=== PATIENT | male | born 1955 | race Caucasian/White ===

== ENCOUNTER 2019-10-17 11:47 | Emergency (ER) | payer OTHER, SELFPAY ==
[2019-10-17 11:58] VITALS: BP 135/79; PULSE 62; RESP 20; TEMP 36.3; O2SAT 100
--- NOTE | 2019-10-17 12:09 | ED.GENADULT ---
HPI - General Adult General Chief complaint: Wound/Laceration Stated complaint: Bite on Face Time Seen by Provider: 10/17/19 12:09 Source: patient and RN notes reviewed Mode of arrival: ambulatory Limitations: no limitations History of Present Illness HPI narrative: This is a 64 years old male presented office for evaluation of possible skin infection of his face. Symptoms began yesterday with a small nonpainful blackhead type lesion. Today, he woke up noticed the lesion has gotten bigger and more painful. Denies itchiness. Denies trauma/injury. He did not squeeze the lesion. Denies history of MRSA. TD is up to date. Related Data Home Medications Medication Instructions Recorded Confirmed amlodipine 10 mg tablet 10 mg PO DAILY 10/14/19 10/17/19 hydrochlorothiazide 25 mg tablet 25 mg PO DAILY 10/14/19 10/17/19 loratadine 10 mg tablet 10 mg PO DAILY 10/14/19 10/17/19 meloxicam 15 mg tablet 15 mg PO DAILY 10/14/19 10/17/19 Allergies Allergy/AdvReac Type Severity Reaction Status Date / Time crab Allergy Severe Swelling Verified 10/14/19 09:00 Penicillins Allergy Unknown Unknown Verified 10/14/19 09:00 Review of Systems Review of Systems: Narrative: CONSTITUTIONAL: Denies fever or feeling ill ENT:Reports head congestion currently on Zpack CARDIOVASCULAR: Denies chest pain RESPIRATORY: Denies dyspnea. Reports dry cough GASTROINTESTINAL: Denies abdominal pain, nausea, vomiting GENITOURINARY: Denies urinary symptoms or discharge SKIN: Denies rash MUSCULOSKELETAL: Denies acute back pain NEUROLOGIC: Denies lightheaded PMFSH Past Medical History Medical History Metatarsal bone fracture (~07/28/19) Family History Family History Sibling Patient's sister is in good health Patient's brother is in good health Mother Patient's mother is , Onset Age: 80 Family history of dementia, Onset Age: 80 Father Family history of lung cancer, Onset Age: 83 Family history of malignant neoplasm of brain, Onset Age: 83 Social History Social History Smoking status: Never smoker Second hand tobacco smoke exposure: No Alcohol intake: current Gender identity (if verbalized by the patient): Male Comments At time of signature, I agree with nursing past medical, surgical, social and family history. There is no relevant family history pertinent to the presenting complaint. Exam Narrative: Exam Narrative: GENERAL: This is a well-nourished, well-developed patient, in no apparent distress. CARDIOVASCULAR: Regular rate and rhythm without murmurs, gallops, or rubs. RESPIRATORY: Clear to auscultation. Breath sounds equal bilaterally. No wheezes, rales, or rhonchi. Occasional cough noted during examination when he take a deep breath. No use of accessory muscle or pulse lip breathing. GASTROINTESTINAL: Abdomen soft, non-tender, nondistended. Bowel sounds are active. No hepato-splenomegaly, or palpable masses. No guarding. SKIN: right check noted a tender,warmth, indurate, erythema and edematous lesion; left cheek intact. No Lymphadenitis. NEURO: awake, alert, and oriented to person, place and time. There were no obvious focal neurologic abnormalities. Steady gait Karina Coma Scale Eye Opening: Spontaneous 4 Ewing Coma Scale Motor: Obeys Commands 6 Ewing Coma Scale Verbal: Oriented 5 Course Vital Signs Vital signs: Vital Signs Temperature 97.4 F L 10/17/19 11:58 Pulse Rate 62 10/17/19 11:58 Respiratory Rate 10/17/19 11:58 Blood Pressure 135/79 10/17/19 11:58 Pulse Oximetry 100 10/17/19 11:58 Temperature 97.4 F L 10/17/19 11:58 Pulse Rate 62 10/17/19 11:58 Respiratory Rate 10/17/19 11:58 Blood Pressure 135/79 10/17/19 11:58 Pulse Oximetry 100 10/17/19 11:58 Medical Decision Making
== END 2019-10-17 12:21 | disposition home or self-care (01) ==
PROVIDERS: Emergency Provider Nurse Practitioner; PCP Internal Medicine
DX: L03.211 Cellulitis of face (principal); I10 Essential (primary) hypertension; Z98.84 Bariatric surgery status; M19.90 Unspecified osteoarthritis, unspecified site; Z96.651 Presence of right artificial knee joint; I87.8 Other specified disorders of veins
CPT/HCPCS: 99213; G0463

== ENCOUNTER 2020-01-28 10:15 | Outpatient (RCR) | payer OTHER, SELFPAY ==
--- NOTE | 2019-10-30 12:06 | PTOPEVAL ---
PHYSICAL THERAPY EVALUATION AND PLAN OF CARE Thank you for referring this patient to [facility]. I recommend Jon participate in PT 2x/week for 3-4weeks. Please review, sign, date and return this plan of care GLENDY. I agree with and certify that the following plan of care is medically necessary. Referring Physician Date Evaluation Diagnosis back pain with radiating pain to hips Onset 08/2019 Subjective Information Jon is here today with c/o Query Text:As Reported By Patient/ subacute to chronic low back Family pain that will radiate to the legs (to the knee). Reports that he wears a bulletproof vest to work and it seems to help relieve some of his symptoms and keeps him more upright. Over time the symptoms seem to have improved over time but mornings are more painful. 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 Pain Relief Interventions Used By Heat,Massage Modalities Patient Interventions Used By Clinicians Exercise,Heat Cervical and Lumbar ROM Lumbar ROM Lumbar Flexion (0-90) 30 Query Text:Active in Degrees Lumbar Flexion Active Mid Soto Query Text:Hands to: Lumbar Extension (0-40) 12 Query Text:Active in Degrees Lateral Rotation Right (0-45) 15 Query Text:Active in Degrees Lateral Rotation Left (0-45) 28 Query Text:Active in Degrees Lumbar Comments left rotation noted in lumbar spine during extension Lower Extremity Muscle Strength Testing Hip Strength Bilateral Hip Flexion Strength 3- Fair - Hip Extension Strength 3+ Fair + Hip Abduction Strength 3 Fair Knee Strength Left Knee Flexion Strength 5 Normal Knee Extension Strength 5 Normal Right Knee Flexion Strength 4- Good - Knee Extension Streng
--- NOTE | 2019-11-04 07:57 | PCPTNOTE ---
Addendum entered by Marcelina Jaramillo, PT 11/04/19 07:58: Patient also cancelled appt for 11/06/2019 for working overtime. Original Note: Patient called & cancelled scheduled appointment this date due to working overtime at work.
--- NOTE | 2019-11-06 10:28 | PCPTNOTE ---
Patient called & cancelled scheduled appointment this date due to having to work.
--- NOTE | 2019-11-27 14:57 | PTOPEVAL ---
PHYSICAL THERAPY PLAN OF CARE UPDATE AND PROGRESS REPORT Thank you for referring Jon Burrell to [facility]. I recommend Jon continue PT 2x/week for 4 weeks. Please review, sign, date and return this plan of care GLENDY. I agree with and certify that the following plan of care is medically necessary. Referring Physician Date Re-evaluation Diagnosis back pain with radiating pain to hips Onset 08/2019 Subjective Information Jon reports that he is Query Text:As Reported By Patient/ improved since start of Family therapy, but feels is could benefit from further care. Pain Assessment Timing of Pain Assessment Timing of Pain Assessment Pre-Treatment Pain Scale Pain Scale Used Numeric (1 - 10) Self Report Pain Assessment Spine, Lumbar Reported Pain Level 3 Pain Description Aching,Tightness Pain Frequency Intermittent Pain Aggravating Factors Bending,Weight Bearing/ Standing Interventions Used By Clinicians Exercise Pain Score Pain Score 3: Self Report Additional Pain Score Comments much better than it was at the beginning, but today is a little more tender than it has been lately Cervical and Lumbar ROM Lumbar ROM Lumbar Flexion (0-90) 40 Query Text:Active in Degrees Lumbar Flexion Active Mid Soto Query Text:Hands to: Lumbar Extension (0-40) 18 Query Text:Active in Degrees Lateral Rotation Right (0-45) 21 Query Text:Active in Degrees Lateral Rotation Left (0-45) 28 Query Text:Active in Degrees Lower Extremity Muscle Strength Testing Hip Strength Bilateral Hip Flexion Strength 4- Good - Hip Extension Strength 3+ Fair + Hip Abduction Strength 3 Fair Hip Strength Comments left hip flexion: 3+/5 Knee Strength Left Knee Flexion Strength 5 Normal Knee Extension Strength 5 Normal Right Knee Flexion Strength 5 Normal Knee Extension Strength 4+ Good + Balance Assessment Sitting to Standing Independent w/Hands Unsupported Stance Ability Safely- 2 minutes Sitting Unsupported, Feet on Floor Safely- 2 minutes Standing to Sitting Safely, Minimal Hand Use Transfer Ability Safely, Minimal Hand Use Unsupported Stance- Eyes Closed Supervision, 10 seconds Unsupported Stance- Feet Together Independent, 1 minute Reaching Forward while Standing Safely, 5 inches set up inspector Object From Floor Independent/Safe Look Behind Shoulder - Standing Shifts Weight Unilateral Turning 360 Degrees
--- NOTE | 2019-12-29 09:08 | PCPTNOTE ---
Patient called & cancelled scheduled appointment this date due to work. He rescheduled the appointment for 01/06/2020.
--- NOTE | 2020-01-06 11:06 | PTOPEVAL ---
PHYSICAL THERAPY PLAN OF CARE UPDATE AND PROGRESS REPORT Thank you for referring Jon Burrell to [facility]. I recommend continuing 2x/week for 4 weeks followed by re-assessment. Please review, sign, date and return this plan of care GLENDY. I agree with and certify that the following plan of care is medically necessary. Referring Physician Date Re-evaluation Diagnosis back pain with radiating pain to hips Onset 08/2019 Subjective Information Jon reports that he feels he Query Text:As Reported By Patient/ is still moving in a good Family direction with therapy. He feels there is a long way to go. He purchased a marshallese therapy ball and states that was really helpful over the weekend when he had time to use it. States really sore in the morning and feels a burning in the front of the thighs. Spine, Lumbar Reported Pain Level 4 Pain Description Aching,Soreness,Tender on Palpation,Tightness Pain Frequency Intermittent Pain Aggravating Factors Bending,Weight Bearing/ Standing Interventions Used By Clinicians Exercise Lumbar ROM Lumbar Flexion (0-90) 40 Query Text:Active in Degrees Lumbar Flexion Active Mid Soto Query Text:Hands to: Lumbar Extension (0-40) 18 Query Text:Active in Degrees Lateral Rotation Right (0-45) 28 Query Text:Active in Degrees Lateral Rotation Left (0-45) 28 Query Text:Active in Degrees Hip Strength Bilateral Hip Flexion Strength 4 Good Hip Extension Strength 3+ Fair + Hip Abduction Strength 3 Fair Knee Strength Left Knee Flexion Strength 5 Normal Knee Extension Strength 5 Normal Right Knee Flexion Strength 5 Normal Knee Extension Strength 5 Normal Muscle Length Testing Marcus Test Shortened Muscles Short (R) Iliopsoas,Short (L) Iliopsoas,Short (R) Rectus Femoris,Short (L) Rectus Femoris Left Hamstring Length -20 Query Text:(90 - 90 Position) Right Hamstring Length -25 Query Text:(90 - 90 Position) Auguste Balance Assessment Sitting to Standing Independent w/Hands Unsupported Stance Ability Safely- 2 minutes Sitting Unsupported, Feet on Floor Safely- 2 minutes Standing to Sitting
--- NOTE | 2020-01-29 08:20 | PCPTNOTE ---
This treatment is being continued on visit number [id number]. Please see documentation on both accounts to view progress. Completed interventions, outcomes, and problems have been marked as Inactive to facilitate the copying of the Care plan routine for recurring accounts.
== END 2020-01-28 23:59 | disposition home or self-care (01) ==
LOC: ANHPT 10:15
PROVIDERS: PCP Internal Medicine
DX: M54.40 Lumbago with sciatica, unspecified side (principal)
CPT/HCPCS: 97014; 97110; 97140; 97161; G0283

== ENCOUNTER 2020-03-13 08:37 | Outpatient (CLI) | payer OTHER, SELFPAY ==
[2020-03-13 09:14] LABS: Basophils Absolute Auto 0.1 K/mm3 (0.0-0.1); Basophils Percent Auto 0.8 % (0.2-1.2); Eosinophils Absolute Auto 0.2 K/mm3 (0-0.3); Eosinophils Percent Auto 1.8 % (0-4.4); Hemoglobin 14.2 g/dL (14.0-18.0); Immature Granulocyte Absolute 0.04 K/mm3 (0.00-0.031); Immature Granulocyte Percent A 0.5 % (0-0.5); Lymphocytes Absolute Auto 1.82 K/mm3 (0.9-3.2); Lymphocytes Percent Auto 21.6 % (18.3-44.2); Mean Corpuscular Volume 90.7 fl (80-100); Mean Platelet Volume 9.9 fl (7.4-10.4); Monocytes Absolute Auto 0.5 K/mm3 (0.1-0.6); Monocytes Percent Auto 6.4 % (2.6-8.5); Neutrophils Absolute Auto 5.8 K/mm3 (1.3-6.7); Neutrophils Percent Auto 68.9 % (45.5-73.1); Platelet Count Result 243 k/mm3 (150-375); Red Blood Count 4.74 M/mm3 (4.6-6.20); Red Cell Distribution Width 14.5 % (11.5-14.5); White Blood Count 8.4 K/mm3 (4.5-10.0)
[2020-03-13 09:21] LABS: Alanine Aminotransferase 21 U/L (4-50); Albumin Level 4.2 g/dL (3.5-5.1); Alkaline Phosphatase 109 U/L (38-126); Anion Gap 12.1 mmol/L (7-16); Aspartate Amino Transferase 24 U/L (17-59); Bilirubin,Total 0.8 mg/dL (0.2-1.3); Blood Urea Nitrogen 26 mg/dL (9-20); Carbon Dioxide 26 mmol/L (22-30); Chloride 103 mmol/L (98-107); Cholesterol 163 mg/dL (0-200); Estimated Glomerular Filt Rate 51; Glucose 103 mg/dL (75-110); HDL Direct 37 mg/dL; Potassium 4.1 mmol/L (3.4-5.0); Sodium 137 mmol/L (137-145); Triglycerides 135 mg/dL (<150)
[2020-03-13 09:31] LABS: LDL Cholesterol Direct 98 mg/dL
[2020-03-13 09:52] LABS: Prostate Specific Antigen 1.2 ng/mL (< OR = 4.0)
[2020-03-13 10:37] LABS: Folic Acid 12.9 ng/mL (2.76->20); Vitamin B12 > 1000.0 pg/mL (239-931)
[2020-03-19 12:22] LABS: Testosterone Free 104.5 pg/mL (35.0-155.0); Testosterone Total 836 ng/dL (250-1100)
== END 2020-03-13 08:38 | disposition home or self-care (01) ==
PROVIDERS: PCP Internal Medicine; Visit Provider Internal Medicine
DX: Z00.00 Encounter for general adult medical examination without abnormal findings (principal); R79.89 Other specified abnormal findings of blood chemistry; E53.8 Deficiency of other specified B group vitamins; I10 Essential (primary) hypertension; Z12.5 Encounter for screening for malignant neoplasm of prostate
CPT/HCPCS: 36415; 80053; 80061; 82607; 82746; 83735; 84153; 84402; 84403; 84443; 85025; G0103

== ENCOUNTER 2020-04-06 09:52 | Outpatient (CLI) | payer OTHER, SELFPAY | END 2020-04-06 09:53 | disposition home or self-care (01) | LOC: ANHAUDIO 09:53 | PROVIDERS: PCP Internal Medicine; Visit Provider Physician Assistant | DX: H90.3 Sensorineural hearing loss, bilateral (principal) | CPT/HCPCS: 92557; 92567 ==

== ENCOUNTER 2020-04-21 07:30 | Outpatient (RCR) | payer OTHER, SELFPAY ==
--- NOTE | 2020-01-29 08:20 | PCPTNOTE ---
The treatment documented on this account is a continuation of the treatment documented on visit number [id number]. Please see documentation on both accounts to view progress. The Plan of Care has been transitioned and updated within the new V#. I have addressed and agree with the discipline specific Problems, Interventions, and Goals for the current certification period. Completed interventions, outcomes, and problems have been marked as Inactive to facilitate the copying of the Care plan routine for recurring accounts.
--- NOTE | 2020-02-10 10:55 | PTOPEVAL ---
PHYSICAL THERAPY PLAN OF CARE UPDATE AND PROGRESS REPORT Thank you for referring Jon Burrell to [facility] I recommend continuing physical therapy 2x/week for 2 weeks followed by 1x/week for 3 weeks. Please review, sign, date and return this plan of care GLENDY. I agree with and certify that the following plan of care is medically necessary. Referring Physician Date Progress Self Report Pain Assessment Lower Spine, Lumbar Reported Pain Level 5 Pain Description Aching,Cramping,Spasms, Tightness Pain Frequency Intermittent Interventions Used By Clinicians Electrical Stimulation, Exercise,Heat,Manual Therapy Techniques Pain Score Pain Score 5: Self Report Additional Pain Score Comments post treatment: 10/27 Lumbar ROM Lumbar Flexion (0-90) 40 Lumbar Flexion Active Mid Soto Lumbar Extension (0-40) 18 Lateral Rotation Left and right (0-45) 28 Hip Strength Left Hip Flexion Strength 4 Good Hip Extension Strength 3 Fair Hip Abduction Strength 3 Fair Right Hip Flexion Strength 4+ Good + Hip Extension Strength 3 Fair Hip Abduction Strength 3- Fair - Knee Strength Bilateral Knee Flexion Strength 5 Normal Knee Extension Strength 5 Normal Muscle Length Testing Muscle Length Testing Marcus Test Shortened Muscles Short (R) Iliopsoas,Short (L) Iliopsoas,Short (R) Rectus Femoris,Short (L) Rectus Femoris Left Hamstring Length -20 Query Text:(90 - 90 Position) Right Hamstring Length -25 Query Text:(90 - 90 Position) Posture Thoracic Spine Posture Increased Kyphosis Lumbar Spine Posture Flattened Shoulder Posture (R) Elevated Hip Posture (L) Flexed,(R) Flexed Additional Posture Comments hips very mildly flexed Palpation SIJ appear to have improved bilaterally; significant hypomobility of mid thoracic spine; continues to have trigger points to bilateral quadratus lumborum and bilateral gluteus medius; minimal involvement of left deep hip external rotatoes Balance Assessment Auguste Balance Assessment Sitting to Standing Independent w/Hands Unsupported Stance Ability Safely- 2 minutes Sitting Unsupported, Feet on Floor Safely- 2 minutes Standing to Sitting S
--- NOTE | 2020-03-09 08:54 | PCPTNOTE ---
Patient did not show up for scheduled appointment this date.
--- NOTE | 2020-03-15 09:02 | PTOPEVAL ---
PHYSICAL THERAPY PROGRESS REPORT Thank you for referring Jon Burrell to [facility]. I recommend Jon continue PT 1x/week for 5 weeks. Please review, sign, date and return this plan of care GLENDY. I agree with and certify that the following plan of care is medically necessary. Referring Physician Date Progress Diagnosis back pain with radiating pain to hips Onset 08/2019 Subjective Information Jon has not been to PT in 2 Query Text:As Reported By Patient/ weeks and states that he is Family doing ok despite that. He states that he gets up and does his exercises and then sits in his massage chair and it gets him through the day. He has been working in basement and moving things around the yard. Self Report Pain Assessment Lower Spine, Lumbar Reported Pain Level 3 Pain Description Cramping,Spasms Pain Frequency Intermittent Interventions Used By Clinicians Electrical Stimulation, Exercise,Heat,Manual Therapy Techniques Pain Score Pain Score 3: Self Report Cervical and Lumbar ROM Lumbar ROM Lumbar Flexion (0-90) 50 Query Text:Active in Degrees Lumbar Flexion Active Mid Soto Query Text:Hands to: Lumbar Extension (0-40) 18 Query Text:Active in Degrees Lateral Rotation Right (0-45) 28 Query Text:Active in Degrees Lateral Rotation Left (0-45) 28 Query Text:Active in Degrees Lower Extremity Muscle Strength Testing Hip Strength Left Hip Flexion Strength 4+ Good + Hip Extension Strength 3 Fair Hip Abduction Strength 3+ Fair + Right Hip Flexion Strength 4+ Good + Hip Extension Strength 3 Fair Hip Abduction Strength 3 Fair Knee Strength Bilateral Knee Flexion Strength 5 Normal Knee Extension Strength 5 Normal Knee Strength Comments leg press: 100#with bilateral LE Muscle Length Testing Marcus Test Shortened Muscles Short (R) Iliopsoas,Short (L) Iliopsoas,Short (R) Rectus Femoris,Short (L) Rectus Femoris Left Hamstring Length -20 Query Text:(90 - 90 Position) Right Hamstring Length -20 Query Text:(90 - 90 Position) 5 Time Sit to Stand Time in Seconds 13 Gait Pattern Trendelenburg Gait
--- NOTE | 2020-04-21 08:14 | PTOPEVAL ---
PHYSICAL THERAPY PROGRESS REPORT AND PLAN OF CARE UPDATE Thank you for referring Jon Burrell to [facility].? The patient is scheduled to be seen for 1 appt in 2 weeks for follow-up. Please review, sign, date and return this plan of care GLENDY. I agree with and certify that the following plan of care is medically necessary. Referring Physician Date Progress Diagnosis back pain with radiating pain to hips Onset 08/2019 Subjective Information States that he fell last week Query Text:As Reported By Patient/ and since this in left knee is Family very bruised and right knee is scraped. States that the right is scraped and feels weak. States, though, that since the fall his back has not been hurting much, even while at work and after work. Self Report Pain Assessment Lower Spine, Lumbar Reported Pain Level 1 Pain Description Aching Pain Frequency Intermittent Interventions Used By Clinicians Electrical Stimulation, Exercise,Heat,Manual Therapy Techniques Cervical and Lumbar ROM Lumbar ROM Lumbar Flexion (0-90) 60 Query Text:Active in Degrees Lumbar Flexion Active Mid Soto Query Text:Hands to: Lumbar Extension (0-40) 20 Query Text:Active in Degrees Lateral Rotation Right (0-45) 30 Query Text:Active in Degrees Lateral Rotation Left (0-45) 30 Query Text:Active in Degrees Lower Extremity Muscle Strength Testing Hip Strength Left Hip Flexion Strength 5 Normal Hip Extension Strength 3 Fair Hip Abduction Strength 3+ Fair + Right Hip Flexion Strength 5 Normal Hip Extension Strength 3 Fair Hip Abduction Strength 4- Good - Knee Strength Bilateral Knee Flexion Strength 5 Normal Knee Extension Strength 5 Normal Knee Strength Comments leg press: 100#with bilateral LE Palpation quadratus lumborum and gluteus medius are clear of active trigger points; bilateral ITB tender to palpation but otherwise no c/o pain HERNANDEZ Balance Evaluation Total Score 50/56 (improved from 45/56) Timed Up and Go Test (TUG) (Seconds) 9 Assistive Devices None 5 Time Sit to Stand Time in Seconds 16.23 5 Time Sit to Stand Comments with hands on legs for last rep PT Clin
--- NOTE | 2020-05-03 08:54 | PCPTNOTE ---
This treatment is being continued on visit number [id number]. Please see documentation on both accounts to view progress. Completed interventions, outcomes, and problems have been marked as Inactive to facilitate the copying of the Care plan routine for recurring accounts.
== END 2020-05-02 23:59 | disposition home or self-care (01) ==
LOC: ANHPT 07:30
PROVIDERS: PCP Internal Medicine
DX: M54.40 Lumbago with sciatica, unspecified side (principal)
CPT/HCPCS: 97014; 97110; 97140; 97597; G0283

== ENCOUNTER 2020-07-29 07:30 | Outpatient (RCR) | payer OTHER, SELFPAY ==
--- NOTE | 2020-05-03 08:57 | PCPTNOTE ---
The treatment documented on this account is a continuation of the treatment documented on visit number [id number]. Please see documentation on both accounts to view progress. The Plan of Care has been transitioned and updated within the new V#. I have addressed and agree with the discipline specific Problems, Interventions, and Goals for the current certification period. Completed interventions, outcomes, and problems have been marked as Inactive to facilitate the copying of the Care plan routine for recurring accounts.
--- NOTE | 2020-05-05 08:36 | PTOPEVAL ---
PHYSICAL THERAPY PLAN OF CARE UPDATE Thank you for referring Jon Burrell to [facility].? The patient is scheduled to be seen for therapy? 2-4x/week for 4 weeks. Please review, sign, date and return this plan of care GLENDY. I agree with and certify that the following plan of care is medically necessary. Referring Physician Date Progress Diagnosis back pain with radiating pain to hips Onset 08/2019 Subjective Information Jon is here for a 2 week Query Text:As Reported By Patient/ check in. He states that he Family made it almost the whole two weeks without a lot of discomfort, but started 3 days ago started to feel increased pain in SIJ. Tried to do some stretches but did not feel as though they did much to help. States his knees are feeling better. Pain Assessment Timing of Pain Assessment Timing of Pain Assessment Assessment Pain Scale Pain Scale Used Numeric (1 - 10) Self Report Pain Assessment Bilateral Sacrum Reported Pain Level 5 Pain Description Aching Pain Score Pain Score 5: Self Report Cervical and Lumbar ROM Lumbar ROM Lumbar Flexion (0-90) 45 Query Text:Active in Degrees Lumbar Flexion Active Mid Soto Query Text:Hands to: Lumbar Extension (0-40) 12 Query Text:Active in Degrees Lateral Rotation Right (0-45) 30 Query Text:Active in Degrees Lateral Rotation Left (0-45) 30 Query Text:Active in Degrees Lumbar Comments very stiff movements this morning; post treatment: Cervical and Lumbar Muscle Testing Lumbar Strength Upper Abdominal Strength 3 Fair Lower Abdominal Strength 3 Fair Lower Extremity Muscle Strength Testing Hip Strength Right Hip Flexion Strength 5 Normal Hip Extension Strength 3 Fair Hip Abduction Strength 4- Good - Left Hip Flexion Strength 5 Normal Hip Extension Strength 3 Fair Hip Abduction Strength 3+ Fair + Knee Strength Bilateral Knee Flexion Strength 5 Normal Knee Extension Strength 5 Normal Knee Strength Comments leg press: 110# Palpation Assessment Palpation Palpation no active trigger points, but increased tissue tension of right SIJ region and left paraspinals Gait Assessment Gait Patte
--- NOTE | 2020-06-01 13:00 | PCPTNOTE ---
Patient called & cancelled scheduled appointment on 06/03 due to a work meeting and then is out of town until 06/15. We re-scheduled his appointment for 06/16 at 7:30AM.
--- NOTE | 2020-06-16 08:29 | PTOPEVAL ---
PHYSICAL THERAPY PLAN OF CARE UPDATE AND PROGRESS REPORT Thank you for referring Jon Burrell to [facility].? The patient is scheduled to be seen for therapy? 1-2x/week for 3-4 weeks. Please review, sign, date and return this plan of care GLENDY. I agree with and certify that the following plan of care is medically necessary. Referring Physician Date Progress Diagnosis back pain with radiating pain to hips Onset 08/2019 Subjective Information Jon has not been here in a Query Text:As Reported By Patient/ month due to conflicts of Family schedule. His back is doing really well. Some pain but overall doing really well. He reports that his hips have been really bothering him. He went to the doctor who did a cortisone injection to each side 2 days ago and is feeling better today. He received an order to continue therapy for hips. Self Report Pain Assessment Bilateral Hip(s) Reported Pain Level 2 Pain Description Aching,Tender on Palpation Pain Frequency Chronic,Continuous Bilateral Sacrum Reported Pain Level 2 Pain Description Aching Pain Score Pain Score 2,2: Self Report Additional Pain Score Comments some improvment in pain this week. more in my buttocks than back Interventions Used Interventions Used By Clinicians Exercise,Manual Therapy Techniques Pain Relief Interventions Used By Exercise,Heat Patient Lower Extremity Muscle Strength Testing Hip Strength Right Hip Flexion Strength 4+ Good + Hip Extension Strength 3 Fair Hip Abduction Strength 3+ Fair + Left Hip Flexion Strength 4 Good Hip Extension Strength 3 Fair Hip Abduction Strength 3 Fair Knee Strength Bilateral Knee Flexion Strength 5 Normal Knee Extension Strength 5 Normal Knee Strength Comments leg press: 160# Muscle Length Testing Muscle Length Testing Two-Joint Hip Flexor Shortened Muscles Short (R) Ilial Tib Band,Short (L) Ilial Tib Band Left Hamstring Length -20 Query Text:(90 - 90 Position) Right Hamstring Length -20 Query Text:(90 - 90 Position) Palpation Assessment Palpation Palpation mild tenderness to bilateral greater tochanter; bilateral
--- NOTE | 2020-07-05 10:03 | PCPTNOTE ---
Patient did not show up for scheduled appointment this date; called and left voicemail for next scheduled appointment.
--- NOTE | 2020-08-04 11:04 | PCPTNOTE ---
This treatment is being continued on visit number [id number]. Please see documentation on both accounts to view progress. Completed interventions, outcomes, and problems have been marked as Inactive to facilitate the copying of the Care plan routine for recurring accounts.
== END 2020-08-03 23:59 | disposition home or self-care (01) ==
LOC: ANHPT 07:30
PROVIDERS: PCP Internal Medicine
DX: M54.40 Lumbago with sciatica, unspecified side (principal)
CPT/HCPCS: 97014; 97110; 97140; G0283

== ENCOUNTER 2020-08-05 07:27 | Outpatient (RCR) | payer OTHER, SELFPAY ==
--- NOTE | 2020-08-04 11:05 | PCPTNOTE ---
The treatment documented on this account is a continuation of the treatment documented on visit number [id number]. Please see documentation on both accounts to view progress. The Plan of Care has been transitioned and updated within the new V#. I have addressed and agree with the discipline specific Problems, Interventions, and Goals for the current certification period. Completed interventions, outcomes, and problems have been marked as Inactive to facilitate the copying of the Care plan routine for recurring accounts.
--- NOTE | 2020-08-05 08:21 | PTOPEVAL ---
PHYSICAL THERAPY DISCHARGE NOTE Thank you for referring Jon Burrell to [facility].? I recommend discharge from PT at this time. Sheela started therapy on 10/30/2019 and has had a total of 43 visits. Since initial evaluation, his symptoms are significantly improved; however, the last several months have not produced many significant changes in strength or pain symptoms. Please review, sign, date and return this discharge GLENDY. I agree with and certify that the following plan of care is medically necessary. Referring Physician Date Discharge Diagnosis back pain with radiating pain to hips Onset 08/2019 Subjective Information Jon continues to report Query Text:As Reported By Patient/ flucutating symptoms in the Family glutes and sacrum. States that area of greater trochanteric bursitis is doing well and ok. Sees phyiscian today and is hoping to get another injection. Self Report Pain Assessment Bilateral Hip(s) Reported Pain Level 4 Pain Score Pain Score 4: Self Report Additional Pain Score Comments . Interventions Used Interventions Used By Clinicians Exercise,Manual Therapy Techniques Pain Relief Interventions Used By Exercise,Heat Patient Lumbar ROM Lumbar Flexion (0-90) 60 Query Text:Active in Degrees Lumbar Flexion Active Mid Soto Query Text:Hands to: Lumbar Extension (0-40) 12 Query Text:Active in Degrees Lateral Rotation Right (0-45) 40 Query Text:Active in Degrees Lateral Rotation Left (0-45) 40 Query Text:Active in Degrees Lower Extremity Muscle Strength Testing Hip Strength Bilateral Hip Flexion Strength 5 Normal Hip Extension Strength 3- Fair - Hip Abduction Strength 3 Fair Knee Strength Bilateral Knee Flexion Strength 5 Normal Knee Extension Strength 5 Normal PT Clinical Summary Jon is a 64 yo male participating in physical therapy for low back pain. We have been working on addressing bilateral trochanteric bursitis. His low back continues to maintain. Jon is demonstrating no significant changes as a result of to physical therapy treatments at this time. His strength is maintaining as is
== END 2020-08-06 07:59 | disposition home or self-care (01) ==
LOC: ANHPT 07:27
PROVIDERS: PCP Internal Medicine
DX: M54.40 Lumbago with sciatica, unspecified side (principal); M70.62 Trochanteric bursitis, left hip; M70.61 Trochanteric bursitis, right hip
CPT/HCPCS: 97110; 97140

== ENCOUNTER 2020-08-18 13:33 | Outpatient (CLI) | payer OTHER, SELFPAY ==
--- NOTE | ~2020-08-18 | US_ITS ---
EXAMINATION: US venous doppler LE BI EXAM DATE: 08/18/2020 15:53 INDICATION: I87.2 - Venous insufficiency (chronic) (peripheral). TECHNIQUE: Multiple grayscale, color flow and Doppler images of the lower extremity venous systems bi laterally were obtained and reviewed. Saphenous venous mapping. The exam was reviewed on 08/18/2020. There is no prior study for comparison. FINDINGS: Right side: The right common femoral, femoral and profunda veins demonstrate normal color flow, respi ratory variation, augmentation and compressibility. Compressibility, color flow confirmed within the right popliteal, posterior tibial, peroneal, and greater saphenous veins. Right Standing Venous Mapping: reflux seconds duration; vein size. Greater saphenous origin: 1 seconds; 16 mm. Greater saphenous mid thigh:------ 1 seconds; 11 mm. Greater saphenous below knee:--- 1 seconds; 8 mm. Lesser saphenous proximally:------ 0 seconds; 4 mm. Lesser saphenous distally: 0 seconds; 3 mm. Left side: The left common femoral, femoral and profunda veins demonstrate normal color flow, respira tory variation, augmentation and compressibility. Compressibility, color flow confirmed within the l eft popliteal, posterior tibial, peroneal, and greater saphenous veins. Left Standing Venous Mapping: reflux seconds duration; vein size. Greater saphenous origin: 5 seconds; 16 mm. Greater saphenous mid thigh:------ 1 seconds; 10 mm. Greater saphenous below knee:--- 1 seconds; 8 mm. Lesser saphenous proximally:------ 0 seconds; 3 mm. Lesser saphenous distally: 0 seconds; 2 mm. IMPRESSION: 1. Bilateral venous reflux as above. Reviewed, dictated and finalized at location B. COMMUNICATIONS ANALYST
--- NOTE | ~2020-08-18 | US_ITS ---
EXAMINATION: US arterial ankle brachial ind DATE: 08/18/2020 15:43 INDICATION: Other specified disorder veins. Left lower limb pain. Hypertension. Thickened toenails an d loss of hair at the lower limbs. TECHNIQUE: Segmental pressures and plethysmographic and Doppler waveforms of the brachial and lower e xtremity arteries were obtained. COMPARISON: None. FINDINGS: Right and left brachial artery pressures of 138 mm Hg and 151 mm Hg, respectively, are concordant (no rmal difference <= 30 mmHg). The right ankle-brachial index (THEE) is 1.23 (normal >= 0.9-1.0). The right great toe-brachial index (TBI) is 1.09 (normal >= 0.65). Arterial Doppler waveforms are biphasic with brisk systolic upstrokes at both the right posterior tibial and dorsalis pedis arteries. The left THEE is 1.18. The left TBI is 1.02. Arterial Doppler waveforms are triphasic at the left post erior tibial artery and biphasic at the left dorsalis pedis artery, both with brisk systolic upstroke s. IMPRESSION: 1. No significant arterial occlusive disease to either lower limb with normal bilateral ABIs and TBIs . Reviewed, dictated and finalized at location A. NOMY INSTRUCTOR IMPRESSION: 1. No significant arterial occlusive disease to either lower limb with normal b ilateral ABIs and TBIs.
== END 2020-08-18 13:34 | disposition home or self-care (01) ==
PROVIDERS: PCP Internal Medicine; Visit Provider Nurse Practitioner Family
DX: I87.8 Other specified disorders of veins (principal); I87.2 Venous insufficiency (chronic) (peripheral)
CPT/HCPCS: 93922; 93970

== ENCOUNTER 2020-09-09 08:01 | Outpatient (CLI) | payer OTHER, SELFPAY ==
[2020-09-09 08:21] LABS: Basophils Absolute Auto 0.1 K/mm3 (0.0-0.1); Basophils Percent Auto 0.7 % (0.2-1.2); Eosinophils Absolute Auto 0.1 K/mm3 (0-0.3); Eosinophils Percent Auto 1.4 % (0-4.4); Hematocrit 41.6 % (42.0-52.0); Hemoglobin 13.9 g/dL (14.0-18.0); Immature Granulocyte Absolute 0.06 K/mm3 (0.00-0.031); Immature Granulocyte Percent A 0.8 % (0-0.5); Lymphocytes Absolute Auto 1.77 K/mm3 (0.9-3.2); Lymphocytes Percent Auto 23.2 % (18.3-44.2); Mean Corpuscular HGB Conc 33.4 g/dl (32-36); Mean Corpuscular Hemoglobin 30.6 pg (26-34); Mean Corpuscular Volume 91.6 fl (80-100); Mean Platelet Volume 9.2 fl (7.4-10.4); Monocytes Absolute Auto 0.5 K/mm3 (0.1-0.6); Monocytes Percent Auto 6.4 % (2.6-8.5); Neutrophils Absolute Auto 5.2 K/mm3 (1.3-6.7); Neutrophils Percent Auto 67.5 % (45.5-73.1); Platelet Count Result 242 k/mm3 (150-375); Red Blood Count 4.54 M/mm3 (4.6-6.20); White Blood Count 7.6 K/mm3 (4.5-10.0)
[2020-09-09 08:32] LABS: Alanine Aminotransferase 19 U/L (4-50); Albumin Level 3.9 g/dL (3.5-5.1); Alkaline Phosphatase 93 U/L (38-126); Anion Gap 5 mmol/L (8-16); Aspartate Amino Transferase 24 U/L (17-59); Bilirubin,Total 0.9 mg/dL (0.2-1.3); Blood Urea Nitrogen 23 mg/dL (9-20); Calcium 9.1 mg/dL (8.4-10.2); Carbon Dioxide 28 mmol/L (22-30); Chloride 104 mmol/L (98-107); Estimated Glomerular Filt Rate 56; Glucose 103 mg/dL (75-110); Potassium 3.9 mmol/L (3.4-5.0); Sodium 137 mmol/L (137-145)
[2020-09-09 09:17] LABS: Vitamin D 25 Hydroxy 59.8 ng/mL
== END 2020-09-09 08:02 | disposition home or self-care (01) ==
PROVIDERS: PCP Internal Medicine; Visit Provider Orthopaedic Surgery
DX: E83.32 Hereditary vitamin D-dependent rickets (type 1) (type 2) (principal)
CPT/HCPCS: 36415; 80053; 82306; 85025

== ENCOUNTER 2020-09-28 13:09 | Outpatient (NON) | payer OTHER, SELFPAY ==
[2020-09-28 14:46] LABS: Color Synovial Fluid Yellow (Colorless); Source Synovial Fluid Synovial fluid
[2020-09-28 14:47] LABS: Appearance Synovial Fluid Cloudy (Clear); Lymphocytes Synovial Fluid 52 %; Macrophages Synovial Fluid 4 %; Monocytes Synovial Fluid 12 %; Neutrophils Synovial Fluid 20 % (0-25); Nucleated Cell Synovial Fluid 486 /uL (0-200); Other Cells Synovial Fluid 19 %; RBC Synovial Fluid 4129 /uL (0-0)
[2020-09-28 14:48] LABS: Crystals Synovial Fluid None Seen (None Seen)
== END 2020-09-28 13:10 ==
LOC: ANHLAB 13:12
PROVIDERS: PCP Internal Medicine; Visit Provider Nurse Practitioner Family
DX: T84.84XA Pain due to internal orthopedic prosthetic devices, implants and grafts, initial encounter (principal); Z96.651 Presence of right artificial knee joint; M25.461 Effusion, right knee; M25.462 Effusion, left knee
CPT/HCPCS: 36415; 82945; 84157; 86430; 87070; 87075; 87076; 87205; 88108; 89051; 89060

== ENCOUNTER 2020-10-27 08:30 | Outpatient (RCR) | payer OTHER, SELFPAY | END 2020-10-27 23:59 | disposition home or self-care (01) | LOC: ANHAUDIO 08:30 | PROVIDERS: PCP Internal Medicine; Visit Provider Internal Medicine | DX: Z46.1 Encounter for fitting and adjustment of hearing aid (principal) | CPT/HCPCS: V5160; V5261 ==

== ENCOUNTER 2021-01-13 08:20 | Emergency (ER) | payer OTHER, SELFPAY ==
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
[2021-01-13 08:30] VITALS: BP 177/87; PULSE 97; RESP 18; TEMP 36.8; O2SAT 98
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
[2021-01-13 10:39] VITALS: BP 165/78; PULSE 74; RESP 12; O2SAT 100
== END 2021-01-13 13:20 | disposition home or self-care (01) ==
PROVIDERS: Emergency Provider Emergency Medicine; PCP Internal Medicine
DX: S22.088A Other fracture of T11-T12 vertebra, initial encounter for closed fracture (principal); M19.90 Unspecified osteoarthritis, unspecified site; I10 Essential (primary) hypertension; E78.5 Hyperlipidemia, unspecified; Z96.651 Presence of right artificial knee joint; M17.11 Unilateral primary osteoarthritis, right knee; E53.8 Deficiency of other specified B group vitamins; M70.62 Trochanteric bursitis, left hip; M70.61 Trochanteric bursitis, right hip; M47.812 Spondylosis without myelopathy or radiculopathy, cervical region; M19.012 Primary osteoarthritis, left shoulder; M47.816 Spondylosis without myelopathy or radiculopathy, lumbar region; V43.52XA Car driver injured in collision with other type car in traffic accident, initial encounter
CPT/HCPCS: 72100; 72125; 73030; 99284

== ENCOUNTER 2021-01-20 08:05 | Outpatient (CLI) | payer OTHER, SELFPAY ==
--- NOTE | 2021-01-20 09:42 | ECG_ITS ---
Measurements Intervals Leonard Rate: 69 P: 53 SD: 208 QRS: -13 QRSD: 86 T: 48 QT: 373 QTc: 401 Interpretive Statements SINUS RHYTHM DELAYED PRECORDIAL R/S TRANSITION VOLTAGE CRITERIA FOR LVH BASELINE ARTIFACT- I, II, AVR, AVL, V6 BORDERLINE ECG Electronically Signed On 01-20-2021 15:51:19 CDT by Hadley Cho D.O.
[2021-01-20 10:02] LABS: Basophils Absolute Auto 0.1 K/mm3 (0.0-0.1); Basophils Percent Auto 0.6 % (0.2-1.2); Eosinophils Absolute Auto 0.1 K/mm3 (0-0.3); Eosinophils Percent Auto 1.5 % (0-4.4); Hematocrit 45.6 % (42.0-52.0); Hemoglobin 14.7 g/dL (14.0-18.0); Immature Granulocyte Absolute 0.05 K/mm3 (0.00-0.031); Immature Granulocyte Percent A 0.6 % (0-0.5); Mean Corpuscular HGB Conc 32.2 g/dl (32-36); Mean Corpuscular Hemoglobin 29.4 pg (26-34); Mean Corpuscular Volume 91.2 fl (80-100); Mean Platelet Volume 9.4 fl (7.4-10.4); Monocytes Absolute Auto 0.6 K/mm3 (0.1-0.6); Monocytes Percent Auto 7.2 % (2.6-8.5); Neutrophils Absolute Auto 6.5 K/mm3 (1.3-6.7); Neutrophils Percent Auto 74.1 % (45.5-73.1); Platelet Count Result 276 k/mm3 (150-375); Red Cell Distribution Width 14.9 % (11.5-14.5); White Blood Count 8.8 K/mm3 (4.5-10.0)
[2021-01-20 10:11] LABS: INR 0.9; Prothrombin Time 12.8 Seconds (11.1-14.7)
[2021-01-20 10:12] LABS: Anion Gap 11 mmol/L (8-16); Blood Urea Nitrogen 25 mg/dL (9-20); Calcium 9.9 mg/dL (8.4-10.2); Carbon Dioxide 28 mmol/L (22-30); Chloride 101 mmol/L (98-107); Estimated Glomerular Filt Rate 47; Glucose 110 mg/dL (75-110); Partial Thromboplastin Time 27.9 SECONDS (22.3-36.8); Sodium 140 mmol/L (137-145)
[2021-01-20 10:14] LABS: Add Urine Microscopic? YES; Appearance Urine Clear (Clear); Bilirubin Urine Negative (Negative); Blood Urine Negative (Negative); Color Urine Yellow (Yellow); Glucose Urine UA Negative (Negative); Ketones Urine Negative (Negative); Leukocyte Esterase Ur Trace LEU/UL (Negative); Nitrate Urine Negative (Negative); Protein Urine Negative (Negative); Specific Grav Ur 1.011 (1.001-1.035); Urobilinogen Urine Negative mg/dL (<2.0)
[2021-01-20 10:39] LABS: Squamous Epithelial Cell Urine Few /hpf (Few); WBC Urine 0-3 /hpf (0-3)
== END 2021-01-20 08:06 | disposition home or self-care (01) ==
PROVIDERS: PCP Internal Medicine; Visit Provider Orthopaedic Surgery
DX: Z01.818 Encounter for other preprocedural examination (principal); Z96.651 Presence of right artificial knee joint; T84.84XA Pain due to internal orthopedic prosthetic devices, implants and grafts, initial encounter
CPT/HCPCS: 36415; 80048; 81001; 85025; 85610; 85730; 86850; 86900; 86901; 87081; 93005

== ENCOUNTER 2021-02-24 14:43 | Observation (INO) | payer OTHER, SELFPAY ==
[2021-01-20 08:57] VITALS: BMI 41.8
[2021-01-20 09:30] VITALS: BP 168/96; PULSE 70; RESP 20; TEMP 36.6; O2SAT 98
[2021-02-16 09:33] VITALS: BMI 39.7
--- NOTE | 2021-02-22 12:43 | WPDANESEPPF ---
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 Patient Data Age: 65 Gender: M Height: 1.91 m Weight: 144.25 kg Last Vital Signs Temp 36.6 C 01/20/21 09:30 Pulse 70 01/20/21 09:30 Resp 20 01/20/21 09:30 BP 168/96 H 01/20/21 09:30 Pulse Ox 98 01/20/21 09:30 Allergies Allergy/AdvReac Type Severity Reaction Status Date / Time crab Allergy Severe Swelling Verified 02/23/21 06:18 Penicillins Allergy Unknown Anaphylaxis Verified 02/23/21 06:18 Home Medications Medication Instructions Recorded Confirmed Type syringe with needle 3 mL 22 x 1 #30 each 07/15/19 02/23/21 Rx 1/2 loratadine 10 mg tablet 10 mg PO DAILY 10/14/19 02/23/21 History calcium carbonate 600 mg calcium 1,200 mg PO DAILY tablet 03/08/20 02/23/21 History (1,500 mg) tablet cholecalciferol (vitamin D3) 10 10 mcg PO DAILY 03/08/20 02/23/21 History mcg (400 unit) capsule testosterone cypionate 200 mg/mL 200 mg IM .q 3 weeks #10 ml 04/23/20 02/23/21 Rx intramuscular oil allopurinol 300 mg tablet 300 mg PO DAILY #90 tablet 08/17/20 02/23/21 Rx meloxicam 15 mg tablet 15 mg PO DAILY #90 tablet 08/17/20 02/23/21 Rx chlorhexidine gluconate 4 % 1 applic TOPICAL ONCE #237 ml 11/17/20 02/23/21 Rx topical liquid montelukast 10 mg tablet 10 mg PO DAILY #90 tablet 12/09/20 02/23/21 Rx trazodone 50 mg tablet 100 mg PO .QHS #180 tablet 12/09/20 02/23/21 Rx tramadol 50 mg tablet 50 mg PO BID PRN #90 tablet 12/31/20 02/23/21 Rx cyanocobalamin (vitamin B-12) 1,000 mcg SUBLINGUAL DAILY 01/20/21 02/23/21 History ferrous sulfate [Iron (ferrous 650 mg PO DAILY 01/20/21 02/23/21 History sulfate)] multivitamin [Multi-Vitamin] 1 tablet PO DAILY 01/20/21 02/23/21 History amlodipine 10 mg tablet 10 mg PO DAILY #90 tablet 02/15/21 02/23/21 Rx hydrochlorothiazide 25 mg tablet 25 mg PO DAILY #90 tablet 02/15/21 02/23/21 Rx Patient hx anesthesia problems: none Family hx anesthesia problems: none PMFSH Past Medical History Medical History (Updated 02/22/21 @ 12:43 by William Martin DO) Arthritis Bilateral hip pain Cellulitis Contact dermatitis Essential (primary) hypertension Fracture of metatarsal bone with nonunion Hearing loss Hyperlipidemia Low testosterone in male Metatarsal bone fracture (~07/28/19) Painful total knee replacement, right Primary osteoarthritis of left knee PVD (peripheral vascular disease) Skin ulcer T12 compression fracture Trochanteric bursitis, left hip Trochanteric bursitis, right hip Venous stasis Vision abnormalities Vitamin B12 deficiency (non anemic) Family History Family History Sibling Patient's sister is in good health Patient's brother is in good health Mother Patient's mother is , Onset Age: 80 Family history of dementia, Onset Age: 80 Father Family history of lung cancer, Onset Age: 83 Family history of malignant neoplasm of brain, Onset Age: 83 Social History Social History (Updated 02/14/21 @ 14:59 by Martha Aguilar MA) Second hand tobacco smoke exposure: No Alcohol intake: current Drinks per week: 2 Substance use: never Substance use type: does not use Living arrangements: with family Gender identity (if verbalized by the patient): Male Spiritual care concerns: No Anes - Eval Final PreProcedure Day of Procedure 02/22/21 12:43 Patient weight: obese Heart: regular rate and rhythm Lungs: clear to auscultation and normal air movement Airway: Mallampati scale class II Neurological: alert and oriented Last oral intake: >/= 8 hours ASA classification: III Emergent: no Anesthetic plan: proceed Anesthesia type and monitoring: general LMA and standard monitoring
[2021-02-23] VITALS (15 sets, daily range): BP systolic 119–154; BP diastolic 69–90; PULSE 62–94; RESP 10–20; TEMP 35.6–36.5; O2SAT 95–100; BMI 39.5
[2021-02-23] MEDS: ACETAMINOPHEN 500 MG TABLET 1000 MG PO (06:17)
[2021-02-23] MEDS: CELECOXIB 200 MG CAPSULE PO ×2 (06:17→17:40)
[2021-02-23] MEDS: LACTATED RINGERS 1,000 ML 30 ML IV CONT ×2 (06:22→10:27)
--- NOTE | 2021-02-23 06:59 | WPDANESPNB ---
Anes - Peripheral Nerve Block Date/Time: 02/23/21 06:59 I have discussed with the patient/family/POA the placement of a peripheral nerve block for post-operative pain management, including associated risks, benefits, complications, and side effects. Alternative methods of post-operative analgesia were detailed. Questions were solicited and answers provided to the satisfaction of the patient/family/POA. Time-Out: A pre-procedural Time-Out was completed immediately before starting the procedure and confirmed: Patient Identification, Site, Procedure, Patient Position and the Availability of Requisite Equipment. Clinical Indications: Acute post-operative pain management requested by the operative surgeon. Nerve Block Insertion Note Anes-nerve block: adductor canal right Patient position: supine Skin prep: chlorhexidine Needle: 22 gauge, stimulating, insulated echogenic needle. Needle length: 80 mm Technique: ultrasound Injectate: bupivacaine 0.5% with epi 5 mcg/ml (30cc - no epi) Observations: tolerated well Complications: none Procedure start time:: 729 Procedure end time:: 732
--- NOTE | 2021-02-23 07:14 | WPDHPUPDATE1 ---
History and Physical Update Update Date/Time: 02/23/21 07:14 History and Physical has been reviewed, including an updated exam of the patient. There are NO changes in the patient's condition. Risks, benefits, and alternatives have been discussed and questions answered. Patient agrees to proceed with procedure.
[2021-02-23] MEDS: ceFAZolin 3 GM/D5W 100 ML 100 ML IVPB (07:35)
[2021-02-23] MEDS: TRANEXAMIC ACID 1,000 MG/10 ML AMPUL 1000 MG IV PUSH (09:46)
--- NOTE | 2021-02-23 10:27 | W.PM.PROC2 ---
Procedure Note - Detailed Date of Procedure 02/23/21 Pre-op Diagnosis Right Patella Femoral DJD, pain and maltracking Post-op Diagnosis same Procedure Performed RIGHT KNEE PATELLA RESURFACING WITH REVISION OF POLYETHYLENE COMPONENT Surgeon Brendan Holder MD Anesthesia general Description of Procedure THE RIGHT KNEE WAS PREPPED AND DRAPED IN THE STERILE FASHION. A MIDLINE SKIN INCISION WAS MADE OVER THE OLD SCAR. FULL THICKNESS MEDIAL AND LATERAL FLAPS WERE PREFORMED. A MEDIAL PARAPATELLAR ARTHROTOMY WAS MADE. THE PATELLA WAS EVERTED. THERE WAS A LOT OF WEAR AND DJD OVER THE PATELLA. THERE WAS A LARGE OSTEOPHYTE OVERHANGING ON THE LATERAL FACET. THE FEMORAL AND TIBIAL COMPONENT WERE WELL FIXED WITH NO SIGN OF LOOSENING. THERE WAS SOME WEAR TO THE POST OF THE POLYETHYLENE COMPONENT. THE POLY COMPONENT WS REMOVED. SYNOVECTOMY WAS PREFORMED ON SOME HYPERTROPHIC SYNOVIUM. THE KNEE WAS IRRIGATED THOROUGHLY.THE PATELLA WAS THEN PREPARED . THE PATELLA THICKNESS MEASURED ABOUT 24 MM AT THE THICKEST POINT ON THE MEDIAL FACET. THE PATELLA SURFACE WAS RESECTED AND 3 PRONG HOLES WERE DRILLED TO ACCOMMODATE A 37 x 8.6 MM THICKNESS PATELLA TRIAL IMPLANT. A 12 PS PLUS POLY TRIAL WAS PLACED ON THE TIBIA.THE KNEE WAS TAKEN THROUGH A RANGE OF MOTION. THE KNEE CAME OUT TO FULL EXTENSION. THERE WAS NO ABNORMAL TILT TO THE PATELLA. THERE WAS GOOD A/P AND VARUS/VALGUS STABILITY. THERE WAS NO EXCESSIVE ROLL BACK WITH FLEXION. THE TRIAL COMPONENTS WERE REMOVED. A 12 PS PLUS POLYETHYLENE COMPONENT WAS INSERTED AND LOCKED TO THE TIBIAL COMPONENT. A 37 x 8.6 PATELLA BUTTON WAS CEMENTED INTO PLACE. ONCE THE CEMENT WAS HARD THE KNEE WAS TAKEN THROUGH A ROM AGAIN AND FOUND TO BE STABLE WITH NO PATELLA TILT NO EXCESSIVE ROLL BACK WITH FLEXION AND GOOD STABILITY WITH COMPLETE AND FULL EXTENSION. THE KNEE WAS IRRIGATED WITH STERILE BETADINE AND WATER FOR ABOUT 3 MINUTES. THE BLEEDERS WERE CAUTERIZED. THE ARTHROTOMY WAS REPAIRED WITH NUMBER 1 VICRYL. THE SUB CUTANEOUS LAYER WITH 2-0 VICRYL AND THE SKIN WITH ANA LAURA. THE WOUND WAS WASHED AND A STERILE DRESSING WAS APPLIED. PATIENT WAS EXTUBATED. Estimated Blood Loss 50.0 Pathology none sent Complications No immediate complications Condition stable Disposition PACU
[2021-02-23] MEDS: fentaNYL CITRATE INJ (*CRX) 100 MCG/2 ML VIAL 25 MCG IV PUSH ×8 (10:41→11:51)
--- NOTE | 2021-02-23 11:36 | SUR.PHASEI ---
1122 sbar faxed floor notified
--- NOTE | 2021-02-23 12:11 | ADMGEN ---
This patient, Jon Burrell, was admitted to Medical Room 253-01. Patient/family oriented to hospital policies and general routines including ID bracelet, bed and alarms, visiting hours, pain management, procedures, bathroom and other care routines, personal items, smoking policy, room service/diet, and visiting hours. Information on how to activate the Rapid Response Team has been discussed. Patient/Family are encouraged to report perceived risks to care and to ask questions if they do not understand what they are told or what they should do.
--- NOTE | 2021-02-23 13:00 | PC.NURSE ---
Per patient and his , he prefers to take Tramadol for pain rather than Percocet. Called Dr. Holder's office and left message regarding same.
[2021-02-23] MEDS: SODIUM CHLORIDE 0.9% IV 1,000 ML 125 ML IV CONT (13:13)
--- NOTE | 2021-02-23 13:30 | PC.NURSE ---
Patient asking for something for pain but states he would still prefer it to be Tramadol. Called Dr. Holder's office again and spoke with office staff. They state they will get the message to Dr. Holder. 1400 Patient requesting Percocet for now until orders can be obtained from Dr. Holder.
[2021-02-23] MEDS: oxyCODONE/ACETAMINOPHEN (*CRX) 5-325 MG TABLET 1 TABLET PO (13:57)
[2021-02-23] MEDS: ceFAZolin 2 GM/D5W 50 ML 2 GM/50 ML BAG IVPB ×2 (15:24→22:40)
[2021-02-23] MEDS: traMADol HCL (*CRX) 50 MG TABLET PO ×2 (15:34→20:23)
[2021-02-23] MEDS: DOCUSATE SODIUM 100 MG CAPSULE PO (17:40)
[2021-02-23] MEDS: MONTELUKAST SODIUM 10 MG TABLET PO (17:41)
[2021-02-23] MEDS: traZODone HCL 50 MG TABLET 100 MG PO (20:24)
[2021-02-23] MEDS: FAMOTIDINE 20 MG TABLET PO (20:24)
--- NOTE | ~2021-02-24 | XR_ITS ---
EXAMINATION: XR knee RT 2V EXAM DATE: 02/23/2021 10:44 INDICATION: Right patellar resurfacing. Total right knee arthroplasty. TECHNIQUE: Portable frontal, crosstable lateral projections right knee obtained immediately followin g arthroplasty performed by orthopedic surgeon Brendan Holder MD. Comparison made to x-ray . FINDINGS: Patient is status post total knee arthroplasty, tibial and femoral components which could be same as prior study. There is evidence of interval patellar resurfacing. The orthopedic hardware is in expected position. There are becky overlying the anterior aspect of the knee. There is smal l amount of subcutaneous gas, gas within the knee joint space. Overlying soft tissue swelling. Elijah elate with procedure note. IMPRESSION: Status post right patellar resurfacing. Arthroplasty hardware in position. Reviewed, dictated and finalized at location B. IMPRESSION: Status post right patellar resurfacing. Arthroplasty hardware in po sition.
[2021-02-24 01:09] VITALS: BP 128/69; PULSE 58; RESP 20; TEMP 36.1; O2SAT 96
[2021-02-24] MEDS: traMADol HCL (*CRX) 50 MG TABLET PO (05:14)
[2021-02-24 05:40] VITALS: BP 122/67; PULSE 58; RESP 20; TEMP 36.2; O2SAT 95
[2021-02-24] MEDS: ceFAZolin 2 GM/D5W 50 ML 2 GM/50 ML BAG IVPB ×2 (06:03→15:21)
[2021-02-24 06:07] LABS: Basophils Percent Auto 0.2 % (0.2-1.2); Eosinophils Absolute Auto 0.1 K/mm3 (0-0.3); Eosinophils Percent Auto 0.7 % (0-4.4); Immature Granulocyte Absolute 0.05 K/mm3 (0.00-0.031); Immature Granulocyte Percent A 0.5 % (0-0.5); Lymphocytes Absolute Auto 1.32 K/mm3 (0.9-3.2); Lymphocytes Percent Auto 12.5 % (18.3-44.2); Mean Corpuscular HGB Conc 31.7 g/dl (32-36); Mean Corpuscular Hemoglobin 28.8 pg (26-34); Mean Corpuscular Volume 90.7 fl (80-100); Mean Platelet Volume 10.4 fl (7.4-10.4); Monocytes Absolute Auto 0.6 K/mm3 (0.1-0.6); Monocytes Percent Auto 5.6 % (2.6-8.5); Neutrophils Absolute Auto 8.5 K/mm3 (1.3-6.7); Neutrophils Percent Auto 80.5 % (45.5-73.1); Platelet Count Result 233 k/mm3 (150-375); Red Blood Count 4.52 M/mm3 (4.6-6.20); Red Cell Distribution Width 14.1 % (11.5-14.5); White Blood Count 10.6 K/mm3 (4.5-10.0)
[2021-02-24 06:22] LABS: Anion Gap 7 mmol/L (8-16); Blood Urea Nitrogen 25 mg/dL (9-20); Calcium 9.2 mg/dL (8.4-10.2); Carbon Dioxide 28 mmol/L (22-30); Chloride 101 mmol/L (98-107); Estimated CRCL calculation 77 ml/min; Estimated Glomerular Filt Rate 51; Glucose 116 mg/dL (75-110); Potassium 4.2 mmol/L (3.4-5.0); Sodium 136 mmol/L (137-145)
[2021-02-24] MEDS: DOCUSATE SODIUM 100 MG CAPSULE PO ×2 (08:26→17:48)
[2021-02-24] MEDS: CHOLECALCIFEROL 400 UNITS TABLET (VIT D) PO (08:26)
[2021-02-24] MEDS: ASPIRIN 325 MG ENTERIC TABLET 650 MG PO (08:26)
[2021-02-24] MEDS: LORATADINE 10 MG TABLET PO (08:26)
[2021-02-24] MEDS: MONTELUKAST SODIUM 10 MG TABLET PO (08:26)
[2021-02-24] MEDS: FERROUS SULFATE 324 MG TABLET 648 MG PO (08:26)
[2021-02-24] MEDS: FAMOTIDINE 20 MG TABLET PO ×2 (08:27→21:08)
[2021-02-24] MEDS: allopurinoL 300 MG TABLET PO (08:27)
[2021-02-24] MEDS: amLODIPine BESYLATE 5 MG TABLET 10 MG PO (08:27)
[2021-02-24] MEDS: CALCIUM CARBONATE (OSCAL) 500 MG TABLET 1000 MG PO (08:27)
[2021-02-24] MEDS: CELECOXIB 200 MG CAPSULE PO ×2 (08:27→17:47)
[2021-02-24] MEDS: hydroCHLOROthiazide 25 MG TABLET PO (08:27)
--- NOTE | 2021-02-24 09:03 | PM.PNORT ---
Progress Note: A&P Assessment and Plan (1) Painful total knee replacement, right: Qualifiers: Encounter type: initial encounter Qualified Code(s): T84.84XA - Pain due to internal orthopedic prosthetic devices, implants and grafts, initial encounter; Z96.651 - Presence of right artificial knee joint Code(s): T84.84XA - Pain due to internal orthopedic prosthetic devices, implants and grafts, initial encounter; Z96.651 - Presence of right artificial knee joint Status: Acute Assessment and Plan: POD #1: RIGHT KNEE PATELLA RESURFACING WITH REVISION OF POLYETHYLENE COMPONENT Continue PT/OT. WBAT. Walker. High fall risk. Continue pain control. Ice knee. SCDs. Incentive Spirometry. DVT prophylaxis. Monitor dressing. Change prior to discharge. Dispo: Home with Home Health pending progress with PT/OT. Subjective Subjective Date/Time Seen: 02/24/21 09:03 Post Op day: 1 Interval history: POD #1: RIGHT KNEE PATELLA RESURFACING WITH REVISION OF POLYETHYLENE COMPONENT No new complaints. Feeling well. Up in bed eating breakfast. Review of Systems Review of Systems: All systems reviewed & are unremarkable except as noted in HPI and below Constitutional: Constitutional: Denies fever(s) and Denies headache(s) ENT: Denies headache(s) Cardiovascular: Cardiovascular: Denies chest pain, Denies diaphoresis, Reports lightheadedness, Denies palpitations and Denies dyspnea Respiratory: Respiratory: Denies dyspnea Gastrointestinal: Gastrointestinal: Denies abdominal pain, Denies constipation, Denies nausea and Denies vomiting Genitourinary: Genitourinary: Denies dysuria and Reports nocturia Musculoskeletal: Musculoskeletal: Reports arthralgias (Right Knee ) and Reports joint swelling (Right Knee ) Neurologic: Denies headache(s) Endocrine: Endocrine: Denies palpitations Exam Const: General: comfortable and no acute distress Resp: Effort & Inspection: normal respiratory effort Cardio: Rate: regular rate Rhythm: regular rhythm GI: GI Palp: Yes Soft to palpation, No Tenderness to palpation present (GI) and No Guarding due to palpation present (GI) Skin: Wounds: wounds noted Other: Incision c/d/i. No surrounding redness/warmth. No hematoma. Mild ecchymosis. No wound dehiscence Neuro: Cognition (Neuro): normal cognition Other: NV intact aside from block. Moves toes. Sensation intact to light touch. +ankle dorsiflexion/plantarflexion. Extrem: Right upper extremity: normal to inspection, full ROM and normal capillary refill Left upper extremity: normal to inspection, full ROM and normal capillary refill Right lower extremity: normal to inspection, full ROM (ROM limited due to recent surgical intervention ) and knee Details: tenderness (diffuse, mild ) and swelling (diffuse, mild ) Left lower extremity: normal to inspection Psych: Mental Status: mental status grossly normal Objective Data Vital Signs Vital Signs: Vital Signs - 24 hr 02/23/21 10:27 02/23/21 10:40 02/23/21 11:00 Temperature 36.1 C L Pulse Rate 77 79 85 Respiratory Rate 20 16 10 L Blood Pressure 119/69 130/71 142/75 H Pulse Oximetry 99 98 95 02/23/21 11:15 02/23/21 11:31 02/23/21 11:45 Temperature Pulse Rate 82 83 83 Respiratory Rate 10 L 10 L 12 Blood Pressure 136/76 143/82 H 140/82 Pulse Oximetry 96 96 98 02/23/21 12:00 02/23/21 12:15 02/23/21 12:30 Temperature 36.1 C L 35.7 C L 35.7 C L Pulse Rate 84 82 82 Respiratory Rate 12 18 18 Blood Pressure 140/90 141/88 H 143/72 H Pulse Oximetry 98 100 100 02/23/21 13:00 02/23/21 14:00 02/23/21 16:01 Temperature 35.6 C L 36.1 C L Pulse Rate 80 94 Respiratory Rate 16 18 Blood Pressure 149/81 H 154/81 H Pulse Oximetry 98 98 96 02/23/21 17:48 02/23/21 20:28 02/24/21 01:09 Temperature 36.2 C L 36.1 C L 36.1 C L Pulse Rate 62 67 58 L Respiratory Rate 18 20 20 Blood Pressure 134/73 143/71 H 128/69 Pulse Oximetry 98 99 96 02/24/21 05:40 Temp
[2021-02-24 10:00] VITALS: BP 138/69; PULSE 81; RESP 18; TEMP 36.1; O2SAT 99
[2021-02-24] MEDS: oxyCODONE/ACETAMINOPHEN (*CRX) 5-325 MG TABLET 1 TABLET PO ×2 (12:59→21:09)
[2021-02-24 14:00] VITALS: BP 134/76; PULSE 64; RESP 18; TEMP 36.1; O2SAT 99
[2021-02-24] MEDS: diazePAM (*CRX) 5 MG TABLET PO (15:21)
[2021-02-24 20:17] VITALS: BP 144/70; PULSE 66; RESP 20; TEMP 36.3; O2SAT 100
[2021-02-24] MEDS: traZODone HCL 50 MG TABLET 100 MG PO (22:32)
[2021-02-25] MEDS: traMADol HCL (*CRX) 50 MG TABLET PO (03:49)
[2021-02-25 05:07] VITALS: BP 132/76; PULSE 65; RESP 20; TEMP 36.1; O2SAT 99
--- NOTE | 2021-02-25 08:29 | PM.PNORT ---
Progress Note: A&P Assessment and Plan (1) Painful total knee replacement, right: Qualifiers: Encounter type: initial encounter Qualified Code(s): T84.84XA - Pain due to internal orthopedic prosthetic devices, implants and grafts, initial encounter; Z96.651 - Presence of right artificial knee joint Code(s): T84.84XA - Pain due to internal orthopedic prosthetic devices, implants and grafts, initial encounter; Z96.651 - Presence of right artificial knee joint Status: Acute Assessment and Plan: POD #2: RIGHT KNEE PATELLA RESURFACING WITH REVISION OF POLYETHYLENE COMPONENT Continue PT/OT. WBAT. Walker. High fall risk. Continue pain control. Ice knee. SCDs. Incentive Spirometry. DVT prophylaxis. Monitor dressing. Change today Dispo: Home with Home Health today pending progress with PT/OT. Subjective Subjective Date/Time Seen: 02/25/ 08:29 POD #2: RIGHT KNEE PATELLA RESURFACING WITH REVISION OF POLYETHYLENE COMPONENT No new complaints. Feeling well. Up in bed eating breakfast. Ready for discharge today. Review of Systems Review of Systems: All systems reviewed & are unremarkable except as noted in HPI and below Constitutional: Constitutional: Denies fever(s) and Denies headache(s) ENT: Denies headache(s) Cardiovascular: Cardiovascular: Denies chest pain, Denies diaphoresis, Reports lightheadedness, Denies palpitations and Denies dyspnea Respiratory: Respiratory: Denies dyspnea Gastrointestinal: Gastrointestinal: Denies abdominal pain, Denies constipation, Denies nausea and Denies vomiting Genitourinary: Genitourinary: Denies dysuria and Reports nocturia Musculoskeletal: Musculoskeletal: Reports arthralgias (Right Knee ) and Reports joint swelling (Right Knee ) Neurologic: Denies headache(s) Endocrine: Endocrine: Denies palpitations Exam Const: General: comfortable and no acute distress Resp: Effort & Inspection: normal respiratory effort Cardio: Rate: regular rate Rhythm: regular rhythm GI: GI Palp: Yes Soft to palpation, No Tenderness to palpation present (GI) and No Guarding due to palpation present (GI) Skin: Wounds: wounds noted Other: Incision c/d/i. No surrounding redness/warmth. No hematoma. Mild ecchymosis. No wound dehiscence Neuro: Cognition (Neuro): normal cognition Other: NV intact. Moves toes. Sensation intact to light touch. +ankle dorsiflexion/plantarflexion. Extrem: Right upper extremity: normal to inspection, full ROM and normal capillary refill Left upper extremity: normal to inspection, full ROM and normal capillary refill Right lower extremity: normal to inspection, full ROM (ROM limited due to recent surgical intervention ) and knee Details: tenderness (diffuse, mild ) and swelling (diffuse, mild ) Left lower extremity: normal to inspection Psych: Mental Status: mental status grossly normal Objective Data Vital Signs Vital Signs: Vital Signs - 24 hr 02/24/21 10:00 02/24/21 14:00 02/24/21 20:17 Temperature 36.1 C L 36.1 C L 36.3 C L Pulse Rate 81 64 66 Respiratory Rate 18 18 20 Blood Pressure 138/69 134/76 144/70 H Pulse Oximetry 99 99 100 02/25/21 05:07 Temperature 36.1 C L Pulse Rate 65 Respiratory Rate 20 Blood Pressure 132/76 Pulse Oximetry 99 Intake/Output Intake/Output: Intake & Output 02/22/21 02/23/21 02/24/21 02/25/21 23:59 23:59 23:59 23:59 Intake Total 1905 2650 240 Output Total 2250 1650 1500 Balance -345 1000 -1260 Meds/Results Medications: Active Medications Generic Name Dose Route Start Last Admin Trade Name Camron PRN Reason Stop Dose Admin Acetaminophen 1,000 mg 02/23/21 12:03 Acetaminophen 500 Mg Tablet PO Q6H PRN Pain Rated 1-3 Allopurinol 300 mg 02/24/21 09:00 02/24/21 08:27 Allopurinol 300 Mg Tablet PO 300 mg DAILY [facility]INEDU Administration Amlodipine Besylate 10 mg 02/24/21 09:00 02/24/21 08:27 Amlodipine Besylate 5 Mg Tablet PO 10 mg DAILY [facility] Adm
[2021-02-25] MEDS: DOCUSATE SODIUM 100 MG CAPSULE PO (08:44)
[2021-02-25] MEDS: FAMOTIDINE 20 MG TABLET PO (08:44)
[2021-02-25] MEDS: CELECOXIB 200 MG CAPSULE PO (08:44)
[2021-02-25] MEDS: amLODIPine BESYLATE 5 MG TABLET 10 MG PO (08:44)
[2021-02-25] MEDS: LORATADINE 10 MG TABLET PO (08:44)
[2021-02-25] MEDS: FERROUS SULFATE 324 MG TABLET 648 MG PO (08:44)
[2021-02-25] MEDS: hydroCHLOROthiazide 25 MG TABLET PO (08:45)
[2021-02-25] MEDS: MONTELUKAST SODIUM 10 MG TABLET PO (08:45)
[2021-02-25] MEDS: CALCIUM CARBONATE (OSCAL) 500 MG TABLET 1000 MG PO (08:45)
[2021-02-25] MEDS: ASPIRIN 325 MG ENTERIC TABLET 650 MG PO (08:45)
[2021-02-25] MEDS: allopurinoL 300 MG TABLET PO (08:45)
[2021-02-25] MEDS: CHOLECALCIFEROL 400 UNITS TABLET (VIT D) PO (08:45)
[2021-02-25] MEDS: oxyCODONE/ACETAMINOPHEN (*CRX) 5-325 MG TABLET 1 TABLET PO (10:46)
--- NOTE | 2021-02-25 14:13 | PM.DS ---
DS: Admitting Diagnosis Admitting Diagnosis Admitting Diagnosis: painful right total knee replacement DS: Discharge Diagnosis Discharge Diagnosis (1) Painful total knee replacement, right: Qualifiers: Encounter type: initial encounter Qualified Code(s): T84.84XA - Pain due to internal orthopedic prosthetic devices, implants and grafts, initial encounter; Z96.651 - Presence of right artificial knee joint Code(s): T84.84XA - Pain due to internal orthopedic prosthetic devices, implants and grafts, initial encounter; Z96.651 - Presence of right artificial knee joint Status: Acute Assessment and Plan: POD #2: RIGHT KNEE PATELLA RESURFACING WITH REVISION OF POLYETHYLENE COMPONENT Continue PT/OT. WBAT. Walker. High fall risk. Continue pain control. Ice knee. SCDs. Incentive Spirometry. DVT prophylaxis. Monitor dressing. Change today Dispo: Home with Home Health today pending progress with PT/OT. DS: Summary Hospital Course Reason for hospitalization: painful right total knee replacement Hospital Course: 65-year-old male admitted status post right knee patellar resurfacing with revision of polyethylene component for postoperative medical care, pain control and mobilization with physical and occupational therapy. Patient progressed well however he did have difficulty with pain control on postop day 1. He had notable improvement in pain on postop day 2 and worked well with PT and OT. He was cleared from Physical therapy standpoint to be discharged home with home health. his vitals remained stable and labs stable as well. He will be discharged home with home health. He will follow up in the outpatient setting in 3 weeks. Status at Discharge Cognitive/behavioral status at discharge: Stable Functional status at discharge: uses cane/walker Overall status at discharge: patient is back to baseline Time Spent with Patient Time attestation: Total time spent providing and/or coordinating discharge services: Exam Const: General: comfortable and no acute distress Resp: Effort & Inspection: normal respiratory effort Cardio: Rate: regular rate Rhythm: regular rhythm GI: GI Palp: Yes Soft to palpation, No Tenderness to palpation present (GI) and No Guarding due to palpation present (GI) Skin: Wounds: wounds noted Other: Incision c/d/i. No surrounding redness/warmth. No hematoma. Mild ecchymosis. No wound dehiscence Neuro: Cognition (Neuro): normal cognition Other: NV intact. Moves toes. Sensation intact to light touch. +ankle dorsiflexion/plantarflexion. Extrem: Right upper extremity: normal to inspection, full ROM and normal capillary refill Left upper extremity: normal to inspection, full ROM and normal capillary refill Right lower extremity: normal to inspection, full ROM (ROM limited due to recent surgical intervention ) and knee Details: tenderness (diffuse, mild ) and swelling (diffuse, mild ) Left lower extremity: normal to inspection Psych: Mental Status: mental status grossly normal Discharge Plan Discharge Attending physician on discharge: Brendan Holder Discharging Clinician: Petra Matthews Anticipated Discharge Date/Time: 02/25/21 12:00 Patient Disposition: Home Health Service Activity: may shower, no driving and follow weight bearing status Diet: as tolerated Wound Care Instructions: follow printed instructions Discharge Instructions: Per Care Coordination, patient to discharge with [facility] services ) for PT/OT and usp services. Post Op Knee Replacement Instructions Dr. Brendan Holder [phone] ? Your dressing will be changed prior to your discharge. You will be sent home with one additional dressing to be changed in 5 days by the home health RN. Your becky will be removed on the 14th day after surgery and steri-strips will be placed. ? You may shower with your dressing but do not submerge in a bath tub. ? Do not d
--- NOTE | 2021-02-25 16:01 | PC.NURSE ---
Dressing changed prior to DC, extra dressing sent with patient.
== END 2021-02-25 16:02 | disposition home health service (06) ==
LOC: ANHSURGERY 14:53 → ANH2MED 14:53
PROVIDERS: Admitting Provider Orthopaedic Surgery; PCP Internal Medicine; Visit Provider Orthopaedic Surgery
PROC: (CPT 27487; principal; 2021-02-23 07:30)
DX: T84.84XA Pain due to internal orthopedic prosthetic devices, implants and grafts, initial encounter (principal); Z96.651 Presence of right artificial knee joint; M22.8X1 Other disorders of patella, right knee; M17.11 Unilateral primary osteoarthritis, right knee
CPT/HCPCS: 27486; 64447; 36415; 73560; 80048; 85025; 97110; 97116; 97161; 97165; 97530; 97535; A9270; C1713; C1773; C1776; G0378; J0171; J0690; J1100; J1170; J2250; J2270; J2405; J2704; J2795; J3010; J3370; J7030; J7120

== ENCOUNTER 2021-03-25 14:28 | Outpatient (CLI) | payer OTHER, SELFPAY ==
[2021-03-25 14:53] LABS: Basophils Absolute Auto 0.1 K/mm3 (0.0-0.1); Basophils Percent Auto 0.6 % (0.2-1.2); Eosinophils Absolute Auto 0.3 K/mm3 (0-0.3); Eosinophils Percent Auto 2.6 % (0-4.4); Hematocrit 42.4 % (42.0-52.0); Hemoglobin 13.1 g/dL (14.0-18.0); Immature Granulocyte Absolute 0.05 K/mm3 (0.00-0.031); Immature Granulocyte Percent A 0.5 % (0-0.5); Lymphocytes Absolute Auto 1.52 K/mm3 (0.9-3.2); Lymphocytes Percent Auto 15.8 % (18.3-44.2); Mean Corpuscular HGB Conc 30.9 g/dl (32-36); Mean Corpuscular Hemoglobin 27.9 pg (26-34); Mean Corpuscular Volume 90.2 fl (80-100); Mean Platelet Volume 9.7 fl (7.4-10.4); Monocytes Absolute Auto 0.5 K/mm3 (0.1-0.6); Monocytes Percent Auto 5.6 % (2.6-8.5); Neutrophils Absolute Auto 7.2 K/mm3 (1.3-6.7); Neutrophils Percent Auto 74.9 % (45.5-73.1); Platelet Count Result 328 k/mm3 (150-375); Red Cell Distribution Width 14.6 % (11.5-14.5); White Blood Count 9.6 K/mm3 (4.5-10.0)
[2021-03-25 16:48] LABS: Iron 54 ug/dL (49-181)
[2021-03-25 17:38] LABS: Percent Iron Saturation 21 % (20-50)
[2021-03-25 18:40] LABS: Folic Acid > 20.0 ng/mL (2.76->20); Vitamin B12 > 1000.0 pg/mL (239-931)
== END 2021-03-25 14:29 | disposition home or self-care (01) ==
LOC: ANHLAB 14:31
PROVIDERS: PCP Internal Medicine; Visit Provider Internal Medicine
DX: D64.9 Anemia, unspecified (principal)
CPT/HCPCS: 36415; 82607; 82746; 83540; 83550; 85025

== ENCOUNTER → 2021-03-31 12:23 | Outpatient (CLI) | payer OTHER, SELFPAY ==
--- NOTE | ~2021-03-31 | XR_ITS ---
XR chest 2V DATE: 03/31/2021 12:46 INDICATION: Cough TECHNIQUE: 2 views COMPARISON: None FINDINGS: Normal heart size. No hilar or mediastinal enlargement. No pulmonary infiltrate or consolidation, pleural effusion or pulmonary vascular congestion or pneumo thorax. Scoliosis and degenerative spurring of the thoracic spine. IMPRESSION: No active cardiopulmonary disease Reviewed, dictated and finalized at location A.
== END ==
PROVIDERS: PCP Internal Medicine; Visit Provider Internal Medicine
DX: R05 Cough (principal)
CPT/HCPCS: 71046

== ENCOUNTER 2021-05-12 00:53 | Day surgery (SDC) | payer OTHER, SELFPAY ==
[2021-05-02 12:00] VITALS: BMI 36.3
[2021-05-12 09:29] VITALS: BP 167/79; PULSE 55; RESP 18; TEMP 36.3; O2SAT 99; BMI 36.3
--- NOTE | 2021-05-12 09:33 | WPDGICN ---
Assessment and Plan Assessment and plan (1) Encounter for screening colonoscopy: Code(s): Z12.11 - Encounter for screening for malignant neoplasm of colon Status: Acute Assessment and Plan: Patient presents for screening colonoscopy. Appears to be at average risk for colon polyps. (2) Obesity: Qualifiers: Obesity type: due to excess calories Obesity classification: adult class 2 (BMI 35 - 39.9) Serious obesity comorbidity presence: unspecified whether serious comorbidity present Body mass index: BMI 39.0-39.9 Qualified Code(s): E66.09 - Other obesity due to excess calories; Z68.39 - Body mass index [BMI] 39.0-39.9, adult Code(s): E66.9 - Obesity, unspecified Status: Acute Assessment and Plan: Patient has a history of prior gastric bypass. Continued weight loss is encouraged. GI Consult Note Consult date/time: 05/12/21 09:33 HPI: Jon Burrell is a 65 year old male Presents for screening colonoscopy. Patient reports that his current weight appetite bowel movements are normal. He denies abdominal pain. He has had no bleeding. Family history is noncontributory. Patient does have a distant history of gastric bypass surgery. Review of Systems Review of Systems: All systems reviewed & are unremarkable except as noted in HPI and below PMFSH Past Medical History Medical History Arthritis Bilateral hip pain Cellulitis Contact dermatitis Essential (primary) hypertension Fracture of metatarsal bone with nonunion Hearing loss Hyperlipidemia Low testosterone in male Metatarsal bone fracture (~07/28/19) Painful total knee replacement, right Primary osteoarthritis of left knee PVD (peripheral vascular disease) Skin ulcer T12 compression fracture Trochanteric bursitis, left hip Trochanteric bursitis, right hip Venous stasis Vision abnormalities Vitamin B12 deficiency (non anemic) Surgical History Surgical History S/P total knee arthroplasty Family History Family History Sibling Patient's sister is in good health Patient's brother is in good health Mother Patient's mother is , Onset Age: 80 Family history of dementia, Onset Age: 80 Father Family history of lung cancer, Onset Age: 83 Family history of malignant neoplasm of brain, Onset Age: 83 Social History Social History Second hand tobacco smoke exposure: No Alcohol intake: current Drinks per week: 2 Substance use: never Substance use type: does not use Living arrangements: with family Gender identity (if verbalized by the patient): Male Spiritual care concerns: No Meds Home Medications and Allergies Home Medications Medication Instructions Recorded Confirmed Type syringe with needle 3 mL 22 x 1 #30 each 07/15/19 05/06/21 Rx 1/2 loratadine 10 mg tablet 10 mg PO DAILY PRN 10/14/19 05/06/21 History calcium carbonate 600 mg calcium 600 mg PO DAILY tablet 03/08/20 05/06/21 History (1,500 mg) tablet cholecalciferol (vitamin D3) 10 10 mcg PO DAILY 03/08/20 05/06/21 History mcg (400 unit) capsule testosterone cypionate 200 mg/mL 200 mg IM .q 3 weeks #10 ml 04/23/20 05/06/21 Rx intramuscular oil meloxicam 15 mg tablet 15 mg PO DAILY #90 tablet 08/17/20 05/06/21 Rx tramadol 50 mg tablet 50 mg PO BID PRN #90 tablet 12/31/20 05/06/21 Rx cyanocobalamin (vitamin B-12) 2,000 mcg SUBLINGUAL DAILY 01/20/21 05/06/21 History ferrous sulfate [Iron (ferrous 650 mg PO DAILY 01/20/21 05/06/21 History sulfate)] multivitamin 1 tablet PO DAILY 01/20/21 05/06/21 History amlodipine 10 mg tablet 10 mg PO DAILY #90 tablet 02/15/21 05/06/21 Rx hydrochlorothiazide 25 mg tablet 25 mg PO DAILY #90 tablet 02/15/21 05/06/21 Rx allo
[2021-05-12] MEDS: LACTATED RINGERS 1,000 ML 150 ML IV CONT (09:41)
--- NOTE | 2021-05-12 10:05 | WPDANESEPPF ---
Anes - Initial Pre Proc Eval Procedure: Operation Date: 05/12/21 10:00 Proposed Procedures p Screening Colonoscopy - Danis Cm MD Date/Time: 05/12/21 10:05 Surgeon: Danis Cm MD Pre Op Diagnosis: neoplasm screening Patient Data Age: 65 Gender: M Height: 1.96 m Weight: 139.1 kg Last Vital Signs Temp 97.3 F L 05/12/21 09:29 Pulse 55 L 05/12/21 09:29 Resp 18 05/12/21 09:29 BP 167/79 H 05/12/21 09:29 Pulse Ox 99 05/12/21 09:29 Allergies Allergy/AdvReac Type Severity Reaction Status Date / Time crab Allergy Severe Swelling Verified 05/12/21 09:28 Penicillins Allergy Severe Anaphylaxis Verified 05/12/21 09:28 Home Medications Medication Instructions Recorded Confirmed Type syringe with needle 3 mL 22 x 1 #30 each 07/15/19 05/06/21 Rx 1/2 loratadine 10 mg tablet 10 mg PO DAILY PRN 10/14/19 05/06/21 History calcium carbonate 600 mg calcium 600 mg PO DAILY tablet 03/08/20 05/06/21 History (1,500 mg) tablet cholecalciferol (vitamin D3) 10 10 mcg PO DAILY 03/08/20 05/06/21 History mcg (400 unit) capsule testosterone cypionate 200 mg/mL 200 mg IM .q 3 weeks #10 ml 04/23/20 05/06/21 Rx intramuscular oil meloxicam 15 mg tablet 15 mg PO DAILY #90 tablet 08/17/20 05/06/21 Rx tramadol 50 mg tablet 50 mg PO BID PRN #90 tablet 12/31/20 05/06/21 Rx cyanocobalamin (vitamin B-12) 2,000 mcg SUBLINGUAL DAILY 01/20/21 05/06/21 History ferrous sulfate [Iron (ferrous 650 mg PO DAILY 01/20/21 05/06/21 History sulfate)] multivitamin 1 tablet PO DAILY 01/20/21 05/06/21 History amlodipine 10 mg tablet 10 mg PO DAILY #90 tablet 02/15/21 05/06/21 Rx hydrochlorothiazide 25 mg tablet 25 mg PO DAILY #90 tablet 02/15/21 05/06/21 Rx allopurinol 300 mg tablet 300 mg PO DAILY #90 tablet 03/23/21 05/06/21 Rx montelukast 10 mg tablet 10 mg PO DAILY #90 tablet 03/23/21 05/06/21 Rx trazodone 50 mg tablet 100 mg PO .QHS #180 tablet 03/23/21 05/06/21 Rx sertraline 25 mg tablet 25 mg PO DAILY #30 tablet 03/28/21 05/06/21 Rx aspirin [Adult Aspirin EC Low 81 mg PO DAILY 05/02/21 05/06/21 History Strength] Patient hx anesthesia problems: none Family hx anesthesia problems: none Results Review: All pre-operative results and documents have been reviewed as part of the pre-operative evaluation. [facility] Past Medical History Medical History Arthritis Bilateral hip pain Cellulitis Contact dermatitis Essential (primary) hypertension Fracture of metatarsal bone with nonunion Hearing loss Hyperlipidemia Low testosterone in male Metatarsal bone fracture (~07/28/19) Painful total knee replacement, right Primary osteoarthritis of left knee PVD (peripheral vascular disease) Skin ulcer T12 compression fracture Trochanteric bursitis, left hip Trochanteric bursitis, right hip Venous stasis Vision abnormalities Vitamin B12 deficiency (non anemic) Surgical History Surgical History S/P total knee arthroplasty Family History Family History Sibling Patient's sister is in good health Patient's brother is in good health Mother Patient's mother is , Onset Age: 80 Family history of dementia, Onset Age: 80 Father Family history of lung cancer, Onset Age: 83 Family history of malignant neoplasm of brain, Onset Age: 83 Social History Social History Second hand tobacco smoke exposure: No Alcohol intake: current Drinks per week: 2 Substance use: never Substance use type: does not use Living arrangements: with family Gender identity (if verbalized by the patient): Male Spiritual care concerns: No Anes - Eval Final PreProcedure Day of Procedure 05/12/21 10:05 Patient weight: obese Heart: regular rate and rhythm Lungs: clear to
[2021-05-12 10:29] VITALS: BP 143/83; PULSE 52; RESP 16; O2SAT 99
[2021-05-12 10:39] VITALS: BP 145/87; PULSE 53; RESP 16; O2SAT 100
== END 2021-05-12 11:20 | disposition home or self-care (01) ==
PROVIDERS: PCP Internal Medicine; Visit Provider Internal Medicine Gastroenterology
PROC: 0DJD8ZZ Inspection of Lower Intestinal Tract, Via Natural or Artificial Opening Endoscopic (ICD-10-PCS; CPT 45378; principal; 2021-05-12 10:00)
DX: Z12.11 Encounter for screening for malignant neoplasm of colon (principal); D17.5 Benign lipomatous neoplasm of intra-abdominal organs; K64.8 Other hemorrhoids; I10 Essential (primary) hypertension; I73.9 Peripheral vascular disease, unspecified; I87.8 Other specified disorders of veins; E78.5 Hyperlipidemia, unspecified; E53.8 Deficiency of other specified B group vitamins; M17.12 Unilateral primary osteoarthritis, left knee; H91.90 Unspecified hearing loss, unspecified ear; E66.9 Obesity, unspecified; Z98.84 Bariatric surgery status; Z96.651 Presence of right artificial knee joint
CPT/HCPCS: 45378; J2704; J7120

== ENCOUNTER 2021-05-16 10:00 | Outpatient (RCR) | payer OTHER, SELFPAY ==
--- NOTE | 2021-03-21 16:34 | PTOPEVAL ---
PHYSICAL THERAPY EVALUATION Thank you for referring Jon Burrell to [facility].? Jon was evaluated for the dx of right knee resurfacing. The patient is scheduled to be seen for therapy?2 x/week for 4 weeks. Please review, sign, date and return this plan of care GLENDY. I agree with and certify that the following plan of care is medically necessary. Referring Physician Date Attending Provider: Brendan Holder MD *PT Outpatient Evaluation Start: 03/21/21 15:27 Freq: Status: Active Protocol: Document 03/21/21 15:27 MLV (Rec: 03/21/21 16:13 MLV [id number]) Therapy Assessment Status Assessment Status Assessment Status Evaluation Evaluation Information Problem Diagnosis right knee surgery/patellar resurfacing Onset February 23 2021 Additional Evaluation Detail In January 6 yrs ago, the pt had a TKA. The patient fell a week after and busted his knee open. He had to have another surgery to clean up the knee. The patient had therapy and did okay for about 2 years. 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 The patient recently had surgery to put a button on the back of the knee and did some work on the ligaments. The patient had home health PT for 3 weeks and now is ready for OP. At the last MD visit, the pt states he had fluid build up and got a knee brace which has helped the swelling. 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 Diagnostic Tests X-Rays For This Problem Yes: new surgery looks good on xray Prior Level of Function Activity Level (Last 3 Months) Occupation security Hand Dominance Right Activity of Daily Living Ability Independent Indoor/Home Mobility Independent Community Mobility Independent Stairs Ability Independent Functional Cognition (Planning, Shopping Independent , Taking Medications) Cooking No
--- NOTE | 2021-04-18 12:25 | PTOPEVAL ---
PHYSICAL THERAPY RE-EVALUATION Thank you for referring Jon Burrell to [facility].? Jon was re-evaluated for the dx of right knee resurfacing. Plan to continue PT to further improve status. The patient is scheduled to be seen for therapy?1 x/week for 4 weeks. Please review, sign, date and return this plan of care GLENDY. I agree with and certify that the following plan of care is medically necessary. Referring Physician Date Attending Provider: Brendan Holder MD *PT Outpatient Re-Evaluation Start: 03/21/21 15:27 Freq: Status: Active Protocol: Document 04/18/21 11:03 MLV (Rec: 04/18/21 11:54 MLV [id number]) Therapy Assessment Status Assessment Status Assessment Status Re-evaluation Evaluation Information Problem Diagnosis right knee surgery/patellar resurfacing Onset February 23 2021 Additional Evaluation Detail The patient reports improved walking ability and getting stronger for tasks such as stairs, daily chores. The patient reports still using the cane for mobility for safety to prevent possible falls. The patient agrees that further strengthening will help return to prior walking ability with less fall risk. Pain Assessment Timing of Pain Assessment Timing of Pain Assessment Assessment Pain Scale Pain Scale Used Numeric (1 - 10) Self Report Pain Assessment Right Knee(s) Reported Pain Level 0 Other Pain Description 2 with activity Pain Aggravating Factors Walking,Weight Bearing/ Standing Pain Score Pain Score 0: Self Report Interventions Used Interventions Used By Clinicians Education,Electrical Stimulation,Exercise,Ice, Taping Pain Relief Interventions Used By Exercise,Ice,Position Change, Patient Splinting,Support of Extremity Lower Extremity Range of Motion General Lower Extremity Range of Motion Reason Not Measured WNL/Right Gross Lower Extremity Range of Motion left knee 0-130' active Comments right knee 0-130' active Lower Extremity Muscle Strength Testing General Lower Extremity Strength Reason Not Measured WNL/Left Gross Lower Extremity Strength right hip 4/5, knee 4+/5, ankle 5/5; right hip fatigues with 15-20 reps of tband exercises Balance Assessment Time Up Go (TUG) Timed Up and Go Test (TUG) (Seconds) 13 Assistive
--- NOTE | 2021-05-16 10:55 | PTOPEVAL ---
PHYSICAL THERAPY DISCHARGE Thank you for referring Jon Burrell to [facility].? The patient has completed 13 visits for the dx of right knee resurfacing. Goals have been met and PT DC'ed. Please review, sign, date and return this plan of care GLENDY. I agree with and certify the following plan of care. Referring Physician Date Admitting Provider: Attending Provider: Brendan Holder MD Referring Provider: *PT Outpatient Discharge Start: 03/21/21 15:27 Freq: Status: Active Protocol: Document 05/16/21 10:05 MLV (Rec: 05/16/21 10:50 MLV [id number]) Therapy Assessment Status Assessment Status Assessment Status Discharge Evaluation Information Problem Diagnosis right knee surgery/patellar resurfacing Onset February 23 2021 Additional Evaluation Detail The patient feels he has made a lot of progress in his strength at his legs. The patient feels he is 75% better. The pain at his knee has decreased and today he rates it a 1 out of 10. The pt feels he is getting back to all of his normal activities including stairs, ladders but does take some breaks from endurance fatigue. The patient is slated to return to work May 30. Pain Assessment Timing of Pain Assessment Timing of Pain Assessment Assessment Pain Scale Pain Scale Used Numeric (1 - 10) Self Report Pain Assessment Right Knee(s) Reported Pain Level 1 Pain Description Aching Pain Frequency Intermittent Pain Score Pain Score 1: Self Report Interventions Used Interventions Used By Clinicians Education,Exercise Pain Relief Interventions Used By Exercise,Medication,Position Patient Change Other Alleviating Interventions ibuprofen Lower Extremity Range of Motion General Lower Extremity Range of Motion Reason Not Measured WNL/Right Gross Lower Extremity Range of Motion left knee 0-130' active Comments right knee 0-130' active Lower Extremity Muscle Strength Testing General Lower Extremity Strength Reason Not Measured WNL/Left Gross Lower Extremity Strength right hip 4/5, knee 4+/5, ankle 5/5; right hip 75% less fatigue with 20 reps of tband exercises. Pt is able to maintain a solid locked right
== END 2021-05-16 16:48 | disposition home or self-care (01) ==
LOC: ANHPT 10:00
PROVIDERS: PCP Internal Medicine; Visit Provider Orthopaedic Surgery
DX: Z47.89 Encounter for other orthopedic aftercare (principal); M22.8X1 Other disorders of patella, right knee
CPT/HCPCS: 97014; 97110; 97140; 97162; G0283

== ENCOUNTER 2021-05-17 17:10 | Emergency (ER) | payer OTHER, SELFPAY ==
--- NOTE | ~2021-05-17 | XR_ITS ---
XR chest 2V DATE: 05/17/2021 17:41 INDICATION: Productive cough for 5 days. TECHNIQUE: 2 views COMPARISON: 03/31/2021 2 view chest FINDINGS: Normal heart size. No hilar or mediastinal enlargement. No pulmonary infiltrate or consolid ation, pleural effusion or pulmonary vascular congestion or pneumothorax. Dextroscoliosis and degenerative spurring of the thoracic spine. IMPRESSION: No active cardiac pulmonary disease Reviewed, dictated and finalized at location B.
[2021-05-17 17:18] VITALS: BP 136/79; PULSE 84; RESP 16; TEMP 36.6; O2SAT 100
--- NOTE | 2021-05-17 17:27 | ED.URI ---
HPI - URI/Sore Throat General Chief Complaint: Upper Respiratory Infection Stated Complaint: sinus issues/sore throat/cough/mucus Time Seen by Provider: 05/17/21 17:27 Source: patient and RN notes reviewed Mode of arrival: ambulatory Limitations: no limitations History of Present Illness HPI Narrative: Male presents to the [facility] with complaints of cough, sinus issues, sore throat for 5 days States that a friend of his called him in azithromycin and Tessalon Perles and he has been taking it for 3 days with no improvement. Denies any chest pain or abdominal pain. Denies fevers. Related Data Home Medications Medication Instructions Recorded Confirmed loratadine 10 mg tablet 10 mg PO DAILY PRN 10/14/19 05/06/21 calcium carbonate 600 mg calcium 600 mg PO DAILY tablet 03/08/20 05/06/21 (1,500 mg) tablet cholecalciferol (vitamin D3) 10 10 mcg PO DAILY 03/08/20 05/06/21 mcg (400 unit) capsule cyanocobalamin (vitamin B-12) 2,000 mcg SUBLINGUAL DAILY 01/20/21 05/06/21 ferrous sulfate [Iron (ferrous 650 mg PO DAILY 01/20/21 05/06/21 sulfate)] multivitamin 1 tablet PO DAILY 01/20/21 05/06/21 aspirin [Adult Aspirin EC Low 81 mg PO DAILY 05/02/21 05/06/21 Strength] Zithromax Z-Axel 05/17/21 benzonatate [Tessalon Perles] mg PO 05/17/21 Allergies Allergy/AdvReac Type Severity Reaction Status Date / Time crab Allergy Severe Swelling Verified 05/12/21 09:28 Penicillins Allergy Severe Anaphylaxis Verified 05/12/21 09:28 Review of Systems Review of Systems: All systems reviewed & are unremarkable except as noted in HPI and below Constitutional: Constitutional: Reports no additional constitutional complaints, Denies chills and Denies fever(s) Eyes: Eyes: Reports no additional eye complaints ENT: Reports as per HPI and Reports nasal congestion Cardiovascular: Cardiovascular: Reports no additional cardiovascular complaints and Denies chest pain Respiratory: Respiratory: Reports as per HPI, Reports cough and Denies wheezing Gastrointestinal: Gastrointestinal: Reports no additional gastrointestinal complaints, Denies abdominal pain, Denies nausea and Denies vomiting Musculoskeletal: Musculoskeletal: Reports no additional musculoskeletal complaints Integumentary/Breasts: Skin/Breast: Reports system reviewed and no additional complaints, except as docu Neurologic: Reports system reviewed and no additional complaints, except as documented Psychiatric: Psychiatric: Reports no additional psychiatric complaints Allergic/Immunologic: Allergic/Immunologic: Reports no additional allergic/immunologic complaints [facility] Past Medical History Medical History Arthritis Bilateral hip pain Cellulitis Contact dermatitis Essential (primary) hypertension Fracture of metatarsal bone with nonunion Hearing loss Hyperlipidemia Low testosterone in male Metatarsal bone fracture (~07/28/19) Painful total knee replacement, right Primary osteoarthritis of left knee PVD (peripheral vascular disease) Skin ulcer T12 compression fracture Trochanteric bursitis, left hip Trochanteric bursitis, right hip Venous stasis Vision abnormalities Vitamin B12 deficiency (non anemic) Surgical History Surgical History S/P total knee arthroplasty Family History Family History Sibling Patient's sister is in good health Patient's brother is in good health Mother Patient's mother is , Onset Age: 80 Family history of dementia, Onset Age: 80 Father Family history of lung cancer, Onset Age: 83 Family history of malignant neoplasm of brain, Onset Age: 83 Social History Social History Second hand tobacco smoke exposure: No Alcohol intake: current Drinks per week: 2 Substance use: never Substance use typ
== END 2021-05-17 18:10 | disposition home or self-care (01) ==
PROVIDERS: Emergency Provider Nurse Practitioner; PCP Internal Medicine
DX: J20.9 Acute bronchitis, unspecified (principal); M17.12 Unilateral primary osteoarthritis, left knee; I10 Essential (primary) hypertension; E78.5 Hyperlipidemia, unspecified; Z96.651 Presence of right artificial knee joint; I73.9 Peripheral vascular disease, unspecified; I87.8 Other specified disorders of veins; E53.8 Deficiency of other specified B group vitamins
CPT/HCPCS: 71046; 99213; G0463

== ENCOUNTER 2021-12-30 18:11 | Emergency (ER) | payer MEDICARE, SELFPAY ==
--- NOTE | ~2021-12-30 | XR_ITS ---
EXAMINATION: XR chest 2V DATE: 12/30/2021 18:25 INDICATION: Cough. TECHNIQUE: Frontal and lateral views of the chest were obtained. COMPARISON: Chest 2 views 05/17/2021 FINDINGS: The chest demonstrates clear lungs without pneumonia, pleural effusion, or pneumothorax. Th e heart size is normal. IMPRESSION: 1. No acute cardiopulmonary disease. Reviewed, dictated and finalized at location A.
[2021-12-30 18:16] VITALS: BP 185/91; PULSE 88; RESP 18; TEMP 36.3; O2SAT 99
--- NOTE | 2021-12-30 18:19 | ED.URI ---
HPI - URI/Sore Throat General Chief Complaint: Upper Respiratory Infection Stated Complaint: cough Time Seen by Provider: 12/30/21 18:20 Source: patient and RN notes reviewed Mode of arrival: ambulatory Limitations: no limitations History of Present Illness HPI Narrative: 66-year-old male presented for complaint of cough for 2 weeks. He states he has taken azithromycin last week and started a steroid pack 3 days ago, started to feel better for short time, and states yesterday cough returned and is productive of white sputum. Denies sore throat, he denies shortness of breath, wheezing, chest pain, nausea, vomiting, diarrhea, fevers or chills. Endorses positive for covid last week. He had recent negative home covid tests. MD elicited complaint: cough Related Data Home Medications Medication Instructions Recorded Confirmed calcium carbonate 600 mg calcium 600 mg PO DAILY tablet 03/08/20 11/23/21 (1,500 mg) tablet cholecalciferol (vitamin D3) 10 10 mcg PO DAILY 03/08/20 11/23/21 mcg (400 unit) capsule cyanocobalamin (vitamin B-12) 2,000 mcg SUBLINGUAL DAILY 01/20/21 11/23/21 ferrous sulfate [Iron (ferrous 650 mg PO DAILY 01/20/21 11/23/21 sulfate)] multivitamin 1 tablet PO DAILY 01/20/21 11/23/21 Allergies Allergy/AdvReac Type Severity Reaction Status Date / Time crab Allergy Severe Swelling Verified 11/23/21 08:42 Penicillins Allergy Severe Anaphylaxis Verified 11/23/21 08:42 Review of Systems Review of Systems: CONSTITUTIONAL: Denies malaise, chills, sweats, fever EYES: Denies visual changes, redness, or discharge ENT: Reports rhinorrhea, congestion CARDIOVASCULAR: Denies chest pain, palpitations, edema RESPIRATORY: Denies dyspnea GASTROINTESTINAL: Denies abdominal pain, nausea, vomiting, diarrhea SKIN: Denies rash or itching MUSCULOSKELETAL: Denies myalgia NEUROLOGIC: Denies headache PMFSH Past Medical History Medical History Arthritis Bilateral hip pain Cellulitis Contact dermatitis Essential (primary) hypertension Fracture of metatarsal bone with nonunion Hearing loss Hyperlipidemia Low testosterone in male Metatarsal bone fracture (~07/28/19) Painful total knee replacement, right Primary osteoarthritis of left knee PVD (peripheral vascular disease) Skin ulcer T12 compression fracture Trochanteric bursitis, left hip Trochanteric bursitis, right hip Venous stasis Vision abnormalities Vitamin B12 deficiency (non anemic) Surgical History Surgical History S/P total knee arthroplasty Family History Family History Sibling Patient's sister is in good health Patient's brother is in good health Mother Patient's mother is , Onset Age: 80 Family history of dementia, Onset Age: 80 Father Family history of lung cancer, Onset Age: 83 Family history of malignant neoplasm of brain, Onset Age: 83 Social History Social History Smoking status: Never smoker Second hand tobacco smoke exposure: No Alcohol intake: current Drinks per week: 2 Substance use: never Substance use type: does not use Gender identity (if verbalized by the patient): Male Spiritual care concerns: No Exam Narrative: GENERAL: Well-appearing HEAD: Normocephalic EYES: conjunctivae clear ENT: Mucous membranes moist. TM pearly ramsey with dull light reflex bilaterally; no tragal tenderness. Oropharynx erythematous without lesions or exudate, no drooling, no hoarseness, no trismus, uvula midline. NECK: Supple. No lymphadenopathy CHEST: Clear to auscultation, breath sounds equal. No wheezing, rhonchi, rales, or stridor. No respiratory distress, speaks in full sentences. HEART: Regular rate and rhythm. No murmur heard. SKIN: Warm, dry, no rash. NEURO: Alert
== END 2021-12-30 19:01 | disposition home or self-care (01) ==
PROVIDERS: Emergency Provider Nurse Practitioner Family; PCP Internal Medicine
DX: J40 Bronchitis, not specified as acute or chronic (principal); M19.90 Unspecified osteoarthritis, unspecified site; I10 Essential (primary) hypertension; E78.5 Hyperlipidemia, unspecified; M17.12 Unilateral primary osteoarthritis, left knee; Z96.651 Presence of right artificial knee joint; I73.9 Peripheral vascular disease, unspecified; E53.8 Deficiency of other specified B group vitamins
CPT/HCPCS: 71046; 99213; G0463

== ENCOUNTER 2022-02-17 07:43 | Outpatient (RCR) | payer MEDICARE, SELFPAY ==
[2021-11-23 07:52] VITALS: BMI 38.0
[2021-11-23 08:14] LABS: Basophils Absolute Auto 0.1 K/mm3 (0.0-0.1); Basophils Percent Auto 0.7 % (0.2-1.2); Eosinophils Absolute Auto 0.2 K/mm3 (0-0.3); Eosinophils Percent Auto 2.5 % (0-4.4); Hematocrit 42.4 % (42.0-52.0); Hemoglobin 13.7 g/dL (14.0-18.0); Immature Granulocyte Absolute 0.04 K/mm3 (0.00-0.031); Immature Granulocyte Percent A 0.6 % (0-0.5); Lymphocytes Absolute Auto 1.31 K/mm3 (0.9-3.2); Lymphocytes Percent Auto 19.5 % (18.3-44.2); Mean Corpuscular HGB Conc 32.3 g/dl (32-36); Mean Corpuscular Hemoglobin 29.2 pg (26-34); Mean Corpuscular Volume 90.4 fl (80-100); Mean Platelet Volume 9.7 fl (7.4-10.4); Monocytes Absolute Auto 0.5 K/mm3 (0.1-0.6); Neutrophils Absolute Auto 4.7 K/mm3 (1.3-6.7); Neutrophils Percent Auto 69.7 % (45.5-73.1); Platelet Count Result 222 k/mm3 (150-375); Red Blood Count 4.69 M/mm3 (4.6-6.20); Red Cell Distribution Width 14.5 % (11.5-14.5); White Blood Count 6.7 K/mm3 (4.5-10.0)
[2021-11-23 08:33] LABS: Alanine Aminotransferase 16 U/L (4-50); Albumin Level 4.1 g/dL (3.5-5.1); Alkaline Phosphatase 90 U/L (38-126); Anion Gap 6 mmol/L (8-16); Aspartate Amino Transferase 25 U/L (17-59); Bilirubin,Total 0.7 mg/dL (0.2-1.3); Blood Urea Nitrogen 20 mg/dL (9-20); Calcium 8.6 mg/dL (8.4-10.2); Carbon Dioxide 29 mmol/L (22-30); Chloride 103 mmol/L (98-107); Cholesterol 151 mg/dL (0-200); Estimated CRCL calculation 91 ml/min; Estimated Glomerular Filt Rate > 60; Glucose 101 mg/dL (65-110); HDL Direct 36 mg/dL; Potassium 3.8 mmol/L (3.4-5.0); Sodium 138 mmol/L (137-145); Triglycerides 87 mg/dL (<150)
[2021-11-23 08:44] LABS: LDL Cholesterol Direct 89 mg/dL
[2021-11-23 08:45] LABS: Iron 39 ug/dL (49-181)
[2021-11-23 08:57] LABS: Percent Iron Saturation 13 % (20-50)
[2021-11-23 09:59] LABS: Folic Acid 15.4 ng/mL (2.76->20); Vitamin B12 > 1000.0 pg/mL (239-931)
[2021-11-28 15:20] LABS: Testosterone Free 33.9 pg/mL (35.0-155.0); Testosterone Total 326 ng/dL (250-1100)
== END 2022-02-21 23:59 | disposition home or self-care (01) ==
LOC: ANHWOC 07:43
PROVIDERS: PCP Internal Medicine; Visit Provider Internal Medicine
DX: D64.9 Anemia, unspecified (principal); Z12.5 Encounter for screening for malignant neoplasm of prostate; E78.5 Hyperlipidemia, unspecified; L97.219 Non-pressure chronic ulcer of right calf with unspecified severity
CPT/HCPCS: 29581; 36415; 80053; 80061; 82607; 82746; 83540; 83550; 84153; 84402; 84403; 84443; 85025; 99212; A9270; G0103; G0463

== ENCOUNTER 2022-04-05 07:14 | Outpatient (RCR) | payer MEDICARE, SELFPAY ==
[2022-02-22 00:02] VITALS: BMI 38.0
== END 2022-05-25 23:59 | disposition home or self-care (01) ==
LOC: ANHWOC 07:14
PROVIDERS: PCP Internal Medicine; Visit Provider Internal Medicine
DX: D64.9 Anemia, unspecified (principal); Z12.5 Encounter for screening for malignant neoplasm of prostate; E78.5 Hyperlipidemia, unspecified; L97.219 Non-pressure chronic ulcer of right calf with unspecified severity
CPT/HCPCS: 29581; 99212; 99213; A9270; G0463

== ENCOUNTER 2022-07-22 15:50 | Emergency (ER) | payer MEDICARE, SELFPAY ==
--- NOTE | ~2022-07-22 | XR_ITS ---
EXAMINATION: XR chest 2V Exam Date/Time: 07/22/2022 17:01 CHIEF SECURITY OFFICER HISTORY: COUGH Comparison: 12/30/2021. RESULT: Lines, tubes, and devices: None. Lungs and pleura: Clear. Cardiomediastinal silhouette: Stable. Other: No acute osseous or upper abdominal finding. IMPRESSION: No acute cardiopulmonary process. Reviewed, dictated and finalized at location K. F SECURITY OFFICER
[2022-07-22 16:17] VITALS: BP 160/87; PULSE 80; RESP 16; TEMP 36.6; O2SAT 99
--- NOTE | 2022-07-22 16:58 | ED.GENADULT ---
HPI - General Adult General Chief complaint: Upper Respiratory Infection Stated complaint: Cough Source: patient Mode of arrival: ambulatory Limitations: no limitations History of Present Illness HPI narrative: Patient presents for evaluation of cough for from another week. He indicates he spoke with his neighbor who is an emergency medicine physician and received a prescription for a Z-Axel 6 days ago. He took the medication as directed. His cough persisted. He saw his primary care provider 3 days ago who advised that he continue therapy and complete the azithromycin. He states his energy level has improved since taking azithromycin but he has a productive cough of green sputum that process. No shortness of breath. No fever, chills, nausea, vomiting. No history of COVID. He does not smoke. No recent sick contacts to his knowledge. No additional complaints or concerns. Related Data Home Medications Medication Instructions Recorded Confirmed calcium carbonate 600 mg calcium 600 mg PO DAILY 03/08/20 07/22/22 (1,500 mg) tablet (Calcium) cholecalciferol (vitamin D3) 10 10 mcg PO DAILY 03/08/20 07/22/22 mcg (400 unit) capsule cyanocobalamin (vitamin B-12) 500 2,000 mcg sublingual DAILY 01/20/21 07/22/22 mcg sublingual tablet ferrous sulfate 325 mg (65 mg 650 mg PO DAILY 01/20/21 07/22/22 iron) tablet (Iron (ferrous sulfate)) multivitamin 1 tablet PO DAILY 01/20/21 07/22/22 Allergies Allergy/AdvReac Type Severity Reaction Status Date / Time crab Allergy Severe Swelling Verified 07/22/22 16:15 Penicillins Allergy Severe Anaphylaxis Verified 07/22/22 16:15 Review of Systems Review of Systems: CONSTITUTIONAL: Denies fever, chills, or sweats. EYES: Denies visual changes, redness, or discharge. ENT: Denies rhinorrhea, congestion, sore throat, or otalgia. CARDIOVASCULAR: Denies chest pain, palpitations, or edema. RESPIRATORY: Reports productive cough of green sputum. Denies SOB GASTROINTESTINAL: Denies abdominal pain, nausea, vomiting, or diarrhea. GENITOURINARY: Denies dysuria or hematuria. SKIN: Denies rash or itching. MUSCULOSKELETAL: Denies back pain, joint pain, or myalgia. NEUROLOGIC: Denies headache, numbness, dizziness, or weakness. PSYCHIATRIC: Denies anxiety or depression. [facility] Past Medical History Medical History Arthritis Bilateral hip pain Cellulitis Contact dermatitis Essential (primary) hypertension Fracture of metatarsal bone with nonunion Hearing loss Hyperlipidemia Low testosterone in male Metatarsal bone fracture (~07/28/19) Obesity Painful total knee replacement, right Primary osteoarthritis of left knee PVD (peripheral vascular disease) Skin ulcer T12 compression fracture Trochanteric bursitis, left hip Trochanteric bursitis, right hip Venous stasis Vision abnormalities Vitamin B12 deficiency (non anemic) Surgical History Surgical History S/P total knee arthroplasty Family History Family History Sibling Patient's sister is in good health Patient's brother is in good health Mother Patient's mother is , Onset Age: 80 Family history of dementia, Onset Age: 80 Father Family history of lung cancer, Onset Age: 83 Family history of malignant neoplasm of brain, Onset Age: 83 Social History Social History Smoking status: Never smoker Second hand tobacco smoke exposure: No Alcohol intake: current Drinks per week: 2 Substance use: never Substance use type: does not use Lack of Transportation: No Lack of Food: Never True Current Housing: I Have Housing Concerned About Future Housing: No Difficulty Paying Gas/Electric Bills: No Difficulty Paying for Meds: No Currently Unemployed:
== END 2022-07-22 18:12 | disposition home or self-care (01) ==
PROVIDERS: Emergency Provider Nurse Practitioner; PCP Internal Medicine
DX: J06.9 Acute upper respiratory infection, unspecified (principal); I10 Essential (primary) hypertension; E78.5 Hyperlipidemia, unspecified; Z96.651 Presence of right artificial knee joint; E66.9 Obesity, unspecified; Z68.35 Body mass index [BMI] 35.0-35.9, adult; I49.3 Ventricular premature depolarization; M19.90 Unspecified osteoarthritis, unspecified site
CPT/HCPCS: 71046; 99213; G0463

== ENCOUNTER 2022-07-29 09:07 | Outpatient (CLI) | payer MEDICARE, SELFPAY ==
[2022-07-29 09:50] LABS: Basophils Absolute Auto 0.1 K/mm3 (0.0-0.1); Basophils Percent Auto 0.6 % (0.2-1.2); Eosinophils Absolute Auto 0.2 K/mm3 (0-0.3); Eosinophils Percent Auto 2.3 % (0-4.4); Hematocrit 43.1 % (42.0-52.0); Hemoglobin 13.7 g/dL (14.0-18.0); Immature Granulocyte Absolute 0.05 K/mm3 (0.00-0.031); Immature Granulocyte Percent A 0.6 % (0-0.5); Lymphocytes Absolute Auto 1.63 K/mm3 (0.9-3.2); Lymphocytes Percent Auto 19.8 % (18.3-44.2); Mean Corpuscular HGB Conc 31.8 g/dl (32-36); Mean Corpuscular Hemoglobin 29.2 pg (26-34); Mean Corpuscular Volume 91.9 fl (80-100); Mean Platelet Volume 9.4 fl (7.4-10.4); Monocytes Absolute Auto 0.5 K/mm3 (0.1-0.6); Monocytes Percent Auto 6.1 % (2.6-8.5); Neutrophils Absolute Auto 5.8 K/mm3 (1.3-6.7); Neutrophils Percent Auto 70.6 % (45.5-73.1); Platelet Count Result 284 k/mm3 (150-375); Red Blood Count 4.69 M/mm3 (4.6-6.20); Red Cell Distribution Width 14.6 % (11.5-14.5); White Blood Count 8.2 K/mm3 (4.5-10.0)
[2022-07-29 10:16] LABS: Alanine Aminotransferase 17 U/L (6-50); Albumin Level 4.1 g/dL (3.5-5.1); Alkaline Phosphatase 106 U/L (38-126); Anion Gap 6 mmol/L (8-16); Aspartate Amino Transferase 21 U/L (17-59); Blood Urea Nitrogen 17 mg/dL (9-20); Calcium 8.6 mg/dL (8.4-10.2); Carbon Dioxide 30 mmol/L (22-30); Chloride 105 mmol/L (98-107); Cholesterol 160 mg/dL (0-200); Estimated Glomerular Filt Rate > 60; Glucose 99 mg/dL (65-110); HDL Direct 35 mg/dL; Potassium 3.8 mmol/L (3.4-5.0); Sodium 141 mmol/L (137-145); Triglycerides 86 mg/dL (<150)
[2022-07-29 10:18] LABS: Iron 75 ug/dL (49-181)
[2022-07-29 10:27] LABS: LDL Cholesterol Direct 96 mg/dL
[2022-07-29 10:32] LABS: Percent Iron Saturation 27 % (20-50)
[2022-07-29 10:42] LABS: Thyroid Stimulating Hormone 0.726 uIU/mL (0.465-4.680)
[2022-07-29 11:03] LABS: Vitamin B12 > 1000.0 pg/mL (239-931)
[2022-07-29 22:02] LABS: Folic Acid > 20.0 ng/mL (2.76->20)
[2022-08-06 12:19] LABS: Testosterone Free 41.3 pg/mL (35.0-155.0); Testosterone Total 551 ng/dL (250-1100)
== END 2022-07-29 09:08 | disposition home or self-care (01) ==
PROVIDERS: PCP Internal Medicine; Visit Provider Internal Medicine
DX: R79.89 Other specified abnormal findings of blood chemistry (principal); E78.5 Hyperlipidemia, unspecified; E53.8 Deficiency of other specified B group vitamins; D64.9 Anemia, unspecified; E61.1 Iron deficiency
CPT/HCPCS: 36415; 80053; 80061; 82607; 82746; 83540; 83550; 84402; 84403; 84443; 85025

== ENCOUNTER 2023-02-03 07:42 | Outpatient (CLI) | payer MEDICARE, SELFPAY ==
[2023-02-03 08:34] LABS: Basophils Absolute Auto 0.1 K/mm3 (0.0-0.1); Basophils Percent Auto 0.5 % (0.2-1.2); Eosinophils Absolute Auto 0.3 K/mm3 (0-0.3); Eosinophils Percent Auto 2.9 % (0-4.4); Hematocrit 42.7 % (42.0-52.0); Hemoglobin 13.7 g/dL (14.0-18.0); Immature Granulocyte Absolute 0.11 K/mm3 (0.00-0.031); Immature Granulocyte Percent A 1.1 % (0-0.5); Lymphocytes Absolute Auto 1.61 K/mm3 (0.9-3.2); Lymphocytes Percent Auto 16.7 % (18.3-44.2); Mean Corpuscular HGB Conc 32.1 g/dl (32-36); Mean Corpuscular Hemoglobin 29.7 pg (26-34); Mean Corpuscular Volume 92.4 fl (80-100); Mean Platelet Volume 9.6 fl (7.4-10.4); Monocytes Absolute Auto 0.6 K/mm3 (0.1-0.6); Monocytes Percent Auto 6.2 % (2.6-8.5); Neutrophils Percent Auto 72.6 % (45.5-73.1); Platelet Count Result 301 k/mm3 (150-375); Red Blood Count 4.62 M/mm3 (4.6-6.20); Red Cell Distribution Width 14.8 % (11.5-14.5); White Blood Count 9.7 K/mm3 (4.5-10.0)
[2023-02-03 08:44] LABS: Hemoglobin A1C 4.9 % (<5.7)
[2023-02-03 13:13] LABS: Alanine Aminotransferase 21 U/L (6-50); Albumin Level 4.2 g/dL (3.5-5.1); Alkaline Phosphatase 96 U/L (38-126); Anion Gap 6 mmol/L (8-16); Aspartate Amino Transferase 27 U/L (17-59); Bilirubin,Total 0.7 mg/dL (0.2-1.3); Blood Urea Nitrogen 26 mg/dL (9-20); Calcium 8.8 mg/dL (8.4-10.2); Carbon Dioxide 27 mmol/L (22-30); Chloride 104 mmol/L (98-107); Estimated Glomerular Filt Rate > 60; Glucose 101 mg/dL (65-110); Potassium 3.5 mmol/L (3.4-5.0); Sodium 137 mmol/L (137-145)
[2023-02-03 13:43] LABS: Prostate Specific Antigen 2.2 ng/mL (< OR = 4.0)
[2023-02-09 12:36] LABS: Testosterone Free 153.5 pg/mL (35.0-155.0); Testosterone Total 942 ng/dL (250-1100)
== END 2023-02-03 07:43 | disposition home or self-care (01) ==
PROVIDERS: PCP Internal Medicine; Visit Provider Internal Medicine
DX: E78.5 Hyperlipidemia, unspecified (principal); D64.9 Anemia, unspecified; R79.89 Other specified abnormal findings of blood chemistry; Z12.5 Encounter for screening for malignant neoplasm of prostate
CPT/HCPCS: 36415; 80053; 83036; 84153; 84402; 84403; 84443; 85025; G0103

== ENCOUNTER 2023-04-17 08:55 | Outpatient (CLI) | payer MEDICARE, SELFPAY ==
--- NOTE | ~2023-04-17 | US_ITS ---
EXAMINATION: US art doppler w press LE BI DATE: 04/17/2023 10:07 INDICATION: Bilateral lower extremity peripheral arterial occlusive disease. TECHNIQUE: Segmental pressures and plethysmographic and Doppler waveforms of the brachial and lower e xtremity arteries were obtained. COMPARISON: None. FINDINGS: Right and left brachial artery pressures of 141 mm Hg and 139 mm Hg, respectively, are concordant (no rmal difference <= 30 mmHg). The right and left high-thigh pressure indices are unable to be obtained due to inability to occlude the vessels in either lower limb above the level of the ankles. This als o precludes assessment for segmental pressure gradients. The right ankle-brachial index (THEE) is 1.33 (normal >= 0.9-1). The right great toe-brachial index (T BI) is 0.65 (normal >= 0.6-0.8). Arterial waveforms are triphasic at the right common femoral artery and biphasic at the more distal arteries with brisk systolic upstrokes throughout. The left THEE is 1.25. The left TBI is 0.97. Arterial waveforms are biphasic with brisk systolic upst rokes throughout the arteries of the left lower limb. IMPRESSION: 1. Normal THEE's and TBI's bilaterally. No significant occlusive disease. Reviewed, dictated and finalized at location A.
== END 2023-04-17 08:56 | disposition home or self-care (01) ==
PROVIDERS: PCP Internal Medicine; Visit Provider Podiatrist Foot & Ankle Surgery
DX: I73.9 Peripheral vascular disease, unspecified (principal)
CPT/HCPCS: 93923

== ENCOUNTER 2023-08-29 07:59 | Outpatient (CLI) | payer MEDICARE, SELFPAY ==
--- NOTE | ~2023-08-29 | XR_ITS ---
EXAMINATION: XR lg joint inject/asp w image DATE: 08/29/2023 09:50 INDICATION: Left hip arthritis. TECHNIQUE: A time-out was performed to verify the patient's name, date of , and procedure to b e performed. The procedure including the risks, benefits, and alternatives was discussed with the pat ient. Risks discussed included bleeding and infection. The patient understood the risks and agreed to proceed. The skin overlying the left hip joint was prepped and draped in usual sterile fashion. An esthetic was administered with 1% lidocaine subcutaneously. A 22 G needle was advanced under fluoros copic guidance into the joint. Subsequently, injectate consisting of 2 mL 0.5% bupivacaine and 1 mL 80 mg/mL Depo-Medrol was instilled. The needle was removed and the entry site was cleaned and dresse d. There were no immediate complications. Fluoroscopy exposure time was 0.1 minutes. The total numbe r of images was 1. FINDINGS: Real-time fluoroscopy demonstrates the needle in the left hip joint. Patient's pain prior t o procedure:12/27. Patient's pain following the procedure: 09/29. IMPRESSION: 1. Fluoroscopy guided left hip joint injection of local anesthetic and steroid with decrease in the p atient's presenting pain. Reviewed, dictated and finalized at location A. CH AND LANGUAGE ASSISTANT IMPRESSION: 1. Fluoroscopy guided left hip joint injection of local anesthetic and steroid with decrease in the patient's presenting pain.
== END 2023-08-29 08:00 | disposition home or self-care (01) ==
PROVIDERS: PCP Internal Medicine; Visit Provider Nurse Practitioner Family
DX: M16.12 Unilateral primary osteoarthritis, left hip (principal)
CPT/HCPCS: 20610; 77002; J1040

== ENCOUNTER 2023-10-13 09:02 | Outpatient (CLI) | payer MEDICARE, SELFPAY ==
[2023-10-13 09:29] LABS: Basophils Absolute Auto 0.1 K/mm3 (0.0-0.1); Basophils Percent Auto 0.9 % (0.2-1.2); Eosinophils Absolute Auto 0.2 K/mm3 (0-0.3); Eosinophils Percent Auto 2.5 % (0-4.4); Hematocrit 45.5 % (42.0-52.0); Hemoglobin 14.5 g/dL (14.0-18.0); Immature Granulocyte Absolute 0.06 K/mm3 (0.00-0.031); Immature Granulocyte Percent A 0.7 % (0-0.5); Lymphocytes Absolute Auto 1.47 K/mm3 (0.9-3.2); Lymphocytes Percent Auto 18.2 % (18.3-44.2); Mean Corpuscular HGB Conc 31.9 g/dl (32-36); Mean Corpuscular Hemoglobin 30.1 pg (26-34); Mean Corpuscular Volume 94.6 fl (80-100); Mean Platelet Volume 9.3 fl (7.4-10.4); Monocytes Absolute Auto 0.5 K/mm3 (0.1-0.6); Monocytes Percent Auto 6.2 % (2.6-8.5); Neutrophils Absolute Auto 5.8 K/mm3 (1.3-6.7); Neutrophils Percent Auto 71.5 % (45.5-73.1); Platelet Count Result 251 k/mm3 (150-375); Red Blood Count 4.81 M/mm3 (4.6-6.20); Red Cell Distribution Width 14.6 % (11.5-14.5); White Blood Count 8.1 K/mm3 (4.5-10.0)
[2023-10-13 09:54] LABS: Alanine Aminotransferase 19 U/L (6-50); Alkaline Phosphatase 102 U/L (38-126); Anion Gap 7 mmol/L (8-16); Aspartate Amino Transferase 25 U/L (17-59); Blood Urea Nitrogen 22 mg/dL (9-20); Calcium 8.9 mg/dL (8.4-10.2); Carbon Dioxide 25 mmol/L (22-30); Chloride 103 mmol/L (98-107); Cholesterol 158 mg/dL (0-200); Estimated Glomerular Filt Rate 60; Glucose 107 mg/dL (65-110); HDL Direct 39 mg/dL; Potassium 3.9 mmol/L (3.4-5.0); Sodium 135 mmol/L (137-145); Triglycerides 90 mg/dL (<150)
[2023-10-13 10:11] LABS: LDL Cholesterol Direct 102 mg/dL
[2023-10-13 11:14] LABS: Folic Acid > 20.0 ng/mL (2.76->20)
[2023-10-17 07:39] LABS: Testosterone Free 59.9 pg/mL (35.0-155.0); Testosterone Total 555 ng/dL (250-1100)
== END 2023-10-13 09:03 | disposition home or self-care (01) ==
LOC: ANHLAB 09:05
PROVIDERS: PCP Internal Medicine; Visit Provider Physician Assistant
DX: E78.5 Hyperlipidemia, unspecified (principal); D64.9 Anemia, unspecified; R53.83 Other fatigue; R79.89 Other specified abnormal findings of blood chemistry
CPT/HCPCS: 36415; 80053; 80061; 82607; 82746; 84402; 84403; 84443; 85025

== ENCOUNTER 2023-10-30 00:43 | Day surgery (SDC) | payer MEDICARE, SELFPAY ==
[2023-10-25 09:39] VITALS: BMI 37.1
--- NOTE | 2023-10-26 10:27 | SUR.PREOP ---
Patient called regarding upcoming procedure. Message left regarding appointment times.
[2023-10-30 08:27] VITALS: BP 163/84; PULSE 66; RESP 20; TEMP 36.6; O2SAT 98; BMI 37.0
[2023-10-30] MEDS: LACTATED RINGERS 1,000 ML 150 ML IV CONT (08:31)
--- NOTE | 2023-10-30 08:40 | WPDANESEPPF ---
Anes - Initial Pre Proc Eval Procedure: Operation Date: 10/30/23 09:30 Proposed Procedures p Esophagogastroduodenoscopy - Todd Hooker MD Date/Time: 10/30/23 08:40 Surgeon: Todd Hooker MD Pre Op Diagnosis: Eructation, GERD without esophagitis Patient Data Age: 68 Gender: M Height: 1.96 m Weight: 141.8 kg Last Vital Signs Temp 97.8 F 10/30/23 08:27 Pulse 66 10/30/23 08:27 Resp 20 10/30/23 08:27 BP 163/84 H 10/30/23 08:27 Pulse Ox 98 10/30/23 08:27 O2 Del Method Room Air 10/30/23 08:27 Allergies Allergy/AdvReac Type Severity Reaction Status Date / Time crab Allergy Severe Swelling Verified 10/30/23 08:26 Penicillins Allergy Severe Anaphylaxis Verified 10/30/23 08:26 Home Medications Medication Instructions Recorded Confirmed Type calcium carbonate 600 mg calcium 600 mg PO DAILY 03/08/20 10/30/23 History (1,500 mg) tablet (Calcium) cholecalciferol (vitamin D3) 10 10 mcg PO DAILY 03/08/20 10/30/23 History mcg (400 unit) capsule ferrous sulfate 325 mg (65 mg 650 mg PO DAILY 01/20/21 10/30/23 History iron) tablet (Iron (ferrous sulfate)) multivitamin 1 tablet PO DAILY 01/20/21 10/30/23 History syringe with needle 3 mL 22 x 1 #30 ea 09/07/21 10/30/23 Rx 1/2 loratadine 10 mg tablet (Claritin) 10 mg PO DAILY PRN Congestion #90 11/08/22 10/30/23 Rx tabs allopurinol 300 mg tablet 300 mg PO DAILY #90 tabs 04/18/23 10/30/23 Rx amlodipine 10 mg tablet 10 mg PO DAILY #90 tabs 04/18/23 10/30/23 Rx hydrochlorothiazide 25 mg tablet 25 mg PO DAILY #90 tabs 04/18/23 10/30/23 Rx meloxicam 15 mg tablet 15 mg PO DAILY #90 tabs 04/18/23 10/30/23 Rx montelukast 10 mg tablet 10 mg PO DAILY #90 tabs 04/18/23 10/30/23 Rx sertraline 25 mg tablet 25 mg PO DAILY #90 tabs 04/18/23 10/30/23 Rx trazodone 50 mg tablet 100 mg PO .QHS #180 tabs 04/18/23 10/30/23 Rx tramadol 50 mg tablet 50 mg PO BID PRN pain #90 tabs 06/11/23 10/30/23 Rx furosemide 20 mg tablet 20 mg PO .am PRN edema #45 tabs 09/23/23 10/30/23 Rx clobetasol 0.05 % topical cream 1 applic topical DAILY #45 grams 10/16/23 10/30/23 Rx testosterone cypionate 200 mg/mL 200 mg IM .q 3 weeks #10 mL 10/16/23 10/30/23 Rx intramuscular oil pantoprazole 40 mg tablet,delayed 40 mg PO QAM #90 tabs 10/24/23 10/30/23 Rx release Patient hx anesthesia problems: none Family hx anesthesia problems: none Results Review: All pre-operative results and documents have been reviewed as part of the pre-operative evaluation. [facility] Past Medical History Medical History (Updated 10/24/23 @ 08:43 by Maikel Oliveros PA-C) Arthritis Bilateral hip pain Cellulitis Contact dermatitis Degenerative joint disease of left hip Essential (primary) hypertension Fracture of metatarsal bone with nonunion Hearing loss Hyperlipidemia Left knee DJD Low testosterone in male Metatarsal bone fracture (~07/28/19) Obesity Pain of left hip joint Painful total knee replacement, right Primary osteoarthritis of left knee PVD (peripheral vascular disease) Right hip pain Skin ulcer T12 compression fracture Trochanteric bursitis Trochanteric bursitis, left hip Trochanteric bursitis, right hip Venous stasis Vision abnormalities Vitamin B12 deficiency (non anemic) Surgical History Surgical History (Updated 10/30/23 @ 09:06 by Todd Hooker MD) Gastric bypass status for obesity S/P total knee arthroplasty Family History Family History Sibling Patient's sister is in good health Patient's brother is in good health Mother Patient's mother is , Onset Age: 80 Family history of dementia, Onset Age: 80 Father Family history of lung cancer, Onset Age: 83 Family history of malignant neoplasm of brain, Onset Age: 83 Social History Social History Smoking status: N
--- NOTE | 2023-10-30 09:03 | PM.HPGS ---
History of Present Illness History of Present Illness Consent: Risks, benefits, and alternatives have been discussed and questions answered. Patient agrees to proceed with procedure. Chief complaint: Eructation, GERD without esophagitis Narrative: Jon Burrell is a 68 year old male here for his first EGD, had gastric bypass about 16 years ago as bariatric procedure. For last 1.5 years with some regurgitation after eating certain meals, using pantoprazole that is helping some. Review of Systems Review of Systems: All systems reviewed & are unremarkable except as noted in HPI and below PMFSH Past Medical History Medical History (Updated 10/24/23 @ 08:43 by Maikel Oliveros PA-C) Arthritis Bilateral hip pain Cellulitis Contact dermatitis Degenerative joint disease of left hip Essential (primary) hypertension Fracture of metatarsal bone with nonunion Hearing loss Hyperlipidemia Left knee DJD Low testosterone in male Metatarsal bone fracture (~07/28/19) Obesity Pain of left hip joint Painful total knee replacement, right Primary osteoarthritis of left knee PVD (peripheral vascular disease) Right hip pain Skin ulcer T12 compression fracture Trochanteric bursitis Trochanteric bursitis, left hip Trochanteric bursitis, right hip Venous stasis Vision abnormalities Vitamin B12 deficiency (non anemic) Surgical History Surgical History (Updated 10/30/23 @ 09:06 by Todd Hooker MD) Gastric bypass status for obesity S/P total knee arthroplasty Family History Family History Sibling Patient's sister is in good health Patient's brother is in good health Mother Patient's mother is , Onset Age: 80 Family history of dementia, Onset Age: 80 Father Family history of lung cancer, Onset Age: 83 Family history of malignant neoplasm of brain, Onset Age: 83 Social History Social History Smoking status: Never smoker Second hand tobacco smoke exposure: No Alcohol intake: current Drinks per week: 2 Alcohol use details: BEER Substance use: never Substance use type: does not use Lack of Transportation: No Lack of Food: Never True Current Housing: I Have Housing Concerned About Future Housing: No Difficulty Paying Gas/Electric Bills: No Difficulty Paying for Meds: No Currently Unemployed: No Education: Trade/Vocational Certificate Difficulty w/ Childcare or Family Care: No Living arrangements: with family Gender identity (if verbalized by the patient): Male Spiritual care concerns: No Meds Home Medications and Allergies Home Medications Medication Instructions Recorded Confirmed Type calcium carbonate 600 mg calcium 600 mg PO DAILY 03/08/20 10/30/23 History (1,500 mg) tablet (Calcium) cholecalciferol (vitamin D3) 10 10 mcg PO DAILY 03/08/20 10/30/23 History mcg (400 unit) capsule ferrous sulfate 325 mg (65 mg 650 mg PO DAILY 01/20/21 10/30/23 History iron) tablet (Iron (ferrous sulfate)) multivitamin 1 tablet PO DAILY 01/20/21 10/30/23 History syringe with needle 3 mL 22 x 1 #30 ea 09/07/21 10/30/23 Rx 1/2 loratadine 10 mg tablet (Claritin) 10 mg PO DAILY PRN Congestion #90 11/08/22 10/30/23 Rx tabs allopurinol 300 mg tablet 300 mg PO DAILY #90 tabs 04/18/23 10/30/23 Rx amlodipine 10 mg tablet 10 mg PO DAILY #90 tabs 04/18/23 10/30/23 Rx hydrochlorothiazide 25 mg tablet 25 mg PO DAILY #90 tabs 04/18/23 10/30/23 Rx meloxicam 15 mg tablet 15 mg PO DAILY #90 tabs 04/18/23 10/30/23 Rx montelukast 10 mg tablet 10 mg PO DAILY #90 tabs 04/18/23 10/30/23 Rx sertraline 25 mg tablet 25 mg PO DAILY #90 tabs 04/18/23 10/30/23 Rx trazodone 50 mg tablet 100 mg PO .QHS #180 tabs 04/18/23 10/30/23 Rx tramadol 50 mg tablet 50 mg PO BID PRN pain #90 tabs 06/11/23 10/30/23 Rx furosemide 20 mg tablet 20 mg PO .am
[2023-10-30 09:15] VITALS: BP 108/66; PULSE 57; RESP 13; O2SAT 95
[2023-10-30 09:25] VITALS: BP 124/81; PULSE 61; RESP 17; O2SAT 99
[2023-10-30 09:35] VITALS: BP 135/82; PULSE 60; RESP 19; O2SAT 99
== END 2023-10-30 09:41 | disposition home or self-care (01) ==
PROVIDERS: PCP Internal Medicine; Visit Provider Internal Medicine Gastroenterology
PROC: 0DJ08ZZ Inspection of Upper Intestinal Tract, Via Natural or Artificial Opening Endoscopic (ICD-10-PCS; CPT 43235; principal; 2023-10-30 09:30)
DX: K21.9 Gastro-esophageal reflux disease without esophagitis (principal); I10 Essential (primary) hypertension; E78.5 Hyperlipidemia, unspecified; E53.8 Deficiency of other specified B group vitamins; R14.2 Eructation; I73.9 Peripheral vascular disease, unspecified; E66.9 Obesity, unspecified; Z68.37 Body mass index [BMI] 37.0-37.9, adult; Z79.891 Long term (current) use of opiate analgesic; Z98.84 Bariatric surgery status; Z80.1 Family history of malignant neoplasm of trachea, bronchus and lung; Z80.8 Family history of malignant neoplasm of other organs or systems
CPT/HCPCS: 43239; 88305; J2704; J7120

== ENCOUNTER 2024-01-10 14:01 | Outpatient (CLI) | payer MEDICARE, SELFPAY ==
--- NOTE | 2024-01-10 14:28 | ECG_ITS ---
SEE SCANNED COPY FOR CONFIRMED REPORT MTDD
[2024-01-10 14:41] LABS: Basophils Absolute Auto 0.1 K/mm3 (0.0-0.1); Basophils Percent Auto 0.6 % (0.2-1.2); Eosinophils Absolute Auto 0.1 K/mm3 (0-0.3); Eosinophils Percent Auto 1.1 % (0-4.4); Hematocrit 43.3 % (42.0-52.0); Hemoglobin 14.2 g/dL (14.0-18.0); Immature Granulocyte Absolute 0.08 K/mm3 (0.00-0.031); Immature Granulocyte Percent A 0.8 % (0-0.5); Lymphocytes Percent Auto 15.2 % (18.3-44.2); Mean Corpuscular HGB Conc 32.8 g/dl (32-36); Mean Corpuscular Hemoglobin 30.3 pg (26-34); Mean Corpuscular Volume 92.3 fl (80-100); Mean Platelet Volume 9.8 fl (7.4-10.4); Monocytes Absolute Auto 0.7 K/mm3 (0.1-0.6); Monocytes Percent Auto 7.1 % (2.6-8.5); Neutrophils Absolute Auto 7.4 K/mm3 (1.3-6.7); Neutrophils Percent Auto 75.2 % (45.5-73.1); Platelet Count Result 253 k/mm3 (150-375); Red Blood Count 4.69 M/mm3 (4.6-6.20); Red Cell Distribution Width 14.6 % (11.5-14.5); White Blood Count 9.8 K/mm3 (4.5-10.0)
[2024-01-10 14:42] LABS: Appearance Urine Clear (Clear); Bilirubin Urine Negative (Negative); Blood Urine Negative (Negative); Color Urine Yellow (Yellow); Glucose Urine UA Negative (Negative); Ketones Urine Negative (Negative); Leukocyte Esterase Ur Negative LEU/UL (Negative); Nitrate Urine Negative (Negative); Protein Urine Negative (Negative); Specific Grav Ur 1.014 (1.001-1.035); Urobilinogen Urine 0.2 mg/dL (<2.0); pH Urine 5.5 (5.0-9.0)
[2024-01-10 14:56] LABS: Anion Gap 7 mmol/L (4-12); Blood Urea Nitrogen 40 mg/dL (9-20); Calcium 9.3 mg/dL (8.4-10.2); Carbon Dioxide 26 mmol/L (22-30); Chloride 102 mmol/L (98-107); Estimated Glomerular Filt Rate 60; Glucose 116 mg/dL (65-110); Potassium 4.2 mmol/L (3.4-5.0); Sodium 135 mmol/L (137-145)
[2024-01-10 15:11] LABS: Add Urine Microscopic? NO
== END 2024-01-10 14:02 | disposition home or self-care (01) ==
PROVIDERS: PCP Internal Medicine; Visit Provider Nurse Practitioner Family
DX: E78.5 Hyperlipidemia, unspecified (principal); E61.1 Iron deficiency; I10 Essential (primary) hypertension; R53.83 Other fatigue
CPT/HCPCS: 36415; 80048; 81003; 85025; 93005

== ENCOUNTER 2024-02-12 13:57 | Outpatient (CLI) | payer MEDICARE, SELFPAY ==
[2024-02-12 16:03] LABS: Albumin Level 4.5 g/dL (3.5-5.1)
[2024-02-12 16:05] LABS: Prothrombin Time 13.9 Seconds (11.1-14.7)
[2024-02-12 16:06] LABS: Partial Thromboplastin Time 28.7 Seconds (22.3-36.8)
[2024-02-12 17:05] LABS: MRSA (PCR) NOT DETECTED (NOT DETECTE)
[2024-02-12 17:15] LABS: Urine Cotinine NEGATIVE
== END 2024-02-12 13:58 | disposition home or self-care (01) ==
LOC: ANHSURGERY 14:02
PROVIDERS: PCP Internal Medicine; Visit Provider Orthopaedic Surgery
DX: Z01.818 Encounter for other preprocedural examination (principal); M16.12 Unilateral primary osteoarthritis, left hip
CPT/HCPCS: 80307; 82040; 83036; 85610; 85730; 87641

== ENCOUNTER 2024-02-28 08:31 | Observation (INO) | payer MEDICARE, SELFPAY ==
[2024-02-12 14:20] VITALS: BP 127/72; PULSE 65; RESP 16; TEMP 36.7; O2SAT 98; BMI 34.9
--- NOTE | 2024-02-12 14:47 | PC.NURSE ---
Report to the Outpatient Waiting Room, entrance under the green pavilion located off [address], at time ___6:30AM____ on date ___02/26/24____. Planned Procedure Time: __8:30AM . Time changes happen often and if your time is changed the preop area will call you the afternoon before. - You and your visitor will be asked to self-screen and do not enter if you have any COVID symptoms. - A mask is optional within the hospital at this time. Patients may have clear liquids (water, carbonated beverages, clear teas, apple juice) until 3 hours prior to surgery with a maximum of 20 ounces. - No food from midnight until time of surgery. Take the following medications with a SIP of water the morning of surgery: ____AMLODIPINE, SERTRALINE. MAY TAKE TRAMADOL NEEDED FOR PAIN DO NOT STOP ANY OF YOUR OTHER PRESCRIPTION MEDICATIONS PRIOR TO SURGERY ?EXCEPT THE FOLLOWING Medications to discontinue per physician HOLD ALL MELOXICAM & VITAMINS AND SUPPLEMENTS 7 DAYS PRE-OP PER DR HOPE.__ Date to take last dose___02/18/24 Please no make-up, nail maltese, hairspray, perfume, deodorant, or body powder the day of surgery. No jewelry (including any body piercings) or valuables the day of surgery, leave them at home. Please take a shower or bath the night before, or the morning of, surgery with an antibacterial soap. Wear comfortable, loose fitting clothing. - Jewelry must be removed prior to entering the operating room. Rings and piercings that are not removed may be cut off. - The hospital will not accept responsibility for valuables. - Please leave all valuables, including medications, at home the day of surgery. If you are going home after surgery, a licensed otr driver must drive you home. - NO public transportation without another adult if you receive anesthesia. - We recommend that an adult stay with you for 24 hours following discharge. - We also recommend that you do not drive, make important decision, drink alcoholic beverages, or take any drugs that were not prescribed by your health care provider for at least 24 hours after your discharge time. Follow any additional instructions given to you from your surgeon. If you or anyone in your household have experienced Covid symptoms in the past week, please notify your surgeon or the nurse liaison at the phone number below for possible testing. Telephone instructions given to ___PATIENT & ROSE and asked if any additional questions and then verbalized understanding. Patient advised to call surgeon office or pre surgery nurse liaison [phone] if any additional questions.
--- NOTE | 2024-02-25 13:17 | WPDANESEPPF ---
Anes - Initial Pre Proc Eval Procedure: Operation Date: 02/26/24 08:30 Proposed Procedures p Left Total Hip Arthroplasty - Brendan Holder MD Date/Time: 02/25/24 13:17 Surgeon: Brendan Holder MD Pre Op Diagnosis: left hip djd Patient Data Age: 68 Gender: M Height: 1.96 m Weight: 133.7 kg Last Vital Signs Temp 36.7 C 02/12/24 14:20 Pulse 65 02/12/24 14:20 Resp 16 02/12/24 14:20 BP 127/72 02/12/24 14:20 Pulse Ox 98 02/12/24 14:20 O2 Del Method Room Air 02/12/24 14:20 Allergies Allergy/AdvReac Type Severity Reaction Status Date / Time crab Allergy Severe Swelling Verified 02/26/24 06:33 Penicillins Allergy Severe Anaphylaxis Verified 02/26/24 06:33 Home Medications Medication Instructions Recorded Confirmed Type calcium carbonate (Calcium 600) 600 mg PO DAILY 03/08/20 02/18/24 History cholecalciferol (vitamin D3) 10 10 mcg PO DAILY 03/08/20 02/18/24 History mcg (400 unit) capsule ferrous sulfate 325 mg (65 mg 650 mg PO DAILY 01/20/21 02/18/24 History iron) tablet (Iron (ferrous sulfate)) multivitamin 1 tablet PO DAILY 01/20/21 02/18/24 History syringe with needle 3 mL 22 x 1 #30 ea 09/07/21 02/18/24 Rx 1/2 testosterone cypionate 200 mg/mL 200 mg IM .q 3 weeks #10 mL 10/16/23 02/18/24 Rx intramuscular oil pantoprazole 40 mg tablet,delayed 40 mg PO QAM #90 tabs 10/24/23 02/18/24 Rx release allopurinol 300 mg tablet 300 mg PO DAILY #90 tabs 11/26/23 02/18/24 Rx amlodipine 10 mg tablet 10 mg PO DAILY #90 tabs 11/26/23 02/18/24 Rx hydrochlorothiazide 25 mg tablet 25 mg PO DAILY #90 tabs 11/26/23 02/18/24 Rx meloxicam 15 mg tablet 15 mg PO DAILY #90 tabs 11/26/23 02/18/24 Rx montelukast 10 mg tablet 10 mg PO DAILY #90 tabs 11/26/23 02/18/24 Rx sertraline 25 mg tablet 25 mg PO DAILY #90 tabs 11/26/23 02/18/24 Rx trazodone 50 mg tablet 100 mg PO .QHS #180 tabs 11/26/23 02/18/24 Rx furosemide 20 mg tablet 20 mg PO .am PRN edema #45 tabs 12/16/23 02/18/24 Rx clobetasol 0.05 % topical cream 1 applic topical DAILY PRN Itching 02/12/24 02/18/24 History docusate sodium 100 mg capsule 100 mg PO DAILY 02/12/24 02/18/24 History magnesium citrate 125 mg capsule 250 mg PO DAILY 02/12/24 02/18/24 History potassium 99 mg tablet 99 mg PO DAILY 02/12/24 02/18/24 History tramadol 50 mg tablet 100 mg PO Q6-8H PRN pain 02/12/24 02/18/24 History vitamin B complex 1 cap PO DAILY 02/12/24 02/18/24 History chlorhexidine gluconate 4 % 1 applic topical ONCE #237 mL 02/18/24 02/18/24 Rx topical liquid (Hibiclens) hydrocodone 5 mg-acetaminophen 325 1 tablet PO Q8H PRN pain #40 tabs 02/18/24 02/18/24 Rx mg tablet Patient hx anesthesia problems: none Family hx anesthesia problems: none Results Review: All pre-operative results and documents have been reviewed as part of the pre-operative evaluation. [facility] Past Medical History Medical History Arthritis Bilateral hip pain Cellulitis Contact dermatitis Degenerative joint disease of left hip Essential (primary) hypertension Fracture of metatarsal bone with nonunion Hearing loss Hyperlipidemia Left knee DJD Low testosterone in male Metatarsal bone fracture (~07/28/19) Obesity Pain of left hip joint Painful total knee replacement, right Primary osteoarthritis of left knee PVD (peripheral vascular disease) Right hip pain Skin ulcer T12 compression fracture Trochanteric bursitis Trochanteric bursitis, left hip Trochanteric bursitis, right hip Venous stasis Vision abnormalities Vitamin B12 deficiency (non anemic) Surgical History Surgical History Gastric bypass status for obesity S/P total knee arthroplasty Family History Family History Sibling Patient's sister is in good health Patient's brother is in good health Mother Patient's mother
[2024-02-26] VITALS (14 sets, daily range): BP systolic 90–132; BP diastolic 44–78; PULSE 60–89; RESP 12–20; TEMP 35.8–36.6; O2SAT 92–100
[2024-02-26] MEDS: ACETAMINOPHEN 500 MG TABLET 1000 MG PO (06:39)
[2024-02-26] MEDS: LACTATED RINGERS 1,000 ML 30 ML IV CONT ×2 (06:45→12:01)
--- NOTE | 2024-02-26 07:14 | WPDHPUPDATE1 ---
History and Physical Update Update Date/Time: 02/26/24 07:14 History and Physical has been reviewed, including an updated exam of the patient. There are NO changes in the patient's condition. Risks, benefits, and alternatives have been discussed and questions answered. Patient agrees to proceed with procedure.
[2024-02-26] MEDS: TRANEXAMIC ACID 1,000MG/ISO100 1,000 MG/100 ML BAG 200 MG IVPB (08:10)
[2024-02-26] MEDS: ceFAZolin 3 GM/D5W 100 ML 100 ML IVPB (08:46)
[2024-02-26] MEDS: SODIUM CHLORIDE 0.9% IV 38.7 ML, MORPHINE SULFATE INJ (*CRX) 2 MG, ROPivacaine HCL 1% 2... INFILTRATE (09:25)
[2024-02-26] MEDS: TRANEXAMIC ACID 1,000 MG/10 ML AMPUL 1000 MG IV PUSH (11:20)
[2024-02-26] MEDS: fentaNYL CITRATE INJ (*CRX) 100 MCG/2 ML VIAL 25 MCG IV PUSH ×7 (12:32→12:56)
--- NOTE | 2024-02-26 12:41 | W.PM.PROC2 ---
Procedure Note - Detailed Date of Procedure 02/26/24 Pre-op Diagnosis left hip djd Post-op Diagnosis Same Procedure Performed L SUZI Surgeon Brendan Holder MD Anesthesia General Description of Procedure THE PATIENT WAS TAKEN TO THE OPERATING ROOM IN STABLE CONDITION AND WAS PLACED IN THE LATERAL DECUBITUS AND THE LEFT LOWER EXTREMITY WAS PREPPED AND DRAPED IN THE STERILE FASHION. INCISION WAS MADE IN THE POSTERIOR LATERAL SIDE OF THE HIP, DOWN TO THE FASCIA LAYER. THE FASCIA WAS INCISED. THE HIP WAS EXPOSED. THE SHORT EXTERNAL ROTATORS WERE EXPOSED. THE SCIATIC NERVE WAS IDENTIFIED. INCISION WAS MADE THROUGH THE SHORT EXTERNAL ROTATORS AND THE CAPSULE OF THE HIP JOINT. THE HIP WAS DISLOCATED. AN OSTEOTOMY WAS MADE TO THE FEMORAL NECK ABOUT 1 CM PROXIMAL TO THE LESSER TROCHANTER. THE ACETABULUM WAS EXPOSED. THERE WAS SEVERE DJD SEEN. BEGINNING WITH A 44 REAMER THE ACETABULUM WAS REAMED TO 55 MM. A 56 MM TRIAL WAS PLACED IN 35 DEG OF ABDUCTION AND ANTEVERSION WAS IN ALIGNMENT WITH THE TRANS ACETABULAR LIGAMENT. THE FIT WAS EXCELLENT. THE TRIAL WAS REMOVED. A 56 MM KAMRON TRIDENT II ACETABULAR COMPONENT WAS THEN TAPPED IN TO PLACE IN 35 DEG OF ABDUCTION AND ANTEVERSION IN ALIGNMENT WITH THE TRANSVERSE ACETABULAR LIGAMENT. THE FIT WAS EXCELLENT. THE ACETABULAR LINER WAS PLACED AND CHECKED FOR STABILITY. NEXT THE FEMUR WAS PREPARED WITH INITIAL CANAL FINDER THEN SEQUENTIAL BROACHING WITH A KAMRON HIP SYSTEM, UNTIL A 7 BROACH FIT WELL IN 15 OF ANTEVERSION. A 0 HIGH OFFSET NECK WITH 36 MM HEAD TRIAL WAS PLACED. THE SHUCK TEST WAS EXCELLENT AND THE STABILITY IN FLEXION AND ROTATION WAS EXCELLENT. LEG LENGTHS WERE GROSSLY EQUAL. TRIALS WERE REMOVED. A KAMRON INSIGNIA STEM WAS PLACED WITH A HIGH OFFSET NECK THE FIT WAS EXCELLENT IN 15 DEG OF ANTEVERSION. A 0 CERAMIC 36 MM FEMORAL CERAMIC HEAD WAS PLACED. THE HIP WAS TRIALED AND THE STABILITY WAS EXCELLENT WERE THE LEG LENGTHS AND THE SHUCK TEST. THE WOUND WAS IRRIGATED WITH STERILE BETADINE AND WATER FOR 3 MIN. THEN WASHED AGAIN. THE CAPSULE AND THE EXTERNAL ROTATORS WERE APPROXIMATED WITH NUMBER 1 VICRYL. THE FASCIA WITH No 2 QUIL AND THE SUB CUTANEOUS LAYER WITH 2-0 VICRYL LAYER WELL. ANA LAURA WERE PLACED AND STERILE DRESSING WAS APPLIED. PATIENT WAS PLACED BACK ON TO THE SUPINE POSITION AND WAS EXTUBATED Estimated Blood Loss 150 Complications No immediate complications Condition Stable Disposition PACU
--- NOTE | 2024-02-26 13:44 | ADMGEN ---
This patient, Jon Burrell, was admitted to Medical Room 246-01. Patient/family oriented to hospital policies and general routines including ID bracelet, bed and alarms, visiting hours, pain management, procedures, bathroom and other care routines, personal items, smoking policy, room service/diet, and visiting hours. Information on how to activate the Rapid Response Team has been discussed. Patient/Family are encouraged to report perceived risks to care and to ask questions if they do not understand what they are told or what they should do.
[2024-02-26] MEDS: KETOROLAC 15 MG/ML VIAL (*BKC) IV PUSH ×3 (14:03→23:18)
[2024-02-26] MEDS: oxyCODONE/ACETAMINOPHEN (*CRX) 5-325 MG TABLET 1 TABLET PO ×2 (14:18→18:47)
[2024-02-26] MEDS: amLODIPine BESYLATE 5 MG TABLET 10 MG PO (16:14)
[2024-02-26] MEDS: allopurinoL 300 MG TABLET PO (16:14)
[2024-02-26] MEDS: DOCUSATE SODIUM 100 MG CAPSULE PO (16:15)
[2024-02-26] MEDS: SENNA/DOCUSATE SODIUM TABLET 2 TAB PO (16:15)
[2024-02-26] MEDS: PANTOPRAZOLE 40 MG TABLET PO (16:15)
[2024-02-26] MEDS: ASPIRIN 325 MG ENTERIC TABLET PO ×2 (16:15→20:34)
[2024-02-26] MEDS: CHOLECALCIFEROL 400 UNITS TABLET (VIT D) PO (16:15)
[2024-02-26] MEDS: hydroCHLOROthiazide 25 MG TABLET PO (16:15)
[2024-02-26] MEDS: FERROUS SULFATE 325 MG TABLET DR 650 MG PO (16:15)
[2024-02-26] MEDS: SERTRALINE HCL 25 MG TABLET PO (16:16)
--- NOTE | 2024-02-26 16:16 | PCPTNOTE ---
On 02/26/24, the student, [Frances Peraza], provided care and completed [facility] documentation on this patient. I have reviewed the student's documentation and agree with the findings.
[2024-02-26] MEDS: IBUPROFEN IV 800 MG/200 ML 800 MG/200 ML BAG 400 MG IVPB (16:20)
[2024-02-26] MEDS: ceFAZolin 2 GM/D5W 50 ML 2 GM/50 ML BAG IVPB ×2 (17:07→23:18)
[2024-02-26] MEDS: PROPARACAINE HCL 0.5% 15 ML OPHTH SOLN 1 DROP EACH EYE (17:45)
[2024-02-26] MEDS: ARTIFICIAL TEARS OPHTH SOLN 15 ML BOTTLE 1 DROP EACH EYE (17:47)
[2024-02-26] MEDS: traZODone HCL 50 MG TABLET 100 MG PO (20:34)
[2024-02-26] MEDS: DICLOFENAC SODIUM 0.1% OPHTH SOLN 2.5 ML BOTTLE 1 DROP EACH EYE (20:35)
[2024-02-27] VITALS (9 sets, daily range): BP systolic 105–123; BP diastolic 48–63; PULSE 60–76; RESP 14–18; TEMP 36.2–36.8; O2SAT 95–98
[2024-02-27] MEDS: oxyCODONE/ACETAMINOPHEN (*CRX) 5-325 MG TABLET 1 TABLET PO ×5 (03:43→20:56)
[2024-02-27 05:14] LABS: Basophils Percent Auto 0.1 % (0.2-1.2); Eosinophils Percent Auto 0.1 % (0-4.4); Hematocrit 32.4 % (42.0-52.0); Hemoglobin 10.7 g/dL (14.0-18.0); Immature Granulocyte Absolute 0.06 K/mm3 (0.00-0.031); Immature Granulocyte Percent A 0.4 % (0-0.5); Lymphocytes Percent Auto 5.9 % (18.3-44.2); Mean Corpuscular Hemoglobin 30.7 pg (26-34); Mean Corpuscular Volume 93.1 fl (80-100); Mean Platelet Volume 10.4 fl (7.4-10.4); Monocytes Absolute Auto 0.7 K/mm3 (0.1-0.6); Monocytes Percent Auto 5.3 % (2.6-8.5); Neutrophils Percent Auto 88.2 % (45.5-73.1); Platelet Count Result 212 k/mm3 (150-375); Red Blood Count 3.48 M/mm3 (4.6-6.20); Red Cell Distribution Width 14.6 % (11.5-14.5); White Blood Count 13.6 K/mm3 (4.5-10.0)
[2024-02-27 05:31] LABS: Anion Gap 8 mmol/L (4-12); Blood Urea Nitrogen 36 mg/dL (9-20); Calcium 8.5 mg/dL (8.4-10.2); Carbon Dioxide 28 mmol/L (22-30); Chloride 97 mmol/L (98-107); Estimated CRCL calculation 55 ml/min; Estimated Glomerular Filt Rate 38; Glucose 139 mg/dL (65-110); Sodium 133 mmol/L (137-145)
[2024-02-27] MEDS: KETOROLAC 15 MG/ML VIAL (*BKC) IV PUSH ×2 (05:34→13:12)
[2024-02-27] MEDS: DICLOFENAC SODIUM 0.1% OPHTH SOLN 2.5 ML BOTTLE 1 DROP EACH EYE ×3 (05:35→21:39)
[2024-02-27] MEDS: ceFAZolin 2 GM/D5W 50 ML 2 GM/50 ML BAG IVPB (07:34)
[2024-02-27] MEDS: ASPIRIN 325 MG ENTERIC TABLET PO ×2 (07:38→20:54)
[2024-02-27] MEDS: allopurinoL 300 MG TABLET PO (07:38)
[2024-02-27] MEDS: FERROUS SULFATE 325 MG TABLET DR 650 MG PO (07:38)
[2024-02-27] MEDS: DOCUSATE SODIUM 100 MG CAPSULE PO (07:39)
[2024-02-27] MEDS: SENNA/DOCUSATE SODIUM TABLET 2 TAB PO ×2 (07:39→17:05)
[2024-02-27] MEDS: PANTOPRAZOLE 40 MG TABLET PO (07:39)
[2024-02-27] MEDS: SERTRALINE HCL 25 MG TABLET PO (07:39)
[2024-02-27] MEDS: polyethylene glycoL 3350 17 GM POWD.PACK PO (07:40)
[2024-02-27] MEDS: CHOLECALCIFEROL 400 UNITS TABLET (VIT D) PO (07:42)
--- NOTE | 2024-02-27 07:43 | PCOTNOTE ---
The patient treatment was not able to be completed patient reports just receiving his pain medication and requested for after breakfast due to pain. Will plan to continue treatment per plan of care.
[2024-02-27] MEDS: IBUPROFEN IV 800 MG/200 ML 800 MG/200 ML BAG 200 MG IVPB (08:24)
--- NOTE | 2024-02-27 10:48 | PM.PNORT ---
Progress Note: A&P Assessment and Plan (1) Degenerative joint disease of left hip: Qualifiers: Osteoarthritis type: primary Qualified Code(s): M16.12 - Unilateral primary osteoarthritis, left hip Code(s): M16.12 - Unilateral primary osteoarthritis, left hip Status: Acute Assessment and Plan: POD 1 DOING WELL. OK TO DC HOME F/U IN 3 WEEKS. Subjective Subjective Date/Time Seen: 02/27/24 10:48 Interval history: POD 1 DOING WELL. GOOD PROGRESS WITH PT. NO CALF PAIN Exam Extrem: Other: VSS AFEBRILE DRESSING DRY NV INTACT NEG HOMANS SIGN, THIGH AND CALF NON TENDER Objective Data Vital Signs Vital Signs: Vital Signs - 24 hr 02/26/24 12:01 02/26/24 12:15 02/26/24 12:30 Temperature 36.3 C L Pulse Rate 60 60 71 Respiratory Rate 14 12 16 Blood Pressure 90/61 L 106/65 120/70 Pulse Oximetry 97 97 99 Oxygen Delivery Simple Face Mask Simple Face Mask Nasal Cannula Oxygen Flow Rate 10 10 3 02/26/24 12:45 02/26/24 13:00 02/26/24 13:15 Temperature Pulse Rate 69 74 67 Respiratory Rate 15 20 12 Blood Pressure 125/78 121/65 117/63 Pulse Oximetry 99 100 97 Oxygen Delivery Nasal Cannula Room Air Room Air Oxygen Flow Rate 3 02/26/24 13:30 02/26/24 14:26 02/26/24 13:50 Temperature 36.4 C Pulse Rate 81 79 Respiratory Rate 13 17 Blood Pressure 128/75 132/70 Pulse Oximetry 100 100 Oxygen Delivery Nasal Cannula Room Air Oxygen Flow Rate 2 02/26/24 14:05 02/26/24 14:35 02/26/24 15:35 Temperature 35.8 C L 36.4 C Pulse Rate 79 77 76 Respiratory Rate 17 18 18 Blood Pressure 118/61 122/64 104/57 L Pulse Oximetry 100 99 96 Oxygen Delivery Oxygen Flow Rate 02/26/24 19:21 02/26/24 20:00 02/26/24 23:21 Temperature 36.5 C 36.4 C L Pulse Rate 89 65 Respiratory Rate 18 18 Blood Pressure 118/72 100/44 L Pulse Oximetry 99 92 Oxygen Delivery Room Air Oxygen Flow Rate 02/27/24 03:21 02/27/24 06:18 02/27/24 07:21 Temperature 36.7 C 36.6 C 36.4 C Pulse Rate 60 63 75 Respiratory Rate 18 18 16 Blood Pressure 106/60 109/48 L 105/53 L Pulse Oximetry 95 95 97 Oxygen Delivery Oxygen Flow Rate 02/27/24 08:00 02/27/24 10:40 Temperature 36.7 C Pulse Rate 67 Respiratory Rate 16 Blood Pressure 109/57 L Pulse Oximetry 97 95 Oxygen Delivery Room Air Oxygen Flow Rate Intake/Output Intake/Output: Intake & Output 02/24/24 02/25/24 02/26/24 02/27/24 23:59 23:59 23:59 23:59 Intake Total 1000 560 Balance 1000 560 Meds/Results Medications: Active Medications Generic Name Dose Route Start Last Admin Trade Name Freq PRN Reason Stop Dose Admin Acetaminophen 500 mg 02/26/24 13:36 Acetaminophen 500 Mg Tablet PO Q6H PRN Pain Rated 1-3 Allopurinol 300 mg 02/26/24 13:36 02/27/24 07:38 Allopurinol 300 Mg Tablet PO 300 mg DAILY CHINEDU Administration Amlodipine Besylate 10 mg 02/26/24 13:36 02/26/24 16:14 Amlodipine Besylate 5 Mg Tablet PO 10 mg DAILY CHINEDU Administration Artificial Tears 1 drop 02/26/24 17:13 02/26/24 17:47 Artificial Tears Ophth Soln 15 Ml Bottle EACH EYE 1 drop Q2H PRN Administration Dry Eye(s) Aspirin 325 mg 02/26/24 13:36 02/27/24 07:38 Aspirin 325 Mg Enteric Tablet PO 325 mg Q12HR CHINEDU Administration Clobetasol Propionate 1 applic 02/26/24 13:36 Clobetasol Propionate 0.05% Cream 15 Gm TOPICAL DAILY PRN Itching Diazepam 5 mg 02/26/24 13:36 Diazepam (*Crx) 5 Mg Tablet PO Q6H PRN Anxiety/Muscle Spasm Diclofenac Sodium 1 drop 02/26/24 22:00 02/27/24 05:35 Diclofenac Sodium 0.1% Ophth Soln 2.5 Ml Bottle EACH EYE 03/01/24 21:59 1 drop Q8HR CHINEDU Administration Docusate Sodium 100 mg 02/26/24 13:36 02/27/24 07:39 Docusate Sodium 100 Mg Capsule PO 100 mg DAILY CHINEDU Administration Ferrous Sulfate 650 mg 02/26/24 13:36 02/27/24 07:38 Ferrous Sulfate [address] PO 650 mg DA
--- NOTE | 2024-02-27 10:50 | PM.DS ---
DS: Admitting Diagnosis Discharge Date 02/27/24 Admitting Diagnosis LEFT HIP DJD DS: Discharge Diagnosis Discharge Diagnosis (1) Degenerative joint disease of left hip: Qualifiers: Osteoarthritis type: primary Qualified Code(s): M16.12 - Unilateral primary osteoarthritis, left hip Code(s): M16.12 - Unilateral primary osteoarthritis, left hip Status: Acute DS: Summary Hospital Course Reason for hospitalization: L SUZI Hospital Course: PATIENT WAS ADMITTED S/P TOTAL [HIP ARTHROPLASTY FOR POSTOPERATIVE MEDICAL MANAGEMENT, PAIN CONTROL AND MOBILIZATION WITH PHYSICAL AND OCCUPATIONAL THERAPY. THE PATIENT PROGRESSED WELL WITH PT/OT. LABS AND VITALS REMAINED STABLE AND PAIN WELL CONTROLLED. THE PATIENT HAS BEEN CLEARED TO BE DISCHARGED HOME. FOLLOW UP APPOINTMENT SCHEDULED. DISCHARGE INSTRUCTIONS DISCUSSED AT LENGTH WITH THE PATIENT. MEDICATIONS REVIEWED. Status at Discharge Cognitive/behavioral status at discharge: STABLE Time Spent with Patient Time attestation: Total time spent providing and/or coordinating discharge services: DS: Data Data Completed and Pending Labs on day of discharge: Labs from last 24 hours 02/27/24 04:48 WBC 13.6 H RBC 3.48 L Hgb 10.7 L D Hct 32.4 L MCV 93.1 MCH 30.7 MCHC 33.0 RDW 14.6 H Plt Count 212 MPV 10.4 Immature Gran % (Auto) 0.4 Neut % (Auto) 88.2 H Lymph % (Auto) 5.9 L [place] % (Auto) 5.3 Eos % (Auto) 0.1 Baso % (Auto) 0.1 L Lymph # (Auto) 0.80 L [place] # (Auto) 0.7 H Eos # (Auto) 0.0 Baso # (Auto) 0.0 Abs Immat Gran (auto) 0.06 H Absolute Neuts (auto) 12.0 H Absolute Nucleated RBC 0.000 Nucleated RBC % 0.0 Sodium 133 L Potassium 4.0 Chloride 97 L Carbon Dioxide 28 Anion Gap 8 BUN 36 H Creatinine 1.80 H Estim Creat Clear Calc 55 Estimated GFR 38 L Glucose 139 H Calcium 8.5 Procedures/Treatments: L SUZI Discharge Plan Discharge Patient Disposition: Home Health Service Discharge Instructions: Post Op Total Hip Replacement Instructions Dr. Brendan Holder [phone] Your dressing will be changed prior to your discharge. You will be sent home with one additional dressing to be changed on post op day 7 by the home health RN. You may remove the dressing on post op day 14. Your incision was closed with dermabond, allow the dermabond to fall off naturally once your dressing is removed. Do not pull at the dermabond or disrupt incision healing. You may shower with your dressing but do not submerge in a bath tub. Do not drive or operate machinery until you are released by Dr. Holder. Do not walk without a walker for any reason until you are released by Dr. Holder. Continue to apply ice to the hip intermittently for additional pain relief. Protect your skin with a towel or pillow case. Continue to follow strict total hip replacement precautions. Your first post op appointment was sent to you via mail preoperatively. If you have any questions or are unable to make your appointment, please contact our office for scheduling questions. Your medications have been sent to your pharmacy. You have been sent home with pain medication. Please pick up attendant an over the counter stool softener to prevent constipation due to narcotic use. Please keep this in mind during your postoperative recovery. If you are not experiencing regular bowel movements, please contact our office for further instructions. Please contact our office with any questions/concerns regarding your hip at [phone]. Patient Instructions: Antibiotic Form, Pain Management (ED), Total Hip Replacement (DC) Stand Alone Forms: General Discharge Information Follow-up/Referrals: Brendan Holder MD [Physician] - Keep Reg. Scheduled Appt. Discharge Medications: New oxycodone-acetaminophen [Percocet] 5-325 mg tablet 1 tablet PO Q6H PRN (Reason: pain) Qty: 30 0RF Xarelto 10 mg tablet 10 mg PO DAILY Qty: 14 0RF Rx Instructions: for 1
--- NOTE | 2024-02-27 14:27 | P.PNAN_ITS ---
Anes - Prog Note Post-Op Date/Time: 02/27/24 14:27 Cardiovascular status: normal Respiratory status: normal Airway patency: baseline Mental status: baseline Post-Op hydration status: other (anemia) Vital Signs: Last Vital Signs Temp 98.0 F 02/27/24 10:40 Pulse 67 02/27/24 10:40 Resp 16 02/27/24 10:40 BP 109/57 L 02/27/24 10:40 Pulse Ox 96 02/27/24 11:36 O2 Del Method Room Air 02/27/24 11:36 O2 Flow Rate 2 02/26/24 13:30 Pain Score (VAS): 08/29 I/O: Intake & Output 02/26/24 02/27/24 02/27/24 23:59 07:59 15:59 Intake Total 400 610 Balance 400 610 Laboratory Tests 02/27/24 04:48 02/27/24 04:48 02/27/24 04:48 WBC 13.6 H RBC 3.48 L Hgb 10.7 L D Hct 32.4 L MCV 93.1 MCH 30.7 MCHC 33.0 RDW 14.6 H Plt Count 212 MPV 10.4 Immature Gran % (Auto) 0.4 Neut % (Auto) 88.2 H Lymph % (Auto) 5.9 L [place] % (Auto) 5.3 Eos % (Auto) 0.1 Baso % (Auto) 0.1 L Lymph # (Auto) 0.80 L [place] # (Auto) 0.7 H Eos # (Auto) 0.0 Baso # (Auto) 0.0 Abs Immat Gran (auto) 0.06 H Absolute Neuts (auto) 12.0 H Absolute Nucleated RBC 0.000 Nucleated RBC % 0.0 Sodium 133 L Potassium 4.0 Chloride 97 L Carbon Dioxide 28 Anion Gap 8 BUN 36 H Creatinine 1.80 H Estim Creat Clear Calc 55 Estimated GFR 38 L Glucose 139 H Calcium 8.5 Post-procedural complaints: none Patient Feedback: Patient satisfied with anesthetic care.
--- NOTE | 2024-02-27 16:19 | PC.NURSE ---
Dr Holder notified of holding am bp meds due to bp 105/50
[2024-02-27] MEDS: traZODone HCL 50 MG TABLET 100 MG PO (20:54)
--- NOTE | ~2024-02-28 | XR_ITS ---
EXAMINATION: XR hip LT min 2V DATE: 02/26/2024 12:36 INDICATION: Postoperative evaluation following left total hip arthroplasty TECHNIQUE: Anteroposterior and lateral views of the left hip were obtained. COMPARISON: 08/23/2023 FINDINGS: Interval placement of a noncemented left total hip arthroplasty which appears well seated in near sindhu tomic alignment. Expected postoperative soft tissue gas with overlying skin becky. No fractures kourtney ntified. IMPRESSION: 1. Left total hip arthroplasty, negative for postoperative purposes. Reviewed, dictated and finalized at location A.
[2024-02-28] MEDS: oxyCODONE/ACETAMINOPHEN (*CRX) 5-325 MG TABLET 1 TABLET PO ×4 (04:51→23:32)
[2024-02-28 04:59] LABS: Hematocrit 31.9 % (42.0-52.0); Hemoglobin 10.2 g/dL (14.0-18.0); Mean Corpuscular Hemoglobin 30.3 pg (26-34); Mean Corpuscular Volume 94.7 fl (80-100); Mean Platelet Volume 10.4 fl (7.4-10.4); Platelet Count Result 191 k/mm3 (150-375); Red Blood Count 3.37 M/mm3 (4.6-6.20); Red Cell Distribution Width 14.8 % (11.5-14.5); White Blood Count 8.2 K/mm3 (4.5-10.0)
[2024-02-28 05:12] LABS: Anion Gap 8 mmol/L (4-12); Blood Urea Nitrogen 42 mg/dL (9-20); Calcium 8.2 mg/dL (8.4-10.2); Carbon Dioxide 27 mmol/L (22-30); Chloride 101 mmol/L (98-107); Estimated CRCL calculation 47 ml/min; Estimated Glomerular Filt Rate 32; Glucose 114 mg/dL (65-110); Potassium 3.2 mmol/L (3.4-5.0); Sodium 136 mmol/L (137-145)
[2024-02-28] MEDS: DICLOFENAC SODIUM 0.1% OPHTH SOLN 2.5 ML BOTTLE 1 DROP EACH EYE ×2 (06:14→21:14)
[2024-02-28 06:20] VITALS: BP 111/56; PULSE 67; RESP 18; TEMP 36.5; O2SAT 97
[2024-02-28] MEDS: PANTOPRAZOLE 40 MG TABLET PO (08:47)
[2024-02-28] MEDS: SERTRALINE HCL 25 MG TABLET PO (08:47)
[2024-02-28] MEDS: CHOLECALCIFEROL 400 UNITS TABLET (VIT D) PO (08:47)
[2024-02-28] MEDS: ASPIRIN 325 MG ENTERIC TABLET PO ×2 (08:48→21:14)
[2024-02-28] MEDS: allopurinoL 300 MG TABLET PO (08:48)
[2024-02-28] MEDS: FERROUS SULFATE 325 MG TABLET DR 650 MG PO (08:49)
[2024-02-28 08:51] VITALS: RESP 18; O2SAT 97
[2024-02-28] MEDS: DOCUSATE SODIUM 100 MG CAPSULE PO (08:51)
--- NOTE | 2024-02-28 09:14 | PM.PNORT ---
Progress Note: A&P Assessment and Plan (1) S/P total hip arthroplasty: Qualifiers: Laterality: left Qualified Code(s): Z96.642 - Presence of left artificial hip joint Code(s): Z96.649 - Presence of unspecified artificial hip joint Status: Acute Assessment and Plan: POD #2 : Left SUZI Continue PT/OT. WBAT. Walker. HIGH FALL RISK. Continue pain control. Ice Hip. Protect skin. DVT prophylaxis with Xarelto. SCDs. Incentive Spirometry Use reviewed. Monitor Dressing. Change prior to discharge. Bowel Regimen. Dispo: Home with Home Health pending progress with PT/OT and medicine team consult for rising creatinine. (2) Elevated serum creatinine: Code(s): R79.89 - Other specified abnormal findings of blood chemistry Status: Acute Assessment and Plan: Creatinine up to 2.10 s/p surgery. Yesterday at 1.8. Request evaluation by medicine team for recommendations prior to discharge. Time Spent With Patient Time: Reviewed history, exam, radiographs and current labs with attending MD and covering surgeon, Dr. Holder, who agrees with current plan as indicated above. No further recommendations from Dr. Holder at this time. Subjective Subjective Date/Time Seen: 02/28/24 09:14 Post Op day: 2 Interval history: POD #2: Left SUZI Patient doing well. Sitting up at the bedside. Originally planned for d/c yesterday but then decided he would like to stay for more guided therapy. Pain well controlled. No new concerns. Hopeful for d/c today. Review of Systems Constitutional: Constitutional: Denies chills, Denies fatigue, Denies fever(s), Denies night sweats and Denies weakness Cardiovascular: Cardiovascular: Denies chest pain, Denies lightheadedness, Denies palpitations and Denies dyspnea Respiratory: Respiratory: Denies cough, Denies dyspnea and Denies wheezing Gastrointestinal: Gastrointestinal: Denies abdominal pain, Denies diarrhea, Denies nausea and Denies vomiting Musculoskeletal: Musculoskeletal: Reports arthralgias (left hip ), Reports joint swelling (left hip ) and Denies numbness Neurologic: Denies numbness and Denies weakness Endocrine: Endocrine: Denies fatigue and Denies palpitations Allergic/Immunologic: Allergic/Immunologic: Denies wheezing Exam Const: General: comfortable and no acute distress Orientation/consciousness: patient oriented x3 Limitations: no limitations Resp: Effort & Inspection: normal respiratory effort Cardio: Rate: regular rate Rhythm: regular rhythm GI: Inspection: non-distended Skin: General skin exam: normal color and wounds noted (incision left hip C/D/I ) Wounds: wounds noted (incision left hip C/D/I ) Neuro: General: patient oriented x3 Extrem: Left lower extremity: hip/thigh Details: tenderness Location: of the hip Location: laterally and anteriorly, swelling (thigh soft ) Location: of the hip (lateral. ), abnormal ROM (limitations with internal/external rotation and flexion/extension due to recent surgical intervention ) and other (incision lateral hip c/d/i. ), knee Details: normal to inspection and normal ROM; no tenderness and no swelling, lower leg (Negative Jamie's Sign ) Details: no edema, ankle (+ankle dorsiflexion/plantarflexion ) Details: normal to inspection, no edema and normal ROM; no tenderness, no swelling and no warmth and foot Details: normal capillary refill, toes with normal ROM, vascular exam Details: dorsalis pedis pulse present and motor-sensory exam light-touch normal in all toes; no tenderness, no ecchymosis and no crepitus Psych: Mental Status: mental status grossly normal Affect: normal affect Objective Data Vital Signs Vital Signs: Vital Signs - 24 hr 02/27/24 10:40 02/27/24 11:36 02/27/24 14:27 Temperature 36.7 C 36.2 C L Pulse Rate 67 66 Respiratory Rate 16 14 Blood Pressure 109/57 L 112/63 Pulse Oximetry 95 96 98 Oxygen Delivery Room Air 02/27/24 18:13 02/27/24 19:58 02/28/24 06:
--- NOTE | 2024-02-28 13:19 | PM.IMCN ---
Assessment and Plan Assessment and plan (1) Elevated serum creatinine: Code(s): R79.89 - Other specified abnormal findings of blood chemistry Status: Acute Assessment and Plan: - creatinine 1.2 (01/09) -> 1.8 (02/26) -> 2.1 (02/27) - add CK, urine sodium, urine protein, protein/creatinine, BNP - UA w/reflex ordered - bladder scan for post-void residual - monitor I&Os - hold HCTZ and Lasix, add hydralazine IVP prn for HTN in interim. - consider nephrology consultation and/or renal US - IV fluids: 100 mL/hr x1L (2) S/P total hip arthroplasty: Qualifiers: Laterality: left Qualified Code(s): Z96.642 - Presence of left artificial hip joint Code(s): Z96.649 - Presence of unspecified artificial hip joint Status: Acute Assessment and Plan: The patient underwent a total hip arthroplasty on 02/25 with Gallo CONCEPCION. - ambulate with assistance and up to chair - apply gel pads - hip precautions in place, fall precautions - use IS - neurovasc checks - see order for intervals - SCDs - resume diet - pain management and antiemetics PRN - monitor labs in AM - CBC and BMP - bowel regimen: docusate/senna, polyethylene glycol - PT/OT (3) Essential (primary) hypertension: Code(s): I10 - Essential (primary) hypertension Status: Acute Assessment and Plan: - chronic, currently 118/74. Meds held during majority of stay due to soft BP. - continue home medications:Amlodipine 10 mg daily, hydrochlorothiazide 25 mg daily, Lasix 20 mg p.r.n. for edema - monitor (4) Mild depression: Code(s): F32.0 - Major depressive disorder, single episode, mild Status: Acute Assessment and Plan: - continue home medication: Sertraline 25 mg daily Plan Patient underwent a total left hip arthroplasty on 02/25. reporting some difficulty managing pain, had not utilized Dilaudid, will trial this afternoon. renal function preop showed creatinine of 1.2 with GFR of 60. Increasing, now showing creatinine of 2.1 and GFR of 32. CK mildly bumped, trend down. IV fluids at 100 mils per hour x1 L. Hold hydrochlorothiazide, Lasix, ibuprofen. Consider Nephrology consultation if no improvement with fluids and holding diuretics. Diet: Regular GI Prophylaxis: not currently indicated DVT Prophylaxis: SCDs and SKY Lines: peripheral Code Status: full code HPI Date of Consult Consult date: 02/28/24 Requesting Physician: Brendan Holder MD Primary Care Provider: Reji Valle DO Consult Narrative Reason for consult: Medicine Narrative: Jon Burrell is a 68 year old male presents here for surgical management of his left hip pain with PMH of DJD, HTN, HLD, PVD, and venous stasis. The patient presented here for surgical management of his degenerative joint disease in his left hip. Patient reports chronic left hip pain with no precipitating trauma. Has failed conservative management. Previously utilize NSAIDs, ice, heat, rest, and cortisone injections. Last injection done under fluoro on 08/2023. This provided him with relief for approximately 3 months. Patient elected to forego further conservative management in favor of undergoing a total hip arthroplasty. Surgery performed today, 02/25, with Gallo CONCEPCION. Reports no post-operative nausea or vomiting. Denies recent additions or changes to his medications. Endorsing difficult pain control. Preop workup:98? F, HR 65, RR 16, 127/72, and 98% on RA. Preop VS: no leukocytosis, hemoglobin 10.2, potassium 3.2, creatinine 2.1 and GFR 32. XR hip showed severe, bone on bone, left hip DJD. Review of Systems Review of Systems: All systems reviewed & are unremarkable except as noted in HPI and below PMFSH Past Medical History Medical History (Updated 02/28/24 @ 13:37 by Marianne Gutierrez, RENATO) Arthritis Bilateral hip pain Cellulitis Contact dermatitis Degenerative joint disease of left hip Elevated serum creatinine
[2024-02-28 14:39] LABS: Creatine Kinase 294 U/L (55-170)
[2024-02-28 14:50] LABS: NT Pro B Type Natriuretic Pept 55 pg/mL (19.9-100)
[2024-02-28] MEDS: LACTATED RINGERS 1,000 ML 100 ML IV CONT (14:51)
[2024-02-28] MEDS: HYDROmorphone HCL INJ (*CRX) 1 MG/ML SYR 0.5 MG IV PUSH (14:51)
[2024-02-28 15:57] VITALS: BP 118/74; PULSE 74; RESP 17; TEMP 36.6; O2SAT 96
[2024-02-28 17:56] LABS: Appearance Urine Clear (Clear); Bilirubin Urine Negative (Negative); Blood Urine Negative (Negative); Color Urine Yellow (Yellow); Glucose Urine UA Negative (Negative); Ketones Urine Negative (Negative); Leukocyte Esterase Ur Negative LEU/UL (Negative); Nitrate Urine Negative (Negative); Protein Urine Negative (Negative); Specific Grav Ur 1.016 (1.001-1.035); pH Urine 5.5 (5.0-9.0)
[2024-02-28 17:57] LABS: Add Urine Microscopic? NO
[2024-02-28 20:46] VITALS: BP 126/56; PULSE 80; RESP 17; TEMP 36.9; O2SAT 100
[2024-02-28] MEDS: traZODone HCL 50 MG TABLET 100 MG PO (21:14)
[2024-02-28 23:43] VITALS: BP 128/63; PULSE 86; RESP 17; TEMP 36.3; O2SAT 99
[2024-02-29 00:05] LABS: Creatinine Urine 122.7 mg/dL; Total Protein Urine Random 8 mg/dL; Ur Ttl Prot Creatinine Ratio 0.07 mg/mg (0-0.20)
[2024-02-29 00:07] LABS: Sodium Urine Random 42 meq/L
[2024-02-29 03:47] VITALS: BP 105/53; PULSE 62; RESP 18; TEMP 36.3; O2SAT 98
[2024-02-29 05:20] LABS: Hematocrit 33.5 % (42.0-52.0); Hemoglobin 10.6 g/dL (14.0-18.0); Mean Corpuscular HGB Conc 31.6 g/dl (32-36); Mean Corpuscular Hemoglobin 29.9 pg (26-34); Mean Corpuscular Volume 94.6 fl (80-100); Mean Platelet Volume 10.5 fl (7.4-10.4); Platelet Count Result 219 k/mm3 (150-375); Red Blood Count 3.54 M/mm3 (4.6-6.20); Red Cell Distribution Width 14.6 % (11.5-14.5); White Blood Count 9.7 K/mm3 (4.5-10.0)
[2024-02-29 05:30] LABS: Anion Gap 7 mmol/L (4-12); Blood Urea Nitrogen 39 mg/dL (9-20); Calcium 8.6 mg/dL (8.4-10.2); Carbon Dioxide 30 mmol/L (22-30); Chloride 98 mmol/L (98-107); Estimated CRCL calculation 58 ml/min; Estimated Glomerular Filt Rate 40; Glucose 110 mg/dL (65-110); Potassium 3.7 mmol/L (3.4-5.0); Sodium 135 mmol/L (137-145)
[2024-02-29 05:31] LABS: Creatine Kinase 186 U/L (55-170)
[2024-02-29] MEDS: DICLOFENAC SODIUM 0.1% OPHTH SOLN 2.5 ML BOTTLE 1 DROP EACH EYE (06:12)
--- NOTE | 2024-02-29 06:52 | PM.IMPN ---
Progress Note: A&P Assessment and Plan (1) Elevated serum creatinine: Code(s): R79.89 - Other specified abnormal findings of blood chemistry Status: Acute Assessment and Plan: Baseline WNL. BUN/Cr now downtrending with current treatment. - creatinine 1.2 (01/09) -> 1.8 (02/26) -> 2.1 (02/27) -> 1.7 (02/28) - CK slightly elevated at 294 (02/27) -> 186 (02/28) - urine sodium, urine protein, protein/creatinine, and BNP WNL - UA collected on 02/27 nonconcerning for UTI - bladder scan for post-void residual - monitor I&Os - hold HCTZ and Lasix, add hydralazine IVP prn for HTN in interim. - consider nephrology consultation and/or renal US - IV fluids: 100 mL/hr x1L (2) S/P total hip arthroplasty: Qualifiers: Laterality: left Qualified Code(s): Z96.642 - Presence of left artificial hip joint Code(s): Z96.649 - Presence of unspecified artificial hip joint Status: Acute Assessment and Plan: The patient underwent a total hip arthroplasty on 02/[address] Holder. - hip precautions and fall precautions in place - use incentive spirometer - neurovasc checks - see order for intervals - bowel regimen: docusate/senna, polyethylene glycol - SCDs - resume regular diet - pain management and antiemetics PRN - apply gel pads - monitor labs in AM - CBC and BMP - PT/OT: weight bearing as tolerated (3) Essential (primary) hypertension: Code(s): I10 - Essential (primary) hypertension Status: Acute Assessment and Plan: Chronic, currently 105/53. Meds held during majority of stay due to soft BP. - Continue home medications:Amlodipine 10 mg daily - Holding hydrochlorothiazide 25 mg daily and Lasix 20 mg p.r.n. for edema due to ongoing RALPH - Monitor (4) Mild depression: Code(s): F32.0 - Major depressive disorder, single episode, mild Status: Acute Assessment and Plan: Chronic, continue home medication. - Sertraline 25 mg daily - Monitor Time Spent With Patient Time with patient: 25 - 35 minutes Subjective Date/time seen: 02/29/24 06:52 Interval history: 68 year old male with past medical history of degenerative joint disease, hypertension, hyperlipidemia, PVD, and depression presents to the hospital for surgical management of his left hip pain. Patient underwent a total left hip arthroplasty on 02/[address] Holder. Prior to surgery patients renal function was WNL with creatinine 1.2 and GFR 60. CK was slightly bumped and now down trending. RALPH improving with fluids and holding HCTZ and lasix. Patient is pleasant lying comfortably in bed. He has no complaints at this time, denying any pain, shortness of breath, nausea/vomiting, and changes in bowel/bladder. His BUN/Cr and GFR are improving with fluids and holding of the medications. Will continue IV NS at this time. Review of Systems Review of Systems: All systems reviewed & are unremarkable except as noted in HPI and below Exam Narrative: AF HR 84 RR 16 SpO2 99 BP 124/64 General: male in no acute respiratory distress who is nontoxic appearing, lying semi recumbent in bed. HEENT: Normocephalic. Atraumatic. No facial asymmetry. Chest: Lungs are clear to auscultation bilaterally. No wheezes or crackles. CV: Heart was regular rate and rhythm. S1/S2. No murmurs, gallops, or rubs. Abd: Abdomen was soft. Nontender. Nondistended. Positive bowel sounds. No organomegaly or masses. Ext: Mild edema of the left hip with clean, dry and intact dressing. No clubbing, cyanosis. 2+ DP pulses bilaterally. Neuro: Patient is alert and oriented x4. Cranial nerves 2-12 are intact. Speech is clear. Psych: Normal mood and affect. Patient is pleasant and cooperative. Skin: Warm and dry. No rashes noted. Objective Data Vital Signs Vital Signs: Vital Signs - 24 hr 02/28/24 08:51 02/28/24 15:57 02/28/24 20:46 Temperature 97.8 F 98.5 F Pulse Rate 74 80 Respiratory Rate 18 17 17 Blood Pressure 118/74
[2024-02-29 08:00] VITALS: BP 124/64; PULSE 84; RESP 16; TEMP 36.6; O2SAT 99
[2024-02-29] MEDS: FERROUS SULFATE 325 MG TABLET DR 650 MG PO (08:37)
[2024-02-29] MEDS: SENNA/DOCUSATE SODIUM TABLET 2 TAB PO ×2 (08:37→17:44)
[2024-02-29] MEDS: ASPIRIN 325 MG ENTERIC TABLET PO ×2 (08:37→21:33)
[2024-02-29] MEDS: CHOLECALCIFEROL 400 UNITS TABLET (VIT D) PO (08:37)
[2024-02-29] MEDS: allopurinoL 300 MG TABLET PO (08:38)
[2024-02-29] MEDS: DOCUSATE SODIUM 100 MG CAPSULE PO (08:38)
[2024-02-29] MEDS: amLODIPine BESYLATE 5 MG TABLET 10 MG PO (08:38)
[2024-02-29] MEDS: SERTRALINE HCL 25 MG TABLET PO (08:38)
[2024-02-29] MEDS: PANTOPRAZOLE 40 MG TABLET PO (08:38)
[2024-02-29] MEDS: polyethylene glycoL 3350 17 GM POWD.PACK PO (08:38)
[2024-02-29] MEDS: oxyCODONE/ACETAMINOPHEN (*CRX) 5-325 MG TABLET 1 TABLET PO ×3 (08:41→21:32)
[2024-02-29] MEDS: SODIUM CHLORIDE 0.9% IV 1,000 ML 100 ML IV CONT (14:05)
[2024-02-29 16:00] VITALS: BP 115/61; PULSE 87; RESP 20; TEMP 36.9; O2SAT 98
[2024-02-29 17:20] LABS: Estimated CRCL calculation 55 ml/min; Estimated Glomerular Filt Rate 38
[2024-02-29 20:45] VITALS: O2SAT 99
[2024-02-29 20:57] VITALS: BP 131/64; PULSE 84; RESP 18; TEMP 36.8; O2SAT 100
[2024-02-29] MEDS: traZODone HCL 50 MG TABLET 100 MG PO (21:33)
[2024-02-29] MEDS: diazePAM (*CRX) 5 MG TABLET PO (23:34)
[2024-03-01] MEDS: SODIUM CHLORIDE 0.9% IV 1,000 ML 100 ML IV CONT ×2 (01:00→12:47)
[2024-03-01 06:06] VITALS: BP 117/60; PULSE 68; RESP 18; TEMP 36.6; O2SAT 98
[2024-03-01 09:18] LABS: Basophils Absolute Auto 0.1 K/mm3 (0.0-0.1); Basophils Percent Auto 0.8 % (0.2-1.2); Eosinophils Absolute Auto 0.2 K/mm3 (0-0.3); Eosinophils Percent Auto 2.2 % (0-4.4); Hematocrit 32.6 % (42.0-52.0); Hemoglobin 10.2 g/dL (14.0-18.0); Immature Granulocyte Percent A 1.3 % (0-0.5); Lymphocytes Absolute Auto 1.18 K/mm3 (0.9-3.2); Lymphocytes Percent Auto 15.2 % (18.3-44.2); Mean Corpuscular HGB Conc 31.3 g/dl (32-36); Mean Corpuscular Volume 95.9 fl (80-100); Mean Platelet Volume 10.9 fl (7.4-10.4); Monocytes Absolute Auto 0.5 K/mm3 (0.1-0.6); Monocytes Percent Auto 6.7 % (2.6-8.5); Neutrophils Absolute Auto 5.8 K/mm3 (1.3-6.7); Neutrophils Percent Auto 73.8 % (45.5-73.1); Platelet Count Result 242 k/mm3 (150-375); Red Cell Distribution Width 14.9 % (11.5-14.5); White Blood Count 7.8 K/mm3 (4.5-10.0)
[2024-03-01 09:19] LABS: Alanine Aminotransferase 7 U/L (6-50); Albumin Level 3.6 g/dL (3.5-5.1); Alkaline Phosphatase 74 U/L (38-126); Anion Gap 8 mmol/L (4-12); Aspartate Amino Transferase 34 U/L (17-59); Bilirubin,Total 0.8 mg/dL (0.2-1.3); Blood Urea Nitrogen 33 mg/dL (9-20); Calcium 8.4 mg/dL (8.4-10.2); Carbon Dioxide 29 mmol/L (22-30); Chloride 100 mmol/L (98-107); Estimated CRCL calculation 70 ml/min; Estimated Glomerular Filt Rate 51; Glucose 128 mg/dL (65-110); Potassium 3.4 mmol/L (3.4-5.0); Sodium 137 mmol/L (137-145)
[2024-03-01] MEDS: FERROUS SULFATE 325 MG TABLET DR 650 MG PO (10:16)
[2024-03-01] MEDS: ASPIRIN 325 MG ENTERIC TABLET PO (10:16)
[2024-03-01] MEDS: SENNA/DOCUSATE SODIUM TABLET 2 TAB PO ×2 (10:17→17:19)
[2024-03-01] MEDS: oxyCODONE/ACETAMINOPHEN (*CRX) 5-325 MG TABLET 1 TABLET PO ×2 (10:17→17:19)
[2024-03-01] MEDS: DOCUSATE SODIUM 100 MG CAPSULE PO (10:17)
[2024-03-01] MEDS: CHOLECALCIFEROL 400 UNITS TABLET (VIT D) PO (10:17)
[2024-03-01] MEDS: allopurinoL 300 MG TABLET PO (10:17)
[2024-03-01] MEDS: PANTOPRAZOLE 40 MG TABLET PO (10:17)
[2024-03-01] MEDS: amLODIPine BESYLATE 5 MG TABLET 10 MG PO (10:17)
[2024-03-01] MEDS: SERTRALINE HCL 25 MG TABLET PO (10:17)
[2024-03-01] MEDS: polyethylene glycoL 3350 17 GM POWD.PACK PO (10:18)
--- NOTE | 2024-03-01 14:39 | PM.IMPN ---
Progress Note: A&P Assessment and Plan (1) Elevated serum creatinine: Code(s): R79.89 - Other specified abnormal findings of blood chemistry Status: Acute Assessment and Plan: Baseline WNL. BUN/Cr now downtrending with current treatment. - creatinine 1.2 (01/09) -> 1.8 (02/26) -> 2.1 (02/27) -> 1.7 (02/28) -> 1.4 (09/01) - CK slightly elevated at 294 (02/27) -> 186 (02/28) - urine sodium, urine protein, protein/creatinine, and BNP WNL - UA collected on 02/27 nonconcerning for UTI - bladder scan for post-void residual - monitor I&Os - hold HCTZ and Lasix, add hydralazine IVP prn for HTN in interim. - consider nephrology consultation and/or renal US - IV fluids: 100 mL/hr x1L (2) S/P total hip arthroplasty: Qualifiers: Laterality: left Qualified Code(s): Z96.642 - Presence of left artificial hip joint Code(s): Z96.649 - Presence of unspecified artificial hip joint Status: Acute Assessment and Plan: The patient underwent a total hip arthroplasty on 02/[address] Holder. - hip precautions and fall precautions in place - use incentive spirometer - neurovasc checks - see order for intervals - bowel regimen: docusate/senna, polyethylene glycol - SCDs - resume regular diet - pain management and antiemetics PRN - apply gel pads - monitor labs in AM - CBC and BMP - PT/OT: weight bearing as tolerated (3) Essential (primary) hypertension: Code(s): I10 - Essential (primary) hypertension Status: Acute Assessment and Plan: Chronic, currently 105/53. Meds held during majority of stay due to soft BP. - Continue home medications:Amlodipine 10 mg daily - Holding hydrochlorothiazide 25 mg daily and Lasix 20 mg p.r.n. for edema due to ongoing RALPH - Monitor (4) Mild depression: Code(s): F32.0 - Major depressive disorder, single episode, mild Status: Acute Assessment and Plan: Chronic, continue home medication. - Sertraline 25 mg daily - Monitor Time Spent With Patient Time with patient: 25 - 35 minutes Subjective Date/time seen: 03/01/24 14:39 Interval history: 68 year old male with past medical history of degenerative joint disease, hypertension, hyperlipidemia, PVD, and depression presents to the hospital for surgical management of his left hip pain. Patient underwent a total left hip arthroplasty on 02/[address] Holder. Prior to surgery patients renal function was WNL with creatinine 1.2 and GFR 60. CK was slightly bumped and now down trending. RALPH improving with fluids and holding HCTZ and lasix. Patient is pleasant lying comfortably in bed. He states he is feeling really good this morning. He notes a small amount of pain that he states is likely because he just finished working with PT. He denies chest pain, shortness of breath, nausea/vomiting, and changes in bowel/bladder. His BUN/Cr and GFR are improving with fluids and holding of the medications. Will continue IV NS at this time. Review of Systems Review of Systems: All systems reviewed & are unremarkable except as noted in HPI and below Exam Narrative: AF HR 68 RR 18 SpO2 98 BP 117/60 General: male in no acute respiratory distress who is nontoxic appearing, lying semi recumbent in bed. Chest: Lungs are clear to auscultation bilaterally. No wheezes or crackles. CV: Heart was regular rate and rhythm. S1/S2. No murmurs, gallops, or rubs. Abd: Abdomen was soft. Nontender. Nondistended. Positive bowel sounds. No organomegaly or masses. Ext: Mild edema of the left hip with clean, dry and intact dressing. No clubbing, cyanosis. 2+ DP pulses bilaterally. Objective Data Vital Signs Vital Signs: Vital Signs - 24 hr 02/29/24 16:00 02/29/24 20:57 02/29/24 20:45 Temperature 98.5 F 98.3 F Pulse Rate 87 84 Respiratory Rate 20 18 Blood Pressure 115/61 131/64 Pulse Oximetry 98 100 99 Oxygen Delivery Room Air 03/01/24 06:06 03/01/24 10:30 03/01/24 11:45 Temperature
[2024-03-01 15:08] VITALS: BP 130/56; PULSE 73; RESP 20; TEMP 36.8; O2SAT 99
--- NOTE | 2024-03-01 16:48 | PM.PNORT ---
Progress Note: A&P Assessment and Plan (1) S/P total hip arthroplasty: Qualifiers: Laterality: left Qualified Code(s): Z96.642 - Presence of left artificial hip joint Code(s): Z96.649 - Presence of unspecified artificial hip joint Status: Acute Assessment and Plan: POD 3 DOING WELL. OK TO DC HOME F/U IN 3 WEEKS Subjective Subjective Date/Time Seen: 03/01/24 16:48 Interval history: POD 3 DOING WELL. GOOD PROGRESS WITH PT, GOOD PAIN CONTROL. KIDNEY FUNCTION IMPROVED Exam Extrem: Other: VSS AFEBRILE DRESSING DRY NV INTACT THIGH AND CALF NON TENDER AND SOFT, NEG HOMANS SIGN Objective Data Vital Signs Vital Signs: Vital Signs - 24 hr 02/29/24 20:57 02/29/24 20:45 03/01/24 06:06 Temperature 36.8 C 36.6 C Pulse Rate 84 68 Respiratory Rate 18 18 Blood Pressure 131/64 117/60 Pulse Oximetry 100 99 98 Oxygen Delivery Room Air 03/01/24 10:30 03/01/24 11:45 03/01/24 15:08 Temperature 36.8 C Pulse Rate 73 Respiratory Rate 20 Blood Pressure 130/56 L Pulse Oximetry 99 Oxygen Delivery Room Air Room Air Intake/Output Intake/Output: Intake & Output 02/27/24 02/28/24 02/29/24 03/01/24 23:59 23:59 23:59 23:59 Intake Total 850 345 205 6608 Output Total 200 200 Balance 850 451 205 2104 Meds/Results Medications: Active Medications Generic Name Dose Route Start Last Admin Trade Name Freq PRN Reason Stop Dose Admin Acetaminophen 500 mg 02/26/24 13:36 Acetaminophen 500 Mg Tablet PO Q6H PRN Pain Rated 1-3 Allopurinol 300 mg 02/26/24 13:36 03/01/24 10:17 Allopurinol 300 Mg Tablet PO 300 mg DAILY [facility] Administration Amlodipine Besylate 10 mg 02/26/24 13:36 03/01/24 10:17 Amlodipine Besylate 5 Mg Tablet PO 10 mg DAILY [facility] Administration Artificial Tears 1 drop 02/26/24 17:13 02/26/24 17:47 Artificial Tears Ophth Soln 15 Ml Bottle EACH EYE 1 drop Q2H PRN Administration Dry Eye(s) Aspirin 325 mg 02/26/24 13:36 03/01/24 10:16 Aspirin 325 Mg Enteric Tablet PO 325 mg Q12HR [facility] Administration Clobetasol Propionate 1 applic 02/26/24 13:36 Clobetasol Propionate 0.05% Cream 15 Gm TOPICAL DAILY PRN Itching Diazepam 5 mg 02/26/24 13:36 02/29/24 23:34 Diazepam (*Crx) 5 Mg Tablet PO 5 mg Q6H PRN Administration Anxiety/Muscle Spasm Diclofenac Sodium 1 drop 02/26/24 22:00 03/01/24 12:45 Diclofenac Sodium 0.1% Ophth Soln 2.5 Ml Bottle EACH EYE 03/01/24 21:59 Not Given Q8HR [facility] Docusate Sodium 100 mg 02/26/24 13:36 03/01/24 10:17 Docusate Sodium 100 Mg Capsule PO 100 mg DAILY [facility] Administration Ferrous Sulfate 650 mg 02/26/24 13:36 03/01/24 10:16 Ferrous Sulfate [address] PO 650 mg DAILY@0800 [facility] Administration Furosemide 20 mg 02/26/24 13:36 Furosemide 20 Mg Tablet PO DAILY PRN edema Hydralazine HCl 10 mg 02/28/24 13:45 Hydralazine Hcl 20 Mg/Ml Vial IV PUSH Q8H PRN Blood Pressure - High Hydrochlorothiazide 25 mg 02/26/24 13:36 02/28/24 08:49 Hydrochlorothiazide 25 Mg Tablet PO Not Given DAILY [facility] Hydromorphone HCl 1 mg 02/26/24 13:36 Hydromorphone Hcl Inj (*Crx) 1 Mg/Ml Syr IV PUSH Q2H PRN Breakthrough Pain Rated 7-10 or NPO Hydromorphone HCl 0.5 mg 02/26/24 13:36 02/28/24 14:51 Hydromorphone Hcl Inj (*Crx) 1 Mg/Ml Syr IV PUSH 0.5 mg Q2H PRN Administration Breakthrough Pain Rated 4-6 or NPO Hydroxyzine HCl 50 mg 02/26/24 13:36 Hydroxyzine Hcl 25 Mg Tablet PO Q4H PRN Itching Ibuprofen 800 mg in 200 mls @ 400 mls/hr 02/26/24 16:13 02/27/24 10:23 Caldolor 800 Mg/200 Ml IVPB Infused Q6H PRN Infusion Breakthrough Pain Rated 1-3 or NPO Sodium Chloride 1,000 mls @ 100 mls/hr 02/29/24 13:35 03/01/24 12:47 Normal Saline Iv IV CONT 100 mls/hr .Q10H [facility] Administration Naloxone HCl 0.1 mg 02/26/24 13:36
--- NOTE | 2024-03-01 17:24 | PM.PNORT ---
Subjective Subjective Date/Time Seen: 03/01/24 17:24 Interval history: POD 1 DOING WELL. NO NEW COMPLAINTS. PATIENT HAS DEMENTIA. DOESNT FOLLOW COMMANDS WELL Exam Extrem: Other: VSS AFEBRILE DRESSING DRY NV INTACT CALF AND THIGH NON TENDER NEG HOMANS SIGN Objective Data Vital Signs Vital Signs: Vital Signs - 24 hr 02/29/24 20:57 02/29/24 20:45 03/01/24 06:06 Temperature 36.8 C 36.6 C Pulse Rate 84 68 Respiratory Rate 18 18 Blood Pressure 131/64 117/60 Pulse Oximetry 100 99 98 Oxygen Delivery Room Air 03/01/24 10:30 03/01/24 11:45 03/01/24 15:08 Temperature 36.8 C Pulse Rate 73 Respiratory Rate 20 Blood Pressure 130/56 L Pulse Oximetry 99 Oxygen Delivery Room Air Room Air Intake/Output Intake/Output: Intake & Output 02/27/24 02/28/24 02/29/24 03/01/24 23:59 23:59 23:59 23:59 Intake Total 850 697 689 3465 Output Total 200 200 Balance 850 366 447 9667 Meds/Results Medications: Active Medications Generic Name Dose Route Start Last Admin Trade Name Freq PRN Reason Stop Dose Admin Acetaminophen 500 mg 02/26/24 13:36 Acetaminophen 500 Mg Tablet PO Q6H PRN Pain Rated 1-3 Allopurinol 300 mg 02/26/24 13:36 03/01/24 10:17 Allopurinol 300 Mg Tablet PO 300 mg DAILY [facility] Administration Amlodipine Besylate 10 mg 02/26/24 13:36 03/01/24 10:17 Amlodipine Besylate 5 Mg Tablet PO 10 mg DAILY [facility] Administration Artificial Tears 1 drop 02/26/24 17:13 02/26/24 17:47 Artificial Tears Ophth Soln 15 Ml Bottle EACH EYE 1 drop Q2H PRN Administration Dry Eye(s) Aspirin 325 mg 02/26/24 13:36 03/01/24 10:16 Aspirin 325 Mg Enteric Tablet PO 325 mg Q12HR [facility] Administration Clobetasol Propionate 1 applic 02/26/24 13:36 Clobetasol Propionate 0.05% Cream 15 Gm TOPICAL DAILY PRN Itching Diazepam 5 mg 02/26/24 13:36 02/29/24 23:34 Diazepam (*Crx) 5 Mg Tablet PO 5 mg Q6H PRN Administration Anxiety/Muscle Spasm Diclofenac Sodium 1 drop 02/26/24 22:00 03/01/24 12:45 Diclofenac Sodium 0.1% Ophth Soln 2.5 Ml Bottle EACH EYE 03/01/24 21:59 Not Given Q8HR [facility] Docusate Sodium 100 mg 02/26/24 13:36 03/01/24 10:17 Docusate Sodium 100 Mg Capsule PO 100 mg DAILY [facility] Administration Ferrous Sulfate 650 mg 02/26/24 13:36 03/01/24 10:16 Ferrous Sulfate [address] PO 650 mg DAILY@0800 [facility] Administration Furosemide 20 mg 02/26/24 13:36 Furosemide 20 Mg Tablet PO DAILY PRN edema Hydralazine HCl 10 mg 02/28/24 13:45 Hydralazine Hcl 20 Mg/Ml Vial IV PUSH Q8H PRN Blood Pressure - High Hydrochlorothiazide 25 mg 02/26/24 13:36 02/28/24 08:49 Hydrochlorothiazide 25 Mg Tablet PO Not Given DAILY [facility] Hydromorphone HCl 1 mg 02/26/24 13:36 Hydromorphone Hcl Inj (*Crx) 1 Mg/Ml Syr IV PUSH Q2H PRN Breakthrough Pain Rated 7-10 or NPO Hydromorphone HCl 0.5 mg 02/26/24 13:36 02/28/24 14:51 Hydromorphone Hcl Inj (*Crx) 1 Mg/Ml Syr IV PUSH 0.5 mg Q2H PRN Administration Breakthrough Pain Rated 4-6 or NPO Hydroxyzine HCl 50 mg 02/26/24 13:36 Hydroxyzine Hcl 25 Mg Tablet PO Q4H PRN Itching Ibuprofen 800 mg in 200 mls @ 400 mls/hr 02/26/24 16:13 02/27/24 10:23 Caldolor 800 Mg/200 Ml IVPB Infused Q6H PRN Infusion Breakthrough Pain Rated 1-3 or NPO Sodium Chloride 1,000 mls @ 100 mls/hr 02/29/24 13:35 03/01/24 12:47 Normal Saline Iv IV CONT 100 mls/hr .Q10H [facility] Administration Naloxone HCl 0.1 mg 02/26/24 13:36 Naloxone Hcl 0.4 Mg/Ml Vial IV PUSH Q2M PRN Opiate Reversal Non-Formulary Medication 99 mg 02/26/24 13:36 02/26/24 16:58 Potassium PO 03/27/24 13:35 Not Given DAILY [facility] Ondansetron HCl 4 mg 02/26/24 13:36 Ondansetron Inj 4 Mg/2 Ml Vial IV PUSH Q4H PRN Nausea And Vomiting Oxycodone/Acetaminophen 1 tablet 02/26/24 13
== END 2024-03-01 17:48 | disposition home or self-care (01) ==
LOC: ANHSURGERY 08:36 → ANH2MED 08:36
PROVIDERS: Nurse Practitioner Family; Student in an Organized Health Care Education/Training Program; Admitting Provider Orthopaedic Surgery; PCP Internal Medicine; Visit Provider Orthopaedic Surgery
PROC: (CPT 27130; principal; 2024-02-26 08:30)
DX: M16.12 Unilateral primary osteoarthritis, left hip (principal); R79.89 Other specified abnormal findings of blood chemistry; I10 Essential (primary) hypertension; E78.5 Hyperlipidemia, unspecified; I73.9 Peripheral vascular disease, unspecified; E53.8 Deficiency of other specified B group vitamins; F32.0 Major depressive disorder, single episode, mild; Z98.84 Bariatric surgery status; Z79.890 Hormone replacement therapy; E66.9 Obesity, unspecified; Z68.35 Body mass index [BMI] 35.0-35.9, adult
CPT/HCPCS: 27130; 36415; 73502; 80048; 80053; 80307; 81003; 81050; 82040; 82550; 82565; 82570; 83036; 83880; 84156; 84300; 85025; 85027; 85610; 85730; 86850; 86900; 86901; 87641; 97110; 97116; 97161; 97165; 97530; 97535; A9270; C1776; G0378; J0171; J0330; J0690; J1100; J1170; J1741; J1885; J2250; J2270; J2371; J2405; J2704; J2795; J3010; J7030; J7120

== ENCOUNTER 2024-05-01 13:15 | Outpatient (RCR) | payer MEDICARE, SELFPAY ==
--- NOTE | 2024-03-25 16:52 | OPREHPOC ---
Outpatient Therapy Plan of Care This is a Multidisciplinary Plan of Care that may contain components documented by all disciplines (PT, OT, and ST.) PT Problem 1 PT Problem #1 Knowledge Deficit PT Goal 1 Goal [place] with HEP Target Visit 4 PT Problem 2 PT Problem #2 Impaired Range of Motion PT Goal 1 Goal Demonstrate 40 degrees of L hip abduction ROM for improved capsular mobility for gait Target Visit 10 PT Problem 3 PT Problem #3 Impaired Gait PT Goal 1 Goal Ambulate with single point cane with modified independence Target Visit 10 PT Goal 2 Goal Improve L hip flexion strength to 4+/5 to improve foot clearance with gait and ADL performance Target Visit 10 PT Problem 4 PT Problem #4 Impaired Strength PT Goal 1 Goal Improve L hip abduction strength to 4+/5 to improve lateral stability with gait and ADL performance Target Visit 10
--- NOTE | 2024-03-25 16:52 | PTOPEVAL1 ---
Assessment and note entered by Myron Regalado, PT Evaluation Information Assessment Status Evaluation Diagnosis Left Total Hip Arthroplasty ICD-10 Condition Codes (PT) Pain in left hip M25.552 Onset 02/26/24 Subjective Information Reports that overall he has been struggling. He has some swelling in his incision and does not feel that his muscles are sturdy enough to support him. He has stairs to enter home and has been doing better but struggled for a long time. He has been having trouble sleeping as he is currently sleeping in a recliner. Would like to return to bed. Has plans to fly in July. Reported Pain Level Pain Score 0: Self Report Assessment PT Clinical Summary Patient presents with signs and symptoms consistent with total hip arthroplasty. Demonstrating reduced capsular mobility of left hip and weakness of glutes. Patient will benefit from skilled therapy to address these deficits to return to independent gait and improved gross functional mobility. Plan of Care Interventions Gait Training,Manual Therapy,Neuro Re-education, Therapeutic Activities,Therapeutic Exercise PT Services Indicated Yes Treatment Frequency and 2x/week for Duration These treatments will address the objective and functional deficits as defined above. The patient will be advanced safely and appropriately in order for the patient to progress towards his/her prior level of function. Additional exercises will be introduced and as well as a comprehensive home exercise program upon discharge, if needed, ?to ensure carryover of functional gains achieved in the clinic. This treatment plan has been reviewed and agreement upon by the patient.
--- NOTE | 2024-05-01 15:36 | PTOPDC ---
Assessment and note entered by Myron Regalado, PT Evaluation Information Assessment Status Discharge Diagnosis Left Total Hip Arthroplasty ICD-10 Condition Codes (PT) Pain in left hip M25.552 Onset 02/26/24 Subjective Information Reports that he feels he is doing very well. Denies pain from the hip and feels comfortable with HEP. Would like aquatic program for when he is at the [facility] as well. Reported Pain Level Pain Score 0: Self Report Assessment PT Clinical Summary Patient met all goals for therapy and is suitable for discharge to [facility] at this time. Was issued HEP for aquatic as well which he will be administering in the pool. Plan of Care PT Services Indicated D/C to HEP
== END 2024-05-01 16:54 | disposition home or self-care (01) ==
LOC: ANHPT 13:15
PROVIDERS: PCP Internal Medicine; Visit Provider Orthopaedic Surgery
DX: Z96.642 Presence of left artificial hip joint (principal); M25.552 Pain in left hip
CPT/HCPCS: 97110; 97116; 97161; 97530

== ENCOUNTER 2024-07-01 11:15 | Outpatient (RCR) | payer MEDICARE, SELFPAY ==
--- NOTE | 2024-06-16 13:20 | OPREHPOC ---
Outpatient Therapy Plan of Care This is a Multidisciplinary Plan of Care that may contain components documented by all disciplines (PT, OT, and ST.) PT Problem 1 PT Problem #1 Knowledge Deficit PT Goal 1 Goal / Goal Update [place] with HEP Target Visit 4 PT Goal 2 Goal / Goal Update Demonstrate 20% improvement in LEFS score Target Visit 8 PT Problem 2 PT Problem #2 Impaired Range of Motion PT Goal 1 Goal / Goal Update Patient will achieve 10 degrees L ankle dorsiflexion active for improved foot clearance with gait and stairs Target Visit 8 PT Problem 3 PT Problem #3 Impaired Strength PT Goal 1 Goal / Goal Update 1. Improve L ankle dorsiflexion strength to 4+/5 to improve active foot clearance with gait 2. Improve L ankle eversion strength to 4+/5 to improve lateral stability to prevent collapse in swing phase Target Visit 8
--- NOTE | 2024-06-16 13:20 | PTOPEVAL1 ---
Assessment and note entered by Myron Regalado, PT Evaluation Information Assessment Status Evaluation Diagnosis Lateral Popliteal nerve lesion left LE ICD-10 Condition Codes (PT) M25.572 Onset April 2024 Subjective Information Reports that he was taken out of his AFO since early May. He notes pain in the foot and weakness in the ankle at this time. He does get pain in the foot with walking but the cane helps to offload the foot. He likes to try to walk around the house without his cane when he can. He underwent SUZI on 02/27/24 and still feels he is slightly recovering from that. Reported Pain Level Pain Score 0: Self Report Assessment PT Clinical Summary Patient presents with ROM loss, weakness, and altered gait with presence of LE nerve innervation lesion. Patient shows rehab potential as he has multidirectional nerve innervation at this time. He will benefit form skilled therapy to address these deficits for gross functional improvement and stability of L LE. Continued strengthening is warranted for L hip. Plan of Care Interventions Gait Training,Manual Therapy,Neuro Re-education, Therapeutic Activities,Therapeutic Exercise PT Services Indicated Yes Treatment Frequency and 2x/week for 8 visits Duration These treatments will address the objective and functional deficits as defined above. The patient will be advanced safely and appropriately in order for the patient to progress towards his/her prior level of function. Additional exercises will be introduced and as well as a comprehensive home exercise program upon discharge, if needed, ?to ensure carryover of functional gains achieved in the clinic. This treatment plan has been reviewed and agreement upon by the patient.
--- NOTE | 2024-07-10 11:45 | PCPTNOTE ---
Pt was a no-show for todays appointment.
--- NOTE | 2024-07-14 10:19 | PCPTNOTE ---
Pt canceled due to covid illness.
--- NOTE | 2024-08-28 13:24 | PTOPDC ---
Assessment and note entered by Reva Waggoner, PT Assessment Status Discharge - Pt Not Present Diagnosis Lateral Popliteal nerve lesion left LE ICD-10 Condition Codes (PT) Pain in left ankle and joints of left foot M25.572 Onset April 2024 Subjective Information pt was not seen this date. Assessment PT Clinical Summary Jon has received 5 PT sessions, from June 16 to July 14. He called and canceled on July 14 due to illness and did not return for any further appointments. Discharge PT. The goals were not addressed. Plan of Care PT Services Indicated No
== END 2024-08-28 17:52 | disposition home or self-care (01) ==
LOC: ANHPT 11:15
PROVIDERS: PCP Internal Medicine; Visit Provider Orthopaedic Surgery
DX: G57.32 Lesion of lateral popliteal nerve, left lower limb (principal); M79.672 Pain in left foot
CPT/HCPCS: 97110; 97140; 97161

== ENCOUNTER 2024-07-29 09:50 | Outpatient (CLI) | payer MEDICARE, SELFPAY ==
--- NOTE | 2024-07-29 11:30 | NEURO_ITS ---
Impression: # Complains of numbness of legs and gait dysfunction. ? # Asymmetrical axonal neuropathy. ? # Abnormal needle/EMG exam with neurogenic changes. ? # Clinical correlation recommended. Nerve Conduction Studies Anti Sensory Summary Table ?Stim Site NR Peak (ms) P-T Amp (?V) Site1 Site2 Delta-P (ms) Dist (cm) Enrique (m/s) Left Sup Fibular Anti Sensory (Ant Lat Mall)??? NO RESPONSE 14 cm NR 14 cm Ant Lat Mall 16.0 Right Sup Fibular Anti Sensory (Ant Lat Mall)??? NO RESPONSE 14 cm NR 14 cm Ant Lat Mall 16.0 Left Sural Anti Sensory (Lat Mall)??? NO RESPONSE Calf NR Calf Lat Mall 16.0 Right Sural Anti Sensory (Lat Mall)??? NO RESPONSE Calf NR Calf Lat Mall 16.0 Motor Summary Table ?Stim Site NR Onset (ms) O-P Amp (mV) Site1 Site2 Delta-0 (ms) Dist (cm) Enrique (m/s) Left Peroneal Motor (Vastus Med)??? NO RESPONSE Ankle NR Popit Ankle 0.0 Popit NR Right Peroneal Motor (Vastus Med) Ankle ? 4.8 0.2 Popit Ankle 13.5 43.0 32 Popit ? 18.3 0.2 Left Tibial Motor (Abd Welch Brev)??? NO RESPONSE Ankle NR Knee Ankle 0.0 Knee NR Right Tibial Motor (Abd Welch Brev) Ankle ? 4.8 0.5 Knee Ankle 11.2 46.0 41 Knee ? 16.0 0.0 F Wave Studies ?NR F-Lat (ms) L-R F-Lat (ms) Left Peroneal (Mrkrs) (EDB)??? NO RESPONSE NR Right Peroneal (Mrkrs) (EDB)??? DISPERSED RESPONSE NR Left Tibial (Mrkrs) (Abd Hallucis)??? NO RESPONSE NR Right Tibial (Mrkrs) (Abd Hallucis)?? ?DISPERSED RESPONSE NR EMG ?Side Muscle Nerve Root Ins Act Fibs Amp Dur Recrt Comment Right AntTibialis Dp Br Fibular L4-5 Nml Nml Decr >12ms +1 Right Gastroc Tibial S1-2 Nml Nml Decr >12ms +1 Right Fibularis Long Sup Br Fibular L5-S1 Nml Nml Decr >12ms +1 Right Flex Dig Long Tibial L5-S2 Nml Nml Decr >12ms +1 Right Ext Dig Brev Dp Br Fibular L5, S1 Nml Nml Decr >12ms +1 Right QuadratusFem QuadFemoris L4-5, S1 Nml Nml Decr >12ms +1 Left AntTibialis Dp Br Fibular L4-5 Nml Nml Decr >12ms +1 Left Gastroc Tibial S1-2 Nml Nml Decr >12ms +1 Left Fibularis Long Sup Br Fibular L5-S1 Nml Nml Decr >12ms +1 Left Flex Dig Long Tibial L5-S2 Nml Nml Decr >12ms +1 Left Ext Dig Brev Dp Br Fibular L5, S1 Nml Nml Decr >12ms +1 Left QuadratusFem QuadFemoris L4-5, S1 Nml Nml Decr >12ms +1 MTDD
== END 2024-07-29 09:51 | disposition home or self-care (01) ==
PROVIDERS: PCP Internal Medicine; Visit Provider Orthopaedic Surgery
DX: R94.01 Abnormal electroencephalogram [EEG] (principal); G62.89 Other specified polyneuropathies; R26.9 Unspecified abnormalities of gait and mobility; R20.0 Anesthesia of skin
CPT/HCPCS: 95886; 95910

== ENCOUNTER 2024-10-23 11:23 | Outpatient (CLI) | payer MEDICARE, SELFPAY ==
[2024-10-23 11:46] LABS: Basophils Absolute Auto 0.1 K/mm3 (0.0-0.1); Basophils Percent Auto 0.7 % (0.2-1.2); Eosinophils Absolute Auto 0.2 K/mm3 (0-0.3); Eosinophils Percent Auto 2.4 % (0-4.4); Hematocrit 45.2 % (42.0-52.0); Hemoglobin 14.7 g/dL (14.0-18.0); Immature Granulocyte Absolute 0.02 K/mm3 (0.00-0.031); Immature Granulocyte Percent A 0.3 % (0-0.5); Lymphocytes Percent Auto 21.4 % (18.3-44.2); Mean Corpuscular HGB Conc 32.5 g/dl (32-36); Mean Corpuscular Hemoglobin 30.1 pg (26-34); Mean Corpuscular Volume 92.4 fl (80-100); Mean Platelet Volume 9.4 fl (7.4-10.4); Monocytes Absolute Auto 0.4 K/mm3 (0.1-0.6); Monocytes Percent Auto 5.6 % (2.6-8.5); Neutrophils Absolute Auto 4.9 K/mm3 (1.3-6.7); Neutrophils Percent Auto 69.6 % (45.5-73.1); Platelet Count Result 259 k/mm3 (150-375); Red Blood Count 4.89 M/mm3 (4.6-6.20); Red Cell Distribution Width 14.6 % (11.5-14.5)
[2024-10-23 12:00] LABS: Alanine Aminotransferase 17 U/L (6-50); Albumin Level 4.3 g/dL (3.5-5.1); Alkaline Phosphatase 109 U/L (38-126); Anion Gap 10 mmol/L (4-12); Aspartate Amino Transferase 24 U/L (17-59); Bilirubin,Total 0.8 mg/dL (0.2-1.3); Blood Urea Nitrogen 30 mg/dL (9-20); Calcium 9.2 mg/dL (8.4-10.2); Carbon Dioxide 26 mmol/L (22-30); Chloride 103 mmol/L (98-107); Cholesterol 170 mg/dL (0-200); Estimated Glomerular Filt Rate > 60; Glucose 98 mg/dL (65-110); HDL Direct 32 mg/dL; Potassium 3.7 mmol/L (3.4-5.0); Sodium 139 mmol/L (137-145); Triglycerides 182 mg/dL (<150)
[2024-10-23 12:10] LABS: LDL Cholesterol Direct 95 mg/dL
[2024-10-23 12:32] LABS: Prostate Specific Antigen 1.1 ng/mL (< OR = 4.0)
--- OUTSIDE RECORDS SUMMARY | 2024-10-23 13:07 | XMS_ITS | Clinical Summary ---
Author Organization [facility] Address [address] [place] [address] Care Team Providers Care Adoption Agent Name Role Phone Unavailable Primary Care Provider Unavailabl e Social History Tobacco Use Types Packs/Day Years Used Date Smoking Tobacco: Never Assessed Sex and Gender Information Value Date Recorded Sex Assigned at Not on file Legal Sex Male 7:12 PM CDT Gender Identity Not on file Sexual Orientation Not on file Plan of Treatment Health Maintenance Due Date Last Done Comments Colorectal Cancer Screening Colonoscopy (10 Years) 1956 Hepatitis C 1974 DTaP, Tdap and Td Vaccines ( 1 - Tdap) 1975 Zoster Vaccines (1 of 2) 2006 Pneumococcal Vaccine: 65+ Ye ars (1 of 1 - PCV) 2021 COVID-19 Vaccine ( - 2023-2 5 season) 2024 Influenza Adult (#1) 2024 RSV Immunization or 60+ Years (1 - 1-dose 75+ series) 2031 Meningococcal B Vaccine Aged Out No l onger eligible based on patient's age to complete this topic Meningococcal Vaccine Aged Out No johan larry eligible based on patient's age to complete this topic RSV Immunizations Under 20 Months Aged Out No longer eligible based on patient's age to complete this topic
--- OUTSIDE RECORDS SUMMARY | 2024-10-23 13:07 | XMS_ITS | Clinical Summary ---
Author Organization [facility] Address [address] [place] [address] Care Team Providers Care Galvanizer Zinc Name Role Phone Abel Portillo DO Primary Care Provider [phone] Allergies Active Allergy Reactions Criticality Noted Date Comments Crab Swelling Medium 08/31/2020 Penicillins Anaphylaxis High 02/18/2018 Medications allopurinoL (ZYLOPRIM) 300 mg tablet Take 1 Tablet by mouth daily. 08/16/2020 Active amLODIPine (NORVASC) 10 mg tablet Take 1 Tablet by mouth daily. 12/25/2020 Active hydroCHLOROthia zide 25 mg tablet Take 1 Tablet by mouth daily. 12/25/2020 Active meloxicam (MOBIC) 15 mg tablet Take 1 Tablet by mouth daily. 08/16/2020 Active traMADoL (ULTRAM) 50 mg tablet Take 1 Tablet by mouth 2 times daily as needed. 12/31/2020 Active traZODone (DESYREL) 50 mg tablet Take 2 Tablets by mouth daily at bedtime. 01/07/2021 Active multivitamin (DAILY-MONTSE) tablet Take 1 Tablet by mouth daily. Active calcium carbonate/vitam in D3 (CALCIUM + D ORAL) Take by mouth. Active cyanocobalamin/ cobamamide (B12 SUBLINGUAL) Place under tongue. Active ferrous sulfate (FeroSuL) 325 mg (65 mg iron) tablet Take 325 mg by mouth daily. Active Active Problems Problem Noted Date Diagnosed Date Closed wedge compression fracture of T12 vertebr a 01/25/2021 Social History Tobacco Use Types Packs/Day Years Used Date Smoking Tobacco: Never Assessed Sex and Gender Information Value Date Recorded Sex Assigned at Not on file Legal Sex Male 10:32 AM CDT Gender Identity Not on file Sexual Orientation Not on file Last Filed Vital Signs Vital Sign Reading Time Taken Comments Blood Pressure 152/90 01/25/2021 1:08 PM CDT Pulse - - Temperature - - Respiratory Rate - - Oxygen Saturation - - Inhaled Oxygen Concentration - - Weight 150.6 kg (332 lb) 01/25/2021 1:08 PM CDT Height 195.6 cm (6' 5 ) 01/25/2021 1:08 PM CDT Body Mass Index 39.37 01/25/2021 1:08 PM CDT Plan of Treatment Health Maintenance Due Date Last Done Comments DTAP/TDAP/TD VACCINES (1 - Tdap) 1975 COLORECTAL SCREENING 2001 Colorectal Cancer Screening 2001 FIT-DNA Q 3 years 2001 FIT/FOBT Q 1 year 2001 Flex Sig/CT Colonography Q 5 years 2001 PNEUMOCOCCAL VACCINE 50+ YEARS (1 of 1 - PCV) 05/27/20 06 ZOSTER VACCINE (1 of 2) 2006 INFLUENZA VACCINE (#1) 2024 RSV VACCINE (60+ or ) (1 - 1-dose 75+ series) 2031 Care Teams Galvanizer Zinc Relationship Specialty Start Date End Date Abel Portillo DO [address] [facility] [address] [place] [id number] PCP - General Internal Medicine 01/19/21
--- OUTSIDE RECORDS SUMMARY | 2024-10-23 13:07 | XMS_ITS | Continuity of Care Document ---
Author Organization [facility] Address [address] [place] [address] Phone Care Team Providers Care Soil Biology Teacher Name Role Phone Conversion MD, Doctor Unavailable [...] Diagnoses Date Provider Providers Copied on Encounter [facility], [address], [place], [place], [address] , [place] tel: [phone] Conversion Department No Information 4-201 1 Conversion Doctor. [address], [place], [address], [place]. [facility], [address], [place], [place], [address] , [place] tel: [phone] [facility] LOC PRIM OSTEOART-L/LEGINH IBITED SEX EXCITEMENT 9-200 [address], [place], [place], [address], [place]. tel:[phone] [facility], [address], [place], [place], [address] , [place] tel: [phone] [facility] No Information Mar-0 4-200 9 [address], [place], [place], [address], [place]. tel:[phone] [facility], [address], [place], [place], [address] , [place] tel:[phone] [facility] ULCER OF LOWER LIMB NOS Sep-0 8-200 8 [address], [place], [place], [address], [place]. tel:[phone] [facility], [address], [place], [place], [address] , [place] tel:[phone] [facility] Care BENIGN HYPERTENSIONMASTO DYNIA Aug-1 8-200 8 [address], [place], [place], [address], [place]. tel:[phone] [facility], [address], [place], [place], [address] , [place] tel:[phone] [facility] Care CONTUSION OF LOWER LEGPAIN IN LIMB Aug-0 5-200 8 [address], [place], [place], [address], [place]. tel:[phone] [facility], [address], [place], [place], [address] , [place] tel:[phone] [facility] Care REFLUX ESOPHAGITISDISORD ER OF PENIS NEC December-0 8-200 8 [address], [place], [place], [address], [place]. tel:[phone] [facility], [address], [place], [place], [address] , [place] tel:[phone] [facility] HAIR DISEASES NEC Aug-0 3-200 8 [address], [place], [place], [address], [place]. tel:[phone] [facility], [address], [place], [place], [address] , [place] tel:[phone] [facility] JOINT PAIN-FOREARM Jun- 7-200 6 [address], [place], [place], [address], [place]. tel:[phone] [facility], [address], [place], [place], [address] , [place] tel:[phone] [facility] Care MORBID OBESITYDYSURIA 0-200 [address], [place], [place], [address], [place]. tel:[phone] [facility], [address], [place], [place], [address] , [place] tel: [facility] SKIN DISORDER NOS 7-200 6 [address], [place], [place], [address], [place]. tel:[phone] [facility], [address], [place], [place], [address] , [place] tel:[phone] [facility] Primary Care SKIN HYPERTRO/ATROPH NOS Nov-0 4-200 6 [address], [place], [place], [address], [place]. tel:[phone] [facility], [address], [place], [place], [address] , [place] tel:[phone] [facility] Primary [facility] LONG-TERM USE MEDS NEC 1-200 6 [address], [place], [place], [address], [place]. tel:[phone] [facility], [address], [place], [place], [address] , [place] tel: [facility] DIARRHEA Oct- 2-200 5 [address], [place], [place], [address], [place]. tel:[phone] [facility], [address], [place], [place], [address] , tel: [facility] Care URINARY FREQUENCYHYPERLIP IDEMIA NEC/NOS May- 5-200 4 [address], [place], [place], [address], [place]. tel:[phone] [facility], [address], [place], [place], [address] , [place] tel:[phone] [facility] Care CHRONIC SKIN ULCER NOS 2-200 4 [address], [place], [place], [address], [place]. tel:[phone] [facility], [address], [place], [place], [address] , [place] tel: [facility] Care INFECTIOUS MONONUCLEOSISCOUG H Sep-1 8-200 3 [address], [place], [place], [address], [place]. tel:[phone] [facility], [address], [place], [place], [address] , [place] tel:[phone] [facility] Care THROAT PAINFEVER Sep-0 8-200 3 [address], [place], [place], [address], [place]. tel:[phone] [facility], [address], [place], [place], [address] , [place] tel:[phone] [facility] CHEST PAIN NOS May-0 5-200 3 [address], [place], [place], [address], [place]. tel:[phone] [facility], [address], [place], [place], [address] , [place] tel:[phone] [facility] Care SCREEN-NEOPLASM NOS Nov-0 5-200 2 [address], [place], [place], [address], [place]. tel:[phone] [facility], [address], [place], [place], [address] , [place] tel: [facility] Care ACUTE URI NOS 6-200 1 [address], [place], [place], [address], [place]. tel:[phone] Family History Family Member Type Diagnosis Age At Onset No Information Payers Payer name Insurance type Covered green party ID Authoriza tion(s) No Information Social History [...]
[2024-10-28 17:57] LABS: Testosterone Free 10.9 pg/mL (35.0-155.0); Testosterone Total 148 ng/dL (250-1100)
== END 2024-10-23 11:24 | disposition home or self-care (01) ==
PROVIDERS: PCP Internal Medicine; Visit Provider Internal Medicine
DX: E29.1 Testicular hypofunction (principal); D64.9 Anemia, unspecified; I10 Essential (primary) hypertension; E53.8 Deficiency of other specified B group vitamins; Z12.5 Encounter for screening for malignant neoplasm of prostate
CPT/HCPCS: 36415; 80053; 80061; 82607; 84153; 84402; 84403; 85025; G0103

== ENCOUNTER 2024-12-17 15:31 | Outpatient (CLI) | payer MEDICARE, SELFPAY ==
--- NOTE | ~2024-12-17 | CT_ITS ---
Noncontrast CT scan of the lumbar spine CLINICAL HISTORY: Spinal stenosis TECHNIQUE: Axial noncontrast imaging of the lumbar spine was performed. Sagittal and coronal reformat any images were constructed. Dose reduction technique was used on this scan by utilizing automated ex posure control and iterative reconstruction technique. The dose-length product (DLP) was 1411.42 mGy- cm. FINDINGS: No acute fracture. 5 mm anterolisthesis of L4 over L5 present. At L1-L2, there is minimal degenerative disc narrowing. No disc bulge or herniation evident. No spina l canal stenosis. There is severe bilateral neural foraminal narrowing. At L2-L3,, there is moderate degenerative change of vacuum phenomenon. There is mild facet arthropath y. There is probable moderate central canal stenosis, and severe bilateral neural foraminal narrowing . At L3-L4, there is diffuse disc bulge with facet and ligamentum flavum hypertrophy, resulting in librado re spinal canal stenosis/thecal sac compression. There is severe bilateral neural foraminal compromis e. At L4-L5, there is diffuse disc uncovering/protrusion with severe facet arthropathy, with resultant s evere spinal canal stenosis/thecal sac compression. There is severe bilateral neural foraminal compro mise. At L5-S1, there is no disc bulge or herniation. There is moderate facet arthropathy. No central canal stenosis. There is severe bilateral neural foraminal compress. Paravertebral soft tissues are unremarkable. Impression: Severe degenerative spondylosis throughout the lumbar spine, especially at L3-L4, L4-L5, and L5-S1. T here is advanced canal stenosis and neural foraminal narrowing at these levels. Please see details ab ove. 5 mm anterolisthesis of L4 over L5. Reviewed, dictated and finalized at [facility]. Impression: Severe degenerative spondylosis throughout the lumbar spine, especially at L3-L 4, L4-L5, and L5-S1. There is advanced canal stenosis and neural foraminal narr owing at these levels. Please see details above. 5 mm anterolisthesis of L4 over L5.
--- OUTSIDE RECORDS SUMMARY | 2024-12-17 16:22 | XMS_ITS | Clinical Summary ---
Author Organization [facility] Address [address] [place] [address] Care Team Providers Care Product Manager Financial Services Name Role Phone Unavailable Primary Care Provider [...] Td Vaccines ( 1 - Tdap) 1975 Pneumococcal Vaccine: 50+ Ye ars (1 of 1 - PCV) 2006 Zoster Vaccines (1 of 2) 2006 COVID-19 Vaccine ( - 2023-2 5 season) 2024 RSV Immunization or 60+ Years (1 [...]
--- OUTSIDE RECORDS SUMMARY | 2024-12-17 16:22 | XMS_ITS | Clinical Summary ---
Author Organization [facility] Address [address] [place] [address] Care Team Providers Care Drafter Assistant Name Role Phone Abel Portillo DO Primary Care Provider Allergies Active Allergy Reactions Criticality Noted Date [...] - 1-dose 75+ series) 2031 Care Teams Drafter Assistant Relationship Specialty Start Date End Date Abel Portillo DO [address] [facility] [address] [place] [phone] PCP - General Internal Medicine 01/19/21
== END 2024-12-17 15:32 | disposition home or self-care (01) ==
PROVIDERS: PCP Internal Medicine; Visit Provider Neurological Surgery
DX: M47.816 Spondylosis without myelopathy or radiculopathy, lumbar region (principal); M47.817 Spondylosis without myelopathy or radiculopathy, lumbosacral region; M43.16 Spondylolisthesis, lumbar region; M48.061 Spinal stenosis, lumbar region without neurogenic claudication
CPT/HCPCS: 72131

== ENCOUNTER 2025-01-05 17:02 | Outpatient (CLI) | payer MEDICARE, SELFPAY ==
--- OUTSIDE RECORDS SUMMARY | 2025-01-05 16:52 | XMS_ITS | Clinical Summary ---
Author Organization [facility] Address [address] [place] [address] Care Team Providers Care Overhead Worker Name Role Phone Unavailable Primary Care Provider [...]
--- OUTSIDE RECORDS SUMMARY | 2025-01-05 16:52 | XMS_ITS | Clinical Summary ---
Author Organization [facility] Address [address] [place] [address] Care Team Providers Care Training Assistant Name Role Phone Abel Portillo DO Primary Care Provider [phone] Allergies Active Allergy Reactions Criticality Noted Date [...] - 1-dose 75+ series) 2031 Care Teams Training Assistant Relationship Specialty Start Date End Date Abel Portillo DO [address] [facility] [address] [place] [phone] PCP - General Internal Medicine 01/19/21
--- OUTSIDE RECORDS SUMMARY | 2025-01-05 16:53 | XMS_ITS | Continuity of Care Document ---
Author Organization [facility] Address [address] [place] [address] Phone Care Team Providers Care Solar Fabrication Technician Name Role Phone Conversion MD, Doctor Unavailable [...] Diagnoses Date Provider Providers Copied on Encounter [email or web address], [address], [place], [place], [address] , [place] tel: [phone] Conversion Department No Information 4-201 1 Conversion Doctor. [address], [place], [address], [place]. [email or web address], [address], [place], [place], [address] , [place] tel: [phone] [facility] LOC PRIM OSTEOART-L/LEGINH IBITED SEX EXCITEMENT 9-200 9 Tamiko [address], [place], [place], [address], [place]. tel:[phone] [email or web address], [address], [place], [place], [address] , [place] tel: [phone] [facility] No Information Mar-0 4-200 9 Plisco Long[address], [place], [place], [address], [place]. tel:[phone] [facility], [address], [place], [place], [address] , [place] tel:[phone] [facility] ULCER OF LOWER LIMB NOS Sep-0 8-200 8 Plisco [address], [place], [place], [address], [place]. tel:[phone] [facility], [address], [place], [place], [address] , [place] tel:[phone] [facility] BENIGN HYPERTENSIONMASTO DYNIA Aug-1 8-200 8 [address], [place], [place], [address], [place]. tel:[phone] [facility], [address], [place], [place], [address] , [place] tel:[phone] [facility] CONTUSION OF LOWER LEGPAIN IN LIMB Aug-0 5-200 8 [address], [place], [place], [address], [place]. tel:[phone] [facility], [address], [place], [place], [address] , [place] tel:[phone] [facility] REFLUX ESOPHAGITISDISORD ER OF PENIS NEC December-0 8-200 8 [address], [place], [place], [address], [place]. tel:[phone] [facility], [address], [place], [place], [address] , [place] tel:[phone] [facility] HAIR DISEASES NEC Aug-0 3-200 8 [address], [place], [place], [address], [place]. tel:[phone] [facility], [address], [place], [place], [address] , [place] tel:[phone] [facility] JOINT PAIN-FOREARM Jun- 7-200 6 [address], [place], [place], [address], [place]. tel:[phone] [facility], [address], [place], [place], [address] , [place] tel:[phone] [facility] MORBID OBESITYDYSURIA 0-200 6 [address], [place], [place], [address], [place]. tel:[phone] [facility], [address], [place], [place], [address] , [place] tel: [facility] SKIN DISORDER NOS 7-200 6 [address], [place], [place], [address], [place]. tel:[phone] [facility], [address], [place], [place], [address] , [place] tel:[phone] [facility] SKIN HYPERTRO/ATROPH NOS Nov-0 4-200 6 [address], [place], [place], [address], [place]. tel:[phone] [facility], [address], [place], [place], [address] , [place] tel:[phone] [facility] LONG-TERM USE MEDS NEC 1-200 6 [address], [place], [place], [address], [place]. tel:[phone] [facility], [address], [place], [place], [address] , [place] tel: [facility] DIARRHEA Oct- 2-200 5 [address], [place], [place], [address], [place]. tel:[phone] [facility], [address], [place], [place], [address] , tel: [facility] URINARY FREQUENCYHYPERLIP IDEMIA NEC/NOS May- 5-200 4 [address], [place], [place], [address], [place]. tel:554 [facility], [address], [place], [place], [address] , [place] tel:[phone] [facility] CHRONIC SKIN ULCER NOS 2-200 4 [address], [place], [place], [address], [place]. tel:554 [facility], [address], [place], [place], [address] , [place] tel: [facility] INFECTIOUS MONONUCLEOSISCOUG H Sep-1 8-200 3 [address], [place], [place], [address], [place]. tel:[phone] [facility], [address], [place], [place], [address] , [place] tel:[phone] [facility] THROAT PAINFEVER Sep-0 8-200 3 [address], [place], [place], [address], [place]. tel:[phone] [facility], [address], [place], [place], [address] , [place] tel:[phone] [facility] CHEST PAIN NOS May-0 5-200 3 [address], [place], [place], [address], [place]. tel:554 [facility], [address], [place], [place], [address] , [place] tel:[phone] [facility] SCREEN-NEOPLASM NOS Nov-0 5-200 2 [address], [place], [place], [address], [place]. tel:[phone] [facility], [address], [place], [place], [address] , [place] tel: [facility] ACUTE URI NOS 6-200 1 [address], [place], [place], [address], [place]. tel:[phone] Family History Family Member Type Diagnosis Age At Onset No Information Payers Payer name Insurance type Covered alliance party ID Authoriza tion(s) No Information Social [...]
[2025-01-05 17:03] LABS: Basophils Absolute Auto 0.1 K/mm3 (0.0-0.1); Basophils Percent Auto 0.6 % (0.2-1.2); Eosinophils Absolute Auto 0.3 K/mm3 (0-0.3); Eosinophils Percent Auto 3.8 % (0-4.4); Hematocrit 50.3 % (42.0-52.0); Hemoglobin 15.9 g/dL (14.0-18.0); Immature Granulocyte Absolute 0.04 K/mm3 (0.00-0.031); Immature Granulocyte Percent A 0.5 % (0-0.5); Lymphocytes Absolute Auto 1.52 K/mm3 (0.9-3.2); Lymphocytes Percent Auto 17.9 % (18.3-44.2); Mean Corpuscular HGB Conc 31.6 g/dl (32-36); Mean Corpuscular Hemoglobin 28.9 pg (26-34); Mean Corpuscular Volume 91.5 fl (80-100); Mean Platelet Volume 9.7 fl (7.4-10.4); Monocytes Absolute Auto 0.6 K/mm3 (0.1-0.6); Monocytes Percent Auto 7.3 % (2.6-8.5); Neutrophils Absolute Auto 5.9 K/mm3 (1.3-6.7); Neutrophils Percent Auto 69.9 % (45.5-73.1); Platelet Count Result 259 k/mm3 (150-375); Red Cell Distribution Width 14.6 % (11.5-14.5); White Blood Count 8.5 K/mm3 (4.5-10.0)
--- OUTSIDE RECORDS SUMMARY | 2025-01-05 17:05 | XMS_ITS | Continuity of Care Document ---
Author Organization [facility] Address [address] [place] [address] Phone Care Team Providers Care Editor In Chief Newspaper Name Role Phone Conversion MD, Doctor Unavailable [...] Diagnoses Date Provider Providers Copied on Encounter [employer], [address], [place], [place], [address] , [place] tel: [phone] Conversion Department No Information 4-201 1 Conversion Doctor. [address], [place], [address], [place]. [employer], [address], [place], [place], [address] , [place] tel: [phone] [facility] LOC PRIM OSTEOART-L/LEGINH IBITED SEX EXCITEMENT 9-200 9 [address], [place], [place], [address], [place]. tel:[phone] [employer], [address], [place], [place], [address] , [place] tel: [phone] [facility] No Information Mar-0 4-200 9 [address], [place], [place], [address], [place]. tel:[phone] [facility], [address], [place], [place], [address] , [place] tel:[phone] [facility] ULCER OF LOWER LIMB NOS Sep-0 8-200 8 [address], [place], [place], [address], [place]. tel:[phone] [facility], [address], [place], [place], [address] , [place] tel:[phone] [facility] BENIGN HYPERTENSIONMASTO DYNIA Aug-1 8-200 8 [address], [place], [place], [address], [place]. tel:[phone] [facility], [address], [place], [place], [address] , [place] tel:[phone] [facility] CONTUSION OF LOWER LEGPAIN IN LIMB Aug-0 5-200 8 [address], [place], [place], [address], [place]. tel:[phone] [facility], [address], [place], [place], [address] , [place] tel:[phone] [facility] REFLUX ESOPHAGITISDISORD ER OF PENIS NEC December-0 8-200 8 [address], [place], [place], [address], [place]. tel:[phone] [facility], [address], [place], [place], [address] , [place] tel:[phone] [facility] HAIR DISEASES NEC Aug-0 3-200 8 [address], [place], [place], [address], [place]. tel:[phone] [facility], [address], [place], [place], [address] , [place] tel:[phone] [facility] JOINT PAIN-FOREARM Jun- 7-200 6 [address], [place], [place], [address], [place]. tel:[phone] [facility], [address], [place], [place], [address] , [place] tel:[phone] [facility] MORBID OBESITYDYSURIA 0-200 6 [address], [place], [place], [address], [place]. tel:[phone] [facility], [address], [place], [place], [address] , [place] tel: [facility] SKIN DISORDER NOS 7-200 6 [address], [place], [place], [address], [place]. tel:[phone] [facility], [address], [place], [place], [address] , [place] tel:[phone] [facility] SKIN HYPERTRO/ATROPH NOS Nov-0 4-200 6 [address], [place], [place], [address], [place]. tel:[phone] [facility], [address], [place], [place], [address] , [place] tel:[phone] [facility] Primary [facility] LONG-TERM USE MEDS NEC 1-200 6 [address], [place], [place], [address], [place]. tel:[phone] [facility], [address], [place], [place], [address] , [place] tel: [facility] DIARRHEA Oct- 2-200 5 [address], [place], [place], [address], [place]. tel:[phone] [facility], [address], [place], [place], [address] , tel: [facility] URINARY FREQUENCYHYPERLIP IDEMIA NEC/NOS May- 5-200 4 [address], [place], [place], [address], [place]. tel:554 [facility], [address], [place], [place], [address] , [place] tel:[phone] [facility] CHRONIC SKIN ULCER NOS 2-200 4 [address], [place], [place], [address], [place]. tel:554 [facility], [address], [place], [place], [address] , [place] tel: [facility] INFECTIOUS MONONUCLEOSISCOUG H Sep-1 8-200 3 [address], [place], [place], [address], [place]. tel:[phone] [facility], [address], [place], [place], [address] , [place] tel:[phone] [facility] THROAT PAINFEVER Sep-0 8-200 3 [address], [place], [place], [address], [place]. tel:[phone] [facility], [address], [place], [place], [address] , [place] tel:[phone] [facility] CHEST PAIN NOS May-0 5-200 3 [address], [place], [place], [address], [place]. tel:554 [facility], [address], [place], [place], [address] , [place] tel:[phone] [facility] SCREEN-NEOPLASM NOS Nov-0 5-200 2 [address], [place], [place], [address], [place]. tel:[phone] [facility], [address], [place], [place], [address] , [place] tel: [facility] ACUTE URI NOS 6-200 1 [address], [place], [place], [address], [place]. tel:[phone] Family History Family Member Type Diagnosis Age At Onset No Information Payers Payer name Insurance type Covered constitution party ID Authoriza tion(s) No Information Social [...]
[2025-01-05 17:12] LABS: Alanine Aminotransferase 16 U/L (6-50); Albumin Level 4.5 g/dL (3.5-5.1); Alkaline Phosphatase 99 U/L (38-126); Anion Gap 12 mmol/L (4-12); Aspartate Amino Transferase 28 U/L (17-59); Bilirubin,Total 1.1 mg/dL (0.2-1.3); Blood Urea Nitrogen 30 mg/dL (9-20); Carbon Dioxide 23 mmol/L (22-30); Chloride 104 mmol/L (98-107); Estimated Glomerular Filt Rate 49; Glucose 100 mg/dL (65-110); Sodium 139 mmol/L (137-145)
[2025-01-05 18:48] LABS: Toxigenic C. Diff NEGATIVE (NEGATIVE)
== END 2025-01-05 17:03 | disposition home or self-care (01) ==
PROVIDERS: PCP Internal Medicine; Visit Provider Internal Medicine
DX: R19.7 Diarrhea, unspecified (principal)
CPT/HCPCS: 36415; 80053; 85025; 87045; 87427; 87449; 87493

== ENCOUNTER 2025-04-30 10:07 | Outpatient (CLI) | payer MEDICARE, SELFPAY ==
--- OUTSIDE RECORDS SUMMARY | 2011-02-19 19:00 | XMS_ITS | Continuity of Care Document ---
Author Organization [facility] Address [address] [place] [address] Phone Care Team Providers Care Charge Histotechnologist Name Role Phone Conversion MD, Doctor Unavailable [...] Diagnoses Date Provider Providers Copied on Encounter [employer], [address], [place], [place], [address] , [place] tel: [phone] Conversion Department No Information 4-201 1 Conversion Doctor. [address], [place], [address], [place]. [facility], [address], [place], [place], [address] , [place] tel: [phone] [facility] LOC PRIM OSTEOART-L/LEGINH IBITED SEX EXCITEMENT 9-200 9 Tamiko Long[address], [place], [place], [address], [place]. tel:[phone] [facility], [address], [place], [place], [address] , [place] tel: [phone] [facility] No Information Mar-0 4-200 9 Plisco [address], [place], [place], [address], [place]. tel:[phone] [facility], [address], [place], [place], [address] , [place] tel:[phone] [facility] ULCER OF LOWER LIMB NOS Sep-0 8-200 8 Plisco Long. [address], [place], [place], [address], [place]. tel:[phone] [facility], [address], [place], [place], [address] , [place] tel:[phone] [facility] BENIGN HYPERTENSIONMASTO DYNIA Aug-1 8-200 8 [address], [place], [place], [address], [place]. tel:[phone] [facility], [address], [place], [place], [address] , [place] tel:[phone] [facility] CONTUSION OF LOWER LEGPAIN IN LIMB Aug-0 5-200 8 Plisco Long. [address], [place], [place], [address], [place]. tel:[phone] [facility], [address], [place], [place], [address] , [place] tel:[phone] [facility] REFLUX ESOPHAGITISDISORD ER OF PENIS NEC December-0 8-200 8 Plisco Long. [address], [place], [place], [address], [place]. tel:[phone] [facility], [address], [place], [place], [address] , [place] tel:[phone] [facility] HAIR DISEASES NEC Aug-0 3-200 8 [address]. [address], [place], [place], [address], [place]. tel:[phone] [facility], [address], [place], [place], [address] , [place] tel:[phone] [facility] JOINT PAIN-FOREARM Jun- 7-200 6 Pl[address] Long[address], [place], [place], [address], [place]. tel:[phone] [facility], [address], [place], [place], [address] , [place] tel:[phone] [facility] MORBID OBESITYDYSURIA 0-200 6 [address], [place], [place], [address], [place]. tel:[phone] [facility], [address], [place], [place], [address] , [place] tel: [facility] SKIN DISORDER NOS 7-200 6 [address], [place], [place], [address], [place]. tel:[phone] [facility], [address], [place], [place], [address] , [place] tel:[phone] [facility] SKIN HYPERTRO/ATROPH NOS Nov-0 4-200 6 [address], [place], [place], [address], [place]. tel:[phone] [facility], [address], [place], [place], [address] , [place] tel:[phone] [facility] LONG-TERM USE MEDS NEC 1-200 6 Pl[address], [place], [place], [address], [place]. tel:[phone] [facility], [address], [place], [place], [address] , [place] tel: [facility] DIARRHEA Oct- 2-200 5 [address], [place], [place], [address], [place]. tel:[phone] [facility], [address], [place], [place], [address] , tel: [facility] URINARY FREQUENCYHYPERLIP IDEMIA NEC/NOS May- 5-200 4 [address], [place], [place], [address], [place]. tel:[phone] [facility], [address], [place], [place], [address] , [place] tel:[phone] [facility] CHRONIC SKIN ULCER NOS 2-200 4 Plisco Long. [address], [place], [place], [address], [place]. tel:554 [facility], [address], [place], [place], [address] , [place] tel: [facility] INFECTIOUS MONONUCLEOSISCOUG H Sep-1 8-200 3 [address], [place], [place], [address], [place]. tel:[phone] [facility], [address], [place], [place], [address] , [place] tel:[phone] [facility] THROAT PAINFEVER Sep-0 8-200 3 [address], [place], [place], [address], [place]. tel:[phone] [facility], [address], [place], [place], [address] , [place] tel:[phone] [facility] CHEST PAIN NOS May-0 5-200 3 [address], [place], [place], [address], [place]. tel:554 [facility], [address], [place], [place], [address] , [place] tel:[phone] [facility] SCREEN-NEOPLASM NOS Nov-0 5-200 2 [address], [place], [place], [address], [place]. tel:[phone] [facility], [address], [place], [place], [address] , [place] tel: [facility] ACUTE URI NOS 6-200 1 Tamiko Long. [address], [place], [place], [address], [place]. tel:[phone] Family History Family Member Type Diagnosis Age At Onset No Information Payers Payer name Insurance type Covered democrat ID Authoriza tion(s) No Information Social History [...]
[2025-04-30 10:41] LABS: Alanine Aminotransferase 17 U/L (6-50); Albumin Level 4.2 g/dL (3.5-5.1); Alkaline Phosphatase 108 U/L (38-126); Anion Gap 7 mmol/L (4-12); Aspartate Amino Transferase 32 U/L (17-59); Bilirubin,Total 1.0 mg/dL (0.2-1.3); Blood Urea Nitrogen 23 mg/dL (9-20); Calcium 9.0 mg/dL (8.4-10.2); Carbon Dioxide 27 mmol/L (22-30); Chloride 103 mmol/L (98-107); Estimated Glomerular Filt Rate 45; Glucose 90 mg/dL (65-110); Potassium 4.5 mmol/L (3.4-5.0); Sodium 137 mmol/L (137-145); Total Protein 7.0 g/dL (6.3-8.2)
[2025-04-30 11:17] LABS: Prostate Specific Antigen 0.8 ng/mL (< OR = 4.0)
--- OUTSIDE RECORDS SUMMARY | 2025-04-30 11:20 | XMS_ITS | Clinical Summary ---
Author Organization [employer] Address [address] [place] [address] Care Team Providers Care Hog Sawyer Name Role Phone Abel Portillo DO Primary Care Provider [phone] Allergies Active Allergy Reactions Criticality Noted Date [...] 1:08 PM CDT Height 195.6 cm (6' 5) 01/25/2021 1:08 PM CDT Body Mass Index [...] (1 of 2) 2006 INFLUENZA VACCINE (#1) 2025 RSV VACCINE (60+ or ) (1 - 1-dose 75+ series) 2031 Care Teams Hog Sawyer Relationship Specialty Start Date End Date Abel Portillo DO [address] [facility] [address] [place] [address] PCP - General Internal Medicine 01/19/21
--- OUTSIDE RECORDS SUMMARY | 2025-04-30 11:20 | XMS_ITS | Patient Health Record ---
Author Organization [facility] Address [address] [place], [place] [address] Care Team Providers Care Rhinologist Name Role Phone Abel Portillo Unavailable Unavailable Reason For Referral No Information Plan Of Treatment No Information Insurance Providers Payer Name Payer Address Payer Phone Subscriber Number Group Number Insured Name Patient Relationship to Insured Coverage Start Date Coverage End Date R Gerard / [facility] [address] [id number] TIBURCIO CASTANO Spouse - patient is the spouse of the insured
--- OUTSIDE RECORDS SUMMARY | 2025-04-30 11:21 | XMS_ITS | Patient Health Record ---
Author Organization [facility] Address [address] [place] [address] Care Team Providers Care Dramatic Critic Name Role Phone Neeraj Suazoa Primary Care Provider Reason For Referral No Information Medications Medication SIG (Take, Route, Frequency, Duration) Notes Start Date End Date Status Testosterone 200mg/ml injection Bucally q 3 weeks; Duration: 90 days Active hydroCHLOROthiazide 25 MG 1 tablet Orall y Once a day; Duration: 30 days 02/01/2015 Active Lisinopril-hydroCHLOROthiazi de 20-25 MG 1 tablet Orally Once a day; Duration: 90 day(s) 06/04/2012 Active Kayexalate 30 as directed Orally 1 ; Duration: 1 days 11/20/2014 Active Levitra 20 MG 1 tablet as needed Orally Once a day; Duration: 12 day(s) 06/07/2012 Active Vitamin B-12 1000MCG 1 Ml im q monthly; Duration: 180 Active Viagra 100 MG 1 tablet as needed Orally once weekly; Duration: 90 days 09/21/2015 Active Immunizations Vaccine Route Administration Date Status Comme nts Fluzone PF 2009 IM Intramuscular 05/16/2011 Administered Problems Problem Type SNOMED Code ICD Code Onset Dates Problem Status W/U Status Risk Notes Problem Male hypogonadism (79927644) Hypogonadism, testicular (257.2) Active confirmed Problem Morbid obesity (599794258) Morbid obesity (278.01) Active confirmed Problem Headache (05803904) Headache (784.0) Active con firmed Problem History of gastrointestinal tract bypass (341443183) INTESTINAL BYPASS STATUS (V45.3) Active confirmed Problem General examination of patient (832656533) ROUTINE MEDICAL EXAM (V70.0) Active confirmed Problem Preoperative diagnosis (547082943) PREOP EXAM UNSPCF (V72.84) Active confirmed Problem Peripheral venous insufficiency (46560940) VENOUS INSUFFICIENCY NOS (459.81) Active confirmed Problem Hypertension (51150391) HTN (401.9) Active confirmed Problem Generalized osteoarthritis (401492158) Osteoarthritis generalized (715.90) Active confirmed Plan Of Treatment No Information Insurance Providers Payer Name Payer Address Payer Phone Subscriber Number Group Number Insured Name Patient Relationship to Insured Coverage Start Date Coverage End Date [facility] [address] [address] [place] [phone] [id number] Jon Burrell Self - patient is the insured Medical (General) History Medical History History ICD Code gastric bypass. dr casas at [facility]. skin graft for venous stasis ulcer on lt ankle.
[2025-04-30 11:36] LABS: Vitamin B12 627.0 pg/mL (239-931)
== END 2025-04-30 10:08 | disposition home or self-care (01) ==
PROVIDERS: PCP Internal Medicine; Visit Provider Internal Medicine
DX: Z12.5 Encounter for screening for malignant neoplasm of prostate (principal); E29.1 Testicular hypofunction; E53.8 Deficiency of other specified B group vitamins; Z79.899 Other long term (current) drug therapy
CPT/HCPCS: 36415; 80053; 82607; 84153; G0103

== ENCOUNTER 2025-05-20 09:59 | Outpatient (CLI) | payer MEDICARE, SELFPAY ==
--- OUTSIDE RECORDS SUMMARY | 2025-05-20 10:43 | XMS_ITS | Clinical Summary ---
Author Organization [facility] Address [address] [place] [address] Care Team Providers Care Transporter Radiology Name Role Phone Unavailable Primary Care Provider [...] COVID-19 Vaccine ( - 2023-2 5 season) 2025 RSV Immunization or 60+ Years (1 - [...]
--- OUTSIDE RECORDS SUMMARY | 2025-05-20 10:43 | XMS_ITS | Patient Health Record ---
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) Active confirmed Problem Morbid obesity (488722322) Morbid obesity (278.01) Active confirmed Problem Headache (37501535) Headache (784.0) Active con firmed Problem History of gastrointestinal tract bypass (484447263) INTESTINAL BYPASS STATUS (V45.3) Active confirmed Problem General examination of patient (103699154) ROUTINE MEDICAL EXAM (V70.0) Active confirmed Problem Preoperative diagnosis (995120513) PREOP EXAM UNSPCF (V72.84) Active confirmed Problem Peripheral venous insufficiency (75261092) VENOUS INSUFFICIENCY NOS (459.81) Active confirmed Problem Hypertension (01952161) HTN (401.9) Active confirmed Problem Generalized osteoarthritis (320983588) Osteoarthritis generalized (715.90) Active confirmed Plan Of Treatment No Information Insurance Providers Payer Name Payer Address Payer Phone Subscriber Number Group Number Insured Name Patient Relationship to Insured Coverage Start Date Coverage End Date [facility] [address] [address] [place] [phone] [id number] Jon Burrell Self - patient is the insured Medical (General) History Medical History History ICD Code gastric bypass. dr casas at [facility]. skin graft for venous stasis ulcer on lt ankle.
--- OUTSIDE RECORDS SUMMARY | 2025-05-20 10:43 | XMS_ITS | Patient Health Record ---
Author Organization [facility] Address [address] [place], [place] [address] Care Team Providers Care Bead Inspector Name Role Phone Abel Portillo Unavailable Unavailable Reason For Referral No Information Plan Of Treatment No Information Insurance Providers Payer Name Payer Address Payer Phone Subscriber Number Group Number Insured Name Patient Relationship to Insured Coverage Start Date Coverage End Date R Gerard / [facility] [address] [id number] TIBURCIO CASTANO Spouse - patient is the spouse of the insured
--- OUTSIDE RECORDS SUMMARY | 2025-05-20 10:43 | XMS_ITS | Clinical Summary ---
Author Organization [employer] [place] Address [address] [place] [address] Care Team Providers Care Home Hospice Rn Name Role Phone Abel Portillo DO Primary Care Provider [phone] Allergies Active Allergy Reactions Criticality Noted Date [...] - 1-dose 75+ series) 2031 Care Teams Home Hospice Rn Relationship Specialty Start Date End Date Abel Portillo DO [address] [facility] [address] [place] [phone] PCP - General Internal Medicine 01/19/21
--- NOTE | 2025-05-20 10:58 | ECG_ITS ---
Test Date: 2025-05-20 11:09:43 Measurements Intervals [place] Rate: 59 P: 57 UT: 234 QRS: -12 QRSD: 91 T: 36 QT: 383 QTc: 382 Interpretive Statements SINUS BRADYCARDIA WITH FIRST DEGREE AV BLOCK BASELINE ARTIFACT- I, II, III, AVR, AVL BORDERLINE ECG No previous ECG available for comparison Electronically Signed On 05-20-2025 11:32:06 CDT by Hadley Cho D.O.
[2025-05-20 11:57] LABS: Hematocrit 53.1 % (42.0-52.0); Hemoglobin 16.6 g/dL (14.0-18.0); Mean Corpuscular HGB Conc 31.3 g/dl (32-36); Mean Corpuscular Hemoglobin 29.5 pg (26-34); Mean Corpuscular Volume 94.5 fl (80-100); Platelet Count Result 206 k/mm3 (150-375); Red Blood Count 5.62 M/mm3 (4.6-6.20); White Blood Count 7.5 K/mm3 (4.5-10.0)
[2025-05-20 12:10] LABS: INR 1.1; Partial Thromboplastin Time 27.9 Seconds (22.3-36.8); Prothrombin Time 14.1 Seconds (11.1-14.7)
[2025-05-20 12:11] LABS: Add Urine Microscopic? YES; Appearance Urine Cloudy (Clear); Glucose Urine UA Negative (Negative); Leukocyte Esterase Ur 1+ LEU/UL (Negative); Need Manual Microscopic Reviewed; Nitrate Urine Negative (Negative); Specific Grav Ur 1.022 (1.001-1.035)
== END 2025-05-20 10:00 | disposition home or self-care (01) ==
PROVIDERS: PCP Internal Medicine; Visit Provider Neurological Surgery
DX: M48.061 Spinal stenosis, lumbar region without neurogenic claudication (principal); Z01.818 Encounter for other preprocedural examination
CPT/HCPCS: 36415; 81001; 85027; 85610; 85730; 86850; 86900; 86901; 87086; 93005

== ENCOUNTER 2025-06-03 15:39 | Inpatient (IN) | payer MEDICARE, SELFPAY ==
--- OUTSIDE RECORDS SUMMARY | 2011-02-19 19:00 | XMS_ITS | Continuity of Care Document ---
Author Organization [facility] Address [address] [place] [address] Phone Care Team Providers Care Medical Sales Specialist Name Role Phone Conversion MD, Doctor Unavailable Unavailabl e Allergies, Adverse Reactions, Alerts Substance Reaction Status Criticality HYDROCODONE BITARTRATE Other Active No In formation acetaminophen Other Active No Information HYDROCODONE BITARTRATE Other Active No In formation acetaminophen Other Active No Information Penicillins Other Active No Information lisinopril Other Active No Information Medications Medication Instructions Dosage Effective Dates (start - stop) Status Comments MOBIC 15MG TABS 1 DIRECTE - Active For Knee Pain DEPO-TESTOSTERONE 200MG/ML ML 1 3/WEEK - No Longer Active For Erectile Dysfunction TESTOSTERONE CYP 200 MG/ML 1 3/WEEK - No Longer Active For Low Testosterone Advance Directives Directive Yes / No Effective Date File Name No Information Encounters Encounter Description Practice Location Reason(s) For Visit Diagnoses Date Provider Providers Copied on Encounter [facility], [address], [place], [place], [address] , [place] tel: [phone] Conversion Department No Information 4-201 1 Conversion Doctor. [address], [place], [address], [place]. [facility], [address], [place], [place], [address] , [place] tel: [phone] [facility] LOC PRIM OSTEOART-L/LEGINH IBITED SEX EXCITEMENT 9-200 9 Tamiko Long. [address], [place], [place], [address], [place]. tel:[phone] [facility], [address], [place], [place], [address] , [place] tel: [phone] [facility] No Information Mar-0 4-200 9 Plisco Long. [address], [place], [place], [address], [place]. tel:[phone] [facility], [address], [place], [place], [address] , [place] tel:[phone] [facility] ULCER OF LOWER LIMB NOS Sep-0 8-200 8 Plisco Long. [address], [place], [place], [address], [place]. tel:[phone] [facility], [address], [place], [place], [address] , [place] tel:[phone] [facility] BENIGN HYPERTENSIONMASTO DYNIA Aug-1 8-200 8 Plisco Long. [address], [place], [place], [address], [place]. tel:[phone] [facility], [address], [place], [place], [address] , [place] tel:[phone] [facility] CONTUSION OF LOWER LEGPAIN IN LIMB Aug-0 5-200 8 Plisco Long. [address], [place], [place], [address], [place]. tel:[phone] [facility], [address], [place], [place], [address] , [place] tel:[phone] [facility] REFLUX ESOPHAGITISDISORD ER OF PENIS NEC December-0 8-200 8 Plisco Long. [address], [place], [place], [address], [place]. tel:[phone] [facility], [address], [place], [place], [address] , [place] tel:[phone] [facility] HAIR DISEASES NEC Aug-0 3-200 8 Plisco Long. [address], [place], [place], [address], [place]. tel:[phone] [facility], [address], [place], [place], [address] , [place] tel:[phone] [facility] JOINT PAIN-FOREARM Jun- 7-200 6 Plisco Long. [address], [place], [place], [address], [place]. tel:[phone] [facility], [address], [place], [place], [address] , [place] tel:[phone] [facility] MORBID OBESITYDYSURIA 0-200 6 Plisco Long. [address], [place], [place], [address], [place]. tel:[phone] [facility], [address], [place], [place], [address] , [place] tel: [facility] SKIN DISORDER NOS 7-200 6 Plisco Long. [address], [place], [place], [address], [place]. tel:[phone] [facility], [address], [place], [place], [address] , [place] tel:[phone] [facility] SKIN HYPERTRO/ATROPH NOS Nov-0 4-200 6 Plisco Long. [address], [place], [place], [address], [place]. tel:[phone] [facility], [address], [place], [place], [address] , [place] tel:[phone] [facility] LONG-TERM USE MEDS NEC 1-200 6 Plisco Long. [address], [place], [place], [address], [place]. tel:[phone] [facility], [address], [place], [place], [address] , [place] tel: [facility] DIARRHEA Oct- 2-200 5 Plisco Long. [address], [place], [place], [address], [place]. tel:[phone] [facility], [address], [place], [place], [address] , tel: [facility] URINARY FREQUENCYHYPERLIP IDEMIA NEC/NOS May- 5-200 4 Plisco Long. [address], [place], [place], [address], [place]. tel:554 [facility], [address], [place], [place], [address] , [place] tel:[phone] [facility] CHRONIC SKIN ULCER NOS 2-200 4 Plisco Long. [address], [place], [place], [address], [place]. tel:554 [facility], [address], [place], [place], [address] , [place] tel: [facility] INFECTIOUS MONONUCLEOSISCOUG H Sep-1 8-200 3 Plisco Long. [address], [place], [place], [address], [place]. tel:[phone] [facility], [address], [place], [place], [address] , [place] tel:[phone] [facility] THROAT PAINFEVER Sep-0 8-200 3 Plisco Long. [address], [place], [place], [address], [place]. tel:[phone] [facility], [address], [place], [place], [address] , [place] tel:[phone] [facility] CHEST PAIN NOS May-0 5-200 3 Plisco Long. [address], [place], [place], [address], [place]. tel:554 [facility], [address], [place], [place], [address] , [place] tel:[phone] [facility] SCREEN-NEOPLASM NOS Nov-0 5-200 2 Plisco Long. [address], [place], [place], [address], [place]. tel:[phone] [facility], [address], [place], [place], [address] , [place] tel: [facility] ACUTE URI NOS 6-200 1 Tamiko Long. [address], [place], [place], [address], [place]. tel:[phone] Family History Family Member Type Diagnosis Age At Onset No Information Payers Payer name Insurance type Covered republican ID Authoriza tion(s) No Information Social History Type Description Quantity Date Captured Comments Sex Male Smoking Status No Information Chief Complaint And Reason For Visit No Information Reason For Referral Reason For Referral No Information History Of Present Illness Encounter Date Complaint History Of Prese nt Illness No Information Functional Status Date Functional Assessmen t No Information Medications Administered Medication Instructions Dosage Effective Dates (start - stop) Status Comments DEPO-TESTOSTERONE 200MG/ML ML 1 3/WEEK - No Longer Active For Erectile Dysfunction Instructions Date Instruction Additional Infor mation No Information Assessments Type Assessment Date No Information Patient Care Teams Name Effective Dates (start - stop) Status Members No Information
--- NOTE | 2025-05-20 10:04 | PC.NURSE ---
[facility] has started construction of its new state of the art ER which will open Spring 2026. With this, we anticipate parking may be a challenge for some our surgical patients and families. Parking spaces are limited but are available for all Surgical, obstetrics, and ER patients sharing this lot. If you arrive and find you are having a hard time finding a parking space, please note that we understand the challenges, please drive around the hospital and park near Hospital Entrance 1. When you enter this entrance, you can ask a volunteer to direct or take you back to the surgical waiting area to check in. We appreciate everyone?s understanding of these expected challenges while we build for your future. Report to the Outpatient Waiting Room, entrance under the green pavilion located off [address], at time _6 AM on date ___06/02/25____. Planned Procedure Time: __7:30 AM .? Time changes happen often and if your time is changed the preop area will call you the afternoon before. - You and your visitor will be asked to self-screen and do not enter if you have any COVID symptoms. Please call surgeon if you need to reschedule. - A mask is optional within the hospital at this time. Patients may have clear liquids (water, carbonated beverages, clear teas, apple juice) until 3 hours prior to surgery( 4:30 AM) with a maximum of 20 ounces. - No food from midnight until time of surgery and no smoking, or chewing tobacco (or any form of nicotine). No chewing gum, candy or mints. Take only the following medications with a SIP of water on the morning of surgery: _AMLODIPINE,GABAPENTIN,SERTRALINE, DO NOT STOP ANY OF YOUR OTHER PRESCRIPTION MEDICATIONS PRIOR TO SURGERY EXCEPT THE FOLLOWING Hold all vitamins and supplements for 3 days per anesthesiologist.LAST DOSE 05/29/25 Medications to discontinue per physician ___MELOXICAM HOLD [address] RAMIREZ Date to take last dose__05/25/25 Please no make-up, nail sudanese, hairspray, perfume, deodorant, or body powder the day of surgery.? No jewelry (including any body piercings) or valuables the day of surgery, leave them at home.? Please take a shower or bath the night before, or the morning of, surgery with an antibacterial soap.? Wear comfortable, loose fitting clothing.? Children are encouraged to wear pajamas. - Jewelry must be removed prior to entering the operating room.? Rings and piercings that are not removed may be cut off. - The hospital will not accept responsibility for valuables.? - Please leave all valuables, including medications, at home the day of surgery. If you are going home after surgery, a licensed motorcoach driver must drive you home.? - NO public transportation without another adult if you receive anesthesia. - We recommend that an adult stay with you for 24 hours following discharge. - We also recommend that you do not drive, make important decision, drink alcoholic beverages, or take any drugs that were not prescribed by your health care provider for at least 24 hours after your discharge time. For Pediatric surgeries, we recommend two adults accompany the child home. Follow any additional instructions given to you from your surgeon. VERBAL AND WRITTEN instructions given to __PATIENT and asked if any additional questions and then verbalized understanding. Patient advised to call surgeon office or pre surgery nurse liaison [phone] if any additional questions.
[2025-05-20 10:07] VITALS: BMI 33.4
[2025-05-20 11:00] VITALS: BP 146/77; PULSE 60; RESP 18; TEMP 37.1; O2SAT 98
[2025-06-02] VITALS (17 sets, daily range): BP systolic 100–147; BP diastolic 50–83; PULSE 30–88; RESP 12–18; TEMP 35.8–36.7; O2SAT 95–100
--- OUTSIDE RECORDS SUMMARY | 2025-06-02 00:45 | XMS_ITS | Clinical Summary ---
Author Organization [facility] Address [address] [place] [address] Care Team Providers Care Receiver Bulk System Name Role Phone Unavailable Primary Care Provider [...] Vaccine ( - 2023-2 5 season) 2025 Influenza Adult (#1) 2025 RSV Immunization or 60+ Years (1 [...]
--- OUTSIDE RECORDS SUMMARY | 2025-06-02 00:46 | XMS_ITS | Clinical Summary ---
Author Organization [employer] [facility] Address [address] [place] [address] Care Team Providers Care Hairpiece Stylist Name Role Phone Abel Portillo DO Primary Care Provider [phone] Allergies Active Allergy Reactions Criticality Noted Date [...] - 1-dose 75+ series) 2031 Care Teams Hairpiece Stylist Relationship Specialty Start Date End Date Abel Portillo DO [address] [facility] [address] [place] [phone] PCP - General Internal Medicine 01/19/21
--- OUTSIDE RECORDS SUMMARY | 2025-06-02 00:46 | XMS_ITS | Patient Health Record ---
Author Organization [facility] Address [address] [place], [place] [address] Care Team Providers Care Automotive Service Technician Name Role Phone Abel Portillo Unavailable Unavailable Reason For Referral No Information Plan Of Treatment No Information Insurance Providers Payer Name Payer Address Payer Phone Subscriber Number Group Number Insured Name Patient Relationship to Insured Coverage Start Date Coverage End Date R Gerard / [facility] [address] [id number] TIBURCIO CASTANO Spouse - patient is the spouse of the insured
--- OUTSIDE RECORDS SUMMARY | 2025-06-02 00:46 | XMS_ITS | Patient Health Record ---
Author Organization [facility] Address [address] [place] [address] Care Team Providers Care Interior Block Wirer Name Role Phone Neeraj Suazoa Primary Care [...] W/U Status Risk Notes Problem Male hypogonadism (37011879) Hypogonadism, testicular (257.2) Active confirmed Problem Morbid obesity (458668193) Morbid obesity (278.01) Active confirmed Problem Headache (21079454) Headache (784.0) Active con firmed Problem History of gastrointestinal tract bypass (157993527) INTESTINAL BYPASS STATUS (V45.3) Active confirmed Problem General examination of patient (920414642) ROUTINE MEDICAL EXAM (V70.0) Active confirmed Problem Preoperative diagnosis (553412208) PREOP EXAM UNSPCF (V72.84) Active confirmed Problem Peripheral venous insufficiency (85814246) VENOUS INSUFFICIENCY NOS (459.81) Active confirmed Problem Hypertension (86252459) HTN (401.9) Active confirmed Problem Generalized osteoarthritis (952014192) Osteoarthritis generalized (715.90) Active confirmed Plan Of Treatment No Information Insurance Providers Payer Name Payer Address Payer Phone Subscriber Number Group Number Insured Name Patient Relationship to Insured Coverage Start Date Coverage End Date [facility] [address] [address] [place] [phone] [id number] Jon Burrell Self - patient is the insured Medical (General) History Medical History History ICD Code gastric bypass. dr casas at [facility]. skin graft for venous stasis ulcer on lt ankle.
[2025-06-02] MEDS: LACTATED RINGERS 1,000 ML 30 ML IV CONT (06:30)
--- NOTE | 2025-06-02 06:48 | WPDANESEPPF ---
Anes - Initial Pre Proc Eval Procedure: Operation Date: 06/02/25 07:30 Proposed Procedures p L2-3, L3-4, L4-5 Posterior Lumbar Interbody Fusion - Brock Snyder MD Date/Time: 06/02/25 06:48 Surgeon: Brock Snyder MD Pre Op Diagnosis: lumbar spondylolisthesis,spondylosis and stenosis Patient Data Age: 70 Gender: M Height: 1.96 m Weight: 127.9 kg Last Vital Signs Temp 37.1 C 05/20/25 11:00 Pulse 60 05/20/25 11:00 Resp 18 05/20/25 11:00 BP 146/77 H 05/20/25 11:00 Pulse Ox 98 05/20/25 11:00 O2 Del Method Room Air 05/20/25 11:00 Allergies Allergy/AdvReac Type Severity Reaction Status Date / Time crab Allergy Severe Swelling Verified 05/20/25 10:12 Penicillins Allergy Severe Anaphylaxis Verified 05/20/25 10:12 Home Medications ?Medication ?Instructions ?Recorded ?Confirmed ?Type calcium carbonate (Calcium 600) 600 mg PO DAILY 03/08/20 05/20/25 History cholecalciferol (vitamin D3) 10 10 mcg PO DAILY 03/08/20 05/20/25 History mcg (400 unit) capsule ferrous sulfate 325 mg (65 mg 650 mg PO DAILY 01/20/21 05/20/25 History iron) tablet (Iron (ferrous sulfate)) multivitamin 1 tablet PO DAILY 01/20/21 05/20/25 History docusate sodium 100 mg capsule 100 mg PO PRN 02/12/24 05/20/25 History magnesium citrate 125 mg capsule 250 mg PO DAILY 02/12/24 05/20/25 History potassium 99 mg tablet 99 mg PO DAILY 02/12/24 05/20/25 History vitamin B complex 1 cap PO DAILY 02/12/24 05/20/25 History allopurinol 300 mg tablet 300 mg PO DAILY #90 tabs 04/22/24 05/20/25 Rx hydrochlorothiazide 25 mg tablet 25 mg PO DAILY #90 tabs 04/22/24 05/20/25 Rx montelukast 10 mg tablet 10 mg PO DAILY #90 tabs 04/22/24 05/20/25 Rx meloxicam 15 mg tablet 15 mg PO DAILY #90 tabs 04/24/24 05/20/25 Rx pantoprazole 40 mg tablet,delayed 40 mg PO QAM #90 tabs 08/14/24 05/20/25 Rx release gabapentin 100 mg capsule 100 mg PO DAILY 10/21/24 05/20/25 History amlodipine 10 mg tablet See Rx Instructions .Route 12/08/24 05/20/25 Rx .COMPLEX #90 tabs sertraline 25 mg tablet See Rx Instructions .Route 12/08/24 05/20/25 Rx .COMPLEX #90 tabs trazodone 50 mg tablet See Rx Instructions .Route 12/08/24 05/20/25 Rx .COMPLEX #180 tabs syringe with needle 3 mL 22 x 1 #30 ea 12/22/24 05/15/25 Rx 1/2 diphenoxylate-atropine 2.5 1 tablet PO TID PRN diarrhea #30 01/05/25 05/20/25 Rx mg-0.025 mg tablet (Lomotil) tabs testosterone cypionate 200 mg/mL 200 mg IM .Q 10 days #1 mL 03/24/25 05/20/25 Rx intramuscular oil mupirocin 2 % topical ointment 1 applic topical TID #15 grams 04/02/25 05/20/25 Rx (Centany) clobetasol 0.05 % topical cream 1 applic topical BID PRN Itching 04/09/25 05/20/25 Rx #30 grams terbinafine HCl 250 mg tablet 250 mg PO DAILY #14 tabs 04/09/25 05/20/25 Rx furosemide 20 mg tablet See Rx Instructions .Route 05/18/25 05/20/25 Rx .COMPLEX #45 tabs biotin 10,000 mcg capsule 10,000 mcg PO DAILY 05/20/25 05/20/25 History sennosides 8.6 mg tablet (Laxative 8.6 mg PO DAILY 05/20/25 05/20/25 History (sennosides)) gabapentin 400 mg capsule 400 mg PO TID #270 caps 05/21/25 Rx tramadol 50 mg tablet 50 mg PO Q6H PRN pain #40 tabs 05/21/25 Rx Patient hx anesthesia problems: none Family hx anesthesia problems: none Results Review: All pre-operative results and documents have been reviewed as part of the pre-operative evaluation. 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 Elevated serum creatinine Degenerative joint disease of left hip Pain of left hip joint Right hip pain Left knee DJD GERD (gastroesophageal reflux disease) Trochanteric bursitis Iron deficiency Mild depression PVD (peripheral vascular disease) T12 compression fracture Painful total knee replacement, right Obesity Fracture of metatarsal bone with nonunion Arthritis Skin ulcer Cellulitis Vision abnormalities Trochanteric bursitis, right hip Trochanteric bursitis, left hip Bilateral hip pain Hearing loss Contact dermatitis Hyperlipidemia Essential (primary) hypertension Low testosterone in male Primary osteoarthritis of left knee Venous stasis Vitamin B12 deficiency (non anemic) Metatarsal bone fracture (~07/28/19) Surgical History Surgical History Presence of right artificial knee joint S/P total hip arthroplasty LT SUZI 02/26/24 Gastric bypass status for obesity S/P total knee arthroplasty Family History Family History Sibling Patient's sister is in good health Patient's brother is in good health Mother Family history of dementia, Onset Age: 80 Father Family history of lung cancer, Onset Age: 83 Family history of malignant neoplasm of brain, Onset Age: 83 Cerebrovascular accident Grandparent Diabetes mellitus Hypertension Social History Social History Smoking status: Never smoker Second hand tobacco smoke exposure: Yes Alcohol intake: current Drinks per week: 2 Alcohol use details: ONE DRINK/MONTH Substance use: never Substance use type: does not use Do You Feel Safe in your Home?: Yes Lack of Transportation: No Lack of Food: Never True Current Housing: I Have Housing Concerned About Future Housing: No Difficulty Paying Gas/Electric Bills: No Difficulty Paying for Meds: No Currently Unemployed: No Education: Associate Degree Difficulty w/ Childcare or Family Care: No Living arrangements: with family Additional living arrangements comments: Occupation/Education: retired Additional occupation/education comments: [employer] Gender identity (if verbalized by the patient): Male Spiritual care concerns: No Anes - Eval Final PreProcedure Day of Procedure 06/02/25 06:48 Patient weight: obese Heart: regular rate and rhythm Lungs: clear to auscultation Airway: Mallampati scale class II Neurological: alert and oriented Last oral intake: >/= 8 hours ASA classification: IV Emergent: no Anesthetic plan: proceed Anesthesia type and monitoring: general ETT and standard monitoring Results Review: All pre-operative results and documents have been reviewed as part of the pre-operative evaluation. Informed Consent: The patient's anesthetic plan and its attendant risks and benefits were discussed with the patient/family/POA. Questions were solicited and answers provided to the satisfaction of the patient/family/POA.
--- NOTE | 2025-06-02 08:02 | PM.IMHP ---
H&P: HPI History of Present Illness Date/Time: 06/02/25 08:02 Chief Complaint: back and leg pain Narrative: Jon is a 69-year-old gentleman who presents with complaints of low back pain. The pain has been present for years progressively, perhaps 3 or 4 years. It stays in his back and does not radiate into his lower extremities. It is not associated with numbness tingling or weakness in either lower extremity. The pain began without inciting event. The pain is related to activity. That is standing is especially painful and he is limited in the distance that he can walk. He has participated in physical therapy in the past and more recently has been under the care of [facility] for pain management. Injections in the lumbar spine helped him for 4 or 5 days at a time. He has also undergone an EMG / NCS and has been told that he has neuropathy. He has been wearing a brace which helps a little. He is not having bowel or bladder difficulty or other constitutional problems. The pain is severe and limiting for him on a daily basis. he has not changed appreciably since we last saw him. Review of Systems Review of Systems: All systems reviewed & are unremarkable except as noted in HPI and below Denies chills, Denies fever, Denies weight gain and Denies weight loss Eyes Denies change in vision and Denies diplopia ENT Denies disequilibrium Card Denies chest pain and Denies dyspnea Resp Denies cough and Denies dyspnea GI Denies abdominal pain, Denies change in bowel habits, Denies fecal incontinence and Denies vomiting Denies hematuria, Denies oliguria, Denies difficulty urinating, Denies dysuria, Denies urinary frequency, Denies urinary hesitancy, Denies urinary incontinence and Denies urinary urgency Musc Reports as per HPI Skin/ Breast Reports system reviewed and no additional complaints, except as documented Neuro Reports as per HPI Psych Reports no additional complaints, Denies depression and Denies hopelessness Endo Reports no additional complaints and Denies polyuria Antonio/ Lymph Reports no additional complaints Aller/ Immun Reports no additional complaints [facility] Past Medical History Medical History Long-term current use of high risk medication other than anticoagulant Other fatigue Encounter for screening colonoscopy Dorsalgia Wound of skin Weakness of both hips Pure hypercholesterolemia, unspecified Pain in right knee (06/04/18) Other chronic pain Flank pain Encounter for screening for malignant neoplasm of prostate Effusion of left knee Dysuria Chronic pain of left knee Aftercare following surgery of the musculoskeletal system 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 Elevated serum creatinine Degenerative joint disease of left hip Pain of left hip joint Right hip pain Left knee DJD GERD (gastroesophageal reflux disease) Trochanteric bursitis Iron deficiency Mild depression PVD (peripheral vascular disease) T12 compression fracture Painful total knee replacement, right Obesity Fracture of metatarsal bone with nonunion Arthritis Skin ulcer Cellulitis Vision abnormalities Trochanteric bursitis, right hip Trochanteric bursitis, left hip Bilateral hip pain Hearing loss Contact dermatitis Hyperlipidemia Essential (primary) hypertension Low testosterone in male Primary osteoarthritis of left knee Venous stasis Vitamin B12 deficiency (non anemic) Metatarsal bone fracture (~07/28/19) Surgical History Surgical History Presence of right artificial knee joint S/P total hip arthroplasty LT SUZI 02/26/24 Gastric bypass status for obesity S/P total knee arthroplasty Family History Family History Sibling Patient's sister is in good health Patient's brother is in good health Mother Family history of dementia, Onset Age: 80 Father Family history of lung cancer, Onset Age: 83 Family history of malignant neoplasm of brain, Onset Age: 83 Cerebrovascular accident Grandparent Diabetes mellitus Hypertension Social History Social History Smoking status: Never smoker Second hand tobacco smoke exposure: Yes Alcohol intake: current Drinks per week: 2 Alcohol use details: ONE DRINK/MONTH Substance use: never Substance use type: does not use Do You Feel Safe in your Home?: Yes Lack of Transportation: No Lack of Food: Never True Current Housing: I Have Housing Concerned About Future Housing: No Difficulty Paying Gas/Electric Bills: No Difficulty Paying for Meds: No Currently Unemployed: No Education: Associate Degree Difficulty w/ Childcare or Family Care: No Living arrangements: with family Additional living arrangements comments: Occupation/Education: retired Additional occupation/education comments: . [employer] Gender identity (if verbalized by the patient): Male Spiritual care concerns: No Meds Home Medications and Allergies Home Medications ?Medication ?Instructions ?Recorded ?Confirmed ?Type calcium carbonate (Calcium 600) 600 mg PO DAILY 03/08/20 06/02/25 History cholecalciferol (vitamin D3) 10 10 mcg PO DAILY 03/08/20 06/02/25 History mcg (400 unit) capsule ferrous sulfate 325 mg (65 mg 650 mg PO DAILY 01/20/21 06/02/25 History iron) tablet (Iron (ferrous sulfate)) multivitamin 1 tablet PO DAILY 01/20/21 06/02/25 History docusate sodium 100 mg capsule 100 mg PO PRN 02/12/24 05/20/25 History magnesium citrate 125 mg capsule 250 mg PO DAILY 02/12/24 06/02/25 History potassium 99 mg tablet 99 mg PO DAILY 02/12/24 06/02/25 History vitamin B complex 1 cap PO DAILY 02/12/24 06/02/25 History allopurinol 300 mg tablet 300 mg PO DAILY #90 tabs 04/22/24 05/20/25 Rx hydrochlorothiazide 25 mg tablet 25 mg PO DAILY #90 tabs 04/22/24 06/02/25 Rx montelukast 10 mg tablet 10 mg PO DAILY #90 tabs 04/22/24 06/02/25 Rx meloxicam 15 mg tablet 15 mg PO DAILY #90 tabs 04/24/24 06/02/25 Rx pantoprazole 40 mg tablet,delayed 40 mg PO QAM #90 tabs 08/14/24 05/20/25 Rx release gabapentin 100 mg capsule 100 mg PO DAILY 10/21/24 06/02/25 History amlodipine 10 mg tablet See Rx Instructions .Route 12/08/24 06/02/25 Rx .COMPLEX #90 tabs sertraline 25 mg tablet See Rx Instructions .Route 12/08/24 06/02/25 Rx .COMPLEX #90 tabs trazodone 50 mg tablet See Rx Instructions .Route 12/08/24 05/20/25 Rx .COMPLEX #180 tabs syringe with needle 3 mL 22 x 1 #30 ea 12/22/24 05/15/25 Rx 1/2 diphenoxylate-atropine 2.5 1 tablet PO TID PRN diarrhea #30 01/05/25 05/20/25 Rx mg-0.025 mg tablet (Lomotil) tabs testosterone cypionate 200 mg/mL 200 mg IM .Q 10 days #1 mL 03/24/25 05/20/25 Rx intramuscular oil mupirocin 2 % topical ointment 1 applic topical TID #15 grams 04/02/25 05/20/25 Rx (Centany) clobetasol 0.05 % topical cream 1 applic topical BID PRN Itching 04/09/25 05/20/25 Rx #30 grams terbinafine HCl 250 mg tablet 250 mg PO DAILY #14 tabs 04/09/25 05/20/25 Rx furosemide 20 mg tablet See Rx Instructions .Route 05/18/25 05/20/25 Rx .COMPLEX #45 tabs biotin 10,000 mcg capsule 10,000 mcg PO DAILY 05/20/25 05/20/25 History sennosides 8.6 mg tablet (Laxative 8.6 mg PO DAILY 05/20/25 05/20/25 History (sennosides)) gabapentin 400 mg capsule 400 mg PO TID #270 caps 05/21/25 06/02/25 Rx tramadol 50 mg tablet 50 mg PO Q6H PRN pain #40 tabs 05/21/25 Rx Allergies Allergy/AdvReac Type Severity Reaction Status Date / Time crab Allergy Severe Swelling Verified 06/02/25 06:59 Penicillins Allergy Severe Anaphylaxis Verified 06/02/25 06:59 Vital Signs Vital Signs - 24 hr 06/02/25 06:30 Temperature 97.3 F L Pulse Rate 68 Respiratory Rate 16 Blood Pressure 142/73 H Pulse Oximetry 100 Oxygen Delivery Room Air Exam Narrative: Orientation/Consciousness: oriented to person, oriented to place and oriented to time Constitutional Limitations: no limitations Other: The patient is a normally developed, normal appearing male sitting on the examination table in no acute distress. He is awake, alert, and oriented x3 with good fund of knowledge, recall of events, and fluent speech. [facility] Head: normocephalic and atraumatic Ears: external ears normal Face/Nose/Sinus: Normal external nose present Eyes Eyelids: eyelids normal Pupils: Yes Pupils normal by confrontation EOM: EOMs intact bilaterally Neck General: Yes no meningeal signs, Yes supple and Yes no JVD Resp Effort/Inspection: normal respiratory effort and able to speak in complete sentences Cardio Rate: Yes regular rate GI Inspection: No abdominal distension Musc Other: Examination of the back reveals no tenderness. Range of motion of the back is limited with pain in forward flexion, extension, and lateral rotation to both sides. Straight leg raise is negative bilaterally. Rajinder?s test is negative bilaterally. Skin General: normal color Neuro General: Yes oriented to person, Yes oriented to place, Yes oriented to time, Yes normal cognition and Yes no meningeal signs Cranial Nerves: Yes CN's II-XII intact bilaterally Other: Motor: Strength is normal, 5/5, throughout all muscle groups of the bilateral upper and lower extremities to direct confrontation. Sensory: Sensation is intact to light touch throughout the upper and lower extremities bilaterally. Reflexes: Deep tendon reflexes are normal and symmetric at the knees and difficult to elicit the ankles bilaterally. There is no clonus. Gait: Gait, station, and transfers are independent and steady for short periods of time and over short distances. Psych Appearance: grossly normal Mental status: Yes mental status grossly normal Mood: congruent mood Affect: Yes normal affect Speech/Movement: Normal speech and movement present Attitude: Yes cooperative Thought Content: Normal thought content present Review of studies: MRI of the lumbar spine was personally reviewed by me. This demonstrates a degenerative spondylolisthesis at L4-5 with severe central canal stenosis as well as foraminal stenosis and severe spondylosis. There is severe foraminal stenosis right greater than left at L2-3 and L3-4 with severe spondylosis at these levels. There is also significant lateral recess stenosis. Assessment and Plan Assessment and plan (1) Foraminal stenosis of lumbar region: Code(s): M48.061 - Spinal stenosis, lumbar region without neurogenic claudication Status: Acute (2) Spondylolisthesis at L4-L5 level: Code(s): M43.16 - Spondylolisthesis, lumbar region Status: Acute (3) Scoliosis: Code(s): M41.9 - Scoliosis, unspecified Status: Acute Plan I do not believe that Jon will do well with simple decompression and recommended him in L2-5 posterior lumbar interbody fusion and described to him that operation, its risks, potential benefits, the operative and postoperative course in detail and answered all his questions personally. We discussed risks including but not limited to permanent neurologic deficit related injury of the nerve roots, need for reoperation secondary to infection, bleeding, CSF leak, adjacent level disease, recurrent residual pathology, instability, malposition migration of the hardware or nonunion, failure of the procedure to relieve his pain or symptoms, persistent pain, medical complications related anesthesia or surgery, etc.. He indicates understanding and elects to proceed with that operation.
--- NOTE | 2025-06-02 08:05 | WPDHPUPDATE1 ---
History and Physical Update Update Date/Time: 06/02/25 08:05 History and Physical has been reviewed, including an updated exam of the patient. There are NO changes in the patient's condition. Risks, benefits, and alternatives have been discussed and questions answered. Patient agrees to proceed with procedure.
[2025-06-02] MEDS: ceFAZolin 3 GM/D5W 100 ML 100 ML IVPB (08:11)
[2025-06-02] MEDS: LIDO 1%/EPINEPHRINE 1:100,000 20 ML VIAL INFILTRATE (08:58)
[2025-06-02] MEDS: fentaNYL CITRATE INJ (*CRX) 100 MCG/2 ML VIAL 25 MCG IV PUSH ×8 (13:30→14:39)
--- NOTE | 2025-06-02 13:41 | P.OP_ITS ---
Procedure Note - Detailed Date of Procedure 06/02/25 Pre-op Diagnosis lumbar spondylolisthesis,spondylosis and stenosis Post-op Diagnosis Same Procedure Performed L2-3, L3-4 and L4-5 complete laminectomy and bilateral facetectomy, L2-3, L3-4 L4-5 complete diskectomy and interbody arthrodesis utilizing titanium interbody devices and local autograft, L2-3 5 pedicle screw instrumentation Surgeon Brock Snyder MD Anesthesia General Description of Procedure Patient was brought to the operating room in the supine position, was sedated, intubated placed under general anesthesia in routine fashion. He was then turned into the prone position on an open Mesfin table. The of operation on his back was examined, marked for incision, prepped and draped in routine sterile fashion. Incision was marked over the L2-3 5 spinous processes in the midline. This area was injected with 0.5% lidocaine with [id number] epinephrine. Intravenous antibiotics given prior to incision. Incision was made with a 10 blade scalpel down to the lumbodorsal fascia. A subperiosteal dissection of the muscle soft tissue away from spinous process and lamina at L2-5 bilaterally was performed with a subperiosteal elevator and Bovie cautery. A verifying x-rays obtained to verify the level of operation. The L2-4 spinous processes were removed with 0 Summer rongeur. Kerrison punches, curved curettes and Leksell rongeur were used to remove the lamina in the midline and to the soft contents of the canal were encountered. Midas-Schuyler drill was used to resect the pars bilaterally at each of these levels. The inferior to the process of L2, L3-L4 could then be removed bilaterally. The spaces spinous processes were stripped free of soft tissue and morselized for later use as interbody autograft. Kerrison punches and curved curettes were used to define a plane with the dura and removed bone and ligament flush pedicle through the foramina widely decompressing the exiting nerve roots. With the thecal sac retracted and protected the disc space was entered bilaterally using an 11 blade scalpel. Scrapers a very sizes, curettes of various configurations, pituitary rongeur and a rasp were used to remove as much cartilaginous endplate and disc material as possible down to bleeding cortical flat surfaces on the opposing bones. The disc space was then sized appropriately sized interbody devices were chosen these were 10 mm devices at L2-3, 11 mm devices at L3-4 and 13 mm devices at L4- 5. These were filled with local autograft bone. The disc space was likewise filled with local autograft bone medially and anteriorly. The interbody devices were then placed 2-3 mm countersink within the disc space bilaterally. The pedicle screw instrumentation was then performed at L2-3 5 by observing the palpating the pedicle awl was made superior to process above the pedicle using Midas Schuyler drill. The pedicle was then cannulated with a pedicle probe, checked for continuity with ball probe, tapped with 5.5 mm tap and 6.5 x 50 mm screws placed in each pedicle on each side. Keanu placed remains on either side and secured position caps that purpose. These were within the side with the torque and anti torque device. A verifying x-rays obtained to verify the position of the instrumentation which was confirmed. The wound was then copiously irrigated with bacitracin irrigation all bleeding stopped with bipolar Bovie cautery and Gelfoam thrombin powder. The wound was then closed in layered fashion after a medium Hemovac drain was placed in a subfascial position buried up to the inferior right incision. 2-0 Vicryl buried interrupted sutures were placed in the lumbodorsal fascia and Larry's layer. 3-0 Vicryl buried interrupted sutures were placed in the dermis and skin was closed with a running 4-0 Monocryl subcuticular stitch and dressed with Dermabond. The patient was allowed to wake up in the operating room and was taken to the recovery room in stable condition. There were no immediate complications of this operation. All counts reported correct in the case. Blood loss was 1250 cc. The patient was neurologically at his baseline postoperatively. CPT codes: 54864, 38437 X2, 72992, 26210, 99047 X2, 13885 x 3, 48591 x 3 Estimated Blood Loss 1,250 Drains Yes Complications None Condition Stable Disposition PACU [facility] Billing Surgery - Charge Forward: Surgery Billing
[2025-06-02] MEDS: HYDROmorphone HCL INJ (*CRX) 1 MG/ML SYR 0.5 MG IV PUSH ×2 (14:00→14:31)
--- NOTE | 2025-06-02 15:40 | ADMGEN ---
This patient, Jon Burrell, was admitted to Medical Room 250-01. Patient/family oriented to hospital policies and general routines including ID bracelet, bed and alarms, visiting hours, pain management, procedures, bathroom and other care routines, personal items, smoking policy, room service/diet, and visiting hours. Information on how to activate the Rapid Response Team has been discussed. Patient/Family are encouraged to report perceived risks to care and to ask questions if they do not understand what they are told or what they should do.
[2025-06-02] MEDS: ceFAZolin 2 GM in SODIUM CHLORIDE 0.9% IV 50 ML 100 ML IVPB (16:37)
[2025-06-02] MEDS: oxyCODONE/ACETAMINOPHEN (*CRX) 10-325 MG TABLET 1 TAB PO (16:38)
[2025-06-02] MEDS: CYCLOBENZAPRINE HCL 10 MG TABLET PO (16:39)
[2025-06-02] MEDS: GABAPENTIN 400 MG CAPSULE PO (16:39)
[2025-06-02] MEDS: KCL 20 MEQ/D5/0.45% SOD CHL 1,000 ML 100 ML IV CONT (17:17)
[2025-06-02] MEDS: MUPIROCIN 2% OINT 22 GM TUBE 1 APPLIC TOPICAL (17:35)
[2025-06-02] MEDS: DOCUSATE SODIUM 100 MG CAPSULE PO (20:20)
[2025-06-03] VITALS (8 sets, daily range): BP systolic 98–143; BP diastolic 49–66; PULSE 59–73; RESP 16–18; TEMP 36.3–36.9; O2SAT 97–100
--- NOTE | ~2025-06-03 | XR_ITS ---
EXAMINATION: XR fluoroscopy no charge DATE: 06/02/2025 12:49 INDICATION: Lumbar interbody fusion TECHNIQUE: 13 fluoroscopic images of the lumbar spine were obtained during procedure performed by Dr. Snyder. Radiologist was not present for the imaging or procedure. The amount of fluoroscopy time used during this procedure was 0.4 minutes. Total DAP was 9.425 Gycm^2. COMPARISON: CT dated 12/17/2024 FINDINGS: Images demonstrate and combined L2-L5 instrumented anterior and posterior spinal fusion with bilateral vertical sasha and pedicle screw fixation and interbody fusion device at each level. Left sponge markers can be seen at the operative bed on several of the fluoroscopic images. Suggestion of likely associated laminectomies however assessment is limited by overpenetration of the tissues posterior to the lumbar spine. IMPRESSION: 1. Fluoroscopy utilized during instrumented L2-L5 posterior spinal fusion. See procedure note for further detail. Reviewed, dictated and finalized at location A.
--- NOTE | ~2025-06-03 | CT_ITS ---
EXAMINATION: CT brain wo con DATE: 06/05/2025 12:57 INDICATION: Increased somnolence. TECHNIQUE: Computed tomography (CT) of the head was performed without intravenous contrast. The mA was adjusted according to patient size. Iterative reconstruction technique was employed. The dose-length product was 681.00 mGy-cm. COMPARISON: None FINDINGS: There is no intracranial hemorrhage, acute infarction, or abnormal intracranial mass lesion. The ventricles are normal in size. The orbits are normal. There is mild mucosal thickening in the paranasal sinuses. The mastoid air cells are normal. IMPRESSION: 1. Normal brain. Reviewed, dictated and finalized at location E. IMPRESSION: 1. Normal brain.
--- NOTE | ~2025-06-03 | XR_ITS ---
EXAMINATION: XR chest 1V portable COMPARISON: No comparisons available. HISTORY: Change of orientation. FINDINGS: The lungs are clear, no effusion. No pneumothorax. Heart is normal size. Mediastinal and hilar contours are within normal limits. Bony thorax no acute abnormality. Miscellaneous: None Impression: No acute cardiopulmonary abnormality. Reviewed, dictated and finalized at location P. Impression: No acute cardiopulmonary abnormality.
[2025-06-03] MEDS: oxyCODONE/ACETAMINOPHEN (*CRX) 10-325 MG TABLET 1 TAB PO ×4 (01:56→15:40)
[2025-06-03] MEDS: HYDROmorphone HCL INJ (*CRX) 1 MG/ML SYR 0.5 MG IV PUSH (04:37)
[2025-06-03] MEDS: ceFAZolin 2 GM in SODIUM CHLORIDE 0.9% IV 50 ML 100 ML IVPB ×2 (04:39→15:40)
[2025-06-03] MEDS: KCL 20 MEQ/D5/0.45% SOD CHL 1,000 ML 100 ML IV CONT (04:44)
[2025-06-03 05:14] LABS: Hematocrit 42.5 % (42.0-52.0); Hemoglobin 13.5 g/dL (14.0-18.0); Mean Corpuscular HGB Conc 31.8 g/dl (32-36); Mean Corpuscular Hemoglobin 29.9 pg (26-34); Mean Corpuscular Volume 94.2 fl (80-100); Platelet Count Result 226 k/mm3 (150-375); Red Blood Count 4.51 M/mm3 (4.6-6.20); White Blood Count 13.1 K/mm3 (4.5-10.0)
[2025-06-03 05:25] LABS: Anion Gap 6 mmol/L (4-12); Blood Urea Nitrogen 25 mg/dL (9-20); Calcium 7.6 mg/dL (8.4-10.2); Carbon Dioxide 24 mmol/L (22-30); Chloride 102 mmol/L (98-107); Estimated CRCL calculation 59 ml/min; Estimated Glomerular Filt Rate 44; Glucose 144 mg/dL (65-110); Potassium 4.2 mmol/L (3.4-5.0); Sodium 132 mmol/L (137-145)
[2025-06-03] MEDS: CYCLOBENZAPRINE HCL 10 MG TABLET PO ×2 (09:56→17:38)
[2025-06-03] MEDS: MONTELUKAST SODIUM 10 MG TABLET PO (09:56)
[2025-06-03] MEDS: GABAPENTIN 400 MG CAPSULE PO ×3 (09:56→17:24)
[2025-06-03] MEDS: SERTRALINE HCL 25 MG TABLET BY MOUTH (09:56)
[2025-06-03] MEDS: DOCUSATE SODIUM 100 MG CAPSULE PO (09:57)
[2025-06-03] MEDS: VITAMIN B COMPLEX CAPSULE 1 CAP PO (09:57)
[2025-06-03] MEDS: PANTOPRAZOLE 40 MG TABLET PO (09:57)
[2025-06-03] MEDS: MULTIVITAMINS THERAPEUTIC TAB (*BKC) 1 TABLET PO (09:57)
[2025-06-03] MEDS: CALCIUM CARBONATE (OSCAL) 500 MG TABLET 600 MG PO (09:57)
[2025-06-03] MEDS: SENNOSIDES 8.6 MG TABLET PO (09:58)
[2025-06-03] MEDS: CHOLECALCIFEROL (VITAMIN D3) 10 MCG (400 UNITS) TABLET PO (09:58)
[2025-06-03] MEDS: FERROUS SULFATE 325 MG TABLET 650 MG PO (09:58)
[2025-06-03] MEDS: MUPIROCIN 2% OINT 22 GM TUBE 1 APPLIC TOPICAL ×3 (09:59→17:24)
[2025-06-03] MEDS: KCL 20 MEQ/D5/0.45% SOD CHL 1,000 ML 30 ML IV CONT (12:27)
--- NOTE | 2025-06-03 14:27 | P.PNNEUSUR_ITS ---
Progress Note: A&P Assessment and Plan (1) Status post lumbar spinal arthrodesis: Code(s): Z98.1 - Arthrodesis status Status: Acute Plan -Keep hemovac drain today -PT/OT, mobilize throughout day -Pain control Subjective Date/time seen: 06/03/25 14:27 Interval history: Having quite a bit of back pain which is being controlled with current medication regimen. Ambulated in halls. Tolerating oral intake. Martin is out Review of Systems Review of Systems: All systems reviewed & are unremarkable except as noted in HPI and below Exam Narrative: AOx4 Incision c/d/i with some swelling under superior aspect of incision Full strength in lower extremities with exception of slight left dorsiflexion weakness (chronic per patient) Sensation intact to light touch HV 760cc out since surgery Objective Data Vital Signs Vital Signs: Vital Signs - 24 hr 06/02/25 14:30 06/02/25 14:45 06/02/25 15:00 Temperature Pulse Rate 71 70 65 Respiratory Rate 12 12 12 Blood Pressure 131/69 117/70 119/79 Pulse Oximetry 98 99 99 Oxygen Delivery Room Air Room Air Room Air 06/02/25 15:15 06/02/25 15:25 06/02/25 15:43 Temperature 97.5 F L Pulse Rate 67 68 63 Respiratory Rate 12 18 Blood Pressure 128/60 125/71 129/59 L Pulse Oximetry 98 98 100 Oxygen Delivery Room Air Room Air 06/02/25 15:58 06/02/25 16:00 06/02/25 16:28 Temperature 97.3 F L 97.5 F L Pulse Rate 63 61 Respiratory Rate 18 18 Blood Pressure 141/68 H 122/65 Pulse Oximetry 97 95 Oxygen Delivery Room Air 06/02/25 17:28 06/02/25 20:00 06/02/25 22:32 Temperature 97.4 F L 98.0 F Pulse Rate 88 88 57 L Respiratory Rate 18 18 18 Blood Pressure 100/66 117/67 Pulse Oximetry 97 97 95 Oxygen Delivery Room Air 06/03/25 02:32 06/03/25 06:30 06/03/25 08:28 Temperature 98.0 F 97.5 F L 97.3 F L Pulse Rate 72 59 L 72 Respiratory Rate 17 17 16 Blood Pressure 110/66 118/63 98/61 L Pulse Oximetry 99 97 100 Oxygen Delivery 06/03/25 08:41 06/03/25 10:00 06/03/25 10:32 Temperature 97.8 F Pulse Rate 61 Respiratory Rate 18 Blood Pressure 107/56 L Pulse Oximetry 99 Oxygen Delivery Room Air Room Air 06/03/25 11:30 06/03/25 12:40 Temperature 97.8 F Pulse Rate 61 Respiratory Rate 18 Blood Pressure 107/49 L Pulse Oximetry 99 Oxygen Delivery Room Air Intake/Output Intake/Output: Intake & Output 05/31/25 06/01/25 06/02/25 06/03/25 23:59 23:59 23:59 23:59 Intake Total 540 2131.7 Output Total 740 620 Balance -200 1511.7 Meds/Results Medications: Active Medications Generic Name Dose Route Start Last Admin Trade Name Freq PRN Reason Stop Dose Admin Al Hydrox/Mg Hydrox/Simethicone 20 ml 06/02/25 15:32 Mag Hydrox/Al Hydrox/Simeth 30 Ml Udc PO Q4H PRN Indigestion/Heartburn Allopurinol 300 mg 06/03/25 09:00 06/03/25 09:57 Allopurinol 300 Mg Tablet PO 300 mg DAILY [facility] Administration Amlodipine Besylate 10 mg 06/03/25 09:00 06/03/25 09:56 Amlodipine Besylate 5 Mg Tablet BY MOUTH Not Given DAILY [facility] Bisacodyl 10 mg 06/02/25 15:32 Bisacodyl 10 Mg Suppository RECTAL DAILY PRN Constipation Calcium Carbonate 600 mg 06/03/25 09:00 06/03/25 09:57 Calcium Carbonate (Oscal) 500 Mg Tablet PO 600 mg DAILY [facility] Administration Clobetasol Propionate 1 applic 06/02/25 15:32 Clobetasol Propionate 0.05% Cream 15 Gm TOPICAL BID PRN Itching Cyclobenzaprine HCl 10 mg 06/02/25 15:32 06/03/25 09:56 Cyclobenzaprine Hcl 10 Mg Tablet PO 10 mg TID PRN Administration Muscle Spasms Docusate Sodium 100 mg 06/02/25 21:00 06/03/25 09:57 Docusate Sodium 100 Mg Capsule PO 100 mg Q12HR [facility] Administration Ferrous Sulfate 650 mg 06/03/25 09:00 06/03/25 09:58 Ferrous Sulfate 325 Mg Tablet PO 650 mg DAILY [facility] Administration Furosemide 20 mg 06/03/25 09:00 Furosemide 20 Mg Tablet BY MOUTH DAILY PRN Edema Gabapentin 400 mg 06/02/25 17:00 06/03/25 12:25 Gabapentin 400 Mg Capsule PO 400 mg TID [facility] Administration Hydrochlorothiazide 25 mg 06/03/25 09:00 06/03/25 09:55 Hydrochlorothiazide 25 Mg Tablet PO Not Given DAILY [facility] Hydromorphone HCl 0.5 mg 06/02/25 15:32 06/03/25 04:37 Hydromorphone Hcl Inj (*Crx) 1 Mg/Ml Syr IV PUSH 0.5 mg Q2H PRN Administration Pain Rated 7-10 Cefazolin Sodium 2 gm/ Sodium 50 mls @ 100 mls/hr 06/02/25 16:00 06/03/25 04:39 Chloride IVPB 100 mls/hr Q12H [facility] Administration Potassium Chloride/Dextrose/Sod Cl 1,000 mls @ 100 mls/hr 06/02/25 15:32 06/03/25 12:27 Kcl 20 Meq/D5/0.45% Sod Chl IV CONT 30 mls/hr .Q10H [facility] Administration Montelukast Sodium 10 mg 06/03/25 09:00 06/03/25 09:56 Montelukast Sodium 10 Mg Tablet PO 10 mg DAILY [facility] Administration Multivitamins Therapeutic 1 tablet 06/03/25 09:00 06/03/25 09:57 Multivitamins Therapeutic Tab (*Bkc) PO 1 tablet DAILY [facility] Administration Mupirocin 1 applic 06/02/25 17:00 06/03/25 12:25 Mupirocin 2% Oint 22 Gm Tube TOPICAL 1 applic TID [facility] Administration Non-Formulary Medication 1 each 06/02/25 15:50 Nonformulary Nutritional Supplement XX 06/03/25 15:49 PRN PRN PROTOCOL Non-Formulary Medication 1 each 06/02/25 15:51 Nonformulary Nutritional Supplement XX 06/03/25 15:50 PRN PRN PROTOCOL Non-Formulary Medication 1 each 06/02/25 15:52 Nonformulary Nutritional Supplement XX 06/03/25 15:51 PRN PRN PROTOCOL Ondansetron HCl 4 mg 06/02/25 15:32 Ondansetron Inj 4 Mg/2 Ml Vial IV PUSH Q8H PRN Nausea And Vomiting Oxycodone/Acetaminophen 1 tablet 06/02/25 15:32 Oxycodone/Acetaminophen (*Crx) 5-325 Mg Tablet PO Q4H PRN Mild Pain (1-3) Oxycodone/Acetaminophen 1 tab 06/02/25 15:32 06/03/25 11:36 Oxycodone/Acetaminophen (*Crx) 10-325 Mg Tablet PO 1 tab Q4H PRN Administration Moderate Pain (4-6) Pantoprazole Sodium 40 mg 06/03/25 09:00 06/03/25 09:57 Pantoprazole 40 Mg Tablet PO 40 mg QAM [facility] Administration Senna 8.6 mg 06/03/25 09:00 06/03/25 09:58 Sennosides 8.6 Mg Tablet PO 8.6 mg DAILY [facility] Administration Senna/Docusate Sodium 1 tab 06/02/25 15:32 Senna/Docusate Sodium Tablet PO HS PRN Constipation Sertraline HCl 25 mg 06/03/25 09:00 06/03/25 09:56 Sertraline Hcl 25 Mg Tablet BY MOUTH 25 mg QAM [facility] Administration Trazodone HCl 100 mg 06/02/25 21:00 06/03/25 03:58 Trazodone Hcl 50 Mg Tablet BY MOUTH Not Given HS [facility] Vitamin B Complex 1 cap 06/03/25 09:00 06/03/25 09:57 Vitamin B Complex Capsule PO 1 cap DAILY [facility] Administration Vitamin D 10 mcg 06/03/25 09:00 06/03/25 09:58 Cholecalciferol (Vitamin D3) 10 Mcg (400 Units) Tablet PO 10 mcg DAILY [facility] Administration Radiology Results: ITS Impressions Fluoroscopy 06/02/25 12:54 IMPRESSION: 1. Fluoroscopy utilized during instrumented L2-L5 posterior spinal fusion. See procedure note for further detail. Labs Labs: Laboratory Results - last 24 hr 06/03/25 04:59 WBC 13.1 H RBC 4.51 L Hgb 13.5 L D Hct 42.5 MCV 94.2 MCH 29.9 MCHC 31.8 L RDW 14.1 Plt Count 226 MPV 10.0 Sodium 132 L Potassium 4.2 Chloride 102 Carbon Dioxide 24 Anion Gap 6 BUN 25 H Creatinine 1.57 H Estim Creat Clear Calc 59 Estimated GFR 44 L Glucose 144 H Calcium 7.6 L
[2025-06-04] MEDS: DOCUSATE SODIUM 100 MG CAPSULE PO ×3 (02:16→21:25)
[2025-06-04] MEDS: oxyCODONE/ACETAMINOPHEN (*CRX) 10-325 MG TABLET 1 TAB PO ×3 (03:16→13:19)
[2025-06-04] MEDS: ceFAZolin 2 GM in SODIUM CHLORIDE 0.9% IV 50 ML 100 ML IVPB ×2 (03:17→15:18)
[2025-06-04 04:53] VITALS: BP 112/48; PULSE 76; RESP 18; TEMP 37.1; O2SAT 95
--- NOTE | 2025-06-04 08:54 | PCPTNOTE ---
Attempted to see patient for Physical Therapy this AM. Patient stated that he would like his pain medicine prior to walking and walking on the stairs. Attempted to have patient sit at the edge of the bed, however patient was in too much pain. Patient tried to sit up by log rolling, however he needed to lay back down. Bed alarm on, call button and phone within patient's reach prior to therapist leaving patient. RN notified.
[2025-06-04] MEDS: CHOLECALCIFEROL (VITAMIN D3) 10 MCG (400 UNITS) TABLET PO (09:00)
[2025-06-04] MEDS: FERROUS SULFATE 325 MG TABLET 650 MG PO (09:00)
[2025-06-04] MEDS: GABAPENTIN 400 MG CAPSULE PO ×3 (09:01→18:48)
[2025-06-04] MEDS: SENNOSIDES 8.6 MG TABLET PO (09:01)
[2025-06-04] MEDS: CALCIUM CARBONATE (OSCAL) 500 MG TABLET 600 MG PO (09:01)
[2025-06-04] MEDS: PANTOPRAZOLE 40 MG TABLET PO (09:01)
[2025-06-04] MEDS: MONTELUKAST SODIUM 10 MG TABLET PO (09:01)
[2025-06-04] MEDS: MULTIVITAMINS THERAPEUTIC TAB (*BKC) 1 TABLET PO (09:01)
[2025-06-04] MEDS: SERTRALINE HCL 25 MG TABLET BY MOUTH (09:01)
[2025-06-04] MEDS: VITAMIN B COMPLEX CAPSULE 1 CAP PO (09:01)
[2025-06-04] MEDS: MUPIROCIN 2% OINT 22 GM TUBE 1 APPLIC TOPICAL ×3 (09:02→18:49)
[2025-06-04] MEDS: CYCLOBENZAPRINE HCL 10 MG TABLET PO ×2 (09:08→14:46)
--- NOTE | 2025-06-04 13:08 | WPDNEUROSGPN ---
Progress Note: A&P Assessment and Plan (1) Status post lumbar spinal arthrodesis: Code(s): Z98.1 - Arthrodesis status Status: Acute Plan -Remove hemovac drain today -Will start flomax to help with urination. I also recommended he stand to urinate next time as he has been attempting to urinate seated -Start Miralax -Anticipate keeping in hospital today for ongoing pain control and to see whether he can urinate independently or if he will need sainz catheter Subjective Date/time seen: 06/04/25 13:08 Interval history: Doing about the same today in terms of pain. Has not been able to void since having the sainz removed. Has required I/O cath. States that it took 3-4 days after his hip surgery to be able to urinate on his own. Also wants to have a bowel movement but feels constipated. Review of Systems Review of Systems: All systems reviewed & are unremarkable except as noted in HPI and below Exam Narrative: AOx4 Incision c/d/i with swelling at the cranial aspect, stable from yesterday Moving legs with good strength, slight left dorsiflexion weakness which is chronic Sensation intact to light touch Objective Data Vital Signs Vital Signs: Vital Signs - 24 hr 06/03/25 18:32 06/03/25 19:43 06/03/25 20:00 Temperature 97.8 F 98.4 F Pulse Rate 61 73 73 Respiratory Rate 16 17 17 Blood Pressure 109/56 L 143/65 H Pulse Oximetry 99 100 100 Oxygen Delivery Room Air 06/04/25 04:53 06/04/25 09:00 Temperature 98.7 F Pulse Rate 76 Respiratory Rate 18 Blood Pressure 112/48 L Pulse Oximetry 95 Oxygen Delivery Room Air Intake/Output Intake/Output: Intake & Output 06/01/25 06/02/25 06/03/25 06/04/25 23:59 23:59 23:59 23:59 Intake Total 540 2471.7 290 Output Total 589 652 3923 Balance -200 1851.7 -930 Meds/Results Medications: Active Medications Generic Name Dose Route Start Last Admin Trade Name Freq PRN Reason Stop Dose Admin Al Hydrox/Mg Hydrox/Simethicone 20 ml 06/02/25 15:32 Mag Hydrox/Al Hydrox/Simeth 30 Ml Udc PO Q4H PRN Indigestion/Heartburn Allopurinol 300 mg 06/03/25 09:00 06/04/25 09:01 Allopurinol 300 Mg Tablet PO 300 mg DAILY [facility] Administration Amlodipine Besylate 10 mg 06/03/25 09:00 06/04/25 09:00 Amlodipine Besylate 5 Mg Tablet BY MOUTH 10 mg DAILY [facility] Administration Bisacodyl 10 mg 06/02/25 15:32 Bisacodyl 10 Mg Suppository RECTAL DAILY PRN Constipation Calcium Carbonate 600 mg 06/03/25 09:00 06/04/25 09:01 Calcium Carbonate (Oscal) 500 Mg Tablet PO 600 mg DAILY [facility] Administration Clobetasol Propionate 1 applic 06/02/25 15:32 Clobetasol Propionate 0.05% Cream 15 Gm TOPICAL BID PRN Itching Cyclobenzaprine HCl 10 mg 06/02/25 15:32 06/04/25 09:08 Cyclobenzaprine Hcl 10 Mg Tablet PO 10 mg TID PRN Administration Muscle Spasms Docusate Sodium 100 mg 06/02/25 21:00 06/04/25 09:01 Docusate Sodium 100 Mg Capsule PO 100 mg Q12HR [facility] Administration Ferrous Sulfate 650 mg 06/03/25 09:00 06/04/25 09:00 Ferrous Sulfate 325 Mg Tablet PO 650 mg DAILY [facility] Administration Furosemide 20 mg 06/03/25 09:00 Furosemide 20 Mg Tablet BY MOUTH DAILY PRN Edema Gabapentin 400 mg 06/02/25 17:00 06/04/25 09:01 Gabapentin 400 Mg Capsule PO 400 mg TID [facility] Administration Hydrochlorothiazide 25 mg 06/03/25 09:00 06/04/25 09:00 Hydrochlorothiazide 25 Mg Tablet PO 25 mg DAILY [facility] Administration Hydromorphone HCl 0.5 mg 06/02/25 15:32 06/03/25 04:37 Hydromorphone Hcl Inj (*Crx) 1 Mg/Ml Syr IV PUSH 0.5 mg Q2H PRN Administration Pain Rated 7-10 Cefazolin Sodium 2 gm/ Sodium 50 mls @ 100 mls/hr 06/02/25 16:00 06/04/25 03:45 Chloride IVPB Infused Q12H [facility] Infusion Potassium Chloride/Dextrose/Sod Cl 1,000 mls @ 100 mls/hr 06/02/25 15:32 06/03/25 12:27 Kcl 20 Meq/D5/0.45% Sod Chl IV CONT 30 mls/hr .Q10H [facility] Administration Montelukast Sodium 10 mg 06/03/25 09:00 06/04/25 09:01 Montelukast Sodium 10 Mg Tablet PO 10 mg DAILY [facility] Administration Multivitamins Therapeutic 1 tablet 06/03/25 09:00 06/04/25 09:01 Multivitamins Therapeutic Tab (*Bkc) PO 1 tablet DAILY [facility] Administration Mupirocin 1 applic 06/02/25 17:00 06/04/25 09:02 Mupirocin 2% Oint 22 Gm Tube TOPICAL 1 applic TID [facility] Administration Ondansetron HCl 4 mg 06/02/25 15:32 Ondansetron Inj 4 Mg/2 Ml Vial IV PUSH Q8H PRN Nausea And Vomiting Oxycodone/Acetaminophen 1 tablet 06/02/25 15:32 Oxycodone/Acetaminophen (*Crx) 5-325 Mg Tablet PO Q4H PRN Mild Pain (1-3) Oxycodone/Acetaminophen 1 tab 06/02/25 15:32 06/04/25 09:02 Oxycodone/Acetaminophen (*Crx) 10-325 Mg Tablet PO 1 tab Q4H PRN Administration Moderate Pain (4-6) Pantoprazole Sodium 40 mg 06/03/25 09:00 06/04/25 09:01 Pantoprazole 40 Mg Tablet PO 40 mg QAM [facility] Administration Senna 8.6 mg 06/03/25 09:00 06/04/25 09:01 Sennosides 8.6 Mg Tablet PO 8.6 mg DAILY [facility] Administration Senna/Docusate Sodium 1 tab 06/02/25 15:32 Senna/Docusate Sodium Tablet PO HS PRN Constipation Sertraline HCl 25 mg 06/03/25 09:00 06/04/25 09:01 Sertraline Hcl 25 Mg Tablet BY MOUTH 25 mg QAM [facility] Administration Trazodone HCl 100 mg 06/02/25 21:00 06/04/25 02:16 Trazodone Hcl 50 Mg Tablet BY MOUTH 100 mg HS [facility] Administration Vitamin B Complex 1 cap 06/03/25 09:00 06/04/25 09:01 Vitamin B Complex Capsule PO 1 cap DAILY [facility] Administration Vitamin D 10 mcg 06/03/25 09:00 06/04/25 09:00 Cholecalciferol (Vitamin D3) 10 Mcg (400 Units) Tablet PO 10 mcg DAILY [facility] Administration Radiology Results: ITS Impressions Fluoroscopy 06/02/25 12:54 IMPRESSION: 1. Fluoroscopy utilized during instrumented L2-L5 posterior spinal fusion. See procedure note for further detail.
[2025-06-04 14:39] VITALS: BP 105/59; PULSE 92; RESP 15; TEMP 36.3; O2SAT 100
[2025-06-04] MEDS: ONDANSETRON INJ 4 MG/2 ML VIAL IV PUSH (14:52)
[2025-06-04] MEDS: TAMSULOSIN HCL 0.4 MG CAPSULE PO (15:17)
[2025-06-04] MEDS: MAG HYDROX/AL HYDROX/SIMETH 30 ML UDC 20 ML PO (15:17)
[2025-06-04 21:33] VITALS: BP 160/75; PULSE 110; RESP 20; TEMP 37; O2SAT 92
[2025-06-05] MEDS: oxyCODONE/ACETAMINOPHEN (*CRX) 10-325 MG TABLET 1 TAB PO ×3 (01:31→21:18)
[2025-06-05 06:00] VITALS: BP 114/55; PULSE 72; RESP 18; TEMP 36.6; O2SAT 96
[2025-06-05 09:31] VITALS: BP 86/54; PULSE 85; TEMP 36.8; O2SAT 94
--- NOTE | 2025-06-05 09:44 | PC.NURSE ---
RN called MD Snyder about patient's neuro status and vitals. RN was told to consult a hospitalist. RN called Hospitalist office and left a voicemail.
[2025-06-05] MEDS: SODIUM CHLORIDE 0.9% IV 500 ML IV CONT (09:56)
[2025-06-05] MEDS: MONTELUKAST SODIUM 10 MG TABLET PO (10:00)
[2025-06-05] MEDS: PANTOPRAZOLE 40 MG TABLET PO (10:00)
[2025-06-05] MEDS: VITAMIN B COMPLEX CAPSULE 1 CAP PO (10:00)
[2025-06-05] MEDS: CYCLOBENZAPRINE HCL 10 MG TABLET PO ×3 (10:00→16:56)
[2025-06-05] MEDS: CALCIUM CARBONATE (OSCAL) 500 MG TABLET 600 MG PO (10:01)
[2025-06-05] MEDS: SERTRALINE HCL 25 MG TABLET BY MOUTH (10:01)
[2025-06-05] MEDS: TAMSULOSIN HCL 0.4 MG CAPSULE PO (10:02)
[2025-06-05] MEDS: SENNOSIDES 8.6 MG TABLET PO (10:02)
[2025-06-05] MEDS: FERROUS SULFATE 325 MG TABLET 650 MG PO (10:02)
[2025-06-05] MEDS: GABAPENTIN 400 MG CAPSULE PO ×3 (10:02→16:56)
[2025-06-05] MEDS: CHOLECALCIFEROL (VITAMIN D3) 10 MCG (400 UNITS) TABLET PO (10:03)
[2025-06-05] MEDS: DOCUSATE SODIUM 100 MG CAPSULE PO ×2 (10:03→20:14)
[2025-06-05] MEDS: MULTIVITAMINS THERAPEUTIC TAB (*BKC) 1 TABLET PO (10:03)
[2025-06-05] MEDS: MUPIROCIN 2% OINT 22 GM TUBE 1 APPLIC TOPICAL ×2 (10:03→13:12)
--- NOTE | 2025-06-05 10:15 | P.PNNEUSUR_ITS ---
Progress Note: A&P Assessment and Plan (1) Scoliosis: Code(s): M41.9 - Scoliosis, unspecified Status: Acute Assessment and Plan: 70-year-old gentleman status post lumbar decompression fusion with acute altered mental status changes. The patient notes that he has difficulty staying awake and feels sleepy all the time. The hospitalist team has been involved and they have given him of fluid bolus and check labs including a lactate as well as chest x-ray. we greatly appreciate hospitalist's assistance in this matter. He may ultimately need another void trial versus a urology evaluation for the Martin replacement. He will likely need to stay in the hospital for the next day or 2 for further workup. I have discussed this with Dr. Snyder his surgeon. Subjective Date/time seen: 06/05/25 10:15 Interval history: 70-year-old gentleman status post lumbar decompression and fusion who had been doing well yesterday with the exception of a retaining urine requiring replacement of her Martin however this morning upon assessment by his nurse he was lethargic altered and not responding to questions easily. This prompted a conversation between Dr. Fritz the nurse and the hospitalist to evaluate further. He upon arrival to the room the patient was sleeping and snoring however he was easily aroused when I stimulated his hand lightly. Exam Narrative: the patient is awake alert in no acute distress he moves all his extremities well without any focal neurologic deficit. He denies any significant back or leg pain. Objective Data Vital Signs Vital Signs: Vital Signs - 24 hr 06/04/25 14:39 06/04/25 21:16 06/04/25 21:33 Temperature 97.3 F L 98.6 F Pulse Rate 92 110 H Respiratory Rate 15 20 Blood Pressure 105/59 L 160/75 H Pulse Oximetry 100 92 Oxygen Delivery Room Air 06/05/25 06:00 06/05/25 09:31 Temperature 97.8 F 98.2 F Pulse Rate 72 85 Respiratory Rate 18 Blood Pressure 114/55 L 86/54 L Pulse Oximetry 96 94 Oxygen Delivery Intake/Output Intake/Output: Intake & Output 06/02/25 06/03/25 06/04/25 06/05/25 23:59 23:59 23:59 23:59 Intake Total 540 2471.7 1391.5 540 Output Total 606 950 5433 1850 Balance -200 1851.7 -2103.5 -1310 Meds/Results Medications: Active Medications Generic Name Dose Route Start Last Admin Trade Name Freq PRN Reason Stop Dose Admin Al Hydrox/Mg Hydrox/Simethicone 20 ml 06/02/25 15:32 06/04/25 15:17 Mag Hydrox/Al Hydrox/Simeth 30 Ml Udc PO 20 ml Q4H PRN Administration Indigestion/Heartburn Allopurinol 300 mg 06/03/25 09:00 06/05/25 10:01 Allopurinol 300 Mg Tablet PO 300 mg DAILY [facility] Administration Amlodipine Besylate 10 mg 06/03/25 09:00 06/05/25 10:03 Amlodipine Besylate 5 Mg Tablet BY MOUTH Not Given DAILY [facility] Bisacodyl 10 mg 06/02/25 15:32 Bisacodyl 10 Mg Suppository RECTAL DAILY PRN Constipation Calcium Carbonate 600 mg 06/03/25 09:00 06/05/25 10:01 Calcium Carbonate (Oscal) 500 Mg Tablet PO 600 mg DAILY [facility] Administration Clobetasol Propionate 1 applic 06/02/25 15:32 Clobetasol Propionate 0.05% Cream 15 Gm TOPICAL BID PRN Itching Cyclobenzaprine HCl 10 mg 06/02/25 15:32 06/05/25 10:00 Cyclobenzaprine Hcl 10 Mg Tablet PO 10 mg TID PRN Administration Muscle Spasms Docusate Sodium 100 mg 06/02/25 21:00 06/05/25 10:03 Docusate Sodium 100 Mg Capsule PO 100 mg Q12HR [facility] Administration Ferrous Sulfate 650 mg 06/03/25 09:00 06/05/25 10:02 Ferrous Sulfate 325 Mg Tablet PO 650 mg DAILY [facility] Administration Furosemide 20 mg 06/03/25 09:00 Furosemide 20 Mg Tablet BY MOUTH DAILY PRN Edema Gabapentin 400 mg 06/02/25 17:00 06/05/25 10:02 Gabapentin 400 Mg Capsule PO 400 mg TID [facility] Administration Hydrochlorothiazide 25 mg 06/03/25 09:00 06/05/25 10:02 Hydrochlorothiazide 25 Mg Tablet PO Not Given DAILY [facility] Hydromorphone HCl 0.5 mg 06/02/25 15:32 06/03/25 04:37 Hydromorphone Hcl Inj (*Crx) 1 Mg/Ml Syr IV PUSH 0.5 mg Q2H PRN Administration Pain Rated 7-10 Sodium Chloride 500 mls @ 500 mls/hr 06/05/25 09:49 06/05/25 09:56 Normal Saline Iv IV CONT 06/05/25 10:48 500 mls/hr .Q1H STA Administration Montelukast Sodium 10 mg 06/03/25 09:00 06/05/25 10:00 Montelukast Sodium 10 Mg Tablet PO 10 mg DAILY [facility] Administration Multivitamins Therapeutic 1 tablet 06/03/25 09:00 06/05/25 10:03 Multivitamins Therapeutic Tab (*Bkc) PO 1 tablet DAILY [facility] Administration Mupirocin 1 applic 06/02/25 17:00 06/05/25 10:03 Mupirocin 2% Oint 22 Gm Tube TOPICAL 1 applic TID [facility] Administration Ondansetron HCl 4 mg 06/02/25 15:32 06/04/25 14:52 Ondansetron Inj 4 Mg/2 Ml Vial IV PUSH 4 mg Q8H PRN Administration Nausea And Vomiting Oxycodone/Acetaminophen 1 tablet 06/02/25 15:32 Oxycodone/Acetaminophen (*Crx) 5-325 Mg Tablet PO Q4H PRN Mild Pain (1-3) Oxycodone/Acetaminophen 1 tab 06/02/25 15:32 06/05/25 06:12 Oxycodone/Acetaminophen (*Crx) 10-325 Mg Tablet PO 1 tab Q4H PRN Administration Moderate Pain (4-6) Pantoprazole Sodium 40 mg 06/03/25 09:00 06/05/25 10:00 Pantoprazole 40 Mg Tablet PO 40 mg QAM [facility] Administration Polyethylene Glycol 17 gm 06/04/25 13:08 06/04/25 13:19 Polyethylene Glycol 3350 17 Gm Powd.Pack PO 17 gm DAILY PRN Administration Constipation Senna 8.6 mg 06/03/25 09:00 06/05/25 10:02 Sennosides 8.6 Mg Tablet PO 8.6 mg DAILY [facility] Administration Senna/Docusate Sodium 1 tab 06/02/25 15:32 Senna/Docusate Sodium Tablet PO HS PRN Constipation Sertraline HCl 25 mg 06/03/25 09:00 06/05/25 10:01 Sertraline Hcl 25 Mg Tablet BY MOUTH 25 mg QAM [facility] Administration Tamsulosin HCl 0.4 mg 06/04/25 15:00 06/05/25 10:02 Tamsulosin Hcl 0.4 Mg Capsule PO 0.4 mg DAILY [facility] Administration Trazodone HCl 100 mg 06/02/25 21:00 06/04/25 21:24 Trazodone Hcl 50 Mg Tablet BY MOUTH 100 mg HS [facility] Administration Vitamin B Complex 1 cap 06/03/25 09:00 06/05/25 10:00 Vitamin B Complex Capsule PO 1 cap DAILY [facility] Administration Vitamin D 10 mcg 06/03/25 09:00 06/05/25 10:03 Cholecalciferol (Vitamin D3) 10 Mcg (400 Units) Tablet PO 10 mcg DAILY [facility] Administration Radiology Results: ITS Impressions Fluoroscopy 06/02/25 12:54 IMPRESSION: 1. Fluoroscopy utilized during instrumented L2-L5 posterior spinal fusion. See procedure note for further detail.
[2025-06-05 10:43] LABS: Hematocrit 40.0 % (42.0-52.0); Hemoglobin 12.4 g/dL (14.0-18.0); Immature Granulocyte Percent A 0.5 % (0-0.5); Immature Platelet Fraction Pct 3.9 % (0.9-11.2); Lymphocytes Absolute Auto 1.39 K/mm3 (0.9-3.2); Mean Corpuscular HGB Conc 31.0 g/dl (32-36); Mean Corpuscular Hemoglobin 29.8 pg (26-34); Mean Corpuscular Volume 96.2 fl (80-100); Nucleated Red Blood Cells Absolute Auto 0.000 K/mm3 (0.0-0.012); Nucleated Red Blood Cells Perc 0.0 % (0.0-0.2); Platelet Count Result 187 k/mm3 (150-375); Red Blood Count 4.16 M/mm3 (4.6-6.20); White Blood Count 9.3 K/mm3 (4.5-10.0)
[2025-06-05 10:44] VITALS: BP 157/71
[2025-06-05 11:23] LABS: Anion Gap 7 mmol/L (4-12); Blood Urea Nitrogen 31 mg/dL (9-20); Calcium 8.3 mg/dL (8.4-10.2); Carbon Dioxide 29 mmol/L (22-30); Chloride 97 mmol/L (98-107); Estimated CRCL calculation 55 ml/min; Estimated Glomerular Filt Rate 40; Glucose 121 mg/dL (65-110); Potassium 4.2 mmol/L (3.4-5.0); Sodium 133 mmol/L (137-145)
[2025-06-05 11:43] VITALS: BP 106/57
--- NOTE | 2025-06-05 12:06 | PM.IMCN ---
Assessment and Plan Assessment and plan (1) Status post lumbar spinal arthrodesis: Code(s): Z98.1 - Arthrodesis status Status: Acute (2) Hypotension: Code(s): I95.9 - Hypotension, unspecified Status: Acute Plan Hypotension r/o infection vs dehydration Also complained of somnolence CXR unremarkable, Lactic acid normal and no leukocytosis CT head, abg, urien and blood cultures Started on Levaquin and IVF monitor Scoliosis s/p Laminectomy and Facetomy Continue PRN pain control and DVT prophylaxis per neurosurgical team Hx of Hypertension now hypotensive, hold home meds and adjust wiht clinical course Urinary retention on Soto, continue Tamsulosin voiding trial in a coupleof days monitor DVT prophylaxis on per prmary team HPI Date of Consult Consult date: 06/05/25 Requesting Physician: Brock Snyder MD Primary Care Provider: Reji Valle, Consult Narrative Narrative: Jon Burrell is a 70 year old male with PMH of hypertension and back pain who underwent Laminectomy, bilateral facetomy, diskectomy for whom we were consulted for hypotension. Patient's SBP 86, and at bedside, at bedside patient noted increased somnolence the past couple of days, otherwise denies any chest pain, SOB, abd Pain, diarrhea, focal deficit. Noted to have uriary retention and on Soto. Stat labs showed WBC 9.3, Cr 1.69, baseline 1.57, CXR no acute changes, and Lactic acid 1.4 repeat BP 106/57. Review of Systems Review of Systems: All other systems were reviewed and negative except as noted in the HPI above [facility] Past Medical History Medical History Long-term current use of high risk medication other than anticoagulant Other fatigue Encounter for screening colonoscopy Dorsalgia Wound of skin Weakness of both hips Pure hypercholesterolemia, unspecified Pain in right knee (06/04/18) Other chronic pain Flank pain Encounter for screening for malignant neoplasm of prostate Effusion of left knee Dysuria Chronic pain of left knee Aftercare following surgery of the musculoskeletal system 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 Elevated serum creatinine Degenerative joint disease of left hip Pain of left hip joint Right hip pain Left knee DJD GERD (gastroesophageal reflux disease) Trochanteric bursitis Iron deficiency Mild depression PVD (peripheral vascular disease) T12 compression fracture Painful total knee replacement, right Obesity Fracture of metatarsal bone with nonunion Arthritis Skin ulcer Cellulitis Vision abnormalities Trochanteric bursitis, right hip Trochanteric bursitis, left hip Bilateral hip pain Hearing loss Contact dermatitis Hyperlipidemia Essential (primary) hypertension Low testosterone in male Primary osteoarthritis of left knee Venous stasis Vitamin B12 deficiency (non anemic) Metatarsal bone fracture (~07/28/19) Surgical History Surgical History Presence of right artificial knee joint S/P total hip arthroplasty LT SUZI 02/26/24 Gastric bypass status for obesity S/P total knee arthroplasty Family History Family History Sibling Patient's sister is in good health Patient's brother is in good health Mother Family history of dementia, Onset Age: 80 Father Family history of lung cancer, Onset Age: 83 Family history of malignant neoplasm of brain, Onset Age: 83 Cerebrovascular accident Grandparent Diabetes mellitus Hypertension Social History Social History Smoking status: Never smoker Second hand tobacco smoke exposure: Yes Alcohol intake: current Drinks per week: 2 Alcohol use details: ONE DRINK/MONTH Substance use: never Substance use type: does not use Do You Feel Safe in your Home?: Yes Lack of Transportation: No Lack of Food: Never True Current Housing: I Have Housing Concerned About Future Housing: No Difficulty Paying Gas/Electric Bills: No Difficulty Paying for Meds: No Currently Unemployed: No Education: Associate Degree Difficulty w/ Childcare or Family Care: No Living arrangements: with family Additional living arrangements comments: Occupation/Education: retired Additional occupation/education comments: . [employer] Gender identity (if verbalized by the patient): Male Spiritual care concerns: No Meds Home Medications and Allergies Home Medications ?Medication ?Instructions ?Recorded ?Confirmed ?Type calcium carbonate (Calcium 600) 600 mg PO DAILY 03/08/20 06/02/25 History cholecalciferol (vitamin D3) 10 10 mcg PO DAILY 03/08/20 06/02/25 History mcg (400 unit) capsule ferrous sulfate 325 mg (65 mg 650 mg PO DAILY 01/20/21 06/02/25 History iron) tablet (Iron (ferrous sulfate)) multivitamin 1 tablet PO DAILY 01/20/21 06/02/25 History docusate sodium 100 mg capsule 100 mg PO PRN 02/12/24 05/20/25 History magnesium citrate 125 mg capsule 250 mg PO DAILY 02/12/24 06/02/25 History potassium 99 mg tablet 99 mg PO DAILY 02/12/24 06/02/25 History vitamin B complex 1 cap PO DAILY 02/12/24 06/02/25 History allopurinol 300 mg tablet 300 mg PO DAILY #90 tabs 04/22/24 05/20/25 Rx hydrochlorothiazide 25 mg tablet 25 mg PO DAILY #90 tabs 04/22/24 06/02/25 Rx montelukast 10 mg tablet 10 mg PO DAILY #90 tabs 04/22/24 06/02/25 Rx meloxicam 15 mg tablet 15 mg PO DAILY #90 tabs 04/24/24 06/02/25 Rx gabapentin 100 mg capsule 100 mg PO DAILY 10/21/24 06/02/25 History amlodipine 10 mg tablet See Rx Instructions .Route 12/08/24 06/02/25 Rx .COMPLEX #90 tabs sertraline 25 mg tablet See Rx Instructions .Route 12/08/24 06/02/25 Rx .COMPLEX #90 tabs trazodone 50 mg tablet See Rx Instructions .Route 12/08/24 05/20/25 Rx .COMPLEX #180 tabs syringe with needle 3 mL 22 x 1 #30 ea 12/22/24 06/02/25 Rx 1/2 diphenoxylate-atropine 2.5 1 tablet PO TID PRN diarrhea #30 01/05/25 05/20/25 Rx mg-0.025 mg tablet (Lomotil) tabs testosterone cypionate 200 mg/mL 200 mg IM .Q 10 days #1 mL 03/24/25 05/20/25 Rx intramuscular oil mupirocin 2 % topical ointment 1 applic topical TID #15 grams 04/02/25 05/20/25 Rx (Centany) clobetasol 0.05 % topical cream 1 applic topical BID PRN Itching 04/09/25 05/20/25 Rx #30 grams terbinafine HCl 250 mg tablet 250 mg PO DAILY #14 tabs 04/09/25 05/20/25 Rx furosemide 20 mg tablet See Rx Instructions .Route 05/18/25 05/20/25 Rx .COMPLEX #45 tabs biotin 10,000 mcg capsule 10,000 mcg PO DAILY 05/20/25 05/20/25 History sennosides 8.6 mg tablet (Laxative 8.6 mg PO DAILY 05/20/25 05/20/25 History (sennosides)) gabapentin 400 mg capsule 400 mg PO TID #270 caps 05/21/25 06/02/25 Rx tramadol 50 mg tablet 50 mg PO Q6H PRN pain #40 tabs 05/21/25 06/02/25 Rx pantoprazole 40 mg tablet,delayed 40 mg PO QAM #90 tabs 06/03/25 Rx release Allergies Allergy/AdvReac Type Severity Reaction Status Date / Time crab Allergy Severe Swelling Verified 06/02/25 16:13 Penicillins Allergy Severe Anaphylaxis Verified 06/02/25 16:13 Vital Signs Vital Signs - 24 hr 06/04/25 14:39 06/04/25 21:16 06/04/25 21:33 Temperature 97.3 F L 98.6 F Pulse Rate 92 110 H Respiratory Rate 15 20 Blood Pressure 105/59 L 160/75 H Pulse Oximetry 100 92 Oxygen Delivery Room Air 06/05/25 06:00 06/05/25 09:30 06/05/25 09:31 Temperature 97.8 F 98.2 F Pulse Rate 72 85 Respiratory Rate 18 Blood Pressure 114/55 L 86/54 L Pulse Oximetry 96 94 Oxygen Delivery Room Air 06/05/25 10:44 06/05/25 11:43 Temperature Pulse Rate Respiratory Rate Blood Pressure 157/71 H 106/57 L Pulse Oximetry Oxygen Delivery Exam Narrative: General: alert and comfortable Eyes: EOMI, PERRLA ENNT External ears normal, Neck is supple, no masses, Respiratory systems: Clear to auscultation Cardiovascular S1, S2, normal rhythm, no murmur, rub, or gallop; no thrill or palpable murmurs on palpation. Gastrointestinal: soft, non-tender, and non-distended abdomen with no masses; BS present Skin: no rash, lesions, ulcerations, subcutaneous nodules or induration Musculoskeletal: no abnormality and no tenderness, normal ROM Neurologic: Alert and oriented x3, non focal Mental Status Exam: normal affect UG: Soto in place Results Labs 06/05/25 10:32 06/05/25 10:55 Labs: Short CBC 06/05/25 Range/Units 10:32 WBC 9.3 (4.5-10.0) K/mm3 Hgb 12.4 L (14.0-18.0) g/dL Hct 40.0 L (42.0-52.0) % Plt Count 187 (150-375) k/mm3 BMP 06/05/25 10:55 Sodium 133 L Potassium 4.2 Chloride 97 L Carbon Dioxide 29 BUN 31 H Creatinine 1.69 H Glucose 121 H Calcium 8.3 L Hospitalist MIPS Advance Care Plan I have confirmed that the patient's Advanced Care Plan is present, code status is documented, or surrogate decision maker is listed in patient medical record.: Yes Medication Reconciliation I have utilized all available resources to obtain, update and review the patients current medications (includes all prescriptions, OTC, herbals, cannabis, and nutritional supplements).: Yes
[2025-06-05 12:25] LABS: Alveolar/Arterial O2 Gradient 23.4 mmHg; Fractional Inspired Oxygen 21 %; HCO3 ABG 23.4 mEq/l (22.0-26.0); Oxygen Content ABG 17.5 %vol (16.0-22.0); Oxygen Saturation ABG 93.2 % (95.0-100.0); PCO2 ABG 45.7 mmHg (35.0-45.0); PO2 ABG 71.6 mmHg (80.0-100.0); PO2 FiO2 Ratio Arterial Blood 3.41 %
[2025-06-05 12:26] LABS: Modified Allen's Test Pass; Site Drawn RIGHT RADIAL
[2025-06-05] MEDS: SODIUM CHLORIDE 0.9% IV 1,000 ML 75 ML IV CONT (13:11)
[2025-06-05] MEDS: levoFLOXacin 750 MG/D5W 150 ML 750 MG/150 ML BAG 100 MG IVPB (13:11)
--- NOTE | 2025-06-05 14:45 | PCOTNOTE ---
Patient was attempted 2 times this A.M. for OT services, unable to to be seen. Attempted to see Patient for P.M. treatment session. Patient states just finished up with PT, did a lot and am done for the day. Patient's present and states he is not leaving, come back for OT services.
[2025-06-05] MEDS: oxyCODONE/ACETAMINOPHEN (*CRX) 5-325 MG TABLET 1 TABLET PO (14:47)
[2025-06-05 15:24] VITALS: BP 130/57; PULSE 82; RESP 14; TEMP 36.4; O2SAT 98
--- NOTE | 2025-06-05 15:49 | WPDURCON ---
Assessment and Plan Assessment and plan (1) Urinary retention: Code(s): R33.9 - Retention of urine, unspecified Status: Acute Plan 70-year-old male with postop urinary retention. - Creatinine is 1.69 today. - WBC within normal limits - maintain Martin catheter - he can be discharged with a Martin catheter and follow up in the office outpatient in 1 week for a voiding trial. - Continue tamsulosin and he should be discharged on this as well. Urology Consult Note HPI Date Seen: 06/05/25 Requesting Physician: Brock Snyder MD Primary Care Provider: Reji Valle DO Consult Narrative Narrative: Jon Burrell is a 70 year old male with PMH of hypertension and back pain who underwent Laminectomy, bilateral facetomy, diskectomy for whom we were consulted for Postop urinary retention. Patient reports that he has had this every single time he has surgery and that it typically resolves after the fact. Patient has already been started on tamsulosin. labs showed WBC 9.3, Cr 1.69, baseline 1.57, CXR no acute changes, and Lactic acid 1.4 Review of Systems Review of Systems: All systems reviewed & are unremarkable except as noted in HPI and below PMFSH Past Medical History Medical History Long-term current use of high risk medication other than anticoagulant Other fatigue Encounter for screening colonoscopy Dorsalgia Wound of skin Weakness of both hips Pure hypercholesterolemia, unspecified Pain in right knee (06/04/18) Other chronic pain Flank pain Encounter for screening for malignant neoplasm of prostate Effusion of left knee Dysuria Chronic pain of left knee Aftercare following surgery of the musculoskeletal system 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 Elevated serum creatinine Degenerative joint disease of left hip Pain of left hip joint Right hip pain Left knee DJD GERD (gastroesophageal reflux disease) Trochanteric bursitis Iron deficiency Mild depression PVD (peripheral vascular disease) T12 compression fracture Painful total knee replacement, right Obesity Fracture of metatarsal bone with nonunion Arthritis Skin ulcer Cellulitis Vision abnormalities Trochanteric bursitis, right hip Trochanteric bursitis, left hip Bilateral hip pain Hearing loss Contact dermatitis Hyperlipidemia Essential (primary) hypertension Low testosterone in male Primary osteoarthritis of left knee Venous stasis Vitamin B12 deficiency (non anemic) Metatarsal bone fracture (~07/28/19) Surgical History Surgical History Presence of right artificial knee joint S/P total hip arthroplasty LT SUZI 02/26/24 Gastric bypass status for obesity S/P total knee arthroplasty Family History Family History Sibling Patient's sister is in good health Patient's brother is in good health Mother Family history of dementia, Onset Age: 80 Father Family history of lung cancer, Onset Age: 83 Family history of malignant neoplasm of brain, Onset Age: 83 Cerebrovascular accident Grandparent Diabetes mellitus Hypertension Social History Social History Smoking status: Never smoker Second hand tobacco smoke exposure: Yes Alcohol intake: current Drinks per week: 2 Alcohol use details: ONE DRINK/MONTH Substance use: never Substance use type: does not use Do You Feel Safe in your Home?: Yes Lack of Transportation: No Lack of Food: Never True Current Housing: I Have Housing Concerned About Future Housing: No Difficulty Paying Gas/Electric Bills: No Difficulty Paying for Meds: No Currently Unemployed: No Education: Associate Degree Difficulty w/ Childcare or Family Care: No Living arrangements: with family Additional living arrangements comments: Occupation/Education: retired Additional occupation/education comments: . [employer] Gender identity (if verbalized by the patient): Male Spiritual care concerns: No Meds Home Medications and Allergies Home Medications ?Medication ?Instructions ?Recorded ?Confirmed ?Type calcium carbonate (Calcium 600) 600 mg PO DAILY 03/08/20 06/02/25 History cholecalciferol (vitamin D3) 10 10 mcg PO DAILY 03/08/20 06/02/25 History mcg (400 unit) capsule ferrous sulfate 325 mg (65 mg 650 mg PO DAILY 01/20/21 06/02/25 History iron) tablet (Iron (ferrous sulfate)) multivitamin 1 tablet PO DAILY 01/20/21 06/02/25 History docusate sodium 100 mg capsule 100 mg PO PRN 02/12/24 05/20/25 History magnesium citrate 125 mg capsule 250 mg PO DAILY 02/12/24 06/02/25 History potassium 99 mg tablet 99 mg PO DAILY 02/12/24 06/02/25 History vitamin B complex 1 cap PO DAILY 02/12/24 06/02/25 History allopurinol 300 mg tablet 300 mg PO DAILY #90 tabs 04/22/24 05/20/25 Rx hydrochlorothiazide 25 mg tablet 25 mg PO DAILY #90 tabs 04/22/24 06/02/25 Rx montelukast 10 mg tablet 10 mg PO DAILY #90 tabs 04/22/24 06/02/25 Rx meloxicam 15 mg tablet 15 mg PO DAILY #90 tabs 04/24/24 06/02/25 Rx gabapentin 100 mg capsule 100 mg PO DAILY 10/21/24 06/02/25 History amlodipine 10 mg tablet See Rx Instructions .Route 12/08/24 06/02/25 Rx .COMPLEX #90 tabs sertraline 25 mg tablet See Rx Instructions .Route 12/08/24 06/02/25 Rx .COMPLEX #90 tabs trazodone 50 mg tablet See Rx Instructions .Route 12/08/24 05/20/25 Rx .COMPLEX #180 tabs syringe with needle 3 mL 22 x 1 #30 ea 12/22/24 06/02/25 Rx 1/2 diphenoxylate-atropine 2.5 1 tablet PO TID PRN diarrhea #30 01/05/25 05/20/25 Rx mg-0.025 mg tablet (Lomotil) tabs testosterone cypionate 200 mg/mL 200 mg IM .Q 10 days #1 mL 03/24/25 05/20/25 Rx intramuscular oil mupirocin 2 % topical ointment 1 applic topical TID #15 grams 04/02/25 05/20/25 Rx (Centany) clobetasol 0.05 % topical cream 1 applic topical BID PRN Itching 04/09/25 05/20/25 Rx #30 grams terbinafine HCl 250 mg tablet 250 mg PO DAILY #14 tabs 04/09/25 05/20/25 Rx furosemide 20 mg tablet See Rx Instructions .Route 05/18/25 05/20/25 Rx .COMPLEX #45 tabs biotin 10,000 mcg capsule 10,000 mcg PO DAILY 05/20/25 05/20/25 History sennosides 8.6 mg tablet (Laxative 8.6 mg PO DAILY 05/20/25 05/20/25 History (sennosides)) gabapentin 400 mg capsule 400 mg PO TID #270 caps 05/21/25 06/02/25 Rx tramadol 50 mg tablet 50 mg PO Q6H PRN pain #40 tabs 05/21/25 06/02/25 Rx pantoprazole 40 mg tablet,delayed 40 mg PO QAM #90 tabs 06/03/25 Rx release Allergies Allergy/AdvReac Type Severity Reaction Status Date / Time crab Allergy Severe Swelling Verified 06/02/25 16:13 Penicillins Allergy Severe Anaphylaxis Verified 06/02/25 16:13 Vital Signs Vital Signs - 24 hr 06/04/25 21:16 06/04/25 21:33 06/05/25 06:00 Temperature 98.6 F 97.8 F Pulse Rate 110 H 72 Respiratory Rate 20 18 Blood Pressure 160/75 H 114/55 L Pulse Oximetry 92 96 Oxygen Delivery Room Air 06/05/25 09:30 06/05/25 09:31 06/05/25 10:44 Temperature 98.2 F Pulse Rate 85 Respiratory Rate Blood Pressure 86/54 L 157/71 H Pulse Oximetry 94 Oxygen Delivery Room Air 06/05/25 11:43 06/05/25 15:24 Temperature 97.5 F L Pulse Rate 82 Respiratory Rate 14 Blood Pressure 106/57 L 130/57 L Pulse Oximetry 98 Oxygen Delivery Exam Const: General: comfortable and no acute distress Eyes: General: appearance normal, both eyes and all related structures Resp: Effort & Inspection: normal respiratory effort Urinary Catheter: Urinary Catheter: patent and draining and urine clear ( Yellow) Skin: General skin exam: normal color Neuro: Speech: normal speech Psych: Speech and movement: Normal speech and movement present Results Labs 06/05/25 10:32 06/05/25 10:55 Labs: Short CBC 06/05/25 Range/Units 10:32 WBC 9.3 (4.5-10.0) K/mm3 Hgb 12.4 L (14.0-18.0) g/dL Hct 40.0 L (42.0-52.0) % Plt Count 187 (150-375) k/mm3 BMP 06/05/25 10:55 Sodium 133 L Potassium 4.2 Chloride 97 L Carbon Dioxide 29 BUN 31 H Creatinine 1.69 H Glucose 121 H Calcium 8.3 L
[2025-06-05 19:00] VITALS: BP 111/69; PULSE 78; O2SAT 94
[2025-06-06] VITALS (13 sets, daily range): BP systolic 77–132; BP diastolic 51–78; PULSE 79–114; RESP 16–18; TEMP 36.6–37.2; O2SAT 85–100; BMI 10.0
--- NOTE | 2025-06-06 06:24 | ECG_ITS ---
Test Date: 2025-06-06 08:17:09 Measurements Intervals Diana Rate: 90 P: 52 TX: 219 QRS: -12 QRSD: 86 T: 30 QT: 311 QTc: 381 Interpretive Statements SINUS RHYTHM WITH FIRST DEGREE AV BLOCK BORDERLINE ECG Compared to ECG 05/20/2025 11:09:43 HEART RATE HAS INCREASED Electronically Signed On 06-06-2025 13:46:05 CDT by Hadley Cho D.O.
--- NOTE | 2025-06-06 06:27 | PC.NURSE ---
0400 Pt has sleep apnea, Spo2 86%, applied oxygen 2L/min/nc Sp02 gradually increased to 95-97%. HOB elevated [id number] Castro, informed that heart rate is 110-130's, pt asymptomatic. Waiting for return call. [address] Castro of above note, new order received for EKG.
[2025-06-06] MEDS: levoFLOXacin 750 MG/D5W 150 ML 750 MG/150 ML BAG 100 MG IVPB (08:31)
[2025-06-06] MEDS: DOCUSATE SODIUM 100 MG CAPSULE PO ×2 (08:31→21:05)
[2025-06-06] MEDS: FERROUS SULFATE 325 MG TABLET 650 MG PO (08:31)
[2025-06-06] MEDS: PANTOPRAZOLE 40 MG TABLET PO (08:35)
[2025-06-06] MEDS: CHOLECALCIFEROL (VITAMIN D3) 10 MCG (400 UNITS) TABLET PO (08:35)
[2025-06-06] MEDS: MONTELUKAST SODIUM 10 MG TABLET PO (08:35)
[2025-06-06] MEDS: SENNOSIDES 8.6 MG TABLET PO (08:35)
[2025-06-06] MEDS: GABAPENTIN 400 MG CAPSULE PO ×3 (08:35→17:05)
[2025-06-06] MEDS: VITAMIN B COMPLEX CAPSULE 1 CAP PO (08:35)
[2025-06-06] MEDS: oxyCODONE/ACETAMINOPHEN (*CRX) 5-325 MG TABLET 1 TABLET PO ×2 (08:36→17:47)
[2025-06-06] MEDS: TAMSULOSIN HCL 0.4 MG CAPSULE PO (08:36)
[2025-06-06] MEDS: MULTIVITAMINS THERAPEUTIC TAB (*BKC) 1 TABLET PO (08:36)
[2025-06-06] MEDS: SERTRALINE HCL 25 MG TABLET BY MOUTH (08:36)
[2025-06-06] MEDS: MUPIROCIN 2% OINT 22 GM TUBE 1 APPLIC TOPICAL ×3 (08:39→17:05)
[2025-06-06] MEDS: CALCIUM CARBONATE (TUMS) 500 MG (200 MG ELEMENTAL) 600 MG PO (08:47)
[2025-06-06] MEDS: MIDODRINE HCL 10 MG TABLET PO ×3 (10:13→17:05)
[2025-06-06] MEDS: SODIUM CHLORIDE 0.9% IV 1,000 ML 75 ML IV CONT ×2 (10:14→23:29)
[2025-06-06] MEDS: SODIUM CHLORIDE 0.9% IV 500 ML 999 ML (10:14)
--- NOTE | 2025-06-06 15:26 | PM.IMPN ---
Progress Note: A&P Assessment and Plan (1) Status post lumbar spinal arthrodesis: Code(s): Z98.1 - Arthrodesis status Status: Acute (2) Hypotension: Code(s): I95.9 - Hypotension, unspecified Status: Acute Plan Hypotension r/o infection vs dehydration Also complained of somnolence CXR unremarkable, Lactic acid normal and no leukocytosis CT head no acute changes, f/u urine and blood cultures Continue Levaquin, IVF and Midodrine monitor Scoliosis s/p Laminectomy and Facetomy Continue PRN pain control and DVT prophylaxis per neurosurgical team Hx of Hypertension now hypotensive, hold home meds and adjust wiht clinical course Urinary retention on Martin, continue Tamsulosin voiding trial in a couple of days Urology recommended continuing following and follow up outpatient monitor DVT prophylaxis on per primary team Subjective Date/time seen: 06/06/25 15:26 Interval history: Comfortable at bedside had another episode hypotension this morning Review of Systems Review of Systems: All other systems were reviewed and negative except as noted in the HPI above Exam Narrative: General: alert and comfortable Eyes: EOMI, PERRLA ENNT External ears normal, Neck is supple, no masses, Respiratory systems: Clear to auscultation Cardiovascular S1, S2, normal rhythm, no murmur, rub, or gallop; no thrill or palpable murmurs on palpation. Gastrointestinal: soft, non-tender, and non-distended abdomen with no masses; BS present Skin: no rash, lesions, ulcerations, subcutaneous nodules or induration Musculoskeletal: no abnormality and no tenderness, normal ROM Neurologic: Alert and oriented x3, non focal Mental Status Exam: normal affect UG: Martin in place Objective Data Vital Signs Vital Signs: Vital Signs - 24 hr 06/05/25 19:00 06/05/25 20:15 06/06/25 02:00 Temperature 98.7 F Pulse Rate 78 114 H Respiratory Rate 16 Blood Pressure 111/69 120/62 Pulse Oximetry 94 93 Oxygen Delivery Room Air 06/06/25 04:11 06/06/25 08:30 06/06/25 09:30 Temperature 99.0 F Pulse Rate 114 H Respiratory Rate 18 Blood Pressure 130/78 107/55 L 77/52 L Pulse Oximetry 94 97 Oxygen Delivery 06/06/25 09:40 06/06/25 09:40 06/06/25 10:00 Temperature Pulse Rate Respiratory Rate Blood Pressure 132/69 77/52 L 122/61 Pulse Oximetry 85 L Oxygen Delivery Room Air 06/06/25 10:00 06/06/25 11:00 06/06/25 11:00 Temperature 98.5 F Pulse Rate 88 97 90 Respiratory Rate 18 18 18 Blood Pressure 104/62 121/55 L 114/55 L Pulse Oximetry 97 97 98 Oxygen Delivery 06/06/25 14:08 Temperature 98 F Pulse Rate 85 Respiratory Rate 18 Blood Pressure 106/60 Pulse Oximetry 99 Oxygen Delivery Intake/Output Intake/Output: Intake & Output 06/03/25 06/04/25 06/05/25 06/06/25 23:59 23:59 23:59 23:59 Intake Total 2471.7 1391.5 1410 1480 Output Total 620 3495 1850 Balance 1851.7 -2103.5 -440 1480 Meds/Results Medications: Active Medications Generic Name Dose Route Start Last Admin Trade Name Freq PRN Reason Stop Dose Admin Al Hydrox/Mg Hydrox/Simethicone 20 ml 06/02/25 15:32 06/04/25 15:17 Mag Hydrox/Al Hydrox/Simeth 30 Ml Udc PO 20 ml Q4H PRN Administration Indigestion/Heartburn Allopurinol 300 mg 06/03/25 09:00 06/06/25 08:47 Allopurinol 300 Mg Tablet PO 300 mg DAILY [facility] Administration Amlodipine Besylate 10 mg 06/03/25 09:00 06/06/25 08:39 Amlodipine Besylate 5 Mg Tablet BY MOUTH Not Given DAILY [facility] Bisacodyl 10 mg 06/02/25 15:32 Bisacodyl 10 Mg Suppository RECTAL DAILY PRN Constipation Calcium Carbonate 600 mg 06/06/25 09:00 06/06/25 08:47 Calcium Carbonate (Tums) 500 Mg (200 Mg Elemental) PO 600 mg DAILY [facility] Administration Clobetasol Propionate 1 applic 06/02/25 15:32 Clobetasol Propionate 0.05% Cream 15 Gm TOPICAL BID PRN Itching Cyclobenzaprine HCl 10 mg 06/02/25 15:32 06/05/25 16:56 Cyclobenzaprine Hcl 10 Mg Tablet PO 10 mg TID PRN Administration Muscle Spasms Docusate Sodium 100 mg 06/02/25 21:00 06/06/25 08:31 Docusate Sodium 100 Mg Capsule PO 100 mg Q12HR [facility] Administration Ferrous Sulfate 650 mg 06/03/25 09:00 06/06/25 08:31 Ferrous Sulfate 325 Mg Tablet PO 650 mg DAILY [facility] Administration Furosemide 20 mg 06/03/25 09:00 Furosemide 20 Mg Tablet BY MOUTH DAILY PRN Edema Gabapentin 400 mg 06/02/25 17:00 06/06/25 12:00 Gabapentin 400 Mg Capsule PO 400 mg TID [facility] Administration Hydrochlorothiazide 25 mg 06/03/25 09:00 06/06/25 08:39 Hydrochlorothiazide 25 Mg Tablet PO Not Given DAILY [facility] Hydromorphone HCl 0.5 mg 06/02/25 15:32 06/03/25 04:37 Hydromorphone Hcl Inj (*Crx) 1 Mg/Ml Syr IV PUSH 0.5 mg Q2H PRN Administration Pain Rated 7-10 Levofloxacin/Dextrose 750 mg in 150 mls @ 100 mls/hr 06/05/25 12:00 06/06/25 08:31 Levaquin 750 Mg/D5w 150 Ml IVPB 100 mls/hr QAM [facility] Administration Sodium Chloride 1,000 mls @ 75 mls/hr 06/05/25 12:15 06/06/25 10:14 Normal Saline Iv IV CONT 75 mls/hr .[id number] [facility] Administration Midodrine 10 mg 06/06/25 09:40 06/06/25 13:38 Midodrine Hcl 10 Mg Tablet PO 10 mg TID [facility] Administration Montelukast Sodium 10 mg 06/03/25 09:00 06/06/25 08:35 Montelukast Sodium 10 Mg Tablet PO 10 mg DAILY [facility] Administration Multivitamins Therapeutic 1 tablet 06/03/25 09:00 06/06/25 08:36 Multivitamins Therapeutic Tab (*Bkc) PO 1 tablet DAILY [facility] Administration Mupirocin 1 applic 06/02/25 17:00 06/06/25 12:00 Mupirocin 2% Oint 22 Gm Tube TOPICAL 1 applic TID [facility] Administration Ondansetron HCl 4 mg 06/02/25 15:32 06/04/25 14:52 Ondansetron Inj 4 Mg/2 Ml Vial IV PUSH 4 mg Q8H PRN Administration Nausea And Vomiting Oxycodone/Acetaminophen 1 tablet 06/02/25 15:32 06/06/25 08:36 Oxycodone/Acetaminophen (*Crx) 5-325 Mg Tablet PO 1 tablet Q4H PRN Administration Mild Pain (1-3) Oxycodone/Acetaminophen 1 tab 06/02/25 15:32 06/05/25 21:18 Oxycodone/Acetaminophen (*Crx) 10-325 Mg Tablet PO 1 tab Q4H PRN Administration Moderate Pain (4-6) Pantoprazole Sodium 40 mg 06/03/25 09:00 06/06/25 08:35 Pantoprazole 40 Mg Tablet PO 40 mg QAM [facility] Administration Polyethylene Glycol 17 gm 06/04/25 13:08 06/04/25 13:19 Polyethylene Glycol 3350 17 Gm Powd.Pack PO 17 gm DAILY PRN Administration Constipation Senna 8.6 mg 06/03/25 09:00 06/06/25 08:35 Sennosides 8.6 Mg Tablet PO 8.6 mg DAILY [facility] Administration Senna/Docusate Sodium 1 tab 06/02/25 15:32 Senna/Docusate Sodium Tablet PO HS PRN Constipation Sertraline HCl 25 mg 06/03/25 09:00 06/06/25 08:36 Sertraline Hcl 25 Mg Tablet BY MOUTH 25 mg QAM [facility] Administration Tamsulosin HCl 0.4 mg 06/04/25 15:00 06/06/25 08:36 Tamsulosin Hcl 0.4 Mg Capsule PO 0.4 mg DAILY [facility] Administration Trazodone HCl 100 mg 06/02/25 21:00 06/05/25 20:14 Trazodone Hcl 50 Mg Tablet BY MOUTH 100 mg HS [facility] Administration Vitamin B Complex 1 cap 06/03/25 09:00 06/06/25 08:35 Vitamin B Complex Capsule PO 1 cap DAILY [facility] Administration Vitamin D 10 mcg 06/03/25 09:00 06/06/25 08:35 Cholecalciferol (Vitamin D3) 10 Mcg (400 Units) Tablet PO 10 mcg DAILY [facility] Administration Radiology Results: ITS Impressions Fluoroscopy 06/02/25 12:54 IMPRESSION: 1. Fluoroscopy utilized during instrumented L2-L5 posterior spinal fusion. See procedure note for further detail. Chest X-Ray 06/05/25 10:54 Impression: No acute cardiopulmonary abnormality. Head CT 10/17/25 13:00 IMPRESSION: 1. Normal brain.
--- NOTE | 2025-06-06 16:24 | PCPTNOTE ---
The patient treatment was not able to be completed today per RN due to patient having low BP. Will plan to continue treatment per plan of care.
--- NOTE | 2025-06-06 17:42 | PC.NURSE ---
Spoke with Dr Garcia that patient is requesting pain medication at this time. Blood pressure is 126/67. Dr. Garcia said it was okay to give norco 5 at this time since the patients blood pressure has stabilized since this morning.
--- NOTE | 2025-06-06 17:54 | PC.NURSE ---
Spoke with Dr. Garcia that patient is requesting pain medication. BP is no stabilized since this am. Dr. Garcia gave the okay to give Percocet 5 at this time.
[2025-06-06] MEDS: oxyCODONE/ACETAMINOPHEN (*CRX) 10-325 MG TABLET 1 TAB PO (21:05)
[2025-06-07] VITALS (7 sets, daily range): BP systolic 100–146; BP diastolic 54–71; PULSE 66–103; RESP 16–18; TEMP 36.3–36.8; O2SAT 96–100
[2025-06-07] MEDS: oxyCODONE/ACETAMINOPHEN (*CRX) 5-325 MG TABLET 1 TABLET PO (02:11)
[2025-06-07 05:09] LABS: Hematocrit 33.8 % (42.0-52.0); Hemoglobin 10.6 g/dL (14.0-18.0); Immature Granulocyte Percent A 0.9 % (0-0.5); Lymphocytes Absolute Auto 1.09 K/mm3 (0.9-3.2); Mean Corpuscular HGB Conc 31.4 g/dl (32-36); Mean Corpuscular Hemoglobin 30.2 pg (26-34); Mean Corpuscular Volume 96.3 fl (80-100); Nucleated Red Blood Cells Absolute Auto 0.000 K/mm3 (0.0-0.012); Nucleated Red Blood Cells Perc 0.0 % (0.0-0.2); Platelet Count Result 211 k/mm3 (150-375); Red Blood Count 3.51 M/mm3 (4.6-6.20); White Blood Count 6.5 K/mm3 (4.5-10.0)
[2025-06-07 05:27] LABS: Alanine Aminotransferase 8 U/L (6-50); Albumin Level 2.6 g/dL (3.5-5.1); Alkaline Phosphatase 74 U/L (38-126); Anion Gap 2 mmol/L (4-12); Aspartate Amino Transferase 25 U/L (17-59); Bilirubin,Total 0.6 mg/dL (0.2-1.3); Blood Urea Nitrogen 28 mg/dL (9-20); Calcium 7.8 mg/dL (8.4-10.2); Carbon Dioxide 30 mmol/L (22-30); Chloride 101 mmol/L (98-107); Estimated CRCL calculation 66 ml/min; Estimated Glomerular Filt Rate 51; Glucose 110 mg/dL (65-110); Magnesium 2.1 mg/dL (1.6-2.3); Potassium 3.8 mmol/L (3.4-5.0); Sodium 133 mmol/L (137-145); Total Protein 5.1 g/dL (6.3-8.2)
[2025-06-07] MEDS: oxyCODONE/ACETAMINOPHEN (*CRX) 10-325 MG TABLET 1 TAB PO ×2 (09:52→20:59)
[2025-06-07] MEDS: TAMSULOSIN HCL 0.4 MG CAPSULE PO (09:54)
[2025-06-07] MEDS: CALCIUM CARBONATE (TUMS) 500 MG (200 MG ELEMENTAL) 600 MG PO (09:56)
[2025-06-07] MEDS: FERROUS SULFATE 325 MG TABLET 650 MG PO (09:57)
[2025-06-07] MEDS: DOCUSATE SODIUM 100 MG CAPSULE PO ×2 (09:57→20:59)
[2025-06-07] MEDS: CHOLECALCIFEROL (VITAMIN D3) 10 MCG (400 UNITS) TABLET PO (09:57)
[2025-06-07] MEDS: levoFLOXacin 750 MG/D5W 150 ML 750 MG/150 ML BAG 100 MG IVPB (09:57)
[2025-06-07] MEDS: GABAPENTIN 400 MG CAPSULE PO ×3 (09:57→17:48)
[2025-06-07] MEDS: SENNOSIDES 8.6 MG TABLET PO ×2 (10:01→21:04)
[2025-06-07] MEDS: VITAMIN B COMPLEX CAPSULE 1 CAP PO (10:01)
[2025-06-07] MEDS: PANTOPRAZOLE 40 MG TABLET PO (10:01)
[2025-06-07] MEDS: MULTIVITAMINS THERAPEUTIC TAB (*BKC) 1 TABLET PO (10:01)
--- NOTE | 2025-06-07 10:02 | PM.IMPN ---
Progress Note: A&P Assessment and Plan (1) Status post lumbar spinal arthrodesis: Code(s): Z98.1 - Arthrodesis status Status: Acute (2) Hypotension: Code(s): I95.9 - Hypotension, unspecified Status: Acute Plan Hypotension, resolving r/o infection vs dehydration CXR unremarkable, Lactic acid normal and no leukocytosis CT head no acute changes, urine culture negative and blood cultures still negative Continue Levaquin, and Midodrine Stop IVF and monitor monitor Scoliosis s/p Laminectomy and Facetomy Continue PRN pain control and DVT prophylaxis per neurosurgical team Hx of Hypertension now hypotensive, hold home meds and adjust wiht clinical course Urinary retention on Martin, continue Tamsulosin voiding trial in a couple of days Urology recommended continuing following and follow up outpatient monitor CKD Cr 1.38 which is baseline Monitor DVT prophylaxis on per primary team Subjective Date/time seen: 06/07/25 10:02 Interval history: Comfortable at bedside No hypotension overnight and patient feels much better today Review of Systems Review of Systems: All other systems were reviewed and negative except as noted in the HPI above Exam Narrative: General: alert and comfortable Eyes: EOMI, PERRLA ENNT External ears normal, Neck is supple, no masses, Respiratory systems: Clear to auscultation Cardiovascular S1, S2, normal rhythm, no murmur, rub, or gallop; no thrill or palpable murmurs on palpation. Gastrointestinal: soft, non-tender, and non-distended abdomen with no masses; BS present Skin: no rash, lesions, ulcerations, subcutaneous nodules or induration Musculoskeletal: no abnormality and no tenderness, normal ROM Neurologic: Alert and oriented x3, non focal Mental Status Exam: normal affect UG: Martin in place Objective Data Vital Signs Vital Signs: Vital Signs - 24 hr 06/06/25 11:00 06/06/25 11:00 06/06/25 14:08 Temperature 98.5 F 98 F Pulse Rate 97 90 85 Respiratory Rate 18 18 18 Blood Pressure 121/55 L 114/55 L 106/60 Pulse Oximetry 97 98 99 Oxygen Delivery Oxygen Flow Rate 06/06/25 17:39 06/06/25 18:34 06/06/25 20:00 Temperature Pulse Rate Respiratory Rate Blood Pressure 124/76 106/60 Pulse Oximetry 100 100 Oxygen Delivery Nasal Cannula Oxygen Flow Rate 2 06/06/25 21:02 06/06/25 21:34 06/07/25 02:12 Temperature 98.4 F Pulse Rate 79 Respiratory Rate 17 Blood Pressure 114/51 L 107/51 L 122/54 L Pulse Oximetry 95 Oxygen Delivery Oxygen Flow Rate 06/07/25 02:14 06/07/25 05:34 06/07/25 09:46 Temperature 97.9 F 97.3 F L Pulse Rate 68 66 Respiratory Rate 17 18 Blood Pressure 131/62 125/71 Pulse Oximetry 96 97 100 Oxygen Delivery Oxygen Flow Rate Intake/Output Intake/Output: Intake & Output 06/04/25 06/05/25 06/06/25 06/07/25 23:59 23:59 23:59 23:59 Intake Total 1391.5 1410 2713.8 250 Output Total 3495 1850 2100 2850 Balance -2103.5 -440 613.8 -2600 Meds/Results Medications: Active Medications Generic Name Dose Route Start Last Admin Trade Name Freq PRN Reason Stop Dose Admin Al Hydrox/Mg Hydrox/Simethicone 20 ml 06/02/25 15:32 06/04/25 15:17 Mag Hydrox/Al Hydrox/Simeth 30 Ml Udc PO 20 ml Q4H PRN Administration Indigestion/Heartburn Allopurinol 300 mg 06/03/25 09:00 06/06/25 08:47 Allopurinol 300 Mg Tablet PO 300 mg DAILY [facility] Administration Amlodipine Besylate 10 mg 06/03/25 09:00 06/06/25 08:39 Amlodipine Besylate 5 Mg Tablet BY MOUTH Not Given DAILY [facility] Bisacodyl 10 mg 06/07/25 09:00 Bisacodyl 10 Mg Suppository RECTAL QAM [facility] Calcium Carbonate 600 mg 06/06/25 09:00 06/06/25 08:47 Calcium Carbonate (Tums) 500 Mg (200 Mg Elemental) PO 600 mg DAILY [facility] Administration Clobetasol Propionate 1 applic 06/02/25 15:32 Clobetasol Propionate 0.05% Cream 15 Gm TOPICAL BID PRN Itching Cyclobenzaprine HCl 10 mg 06/02/25 15:32 06/05/25 16:56 Cyclobenzaprine Hcl 10 Mg Tablet PO 10 mg TID PRN Administration Muscle Spasms Docusate Sodium 100 mg 06/02/25 21:00 06/06/25 21:05 Docusate Sodium 100 Mg Capsule PO 100 mg Q12HR [facility] Administration Ferrous Sulfate 650 mg 06/03/25 09:00 06/06/25 08:31 Ferrous Sulfate 325 Mg Tablet PO 650 mg DAILY [facility] Administration Furosemide 20 mg 06/03/25 09:00 Furosemide 20 Mg Tablet BY MOUTH DAILY PRN Edema Gabapentin 400 mg 06/02/25 17:00 06/06/25 17:05 Gabapentin 400 Mg Capsule PO 400 mg TID [facility] Administration Hydrochlorothiazide 25 mg 06/03/25 09:00 06/06/25 08:39 Hydrochlorothiazide 25 Mg Tablet PO Not Given DAILY [facility] Hydromorphone HCl 0.5 mg 06/02/25 15:32 06/03/25 04:37 Hydromorphone Hcl Inj (*Crx) 1 Mg/Ml Syr IV PUSH 0.5 mg Q2H PRN Administration Pain Rated 7-10 Levofloxacin/Dextrose 750 mg in 150 mls @ 100 mls/hr 06/05/25 12:00 06/06/25 08:31 Levaquin 750 Mg/D5w 150 Ml IVPB 100 mls/hr QAM [facility] Administration Midodrine 10 mg 06/06/25 09:40 06/06/25 17:05 Midodrine Hcl 10 Mg Tablet PO 10 mg TID [facility] Administration Montelukast Sodium 10 mg 06/03/25 09:00 06/06/25 08:35 Montelukast Sodium 10 Mg Tablet PO 10 mg DAILY [facility] Administration Multivitamins Therapeutic 1 tablet 06/03/25 09:00 06/06/25 08:36 Multivitamins Therapeutic Tab (*Bkc) PO 1 tablet DAILY [facility] Administration Mupirocin 1 applic 06/02/25 17:00 06/06/25 17:05 Mupirocin 2% Oint 22 Gm Tube TOPICAL 1 applic TID [facility] Administration Ondansetron HCl 4 mg 06/02/25 15:32 06/04/25 14:52 Ondansetron Inj 4 Mg/2 Ml Vial IV PUSH 4 mg Q8H PRN Administration Nausea And Vomiting Oxycodone/Acetaminophen 1 tablet 06/02/25 15:32 06/07/25 02:11 Oxycodone/Acetaminophen (*Crx) 5-325 Mg Tablet PO 1 tablet Q4H PRN Administration Mild Pain (1-3) Oxycodone/Acetaminophen 1 tab 06/02/25 15:32 06/06/25 21:05 Oxycodone/Acetaminophen (*Crx) 10-325 Mg Tablet PO 1 tab Q4H PRN Administration Moderate Pain (4-6) Pantoprazole Sodium 40 mg 06/03/25 09:00 06/06/25 08:35 Pantoprazole 40 Mg Tablet PO 40 mg QAM [facility] Administration Polyethylene Glycol 17 gm 06/06/25 18:13 06/06/25 18:22 Polyethylene Glycol 3350 17 Gm Powd.Pack PO 17 gm BID PRN Administration Constipation Senna 8.6 mg 06/03/25 09:00 06/06/25 08:35 Sennosides 8.6 Mg Tablet PO 8.6 mg DAILY [facility] Administration Senna/Docusate Sodium 1 tab 06/02/25 15:32 Senna/Docusate Sodium Tablet PO HS PRN Constipation Sertraline HCl 25 mg 06/03/25 09:00 06/06/25 08:36 Sertraline Hcl 25 Mg Tablet BY MOUTH 25 mg QAM [facility] Administration Tamsulosin HCl 0.4 mg 06/04/25 15:00 06/06/25 08:36 Tamsulosin Hcl 0.4 Mg Capsule PO 0.4 mg DAILY [facility] Administration Trazodone HCl 100 mg 06/02/25 21:00 06/06/25 21:05 Trazodone Hcl 50 Mg Tablet BY MOUTH 100 mg HS [facility] Administration Vitamin B Complex 1 cap 06/03/25 09:00 06/06/25 08:35 Vitamin B Complex Capsule PO 1 cap DAILY [facility] Administration Vitamin D 10 mcg 06/03/25 09:00 06/06/25 08:35 Cholecalciferol (Vitamin D3) 10 Mcg (400 Units) Tablet PO 10 mcg DAILY [facility] Administration Radiology Results: ITS Impressions Fluoroscopy 06/02/25 12:54 IMPRESSION: 1. Fluoroscopy utilized during instrumented L2-L5 posterior spinal fusion. See procedure note for further detail. Chest X-Ray 06/05/25 10:54 Impression: No acute cardiopulmonary abnormality. Head CT 06/05/25 13:00 IMPRESSION: 1. Normal brain. Labs Labs: Laboratory Results - last 24 hr 06/07/25 04:56 WBC 6.5 RBC 3.51 L Hgb 10.6 L Hct 33.8 L MCV 96.3 MCH 30.2 MCHC 31.4 L RDW 13.7 Plt Count 211 MPV 10.2 Immature Gran % (Auto) 0.9 H Neut % (Auto) 70.2 Lymph % (Auto) 16.8 L [place] % (Auto) 9.2 H Eos % (Auto) 2.6 Baso % (Auto) 0.3 Lymph # (Auto) 1.09 [place] # (Auto) 0.6 Eos # (Auto) 0.2 Baso # (Auto) 0.0 Abs Immat Gran (auto) 0.06 H Absolute Neuts (auto) 4.6 Absolute Nucleated RBC 0.000 Nucleated RBC % 0.0 Sodium 133 L Potassium 3.8 Chloride 101 Carbon Dioxide 30 Anion Gap 2 L BUN 28 H Creatinine 1.38 H Estim Creat Clear Calc 66 Estimated GFR 51 L Glucose 110 Lactic Acid < 0.5 L Calcium 7.8 L Magnesium 2.1 Total Bilirubin 0.6 AST 25 ALT 8 Alkaline Phosphatase 74 Total Protein 5.1 L Albumin 2.6 L
[2025-06-07] MEDS: SERTRALINE HCL 25 MG TABLET BY MOUTH (10:03)
[2025-06-07] MEDS: MUPIROCIN 2% OINT 22 GM TUBE 1 APPLIC TOPICAL ×3 (10:38→17:48)
[2025-06-07] MEDS: MONTELUKAST SODIUM 10 MG TABLET PO (10:39)
[2025-06-07] MEDS: MIDODRINE HCL 10 MG TABLET PO ×2 (13:07→17:48)
[2025-06-07] MEDS: BISACODYL 10 MG SUPPOSITORY RECTAL (13:07)
--- NOTE | 2025-06-07 18:46 | WPDNEUROSGPN ---
Progress Note: A&P Assessment and Plan (1) Status post lumbar spinal arthrodesis: Code(s): Z98.1 - Arthrodesis status Status: Acute Plan Jon is doing well from our standpoint but has not had a bowel movement the last 6 days. it would be nice if he could move his bowels before being discharged. His Martin catheter was removed today we will see and we will see whether not he has postvoid residuals. Subjective Date/time seen: 06/07/25 18:46 Interval history: Jon is postop day 5 status post L2-5 posterior lumbar interbody fusion. He is doing well from a standpoint of his back. He has some discomfort in his left lower extremity distally. His muscle groups are working well and he has no other constitutional problems other than the urinary retention and now orthostatic hypotension. On Exam Narrative: strength is normal the bilateral lower extremities Sensation is intact to light touch in lower extremities. His wound is clean, dry and intact. Objective Data Vital Signs Vital Signs: Vital Signs - 24 hr 06/06/25 20:00 06/06/25 21:02 06/06/25 21:34 Temperature 98.4 F Pulse Rate 79 Respiratory Rate 17 Blood Pressure 114/51 L 107/51 L Pulse Oximetry 100 95 Oxygen Delivery Nasal Cannula Oxygen Flow Rate 2 06/07/25 02:12 06/07/25 02:14 06/07/25 05:34 Temperature 97.9 F Pulse Rate 68 Respiratory Rate 17 Blood Pressure 122/54 L 131/62 Pulse Oximetry 96 97 Oxygen Delivery Oxygen Flow Rate 06/07/25 08:00 06/07/25 09:46 06/07/25 12:58 Temperature 97.3 F L Pulse Rate 66 90 Respiratory Rate 18 Blood Pressure 125/71 100/58 L Pulse Oximetry 100 96 Oxygen Delivery Room Air Oxygen Flow Rate 06/07/25 17:40 Temperature Pulse Rate 103 H Respiratory Rate 16 Blood Pressure 135/70 Pulse Oximetry 98 Oxygen Delivery Oxygen Flow Rate Intake/Output Intake/Output: Intake & Output 06/04/25 06/05/25 06/06/25 06/07/25 23:59 23:59 23:59 23:59 Intake Total 1391.5 1410 2863.8 970 Output Total 3495 1850 2100 4700 Balance -2103.5 -440 763.8 -3730 Meds/Results Medications: Active Medications Generic Name Dose Route Start Last Admin Trade Name Freq PRN Reason Stop Dose Admin Al Hydrox/Mg Hydrox/Simethicone 20 ml 06/02/25 15:32 06/04/25 15:17 Mag Hydrox/Al Hydrox/Simeth 30 Ml Udc PO 20 ml Q4H PRN Administration Indigestion/Heartburn Allopurinol 300 mg 06/03/25 09:00 06/07/25 09:53 Allopurinol 300 Mg Tablet PO 300 mg DAILY [facility] Administration Amlodipine Besylate 10 mg 06/03/25 09:00 06/07/25 10:40 Amlodipine Besylate 5 Mg Tablet BY MOUTH Not Given DAILY [facility] Bisacodyl 10 mg 06/07/25 09:00 06/07/25 13:07 Bisacodyl 10 Mg Suppository RECTAL 10 mg QAM [facility] Administration Calcium Carbonate 600 mg 06/06/25 09:00 06/07/25 09:56 Calcium Carbonate (Tums) 500 Mg (200 Mg Elemental) PO 600 mg DAILY [facility] Administration Clobetasol Propionate 1 applic 06/02/25 15:32 Clobetasol Propionate 0.05% Cream 15 Gm TOPICAL BID PRN Itching Cyclobenzaprine HCl 10 mg 06/02/25 15:32 06/05/25 16:56 Cyclobenzaprine Hcl 10 Mg Tablet PO 10 mg TID PRN Administration Muscle Spasms Docusate Sodium 100 mg 06/02/25 21:00 06/07/25 09:57 Docusate Sodium 100 Mg Capsule PO 100 mg Q12HR [facility] Administration Ferrous Sulfate 650 mg 06/03/25 09:00 06/07/25 09:57 Ferrous Sulfate 325 Mg Tablet PO 650 mg DAILY [facility] Administration Furosemide 20 mg 06/03/25 09:00 Furosemide 20 Mg Tablet BY MOUTH DAILY PRN Edema Gabapentin 400 mg 06/02/25 17:00 06/07/25 17:48 Gabapentin 400 Mg Capsule PO 400 mg TID [facility] Administration Hydrochlorothiazide 25 mg 06/03/25 09:00 06/07/25 10:40 Hydrochlorothiazide 25 Mg Tablet PO Not Given DAILY [facility] Hydromorphone HCl 0.5 mg 06/02/25 15:32 06/03/25 04:37 Hydromorphone Hcl Inj (*Crx) 1 Mg/Ml Syr IV PUSH 0.5 mg Q2H PRN Administration Pain Rated 7-10 Levofloxacin/Dextrose 750 mg in 150 mls @ 100 mls/hr 06/05/25 12:00 06/07/25 09:57 Levaquin 750 Mg/D5w 150 Ml IVPB 100 mls/hr QAM [facility] Administration Midodrine 10 mg 06/06/25 09:40 06/07/25 17:48 Midodrine Hcl 10 Mg Tablet PO 10 mg TID [facility] Administration Montelukast Sodium 10 mg 06/03/25 09:00 06/07/25 10:39 Montelukast Sodium 10 Mg Tablet PO 10 mg DAILY [facility] Administration Multivitamins Therapeutic 1 tablet 06/03/25 09:00 06/07/25 10:01 Multivitamins Therapeutic Tab (*Bkc) PO 1 tablet DAILY [facility] Administration Mupirocin 1 applic 06/02/25 17:00 06/07/25 17:48 Mupirocin 2% Oint 22 Gm Tube TOPICAL 1 applic TID [facility] Administration Ondansetron HCl 4 mg 06/02/25 15:32 06/04/25 14:52 Ondansetron Inj 4 Mg/2 Ml Vial IV PUSH 4 mg Q8H PRN Administration Nausea And Vomiting Oxycodone/Acetaminophen 1 tablet 06/02/25 15:32 06/07/25 02:11 Oxycodone/Acetaminophen (*Crx) 5-325 Mg Tablet PO 1 tablet Q4H PRN Administration Mild Pain (1-3) Oxycodone/Acetaminophen 1 tab 06/02/25 15:32 06/07/25 09:52 Oxycodone/Acetaminophen (*Crx) 10-325 Mg Tablet PO 1 tab Q4H PRN Administration Moderate Pain (4-6) Pantoprazole Sodium 40 mg 06/03/25 09:00 06/07/25 10:01 Pantoprazole 40 Mg Tablet PO 40 mg QAM [facility] Administration Polyethylene Glycol 17 gm 06/06/25 18:13 06/07/25 10:45 Polyethylene Glycol 3350 17 Gm Powd.Pack PO 17 gm BID PRN Administration Constipation Senna 8.6 mg 06/03/25 09:00 06/07/25 10:01 Sennosides 8.6 Mg Tablet PO 8.6 mg DAILY [facility] Administration Senna/Docusate Sodium 1 tab 06/02/25 15:32 Senna/Docusate Sodium Tablet PO HS PRN Constipation Sertraline HCl 25 mg 06/03/25 09:00 06/07/25 10:03 Sertraline Hcl 25 Mg Tablet BY MOUTH 25 mg QAM [facility] Administration Tamsulosin HCl 0.4 mg 06/04/25 15:00 06/07/25 09:54 Tamsulosin Hcl 0.4 Mg Capsule PO 0.4 mg DAILY [facility] Administration Trazodone HCl 100 mg 06/02/25 21:00 06/06/25 21:05 Trazodone Hcl 50 Mg Tablet BY MOUTH 100 mg HS [facility] Administration Vitamin B Complex 1 cap 06/03/25 09:00 06/07/25 10:01 Vitamin B Complex Capsule PO 1 cap DAILY [facility] Administration Vitamin D 10 mcg 06/03/25 09:00 06/07/25 09:57 Cholecalciferol (Vitamin D3) 10 Mcg (400 Units) Tablet PO 10 mcg DAILY [facility] Administration Radiology Results: ITS Impressions Fluoroscopy 06/02/25 12:54 IMPRESSION: 1. Fluoroscopy utilized during instrumented L2-L5 posterior spinal fusion. See procedure note for further detail. Chest X-Ray 06/05/25 10:54 Impression: No acute cardiopulmonary abnormality. Head CT 06/05/25 13:00 IMPRESSION: 1. Normal brain. Labs Labs: Laboratory Results - last 24 hr 06/07/25 04:56 WBC 6.5 RBC 3.51 L Hgb 10.6 L Hct 33.8 L MCV 96.3 MCH 30.2 MCHC 31.4 L RDW 13.7 Plt Count 211 MPV 10.2 Immature Gran % (Auto) 0.9 H Neut % (Auto) 70.2 Lymph % (Auto) 16.8 L [place] % (Auto) 9.2 H Eos % (Auto) 2.6 Baso % (Auto) 0.3 Lymph # (Auto) 1.09 [place] # (Auto) 0.6 Eos # (Auto) 0.2 Baso # (Auto) 0.0 Abs Immat Gran (auto) 0.06 H Absolute Neuts (auto) 4.6 Absolute Nucleated RBC 0.000 Nucleated RBC % 0.0 Sodium 133 L Potassium 3.8 Chloride 101 Carbon Dioxide 30 Anion Gap 2 L BUN 28 H Creatinine 1.38 H Estim Creat Clear Calc 66 Estimated GFR 51 L Glucose 110 Lactic Acid < 0.5 L Calcium 7.8 L Magnesium 2.1 Total Bilirubin 0.6 AST 25 ALT 8 Alkaline Phosphatase 74 Total Protein 5.1 L Albumin 2.6 L
--- NOTE | 2025-06-07 18:48 | WPDNEUROSGPN ---
Progress Note: A&P Assessment and Plan (1) Status post lumbar spinal arthrodesis: Code(s): Z98.1 - Arthrodesis status Status: Acute Plan Jon is doing well except for the medical issues. Hopefully he will be able have a bowel movement and his urinary retention should resolve spontaneously and the catheter will be removed per medical advice. Subjective Date/time seen: 06/06/25 13:23 Interval history: Jon is postop day 4 status post L2-5 posterior lumbar interbody fusion. He is doing well from that standpoint but has had some orthostatic hypotension and urinary retention. His Martin catheter in place at this point. He he is not having any new neurologic issues. He is making transfers and ambulating. Exam Const: Other: Strength is normal the bilateral lower extremities Sensation is intact to light touch in lower extremities. His wound is clean, dry and intact. Objective Data Vital Signs Vital Signs: Vital Signs - 24 hr 06/06/25 20:00 06/06/25 21:02 06/06/25 21:34 Temperature 98.4 F Pulse Rate 79 Respiratory Rate 17 Blood Pressure 114/51 L 107/51 L Pulse Oximetry 100 95 Oxygen Delivery Nasal Cannula Oxygen Flow Rate 2 06/07/25 02:12 06/07/25 02:14 06/07/25 05:34 Temperature 97.9 F Pulse Rate 68 Respiratory Rate 17 Blood Pressure 122/54 L 131/62 Pulse Oximetry 96 97 Oxygen Delivery Oxygen Flow Rate 06/07/25 08:00 06/07/25 09:46 06/07/25 12:58 Temperature 97.3 F L Pulse Rate 66 90 Respiratory Rate 18 Blood Pressure 125/71 100/58 L Pulse Oximetry 100 96 Oxygen Delivery Room Air Oxygen Flow Rate 06/07/25 17:40 Temperature Pulse Rate 103 H Respiratory Rate 16 Blood Pressure 135/70 Pulse Oximetry 98 Oxygen Delivery Oxygen Flow Rate Intake/Output Intake/Output: Intake & Output 06/04/25 06/05/25 06/06/25 06/07/25 23:59 23:59 23:59 23:59 Intake Total 1391.5 1410 2863.8 970 Output Total 3495 1850 2100 4700 Balance -2103.5 -440 183.8 -0590 Meds/Results Medications: Active Medications Generic Name Dose Route Start Last Admin Trade Name Freq PRN Reason Stop Dose Admin Al Hydrox/Mg Hydrox/Simethicone 20 ml 06/02/25 15:32 06/04/25 15:17 Mag Hydrox/Al Hydrox/Simeth 30 Ml Udc PO 20 ml Q4H PRN Administration Indigestion/Heartburn Allopurinol 300 mg 06/03/25 09:00 06/07/25 09:53 Allopurinol 300 Mg Tablet PO 300 mg DAILY [facility] Administration Amlodipine Besylate 10 mg 06/03/25 09:00 06/07/25 10:40 Amlodipine Besylate 5 Mg Tablet BY MOUTH Not Given DAILY [facility] Bisacodyl 10 mg 06/07/25 09:00 06/07/25 13:07 Bisacodyl 10 Mg Suppository RECTAL 10 mg QAM [facility] Administration Calcium Carbonate 600 mg 06/06/25 09:00 06/07/25 09:56 Calcium Carbonate (Tums) 500 Mg (200 Mg Elemental) PO 600 mg DAILY [facility] Administration Clobetasol Propionate 1 applic 06/02/25 15:32 Clobetasol Propionate 0.05% Cream 15 Gm TOPICAL BID PRN Itching Cyclobenzaprine HCl 10 mg 06/02/25 15:32 06/05/25 16:56 Cyclobenzaprine Hcl 10 Mg Tablet PO 10 mg TID PRN Administration Muscle Spasms Docusate Sodium 100 mg 06/02/25 21:00 06/07/25 09:57 Docusate Sodium 100 Mg Capsule PO 100 mg Q12HR [facility] Administration Ferrous Sulfate 650 mg 06/03/25 09:00 06/07/25 09:57 Ferrous Sulfate 325 Mg Tablet PO 650 mg DAILY [facility] Administration Furosemide 20 mg 06/03/25 09:00 Furosemide 20 Mg Tablet BY MOUTH DAILY PRN Edema Gabapentin 400 mg 06/02/25 17:00 06/07/25 17:48 Gabapentin 400 Mg Capsule PO 400 mg TID [facility] Administration Hydrochlorothiazide 25 mg 06/03/25 09:00 06/07/25 10:40 Hydrochlorothiazide 25 Mg Tablet PO Not Given DAILY [facility] Hydromorphone HCl 0.5 mg 06/02/25 15:32 06/03/25 04:37 Hydromorphone Hcl Inj (*Crx) 1 Mg/Ml Syr IV PUSH 0.5 mg Q2H PRN Administration Pain Rated 7-10 Levofloxacin/Dextrose 750 mg in 150 mls @ 100 mls/hr 06/05/25 12:00 06/07/25 09:57 Levaquin 750 Mg/D5w 150 Ml IVPB 100 mls/hr QAM [facility] Administration Midodrine 10 mg 06/06/25 09:40 06/07/25 17:48 Midodrine Hcl 10 Mg Tablet PO 10 mg TID [facility] Administration Montelukast Sodium 10 mg 06/03/25 09:00 06/07/25 10:39 Montelukast Sodium 10 Mg Tablet PO 10 mg DAILY [facility] Administration Multivitamins Therapeutic 1 tablet 06/03/25 09:00 06/07/25 10:01 Multivitamins Therapeutic Tab (*Bkc) PO 1 tablet DAILY [facility] Administration Mupirocin 1 applic 06/02/25 17:00 06/07/25 17:48 Mupirocin 2% Oint 22 Gm Tube TOPICAL 1 applic TID [facility] Administration Ondansetron HCl 4 mg 06/02/25 15:32 06/04/25 14:52 Ondansetron Inj 4 Mg/2 Ml Vial IV PUSH 4 mg Q8H PRN Administration Nausea And Vomiting Oxycodone/Acetaminophen 1 tablet 06/02/25 15:32 06/07/25 02:11 Oxycodone/Acetaminophen (*Crx) 5-325 Mg Tablet PO 1 tablet Q4H PRN Administration Mild Pain (1-3) Oxycodone/Acetaminophen 1 tab 06/02/25 15:32 06/07/25 09:52 Oxycodone/Acetaminophen (*Crx) 10-325 Mg Tablet PO 1 tab Q4H PRN Administration Moderate Pain (4-6) Pantoprazole Sodium 40 mg 06/03/25 09:00 06/07/25 10:01 Pantoprazole 40 Mg Tablet PO 40 mg QAM [facility] Administration Polyethylene Glycol 17 gm 06/06/25 18:13 06/07/25 10:45 Polyethylene Glycol 3350 17 Gm Powd.Pack PO 17 gm BID PRN Administration Constipation Senna 8.6 mg 06/03/25 09:00 06/07/25 10:01 Sennosides 8.6 Mg Tablet PO 8.6 mg DAILY [facility] Administration Senna/Docusate Sodium 1 tab 06/02/25 15:32 Senna/Docusate Sodium Tablet PO HS PRN Constipation Sertraline HCl 25 mg 06/03/25 09:00 06/07/25 10:03 Sertraline Hcl 25 Mg Tablet BY MOUTH 25 mg QAM [facility] Administration Tamsulosin HCl 0.4 mg 06/04/25 15:00 06/07/25 09:54 Tamsulosin Hcl 0.4 Mg Capsule PO 0.4 mg DAILY [facility] Administration Trazodone HCl 100 mg 06/02/25 21:00 06/06/25 21:05 Trazodone Hcl 50 Mg Tablet BY MOUTH 100 mg HS [facility] Administration Vitamin B Complex 1 cap 06/03/25 09:00 06/07/25 10:01 Vitamin B Complex Capsule PO 1 cap DAILY [facility] Administration Vitamin D 10 mcg 06/03/25 09:00 06/07/25 09:57 Cholecalciferol (Vitamin D3) 10 Mcg (400 Units) Tablet PO 10 mcg DAILY [facility] Administration Radiology Results: ITS Impressions Fluoroscopy 06/02/25 12:54 IMPRESSION: 1. Fluoroscopy utilized during instrumented L2-L5 posterior spinal fusion. See procedure note for further detail. Chest X-Ray 06/05/25 10:54 Impression: No acute cardiopulmonary abnormality. Head CT 06/05/25 13:00 IMPRESSION: 1. Normal brain. Labs Labs: Laboratory Results - last 24 hr 06/07/25 04:56 WBC 6.5 RBC 3.51 L Hgb 10.6 L Hct 33.8 L MCV 96.3 MCH 30.2 MCHC 31.4 L RDW 13.7 Plt Count 211 MPV 10.2 Immature Gran % (Auto) 0.9 H Neut % (Auto) 70.2 Lymph % (Auto) 16.8 L [place] % (Auto) 9.2 H Eos % (Auto) 2.6 Baso % (Auto) 0.3 Lymph # (Auto) 1.09 [place] # (Auto) 0.6 Eos # (Auto) 0.2 Baso # (Auto) 0.0 Abs Immat Gran (auto) 0.06 H Absolute Neuts (auto) 4.6 Absolute Nucleated RBC 0.000 Nucleated RBC % 0.0 Sodium 133 L Potassium 3.8 Chloride 101 Carbon Dioxide 30 Anion Gap 2 L BUN 28 H Creatinine 1.38 H Estim Creat Clear Calc 66 Estimated GFR 51 L Glucose 110 Lactic Acid < 0.5 L Calcium 7.8 L Magnesium 2.1 Total Bilirubin 0.6 AST 25 ALT 8 Alkaline Phosphatase 74 Total Protein 5.1 L Albumin 2.6 L
[2025-06-08] MEDS: oxyCODONE/ACETAMINOPHEN (*CRX) 10-325 MG TABLET 1 TAB PO ×2 (02:13→16:47)
[2025-06-08 04:41] LABS: Hematocrit 38.1 % (42.0-52.0); Hemoglobin 11.9 g/dL (14.0-18.0); Immature Granulocyte Percent A 0.9 % (0-0.5); Lymphocytes Absolute Auto 1.43 K/mm3 (0.9-3.2); Mean Corpuscular HGB Conc 31.2 g/dl (32-36); Mean Corpuscular Hemoglobin 29.4 pg (26-34); Mean Corpuscular Volume 94.1 fl (80-100); Nucleated Red Blood Cells Absolute Auto 0.000 K/mm3 (0.0-0.012); Nucleated Red Blood Cells Perc 0.0 % (0.0-0.2); Platelet Count Result 287 k/mm3 (150-375); Red Blood Count 4.05 M/mm3 (4.6-6.20); White Blood Count 8.5 K/mm3 (4.5-10.0)
[2025-06-08 05:02] LABS: Alanine Aminotransferase 13 U/L (6-50); Albumin Level 3.1 g/dL (3.5-5.1); Alkaline Phosphatase 90 U/L (38-126); Anion Gap 5 mmol/L (4-12); Aspartate Amino Transferase 29 U/L (17-59); Bilirubin,Total 0.7 mg/dL (0.2-1.3); Blood Urea Nitrogen 22 mg/dL (9-20); Calcium 8.3 mg/dL (8.4-10.2); Carbon Dioxide 27 mmol/L (22-30); Chloride 101 mmol/L (98-107); Estimated CRCL calculation 69 ml/min; Estimated Glomerular Filt Rate 53; Glucose 110 mg/dL (65-110); Magnesium 2.0 mg/dL (1.6-2.3); Potassium 4.1 mmol/L (3.4-5.0); Sodium 133 mmol/L (137-145); Total Protein 6.0 g/dL (6.3-8.2)
[2025-06-08 05:06] VITALS: BP 113/95; PULSE 79; RESP 17; TEMP 36.4; O2SAT 98
[2025-06-08 10:32] VITALS: BP 117/68; PULSE 80; TEMP 36.9; O2SAT 99
[2025-06-08] MEDS: oxyCODONE/ACETAMINOPHEN (*CRX) 5-325 MG TABLET 1 TABLET PO (10:33)
[2025-06-08] MEDS: MIDODRINE HCL 10 MG TABLET PO ×3 (10:34→17:45)
[2025-06-08] MEDS: MONTELUKAST SODIUM 10 MG TABLET PO (10:34)
[2025-06-08] MEDS: TAMSULOSIN HCL 0.4 MG CAPSULE PO (10:34)
[2025-06-08] MEDS: DOCUSATE SODIUM 100 MG CAPSULE PO (10:34)
[2025-06-08] MEDS: FERROUS SULFATE 325 MG TABLET 650 MG PO (10:35)
[2025-06-08] MEDS: PANTOPRAZOLE 40 MG TABLET PO (10:35)
[2025-06-08] MEDS: GABAPENTIN 400 MG CAPSULE PO ×3 (10:35→17:45)
[2025-06-08] MEDS: CHOLECALCIFEROL (VITAMIN D3) 10 MCG (400 UNITS) TABLET PO (10:35)
[2025-06-08] MEDS: MULTIVITAMINS THERAPEUTIC TAB (*BKC) 1 TABLET PO (10:35)
[2025-06-08] MEDS: SERTRALINE HCL 25 MG TABLET BY MOUTH (10:35)
[2025-06-08] MEDS: VITAMIN B COMPLEX CAPSULE 1 CAP PO (10:36)
[2025-06-08] MEDS: CALCIUM CARBONATE (TUMS) 500 MG (200 MG ELEMENTAL) 600 MG PO (10:36)
[2025-06-08] MEDS: SENNOSIDES 8.6 MG TABLET PO ×2 (10:36→17:45)
[2025-06-08] MEDS: MUPIROCIN 2% OINT 22 GM TUBE 1 APPLIC TOPICAL ×2 (10:42→14:02)
--- NOTE | 2025-06-08 13:34 | PM.IMPN ---
Progress Note: A&P Assessment and Plan (1) Status post lumbar spinal arthrodesis: Code(s): Z98.1 - Arthrodesis status Status: Acute (2) Hypotension: Code(s): I95.9 - Hypotension, unspecified Status: Acute Plan Hypotension, resolved r/o infection vs dehydration CXR unremarkable, Lactic acid normal and no leukocytosis CT head no acute changes, urine culture negative and blood cultures still negative Continue Levaquin x 3 more days, Midodrine x 7 days Discussed with patient to monitor blood pressure at home, continue holding Amlodipine and HCTZ until follow up with PCP Patient expressed understanding of the above plan Scoliosis s/p Laminectomy and Facetomy Continue PRN pain control and DVT prophylaxis per neurosurgical team Hx of Hypertension Hold home meds until follow up with PCP Urinary retention on Martin, continue Tamsulosin Follow up with urology as instructed CKD Cr 1.38 which is baseline Monitor DVT prophylaxis on per primary team Patient is stable for discharge from medical service Subjective Date/time seen: 06/08/25 13:34 Interval history: COmfortable at bedside BP stable Review of Systems Review of Systems: All other systems were reviewed and negative except as noted in the HPI above Exam Narrative: General: alert and comfortable Eyes: EOMI, PERRLA ENNT External ears normal, Neck is supple, no masses, Respiratory systems: Clear to auscultation Cardiovascular S1, S2, normal rhythm, no murmur, rub, or gallop; no thrill or palpable murmurs on palpation. Gastrointestinal: soft, non-tender, and non-distended abdomen with no masses; BS present Skin: no rash, lesions, ulcerations, subcutaneous nodules or induration Musculoskeletal: no abnormality and no tenderness, normal ROM Neurologic: Alert and oriented x3, non focal Mental Status Exam: normal affect UG: Martin in place Objective Data Vital Signs Vital Signs: Vital Signs - 24 hr 06/07/25 17:40 06/07/25 20:00 06/07/25 20:20 Temperature 98.3 F Pulse Rate 103 H 85 Respiratory Rate 16 18 Blood Pressure 135/70 146/70 H Pulse Oximetry 98 100 Oxygen Delivery Room Air 06/08/25 05:06 06/08/25 10:32 Temperature 97.6 F 98.4 F Pulse Rate 79 80 Respiratory Rate 17 Blood Pressure 113/95 H 117/68 Pulse Oximetry 98 99 Oxygen Delivery Intake/Output Intake/Output: Intake & Output 06/05/25 06/06/25 06/07/25 06/08/25 23:59 23:59 23:59 23:59 Intake Total 1410 2863.8 970 250 Output Total 1850 2100 4700 1000 Balance -440 763.8 -3730 -750 Meds/Results Medications: Active Medications Generic Name Dose Route Start Last Admin Trade Name Freq PRN Reason Stop Dose Admin Al Hydrox/Mg Hydrox/Simethicone 20 ml 06/02/25 15:32 06/04/25 15:17 Mag Hydrox/Al Hydrox/Simeth 30 Ml Udc PO 20 ml Q4H PRN Administration Indigestion/Heartburn Allopurinol 300 mg 06/03/25 09:00 06/08/25 10:35 Allopurinol 300 Mg Tablet PO 300 mg DAILY [facility] Administration Amlodipine Besylate 10 mg 06/03/25 09:00 06/08/25 12:35 Amlodipine Besylate 5 Mg Tablet BY MOUTH Not Given DAILY [facility] Bisacodyl 10 mg 06/07/25 09:00 06/07/25 13:07 Bisacodyl 10 Mg Suppository RECTAL 10 mg QAM [facility] Administration Calcium Carbonate 600 mg 06/06/25 09:00 06/08/25 10:36 Calcium Carbonate (Tums) 500 Mg (200 Mg Elemental) PO 600 mg DAILY [facility] Administration Clobetasol Propionate 1 applic 06/02/25 15:32 Clobetasol Propionate 0.05% Cream 15 Gm TOPICAL BID PRN Itching Cyclobenzaprine HCl 10 mg 06/02/25 15:32 06/05/25 16:56 Cyclobenzaprine Hcl 10 Mg Tablet PO 10 mg TID PRN Administration Muscle Spasms Docusate Sodium 100 mg 06/02/25 21:00 06/08/25 10:34 Docusate Sodium 100 Mg Capsule PO 100 mg Q12HR [facility] Administration Ferrous Sulfate 650 mg 06/03/25 09:00 06/08/25 10:35 Ferrous Sulfate 325 Mg Tablet PO 650 mg DAILY [facility] Administration Furosemide 20 mg 06/03/25 09:00 Furosemide 20 Mg Tablet BY MOUTH DAILY PRN Edema Gabapentin 400 mg 06/02/25 17:00 06/08/25 10:35 Gabapentin 400 Mg Capsule PO 400 mg TID [facility] Administration Hydrochlorothiazide 25 mg 06/03/25 09:00 06/08/25 12:35 Hydrochlorothiazide 25 Mg Tablet PO Not Given DAILY [facility] Hydromorphone HCl 0.5 mg 06/02/25 15:32 06/03/25 04:37 Hydromorphone Hcl Inj (*Crx) 1 Mg/Ml Syr IV PUSH 0.5 mg Q2H PRN Administration Pain Rated 7-10 Levofloxacin 750 mg 06/08/25 10:30 06/08/25 10:48 Levofloxacin 750 Mg Tablet PO 06/11/25 09:01 750 mg DAILY [facility] Administration Midodrine 10 mg 06/06/25 09:40 06/08/25 10:34 Midodrine Hcl 10 Mg Tablet PO 10 mg TID [facility] Administration Montelukast Sodium 10 mg 06/03/25 09:00 06/08/25 10:34 Montelukast Sodium 10 Mg Tablet PO 10 mg DAILY [facility] Administration Multivitamins Therapeutic 1 tablet 06/03/25 09:00 06/08/25 10:35 Multivitamins Therapeutic Tab (*Bkc) PO 1 tablet DAILY [facility] Administration Mupirocin 1 applic 06/02/25 17:00 06/08/25 10:42 Mupirocin 2% Oint 22 Gm Tube TOPICAL 1 applic TID [facility] Administration Ondansetron HCl 4 mg 06/02/25 15:32 06/04/25 14:52 Ondansetron Inj 4 Mg/2 Ml Vial IV PUSH 4 mg Q8H PRN Administration Nausea And Vomiting Oxycodone/Acetaminophen 1 tablet 06/02/25 15:32 06/08/25 10:33 Oxycodone/Acetaminophen (*Crx) 5-325 Mg Tablet PO 1 tablet Q4H PRN Administration Mild Pain (1-3) Oxycodone/Acetaminophen 1 tab 06/02/25 15:32 06/08/25 02:13 Oxycodone/Acetaminophen (*Crx) 10-325 Mg Tablet PO 1 tab Q4H PRN Administration Moderate Pain (4-6) Pantoprazole Sodium 40 mg 06/03/25 09:00 06/08/25 10:35 Pantoprazole 40 Mg Tablet PO 40 mg QAM [facility] Administration Polyethylene Glycol 17 gm 06/06/25 18:13 06/08/25 10:48 Polyethylene Glycol 3350 17 Gm Powd.Pack PO 17 gm BID PRN Administration Constipation Senna 8.6 mg 06/07/25 20:50 06/08/25 10:36 Sennosides 8.6 Mg Tablet PO 8.6 mg BID [facility] Administration Senna/Docusate Sodium 1 tab 06/02/25 15:32 Senna/Docusate Sodium Tablet PO HS PRN Constipation Sertraline HCl 25 mg 06/03/25 09:00 06/08/25 10:35 Sertraline Hcl 25 Mg Tablet BY MOUTH 25 mg QAM [facility] Administration Tamsulosin HCl 0.4 mg 06/04/25 15:00 06/08/25 10:34 Tamsulosin Hcl 0.4 Mg Capsule PO 0.4 mg DAILY [facility] Administration Trazodone HCl 100 mg 06/02/25 21:00 06/07/25 20:59 Trazodone Hcl 50 Mg Tablet BY MOUTH 100 mg HS [facility] Administration Vitamin B Complex 1 cap 06/03/25 09:00 06/08/25 10:36 Vitamin B Complex Capsule PO 1 cap DAILY [facility] Administration Vitamin D 10 mcg 06/03/25 09:00 06/08/25 10:35 Cholecalciferol (Vitamin D3) 10 Mcg (400 Units) Tablet PO 10 mcg DAILY [facility] Administration Radiology Results: ITS Impressions Fluoroscopy 06/02/25 12:54 IMPRESSION: 1. Fluoroscopy utilized during instrumented L2-L5 posterior spinal fusion. See procedure note for further detail. Chest X-Ray 06/05/25 10:54 Impression: No acute cardiopulmonary abnormality. Head CT 06/05/25 13:00 IMPRESSION: 1. Normal brain. Labs Labs: Laboratory Results - last 24 hr 06/08/25 04:31 WBC 8.5 RBC 4.05 L Hgb 11.9 L Hct 38.1 L MCV 94.1 MCH 29.4 MCHC 31.2 L RDW 13.5 Plt Count 287 MPV 9.6 Immature Gran % (Auto) 0.9 H Neut % (Auto) 69.7 Lymph % (Auto) 16.9 L [place] % (Auto) 9.3 H Eos % (Auto) 2.7 Baso % (Auto) 0.5 Lymph # (Auto) 1.43 [place] # (Auto) 0.8 H Eos # (Auto) 0.2 Baso # (Auto) 0.0 Abs Immat Gran (auto) 0.08 H Absolute Neuts (auto) 5.9 Absolute Nucleated RBC 0.000 Nucleated RBC % 0.0 Sodium 133 L Potassium 4.1 Chloride 101 Carbon Dioxide 27 Anion Gap 5 BUN 22 H Creatinine 1.33 H Estim Creat Clear Calc 69 Estimated GFR 53 L Glucose 110 Lactic Acid 0.8 Calcium 8.3 L Magnesium 2.0 Total Bilirubin 0.7 AST 29 ALT 13 Alkaline Phosphatase 90 Total Protein 6.0 L Albumin 3.1 L
--- NOTE | 2025-06-08 13:44 | P.PNNEUSUR_ITS ---
Progress Note: A&P Assessment and Plan (1) Status post lumbar spinal arthrodesis: Code(s): Z98.1 - Arthrodesis status Status: Acute Assessment and Plan: Jon is doing reasonably well on postop day 6. Will plan for discharge today with home health. Follow-up with urology as instructed for void trial Follow-up in office with me in 1 week no NSAIDs or anticoagulation continue antibiotics and midodrine per Medicine team Subjective Date/time seen: 06/08/25 13:44 Interval history: Jon is doing reasonably well postop day 6 s/p PSF L2-L5 with interbody fusion by Dr. Snyder. He had a large bowel movement last night. pain well controlled. Not having any more dizziness. Will be going home with Martin catheter with plan for outpatient void trial with Urology in 1 week. Original plan was rehab but patient planning to go home with home health instead. Currently sitting up in recliner with at bedside. Exam Narrative: A&O x4. Calm, cooperative, no acute distress. Incision well approximated without erythema, warmth, or drainage. There is expected postoperative fluid collection the superior end of the incision without red flags. Strength and sensation intact. Martin catheter in place. Objective Data Vital Signs Vital Signs: Vital Signs - 24 hr 06/07/25 17:40 06/07/25 20:00 06/07/25 20:20 Temperature 98.3 F Pulse Rate 103 H 85 Respiratory Rate 16 18 Blood Pressure 135/70 146/70 H Pulse Oximetry 98 100 Oxygen Delivery Room Air 06/08/25 05:06 06/08/25 10:32 Temperature 97.6 F 98.4 F Pulse Rate 79 80 Respiratory Rate 17 Blood Pressure 113/95 H 117/68 Pulse Oximetry 98 99 Oxygen Delivery Intake/Output Intake/Output: Intake & Output 06/05/25 06/06/25 06/07/25 06/08/25 23:59 23:59 23:59 23:59 Intake Total 1410 2863.8 970 250 Output Total 1850 2100 4700 1000 Balance -440 763.8 -3730 -750 Meds/Results Medications: Active Medications Generic Name Dose Route Start Last Admin Trade Name Freq PRN Reason Stop Dose Admin Al Hydrox/Mg Hydrox/Simethicone 20 ml 06/02/25 15:32 06/04/25 15:17 Mag Hydrox/Al Hydrox/Simeth 30 Ml Udc PO 20 ml Q4H PRN Administration Indigestion/Heartburn Allopurinol 300 mg 06/03/25 09:00 06/08/25 10:35 Allopurinol 300 Mg Tablet PO 300 mg DAILY [facility] Administration Amlodipine Besylate 10 mg 06/03/25 09:00 06/08/25 12:35 Amlodipine Besylate 5 Mg Tablet BY MOUTH Not Given DAILY [facility] Bisacodyl 10 mg 06/07/25 09:00 06/07/25 13:07 Bisacodyl 10 Mg Suppository RECTAL 10 mg QAM [facility] Administration Calcium Carbonate 600 mg 06/06/25 09:00 06/08/25 10:36 Calcium Carbonate (Tums) 500 Mg (200 Mg Elemental) PO 600 mg DAILY [facility] Administration Clobetasol Propionate 1 applic 06/02/25 15:32 Clobetasol Propionate 0.05% Cream 15 Gm TOPICAL BID PRN Itching Cyclobenzaprine HCl 10 mg 06/02/25 15:32 06/05/25 16:56 Cyclobenzaprine Hcl 10 Mg Tablet PO 10 mg TID PRN Administration Muscle Spasms Docusate Sodium 100 mg 06/02/25 21:00 06/08/25 10:34 Docusate Sodium 100 Mg Capsule PO 100 mg Q12HR [facility] Administration Ferrous Sulfate 650 mg 06/03/25 09:00 06/08/25 10:35 Ferrous Sulfate 325 Mg Tablet PO 650 mg DAILY [facility] Administration Furosemide 20 mg 06/03/25 09:00 Furosemide 20 Mg Tablet BY MOUTH DAILY PRN Edema Gabapentin 400 mg 06/02/25 17:00 06/08/25 10:35 Gabapentin 400 Mg Capsule PO 400 mg TID [facility] Administration Hydrochlorothiazide 25 mg 06/03/25 09:00 06/08/25 12:35 Hydrochlorothiazide 25 Mg Tablet PO Not Given DAILY [facility] Hydromorphone HCl 0.5 mg 06/02/25 15:32 06/03/25 04:37 Hydromorphone Hcl Inj (*Crx) 1 Mg/Ml Syr IV PUSH 0.5 mg Q2H PRN Administration Pain Rated 7-10 Levofloxacin 750 mg 06/08/25 10:30 06/08/25 10:48 Levofloxacin 750 Mg Tablet PO 06/11/25 09:01 750 mg DAILY [facility] Administration Midodrine 10 mg 06/06/25 09:40 06/08/25 10:34 Midodrine Hcl 10 Mg Tablet PO 10 mg TID [facility] Administration Montelukast Sodium 10 mg 06/03/25 09:00 06/08/25 10:34 Montelukast Sodium 10 Mg Tablet PO 10 mg DAILY [facility] Administration Multivitamins Therapeutic 1 tablet 06/03/25 09:00 06/08/25 10:35 Multivitamins Therapeutic Tab (*Bkc) PO 1 tablet DAILY [facility] Administration Mupirocin 1 applic 06/02/25 17:00 06/08/25 10:42 Mupirocin 2% Oint 22 Gm Tube TOPICAL 1 applic TID [facility] Administration Ondansetron HCl 4 mg 06/02/25 15:32 06/04/25 14:52 Ondansetron Inj 4 Mg/2 Ml Vial IV PUSH 4 mg Q8H PRN Administration Nausea And Vomiting Oxycodone/Acetaminophen 1 tablet 06/02/25 15:32 06/08/25 10:33 Oxycodone/Acetaminophen (*Crx) 5-325 Mg Tablet PO 1 tablet Q4H PRN Administration Mild Pain (1-3) Oxycodone/Acetaminophen 1 tab 06/02/25 15:32 06/08/25 02:13 Oxycodone/Acetaminophen (*Crx) 10-325 Mg Tablet PO 1 tab Q4H PRN Administration Moderate Pain (4-6) Pantoprazole Sodium 40 mg 06/03/25 09:00 06/08/25 10:35 Pantoprazole 40 Mg Tablet PO 40 mg QAM [facility] Administration Polyethylene Glycol 17 gm 06/06/25 18:13 06/08/25 10:48 Polyethylene Glycol 3350 17 Gm Powd.Pack PO 17 gm BID PRN Administration Constipation Senna 8.6 mg 06/07/25 20:50 06/08/25 10:36 Sennosides 8.6 Mg Tablet PO 8.6 mg BID [facility] Administration Senna/Docusate Sodium 1 tab 06/02/25 15:32 Senna/Docusate Sodium Tablet PO HS PRN Constipation Sertraline HCl 25 mg 06/03/25 09:00 06/08/25 10:35 Sertraline Hcl 25 Mg Tablet BY MOUTH 25 mg QAM [facility] Administration Tamsulosin HCl 0.4 mg 06/04/25 15:00 06/08/25 10:34 Tamsulosin Hcl 0.4 Mg Capsule PO 0.4 mg DAILY [facility] Administration Trazodone HCl 100 mg 06/02/25 21:00 06/07/25 20:59 Trazodone Hcl 50 Mg Tablet BY MOUTH 100 mg HS [facility] Administration Vitamin B Complex 1 cap 06/03/25 09:00 06/08/25 10:36 Vitamin B Complex Capsule PO 1 cap DAILY [facility] Administration Vitamin D 10 mcg 06/03/25 09:00 06/08/25 10:35 Cholecalciferol (Vitamin D3) 10 Mcg (400 Units) Tablet PO 10 mcg DAILY [facility] Administration Radiology Results: ITS Impressions Fluoroscopy 06/02/25 12:54 IMPRESSION: 1. Fluoroscopy utilized during instrumented L2-L5 posterior spinal fusion. See procedure note for further detail. Chest X-Ray 06/05/25 10:54 Impression: No acute cardiopulmonary abnormality. Head CT 06/05/25 13:00 IMPRESSION: 1. Normal brain. Labs Labs: Laboratory Results - last 24 hr 06/08/25 04:31 WBC 8.5 RBC 4.05 L Hgb 11.9 L Hct 38.1 L MCV 94.1 MCH 29.4 MCHC 31.2 L RDW 13.5 Plt Count 287 MPV 9.6 Immature Gran % (Auto) 0.9 H Neut % (Auto) 69.7 Lymph % (Auto) 16.9 L [place] % (Auto) 9.3 H Eos % (Auto) 2.7 Baso % (Auto) 0.5 Lymph # (Auto) 1.43 [place] # (Auto) 0.8 H Eos # (Auto) 0.2 Baso # (Auto) 0.0 Abs Immat Gran (auto) 0.08 H Absolute Neuts (auto) 5.9 Absolute Nucleated RBC 0.000 Nucleated RBC % 0.0 Sodium 133 L Potassium 4.1 Chloride 101 Carbon Dioxide 27 Anion Gap 5 BUN 22 H Creatinine 1.33 H Estim Creat Clear Calc 69 Estimated GFR 53 L Glucose 110 Lactic Acid 0.8 Calcium 8.3 L Magnesium 2.0 Total Bilirubin 0.7 AST 29 ALT 13 Alkaline Phosphatase 90 Total Protein 6.0 L Albumin 3.1 L
--- NOTE | 2025-06-29 09:45 | PM.DS ---
DS: Admitting Diagnosis Discharge Date 06/08/25 Admitting Diagnosis Lumbar spondylolisthesis and spondylosis L2-5 DS: Discharge Diagnosis Discharge Diagnosis (1) Spondylolisthesis at L4-L5 level: Code(s): M43.16 - Spondylolisthesis, lumbar region Status: Acute (2) Foraminal stenosis of lumbar region: Code(s): M48.061 - Spinal stenosis, lumbar region without neurogenic claudication Status: Acute (3) Scoliosis: Code(s): M41.9 - Scoliosis, unspecified Status: Acute DS: Summary Hospital Course Hospital Course: the patient was taken to the operating room on 06/02/2025 where the aforementioned L2-3, L 3 4 and L4-5 posterior lumbar interbody fusion was performed without complication. The patient went to the floor postoperatively. There were issues with urination and his Martin catheter had to be replaced. His drain was removed on postoperative day 2. Physical and occupational therapy were involved in care and he began to ambulate. He had difficulty having a bowel movement but this was finally accomplished. At the time of his discharge he was eating, ambulating, emptying his bladder in his pain was under control with by mouth pain medicine. His wounds remained clean, dry and intact. He was afebrile with stable vital signs. He was therefore allowed to be discharged home to follow up with his urologist as well as with us as previously arranged. Time Spent with Patient Time attestation: Total time spent providing and/or coordinating discharge services: Discharge Plan Discharge Attending physician on discharge: Brock Snyder Consulting providers: Marielle Garcia; Ritu Young; Irwin Reddy; Rosio Ballesteros; Massimo Yañez; Hadley Cho; Milli Manuel; Juan Pablo Ellison; Jesus Brennan; Zachary Fragoso V. Discharging Clinician: Milli Manuel Anticipated Discharge Date/Time: 06/08/25 13:57 Patient Disposition: Home with Home Health Service Activity: may shower and no driving Diet: as tolerated Wound Care Instructions: follow printed instructions Patient Instructions: Antibiotic Form Patient Language: Uzbek Stand Alone Forms: General Discharge Information Follow-up/Referrals: Irwin Amato PA [Physician Greenhouse Manager, Urology] - 2 Weeks Referral Note: TOV, post-op retention Discharge Medications: New midodrine 10 mg Tablet 10 mg PO TID 7 Days Qty: 21 0RF levofloxacin 750 mg tablet 750 mg PO DAILY 3 Days Qty: 3 0RF sennosides-docusate sodium [Senokot-S] 8.6-50 mg Tablet 1 tab PO HS PRN (Reason: Constipation) 10 Days Qty: 10 0RF tamsulosin 0.4 mg Capsule 0.4 mg PO DAILY Qty: 10 0RF Continued clobetasol 0.05 % cream 1 applic topical BID PRN (Reason: Itching) Qty: 30 2RF Rx Instructions: FOOT terbinafine HCl 250 mg tablet 250 mg PO DAILY Qty: 14 0RF calcium carbonate [Calcium 600] 600 mg calcium (1,500 mg) tablet 600 mg PO DAILY cholecalciferol (vitamin D3) 10 mcg (400 unit) capsule 10 mcg PO DAILY mupirocin [Centany] 2 % ointment 1 applic topical TID Qty: 15 2RF multivitamin Tablet 1 tablet PO DAILY ferrous sulfate [Iron (ferrous sulfate)] 325 mg (65 mg iron) Tablet 650 mg PO DAILY vitamin B complex Capsule 1 cap PO DAILY magnesium citrate 125 mg Capsule 250 mg PO DAILY biotin 10,000 mcg capsule 10,000 mcg PO DAILY montelukast 10 mg tablet 10 mg PO DAILY Qty: 90 3RF allopurinol 300 mg tablet 300 mg PO DAILY Qty: 90 3RF sertraline 25 mg tablet See Rx Instructions .ROUTE .COMPLEX Qty: 90 3RF Dose Instruction: TAKE 1 TABLET EVERY MORNING Rx Instructions: TAKE 1 TABLET EVERY MORNING trazodone 50 mg tablet See Rx Instructions .ROUTE .COMPLEX Qty: 180 3RF Dose Instruction: TAKE 2 TABLETS AT BEDTIME Rx Instructions: TAKE 2 TABLETS AT BEDTIME testosterone cypionate 200 mg/mL oil 200 mg IM .Q 10 days Qty: 1 0RF Rx Instructions: as a single dose furosemide 20 mg tablet See Rx Instructions .ROUTE .COMPLEX Qty: 45 1RF Dose Instruction: TAKE 1 TABLET IN THE MORNING NEEDED FOR EDEMA Rx Instructions: TAKE 1 TABLET IN THE MORNING NEEDED FOR EDEMA gabapentin 400 mg capsule 400 mg PO TID Qty: 270 1RF pantoprazole 40 mg tablet,delayed release (DR/EC) 40 mg PO QAM Qty: 90 1RF Held hydrochlorothiazide 25 mg tablet 25 mg PO DAILY Qty: 90 3RF Hold Instructions: Resume on 06/22/25. Rx Instructions: IN AM amlodipine 10 mg tablet See Rx Instructions .ROUTE .COMPLEX Qty: 90 3RF Hold Instructions: Resume on 06/22/25. Dose Instruction: TAKE 1 TABLET EVERY MORNING Rx Instructions: TAKE 1 TABLET EVERY MORNING Discontinued gabapentin 100 mg capsule 100 mg PO DAILY potassium 99 mg Tablet 99 mg PO DAILY docusate sodium 100 mg Capsule 100 mg PO PRN sennosides [Laxative (sennosides)] 8.6 mg tablet 8.6 mg PO DAILY meloxicam 15 mg tablet 15 mg PO DAILY Qty: 90 1RF (DME) syringe with needle 3 mL 22 x 1 1/2 syringe See Rx Instructions .ROUTE .MEDSUPPLY Qty: 30 3RF Rx Instructions: As directed diphenoxylate-atropine [Lomotil] 2.5-0.025 mg tablet 1 tablet PO TID PRN (Reason: diarrhea) Qty: 30 0RF tramadol 50 mg tablet 50 mg PO Q6H PRN (Reason: pain) Qty: 40 1RF No Action cyclobenzaprine 10 mg tablet 10 mg PO TID PRN (Reason: Muscle Spasms) 10 Days Qty: 30 0RF oxycodone-acetaminophen 10-325 mg tablet 1 tablet PO Q8H PRN (Reason: Moderate Pain (4-6)) 7 Days Qty: 21 0RF Date of admission: 06/04/25 13:41 Primary Care Provider: Reji Valle Admitting Provider: Brock Snyder Attending physician on admission: Brock Snyder Condition: Stable
== END 2025-06-08 17:58 | disposition home health service (06) | DRG 448 ==
LOC: ANHSURGERY 15:50 → ANH2MED 15:50
PROVIDERS: Internal Medicine; Admitting Provider Neurological Surgery; PCP Internal Medicine; Visit Provider Neurological Surgery
PROC: 0SG10AJ Fusion of 2 or more Lumbar Vertebral Joints with Interbody Fusion Device, Posterior Approach, Anterior Column, Open Approach (ICD-10-PCS; CPT 22612; principal; 2025-06-02 07:30)
DX: M48.061 Spinal stenosis, lumbar region without neurogenic claudication (principal); M47.816 Spondylosis without myelopathy or radiculopathy, lumbar region; M43.16 Spondylolisthesis, lumbar region; M41.9 Scoliosis, unspecified; E78.00 Pure hypercholesterolemia, unspecified; I12.9 Hypertensive chronic kidney disease with stage 1 through stage 4 chronic kidney disease, or unspecified chronic kidney disease; N18.9 Chronic kidney disease, unspecified; K21.9 Gastro-esophageal reflux disease without esophagitis; I73.9 Peripheral vascular disease, unspecified; N99.89 Other postprocedural complications and disorders of genitourinary system; R33.8 Other retention of urine; I95.81 Postprocedural hypotension; Z96.651 Presence of right artificial knee joint; Z98.84 Bariatric surgery status
CPT/HCPCS: 36415; 36600; 70450; 71045; 80048; 80053; 82805; 83605; 83735; 85018; 85025; 85027; 85055; 87040; 87086; 93005; 97116; 97161; 97166; 97530; 97535; 97537; 99199; J0690; A9270; C1713; G0378; J1100; J1171; J1956; J2003; J2004; J2250; J2405; J2704; J3010; J3480; J7030; J7040; J7120

== ENCOUNTER 2025-07-20 11:44 | Outpatient (CLI) | payer MEDICARE, SELFPAY ==
--- NOTE | ~2025-07-20 | XR_ITS ---
XR lumbar spine 2-3V Indication: Z98.1 - Arthrodesis status; POST OP 7 WKS Comparison: None Findings: No fracture or subluxation. Bilateral pedicle screws and rods dictated L5, L4, L3 and L2 with disc prostheses at L2-3, L3-4 and L4-5, the disc prosthesis at L4-5 is posteriorly located. Minimal loss of the remaining disc heights. Soft tissues unremarkable Impression: Postsurgical changes detailed above Reviewed, dictated and finalized at location P. NG SQUAD WORKER Impression: Postsurgical changes detailed above
--- OUTSIDE RECORDS SUMMARY | 2025-07-20 13:16 | XMS_ITS | Clinical Summary ---
Author Organization [facility] Address [address] [place] [address] Care Team Providers Care Die Machine Operator Name Role Phone Abel Portillo Primary Care Provider [phone] Allergies Active Allergy Reactions Criticality Noted Date [...] - 1-dose 75+ series) 2031 Care Teams Die Machine Operator Relationship Specialty Start Date End Date Lindsey DO Abel [address] [facility] [address] [place] [id number] PCP - General Internal Medicine 01/19/21
--- OUTSIDE RECORDS SUMMARY | 2025-07-20 13:16 | XMS_ITS | Clinical Summary ---
Author Organization [facility] Address [address] [place] [id number] Care Team Providers Care Director Long Term Care Name Role Phone Unavailable Primary Care Provider [...] of 2) 2006 COVID-19 Vaccine ( - 2024-2 6 season) 2025 Influenza Adult (#1) 2025 RSV Immunization or 60+ Years (1 - 1-dose 75+ series) 2031 Hepatitis A Vaccines Aged Out No long er eligible based on patient's age to complete this topic Meningococcal B Vaccine Aged Out No l onger eligible based on patient's age to complete this topic Meningococcal Vaccine Aged Out No johan larry eligible based on patient's age to complete this topic RSV Immunizations Under 20 Months Aged Out No longer eligible based on patient's age to complete this topic
== END 2025-07-20 11:45 | disposition home or self-care (01) ==
PROVIDERS: PCP Internal Medicine; Visit Provider Neurological Surgery
DX: Z98.1 Arthrodesis status (principal)
CPT/HCPCS: 72100